=== PATIENT | male | born 1965 | race Caucasian/White ===

== ENCOUNTER 2021-01-20 14:09 | Emergency (ER) | payer MEDICARE, OTHER, SELFPAY ==
[2021-01-20 14:11] VITALS: BP 142/83; PULSE 57; RESP 18; TEMP 36.6; O2SAT 94; BMI 38.1
[2021-01-20 14:21] LABS: Glucose, Whole Blood 145 mg/dL (60-115)
--- NOTE | 2021-01-20 14:53 | ED.DIZZY ---
HPI - Dizziness General Chief Complaint: Dizziness Stated Complaint: FEELS OFF BALANCE W/NAUSEA Time Seen by Provider: 01/20/21 14:29 Source: patient and EMS Mode of arrival: EMS History of Present Illness HPI Narrative: 55-year-old male with past medical history of diabetes, hyperlipidemia, HTN, hydrocephalus, Meniere's disease, vertigo, recent otitis media on Ciprodex/Ciprofloxacin p.o. presenting to the ED complaining of positional room spinning dizziness since 11:45 a.m. with associated nausea and vomiting. Admits symptoms resolved/improved when lying flat. Denies taking medications [employer] other than Zofran given by EMS. Reports symptoms are similar to prior episodes of vertigo. Denies head injury/trauma, visual change/loss, headache, chest pain, shortness of breath, weakness, numbness, tingling. Admits took last dose of Cipro p.o. today MD elicited complaint: dizziness Related Data Previous Rx's Medication Instructions Recorded meclizine 25 mg PO TID PRN #14 tab 01/20/21 metoclopramide HCl [Reglan] 10 mg PO Q6H PRN #7 tab 01/20/21 Allergies Allergy/AdvReac Type Severity Reaction Status Date / Time latex Allergy Unknown Verified 01/20/21 14:23 meperidine [From Demerol] Allergy Unknown Verified 01/20/21 14:23 shellfish derived Allergy Unknown Verified 01/20/21 14:23 Review of Systems Review of Systems: Constitutional: No Fever, No Chills, No Fatigue, No Malaise ENT/Mouth: No Hearing loss, + Ear Pain, No Nasal Congestion, No Sinus Pain, No Swallowing Difficulty Eyes: No Eye Pain, No Swelling, No Vision Changes Cardiovascular: No Chest Pain, No SOB, No Edema Respiratory: No Cough, No Dyspnea Gastrointestinal: + Nausea, + Vomiting, No Diarrhea, No Abdominal pain Genitourinary: No Dysuria, No Hematuria, No Flank Pain Musculoskeletal: No joint pain, No Myalgias, No Joint Swelling Skin: No Skin Lesions, No rash Neuro: No Weakness, No Numbness, No Paresthesias, No Loss of Consciousness, + Dizziness, No Headache Yes all other systems are reviewed and are negative [facility] Past Medical History Attestation statement: The following information was validated with the patient. Medical History (Updated 06/03/21 @ 17:40 by ANGUS Lopez) Diabetes High cholesterol HTN (hypertension) Hydrocephalus Meniere disease Vertigo Social History Social History Alcohol intake: never Patient Tobacco Use Status: Never used Tobacco Use of substances other than those prescribed or required for medical reasons: No Advance Directives: Yes Advance Directives Information Provided: Yes Advance Directives on File: No Physical Exam Vital Signs: Vital Signs: Last Vital Signs Temp 97.8 F 01/20/21 14:11 Pulse 57 01/20/21 14:11 Resp 18 01/20/21 14:11 BP 142/83 H 01/20/21 14:11 Pulse Ox 94 01/20/21 14:11 Body Mass Index 38.1 Const: General: cooperative, healthy appearing and no acute distress Orientation/consciousness: patient oriented x3 Limitations: no limitations HENMT: Other: Evidence of cholesteatoma/cerumen impaction of right ear. No appreciable drainage Head: Yes normal to inspection and Yes atraumatic General nose exam: Normal external nose present Face and sinus: Yes normal facial exam Throat: Yes posterior oropharynx normal, Yes tonsils normal and Yes uvula midline Eyes: General: appearance normal, both eyes and all related structures Pupils: Equal, round and reactive pupils present EOM: EOMs intact bilaterally Neck: Neck: Yes normal visual inspection and Yes no meningeal signs Resp: Effort & Inspection: normal respiratory effort Auscultation: clear to auscultation bilaterally, no rales and no wheezes Cardio: Rate: regular rate Heart sounds: S1 normal heart sound present and S2 normal heart sound present GI: Inspection: Yes normal to inspection Palpation (GI): Soft to palpation, nontender, no guarding and not rigid Skin: Rashes: no rashes Wounds: no wounds Neuro: General: patient oriented x3, tone normal, moves all extremities, no meningeal signs, no focal motor deficits and CN's II-XI intact bilaterally Cranial nerves: Yes Equal, round and reactive pupils present and Yes Nystagmus present horizontal fast component to the right Gait exam (Neuro): Normal gait present Motor exam (neuro): 5/5 motor strength present throughout, Pronator motor function not present and no tremor noted Coordination: [id number] test normal Romberg Test: Negative Extrem: General: Yes normal to inspection Course Course Course Narrative: -right ear cleared with syringe irrigation and curette. Exam consistent with fungal infection. Patient with fungal ear drops at home, likely was not penetrating ear with blocked cerumen/cholesteatoma. Now that cleared instructed patient/ to continue using drops. They have follow-up on Sunday with ENT -1645--patient is ambulating in the ED with steady gait -1738--on re-evaluation patient reports symptomatic improvement, is resting comfortably. Lab results discussed with patient including worrisome signs and symptoms and strict return precautions. He has follow-up with ENT on Sunday. He verbalized understanding feel safe for discharge home Procedures Ear Wax Removal Right Ear: Cerumenolytic Used: 5-10% Sodium Bicarb solution Results: Re-examined: some cerumen remains Ear Canal Exam: atraumatic Patient Tolerated Procedure: well Complications: no problems Technique: ear canal irrigated and ear canal curetted Additional Comments: Right ear canal exam consistent with fungal infection. MDM - Dizziness MDM Narrative Medical decision making narrative: 55-year-old male with past medical history of diabetes, hyperlipidemia, HTN, hydrocephalus, Meniere's disease, vertigo, recent otitis media on Ciprodex/Ciprofloxacin p.o. presenting to the ED complaining of positional room spinning dizziness since 11:45 a.m. with associated nausea and vomiting. On exam VSS, NAD, nontoxic appearing, right-sided nystagmus noted with right-sided cholesteatoma/cerumen impaction. No focal neuro deficits. Concern for vertigo/BPPV vs cerumen impaction/infection causing symptoms. Lower concern for CVA/TIA or CVT. Unlikely ACS Plan: EKG, labs, symptomatic treatment/IVF, cerumen disimpaction with irrigation, re-evaluate Medical Records Attestation: I reviewed the patient's medical records. Lab Data Attestation: I reviewed the patient's lab results. Result diagrams: 01/20/21 15:35 01/20/21 15:35 Labs: Lab Results 01/20/21 01/20/21 01/20/21 Range/Units 14:17 15:35 15:35 WBC 10.5 (4.8-10.8) X10*3/uL RBC 5.33 (4.60-5.80) X10*6/uL Hgb 14.4 (14.0-18.0) g/dl Hct 44.2 (42-52) % MCV 82.9 (80-98) fL MCH 27.0 (27.0-33.0) pg MCHC 32.6 (31.0-36.0) g/dl RDW 12.9 (11.0-16.0) % Plt Count 328 (160-400) X10*3/uL MPV 9.1 L (9.4-12.4) fL Immature Gran % (Auto) 0.5 H (0.0-0.4) % Neut % (Auto) 84.1 H (45-73) % Lymph % (Auto) 10.8 L (20-40) % [place] % (Auto) 3.4 (2-11) % Eos % (Auto) 0.9 (0-4) % Baso % (Auto) 0.3 (0-2) % Lymph # (Auto) 1.1 L (1.2-4.9) X10*3/uL [place] # (Auto) 0.4 (0.1-1.2) X10*3/uL Eos # (Auto) 0.1 (0.0-0.4) X10*3/uL Baso # (Auto) 0.0 (0.0-0.2) X10*3/uL Abs Immat Gran (auto) 0.05 H (0.00-0.03) X10*3/uL Absolute Neuts (auto) 8.9 H (2.0-8.3) X10*3/uL Absolute Nucleated RBC 0.000 (0.0-0.012) X10*3/uL Nucleated RBC % (auto) 0.0 (0.0-0.2) /100WBC Sodium 139 (135-145) mmol/L Potassium 4.3 (3.3-5.1) mmol/L Chloride 100 (96-108) mmol/L Carbon Dioxide 30 H (22-29) mmol/L Anion Gap 13 (12-20) BUN 13 (9-16) mg/dL Creatinine 0.88 (0.5-1.4) mg/dL Estim Creat Clear Calc 142.2 Estimated GFR > 60 POC Glucose 145 H (60-115) mg/dL Random Glucose 141 H (60-115) mg/dL Calcium 9.2 (8.4-10.2) mg/dL Magnesium 1.9 (1.6-2.6) mg/dL ECG Data Attestation: I personally reviewed and interpreted this ECG as follows: ECG interpretation date: 01/20/21 ECG interpretation time: 16:30 Prior ECG tracings: not available for review Interpretation: EKG normal sinus rhythm with a rate of 72. QTC see 22. No STEMI, nonischemic. Discharge Plan Discharge Clinical Impression: Dizziness Patient Disposition: Home, Self-Care Instructions: Benign Paroxysmal Positional Vertigo (ED), Dizziness (ED) Additional Instructions: Your blood work was reassuring today in the emergency department Continue using previously prescribed ear drops at home Meclizine is for dizziness, take as needed Reglan as an antinausea medication take as needed new line make sure staying hydrated at home Makes you follow-up with the ENT specialist as scheduled on Sunday If her symptoms persist or worsen, become unbearable, your unable to eat or drink, ambulate, you developed headache, or weakness please return to the ED Prescriptions: New meclizine 25 mg tablet 25 mg PO TID PRN (Reason: dizziness) Qty: 14 RF: 0 metoclopramide HCl [Reglan] 10 mg tablet 10 mg PO Q6H PRN (Reason: nausea and vomiting) Qty: 7 RF: 0 Referrals: Donato Wilde [Physician] - 3 days
[2021-01-20] MEDS: 0.9 % Sodium Chloride 1,000 ML 999 ML IVCONT (15:16)
[2021-01-20] MEDS: diphenhydrAMINE HCL 50 MG/ML VIAL 12.5 MG IVPUSH (15:17)
[2021-01-20] MEDS: ondansetron HCL 4 MG/2 ML VIAL IVPUSH (15:17)
[2021-01-20] MEDS: Meclizine HCl 25 MG TABLET PO (15:17)
[2021-01-20 15:43] LABS: MANUAL DIFF FLAG NO
[2021-01-20 15:48] LABS: Basophils Percent Auto 0.3 % (0-2); Eosinophils Absolute Auto 0.1 X10*3/uL (0.0-0.4); Eosinophils Percent Auto 0.9 % (0-4); Hematocrit 44.2 % (42-52); Hemoglobin 14.4 g/dl (14.0-18.0); Imm Gran Abs Auto 0.05 X10*3/uL (0.00-0.03); Imm Gran Pct Auto 0.5 % (0.0-0.4); Lymphocytes Absolute Auto 1.1 X10*3/uL (1.2-4.9); Lymphocytes Percent Auto 10.8 % (20-40); Mean Corpuscular HGB Conc 32.6 g/dl (31.0-36.0); Mean Corpuscular Volume 82.9 fL (80-98); Mean Platelet Volume 9.1 fL (9.4-12.4); Monocytes Absolute Auto 0.4 X10*3/uL (0.1-1.2); Monocytes Percent Auto 3.4 % (2-11); Neutrophils Absolute Auto 8.9 X10*3/uL (2.0-8.3); Neutrophils Percent Auto 84.1 % (45-73); Platelet Count 328 X10*3/uL (160-400); Red Blood Count 5.33 X10*6/uL (4.60-5.80); Red Cell Distribution Width 12.9 % (11.0-16.0); White Blood Count 10.5 X10*3/uL (4.8-10.8)
--- NOTE | 2021-01-20 15:51 | ECG_ITS ---
Test Reason : DIZZYNESS Blood Pressure : / mmHG Vent. Rate : 072 BPM Atrial Rate : 072 BPM P-R Int : 150 ms QRS Dur : 104 ms QT Int : 450 ms P-R-T Axes : 061 -25 032 degrees QTc Int : 492 ms Normal sinus rhythm Prolonged QT Abnormal ECG No previous ECGs available Referred By: Temi Crowder Electronically Signed By:Declan Narvaez
[2021-01-20 17:29] LABS: Anion Gap 13 (12-20); Blood Urea Nitrogen 13 mg/dL (9-16); Calcium 9.2 mg/dL (8.4-10.2); Carbon Dioxide 30 mmol/L (22-29); Chloride 100 mmol/L (96-108); Creatinine Clr Calc Pharmacy 142.2; Estimated Glomerular Filt Rate > 60; Glucose Random 141 mg/dL (60-115); Magnesium 1.9 mg/dL (1.6-2.6); Potassium 4.3 mmol/L (3.3-5.1); Sodium 139 mmol/L (135-145)
== END 2021-01-20 18:12 | disposition home or self-care (01) ==
PROVIDERS: Physician Assistant; Emergency Provider Emergency Medicine; PCP Hospitalist
DX: R42 Dizziness and giddiness (principal); H61.21 Impacted cerumen, right ear; E11.9 Type 2 diabetes mellitus without complications; E78.5 Hyperlipidemia, unspecified; I10 Essential (primary) hypertension; H81.09 Meniere's disease, unspecified ear
CPT/HCPCS: 36415; 69210; 80048; 82947; 83735; 85025; 93005; 96361; 96374; 96375; 99284; J1200; J2405

== ENCOUNTER 2021-03-04 19:28 | Emergency (ER) | payer MEDICARE, OTHER, SELFPAY ==
--- NOTE | 2021-03-04 19:56 | ED_ITS ---
HPI - Ear Problem General Chief complaint: Ear Problems Stated complaint: ear infection Source: patient Mode of arrival: ambulatory Limitations: no limitations History of Present Illness HPI Narrative: 55-year-old male with past medical history of left-sided deafness, right-sided hard of hearing, presents with recurrent ear infections to the right side. Stated he was treated about a month ago for an ear infection however the pain has returned and has been present for about 2 weeks. He does not report any discharge or fevers, chills, chest pain or pressure, palpitations, shortness breath, or any other concerning symptoms. MD Complaint: ear pain Location: right ear Duration: constant Severity: moderate Relieving factors: nothing Exacerbating factors: chewing, position of head and palpation Discharge from ear: no Treatment prior to arrival: none Related Data Previous Rx's Medication Instructions Recorded meclizine 25 mg PO TID PRN #14 tab 01/20/21 metoclopramide HCl [Reglan] 10 mg PO Q6H PRN #7 tab 01/20/21 amoxicillin-pot clavulanate 1 tab PO Q12H 7 Days #14 tab 03/04/21 [Augmentin] Allergies Allergy/AdvReac Type Severity Reaction Status Date / Time latex Allergy Unknown Verified 03/04/21 20:12 meperidine [From Demerol] Allergy Unknown Verified 03/04/21 20:12 shellfish derived Allergy Unknown Verified 03/04/21 20:12 Review of Systems Review of Systems: Constitutional: No Fever, No Chills ENT/Mouth: Positive right Ear Pain, No Hoarseness, No sore throat Eyes: No Eye Pain, No Swelling, No Redness, No Foreign Body Cardiovascular: No Chest Pain, No SOB Respiratory: No Cough, No Dyspnea Gastrointestinal: No Nausea, No Vomiting, No Diarrhea, No abdominal Pain Genitourinary: No Dysuria, No Hematuria Musculoskeletal: No joint pain, No Myalgias, No Joint Swelling Skin: No Skin lacerations, No rash Neuro: No Weakness, No Numbness, No Paresthesias, No Loss of Consciousness, No Dizziness, No Headache Psych: No Anxiety/Panic, No Depression Heme/Lymph: no easy bruising, no Lymphadenopathy Endocrine: No Polyuria, No Polydipsia Yes all other systems are reviewed and are negative PMFSH Past Medical History Attestation statement: The following information was validated with the patient. Source: old records reviewed Medical History Diabetes High cholesterol HTN (hypertension) Hydrocephalus Meniere disease Vertigo Social History Social History Alcohol intake: never Patient Tobacco Use Status: Never used Tobacco Advance Directives: No Advance Directives Information Provided: No Physical Exam Vital Signs: Vital Signs: Last Vital Signs Temp 97.6 F 03/04/21 20:14 Pulse 83 03/04/21 20:14 Resp 18 03/04/21 20:14 BP 126/66 03/04/21 20:14 Pulse Ox 96 03/04/21 20:14 Body Mass Index 36.2 Appearance: Alert. Oriented X3. No acute distress. Afebrile. Eyes: Pupils equal, round and reactive to light. ENT: Pharynx normal. Left tympanic membrane intact, right has cerumen impaction, status post disimpaction of cerumen external auditory canal noted to be erythematous, tympanic membrane bulging with effusion. No mastoid tendern ess. Neck: Normal inspection. Neck supple. No nuchal rigidity. CVS: Normal heart rate and rhythm. Pulses normal. Respiratory: No respiratory distress. Breath sounds normal. Abdomen: Soft and nontender. Skin: Skin warm and dry. Normal skin color. Normal skin turgor. Extremities: No lower extremity edema. Neuro: No motor deficit. No sensory deficit. Course Course Course Narrative: 55-year-old male presents with right-sided ear pain. 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 Will treat with Augmentin. Patient verbalized understanding of and agrees to plan of care discharge home. MDM - Ear Differential Diagnosis Differential diagnosis: Likely otitis externa, otitis media, foreign body in ear and cerumen impaction Medical Records Attestation: I reviewed the patient's medical records. Discharge Plan Discharge Clinical Impression: Otitis media Qualifiers: Otitis media type: suppurative Chronicity: chronic Laterality: right Suppurative otitis media location: unspecified location Qualified Code(s): H66.3X1 - Other chronic suppurative otitis media, right ear Cerumen impaction Qualifiers: Laterality: right Qualified Code(s): H61.21 - Impacted cerumen, right ear Patient Disposition: Home, Self-Care Instructions: Ear Infection (ED) Additional Instructions: You were evaluated for right ear pain. We disimpacted large amounts of cerumen. It is noted that you have a bulging tympanic membrane consistent with otitis media. Please take Augmentin twice a day as directed for the next 10 days. Please follow-up with primary care physician and/or ENT as you do have recurrent ear infections. Thank you for choosing this emergency department for evaluation. Please follow-up with primary care physician as needed. Return to the emergency department for any new, concerning, or worsening symptoms. Prescriptions: New amoxicillin-pot clavulanate [Augmentin] 875-125 mg tablet 1 tab PO Q12H 7 Days Qty: 14 RF: 0 No Action meclizine 25 mg tablet 25 mg PO TID PRN (Reason: dizziness) Qty: 14 RF: 0 metoclopramide HCl [Reglan] 10 mg tablet 10 mg PO Q6H PRN (Reason: nausea and vomiting) Qty: 7 RF: 0
[2021-03-04 20:14] VITALS: BP 126/66; PULSE 83; RESP 18; TEMP 36.4; O2SAT 96; BMI 36.2
[2021-03-04] MEDS: Amoxicillin/Potassium Clav 875 MG TABLET PO (20:43)
== END 2021-03-04 20:51 | disposition home or self-care (01) ==
PROVIDERS: Emergency Provider Internal Medicine; PCP Nurse Practitioner Family
DX: H61.21 Impacted cerumen, right ear (principal); H66.3X1 Other chronic suppurative otitis media, right ear; I10 Essential (primary) hypertension; E11.9 Type 2 diabetes mellitus without complications
CPT/HCPCS: 69209; 99282; 99283

== ENCOUNTER 2021-06-02 10:16 | Outpatient (REF) | payer MEDICARE, OTHER, SELFPAY ==
[2021-06-02 11:50] LABS: Alanine Aminotransferase 20 U/L (0-40); Albumin Level 4.3 g/dL (3.5-5.0); Alkaline Phosphatase 113 U/L (39-117); Anion Gap 13 (12-20); Aspartate Amino Transferase 17 U/L (5-37); Bilirubin Total 0.5 mg/dL (0.0-1.0); Blood Urea Nitrogen 14 mg/dL (9-16); Calcium 8.8 mg/dL (8.4-10.2); Carbon Dioxide 27 mmol/L (22-29); Chloride 101 mmol/L (96-108); Cholesterol 176 mg/dL; Estimated Glomerular Filt Rate > 60; Glucose Fasting 132 mg/dL (60-99); HDL Cholesterol 34 mg/dL; LDL Cholesterol Calculated 101 mg/dl; Potassium 4.2 mmol/L (3.3-5.1); Sodium 137 mmol/L (135-145); Triglycerides 208 mg/dL
[2021-06-02 11:55] LABS: Estimated Average Glucose 160 mg/dL; Hemoglobin A1c % 7.2 %
[2021-06-02 12:11] LABS: Prostate Specific Antigen Scr 0.25 ng/mL (<0.05-4.0); TSH reflex Free T4 1.37 uIU/mL (0.32-4.0)
[2021-06-02 16:30] LABS: Appearance Urine CLEAR; Color Urine YELLOW; Glucose Urine UA NEG (NEG); Leukocyte Esterase Urine NEG (NEG); Nitrite Urine NEG (NEG); Specific Gravity - Urine 1.025 (1.005-1.025); Urine Blood NEG (NEG); Urine Ketones NEG (NEG); Urine Protein NEG (NEG-TRACE)
[2021-06-02 16:52] LABS: Creatinine Urine 121.78 mg/dL; Microalbum/Creatinine Ratio Ur 11.4 ug/mg cr
== END 2021-06-02 10:17 | disposition home or self-care (01) ==
LOC: HO.HMGCLDS 10:16
PROVIDERS: PCP Nurse Practitioner Family; Visit Provider Nurse Practitioner Family
DX: Z00.00 Encounter for general adult medical examination without abnormal findings (principal); Z12.5 Encounter for screening for malignant neoplasm of prostate; E11.9 Type 2 diabetes mellitus without complications
CPT/HCPCS: 36415; 80053; 80061; 81003; 82043; 83036; 84153; 84443

== ENCOUNTER 2021-11-18 12:57 | Outpatient (REF) | payer MEDICARE, MEDICAID, SELFPAY ==
--- NOTE | 2021-11-18 16:44 | MHC.AU.HAS ---
Hearing Aid Evaluation Date of Visit: 11/18/21 Historical Information: Description of Hearing: Moderate to severe sensorineural hearing loss from 250-8000 Hz bilaterally. Current personal amplification information, if applicable: CROS aid system, issued ~2013 @ [facility] Summary: Mr. Huggins was referred to our clinic to obtain hearing aids by ENT Dr. Ma. Dr. Ma provided medical clearance for binaural hearing aid use. He states that at his recent hearing test, hearing in the right ear decreased, and hearing in the left ear increased. He has also been diagnosed with Meniere's disease. Dr. Ma recommended binaural amplification instead of a CROS system that was previously used. Mr. Huggins notes that his previous CROS aids no longer work and his previous federal law clerk told him they were too old to repair. Discussed hearing aid options with Mr. Huggins and he is interested in rechargeable LUCI style hearing aids coupled with custom LUCI molds. Earmold impressions were taken without incident. Hearing Aid Prescription: Based on the individual?s shared listening needs, communication environments, dexterity, desire for connectivity, and personal preferences, the following prescription for amplification has been made: Right ear: Chemistry Tutor: Phonak Model: Audeo P70-R Battery Size: Rechargeable Color: P5 Payloader Machine Operator: Size 2 P Type of Mold: cShell Left ear: Left ear prescription to be same as Right Hearing Aid above: Chemistry Tutor: Phonak Model: Audeo P70-R Battery Size: Rechargeable Color: P5 Payloader Machine Operator: Size 2 P Type of Mold: cShell Plan of Care: Earmold Impressions Taken. Hearing Instrument Fitting to be scheduled when materials arrive. Comments: Hearing aids were ordered today. Primary Diagnosis: H90.3 Bilateral Sensorineural Hearing Loss= Signature: Provider: Canelo Aguilar, CCC-A
== END 2021-11-18 12:58 | disposition home or self-care (01) ==
LOC: HO.HAP 12:57
PROVIDERS: Visit Provider Nurse Practitioner Family
DX: Z46.1 Encounter for fitting and adjustment of hearing aid (principal); H90.3 Sensorineural hearing loss, bilateral
CPT/HCPCS: 92591; V5275

== ENCOUNTER 2021-12-15 10:30 | Outpatient (REF) | payer MEDICARE, MEDICAID, SELFPAY | END 2021-12-15 10:31 | disposition home or self-care (01) | LOC: HO.HAP 10:30 | PROVIDERS: Visit Provider Otolaryngology | DX: Z46.1 Encounter for fitting and adjustment of hearing aid (principal); H90.3 Sensorineural hearing loss, bilateral | CPT/HCPCS: V5011; V5020; V5160; V5261; V5264 ==

== ENCOUNTER 2021-12-29 09:59 | Outpatient (REF) | payer MEDICARE, MEDICAID, SELFPAY ==
--- NOTE | 2021-12-29 11:40 | MHC.AU.HFU ---
Hearing Instrument Follow-Up- Binaural Date of Visit: 12/29/21 Right Ear: Statistical Methods Professor: Phonak Model: Audeo P70-R Serial Number: [id number] Repair Warranty: 02/25/2025 Loss and Damage Warranty: 02/25/2025 Battery Size: Rechargeable Color: P5 Making Machine Operator: Size 2 P Type of Mold: cShell #[id number] warranty 03/28/2022 Type of Wax Guard: CeruStop Dispensed By: [facility] Date of Fittin12/15/2021 Left Ear: Statistical Methods Professor: Phonak Model: Audeo P70-R Serial Number: [id number] Repair Warranty: 02/25/2025 Loss and Damage Warranty: 02/25/2025 Battery Size: Rechargeable Color: P5 Making Machine Operator: Size 2 P Type of Mold: cShell #[id number] warranty 03/28/2022 Type of Wax Guard: CeruStop Dispensed By: [facility] Date of Fittin12/15/2021 Follow-Up Summary: Patient reports improved hearing with new aids and likes them. Television does not have to be as loud and not asking for speech to be repeated as much. The left aid stopped working 3 days ago even though the [employer] ana showed 88% battery life left. The ana also says the right aid battery uses more power overall. Discussed they reasons why the right aid may be using more power. Datalogging shows patient is connected to bluetooth approximately 40% of the time and 60% in [employer]. But I could not determine why the left aid would have stopped working. Patient reports he then charged both aids all night and has not experienced the problem again. Recommendations: Hearing instrument follow-up or maintenance as needed. Please contact our clinic with any questions or concerns. Recommendations (Other): Schedule appointment if battery problem continues and will send aid out for diagnostics. Diagnosis Code(s): Primary Diagnosis: H90.3 Bilateral Sensorineural Hearing Loss Signature:Provider: Karen Mills, [facility]
== END 2021-12-29 10:00 | disposition home or self-care (01) ==
LOC: HO.HAP 09:59
PROVIDERS: Visit Provider Nurse Practitioner Family
DX: Z13.89 Encounter for screening for other disorder (principal)

== ENCOUNTER 2022-02-17 09:32 | Outpatient (REF) | payer SELFPAY | END 2022-02-17 09:33 | disposition home or self-care (01) | LOC: HO.HAP 09:32 | PROVIDERS: Visit Provider Nurse Practitioner Family | DX: Z46.1 Encounter for fitting and adjustment of hearing aid (principal); H90.3 Sensorineural hearing loss, bilateral | CPT/HCPCS: V5267 ==

== ENCOUNTER 2022-05-05 13:00 | Outpatient (REF) | payer SELFPAY | END 2022-05-05 13:01 | disposition home or self-care (01) | LOC: HO.HAP 13:00 | PROVIDERS: Visit Provider Nurse Practitioner Family | DX: Z46.1 Encounter for fitting and adjustment of hearing aid (principal); H90.3 Sensorineural hearing loss, bilateral | CPT/HCPCS: V5267 ==

== ENCOUNTER 2022-05-20 09:19 | Emergency (ER) | payer MEDICARE, MEDICAID, SELFPAY ==
--- NOTE | ~2022-05-20 | XR_ITS ---
EXAMINATION: XR CHEST CLINICAL INFORMATION: Cough, dyspnea on exertion. COMPARISON: None TECHNIQUE: 2 views of the chest were obtained. FINDINGS: No significant abnormality is noted involving the heart, lungs, mediastinum, bony thorax or soft tissues. XR/XR chest 2V IMPRESSION: No acute cardiopulmonary process.
--- NOTE | ~2022-05-20 | CT_ITS ---
EXAMINATION: CT HEAD WITHOUT CONTRAST CLINICAL INFORMATION: follow up right sided ?subacute collection COMPARISON: 05/20/2022 TECHNIQUE: Contiguous axial imaging was performed from the skull base to vertex without intravenous administration of contrast. This CT examination was performed using dose optimization techniques as appropriate, variously including the following: *Automated exposure control *Adjustment of mA and/or kV according to patient size (this includes techniques or standardized protocols for targeted exams where dose is matched to indication/reason for exam; i.e. extremities or head) *Use of iterative reconstruction technique DLP: 1275 mGy-cm FINDINGS: As on the prior study, the 3 ventricular no peritoneal shunt catheter is again noted, terminating just to the right of septum pellucidum, the right lateral ventricle, and posteriorly in the expected region of the fourth ventricular obex. Lateral and third ventriculomegaly appears unchanged. Asymmetric enlargement of the right occipital horn and atrium is unchanged and likely related to underlying parenchymal volume loss. Fourth ventricle remains narrow. As seen on the prior study, there is a right hemispheric subdural collection measuring up to 5 mm in thickness, unchanged from prior. This again contains both intermediate and hypoattenuating components. The collection over the left convexity with peripheral calcification is unchanged and chronic in nature, measuring up to 1.3 cm in thickness. No new extra-axial collections or significant change in the presence of extra-axial collections. There is no evidence of acute intracranial hemorrhage or territorial infarction. No abnormal mass-effect or midline shift is seen. Kyle to white matter differentiation is well preserved. Moderate enlargement of the ventricles, sulci, and extra-axial CSF spaces is indicative of parenchymal volume loss. No significant periventricular hypoattenuation. The soft tissues and osseous structures are normal. The sinuses and mastoid air cells are clear. CT/CT head/brain wo IV con IMPRESSION: No acute intracranial pathology. Bilateral subdural collections are unchanged as compared to prior. The mixed attenuation right subdural collection remains 5 mm in thickness and could reflect subacute to chronic subdural blood products. The is thicker left subdural collection is unchanged. Unchanged positioning of the 3 ventriculoperitoneal shunt catheters with enlargement of the lateral and third ventricles.
--- NOTE | ~2022-05-20 | CT_ITS ---
EXAMINATION: CT head/brain wo IV con CLINICAL INFORMATION: Reason for Exam anisocoria, dizziness COMPARISON: None. TECHNIQUE: Contiguous axial imaging was performed from the skull base to vertex without intravenous contrast. Sagittal and coronal reformatted images were obtained. This CT examination was performed using dose optimization techniques as appropriate, variously including the following: * Automated exposure control * Adjustment of mA and/or kV according to patient size (this includes techniques or standardized protocols for targeted exams where dose is matched to indication/reason for exam; i.e. extremities or head) Use of iterative reconstruction technique DLP: 1198 mGy-cm FINDINGS: Three ventriculoperitoneal shunt catheters are in place including a right posterior parietal approach catheter which terminates in the midline to the right of the septum pellucidum, a right temporo-occipital catheter residing in the atrium of the right lateral ventricle, and posterior fossa catheter terminating just posterior to the expected region of the fourth ventricular obex. There is bilateral lateral and third ventriculomegaly with asymmetric enlargement of the right atrium and occipital horn. No periventricular hypoechoic attenuation to suggest transependymal flow of CSF or acute hydrocephalus. Mixed isodense and hypodense right hemispheric subdural collection measuring up to 5 mm in thickness. There is a hypodense subdural collection along the left cerebral convexity measuring up to 1.3 cm in maximal thickness with peripheral calcification, suggestive of a chronic collection. Minimal associated mass effect with these collections. There is no midline shift or downward herniation. There is no evidence of acute intracranial hemorrhage or territorial infarction. Kyle to white matter differentiation is well preserved. There is no abnormal attenuation within the brain parenchyma. 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 No acute osseous or soft tissue abnormality. The mastoid air cells and visualized portions of the paranasal sinuses are well aerated. CT/CT head/brain wo IV con IMPRESSION: 1. No acute intracranial hemorrhage or mass effect. 2. Three ventriculoperitoneal shunt catheters are in place with lateral and third ventriculomegaly with asymmetric enlargement of the right atrium and occipital horn. No evidence of acute hydrocephalus. 3. Thin bilateral cerebral convexity subdural collections, likely chronic on the left which is hypodense and peripherally calcified. Right-sided collection is mixed hypodense to isodense in attenuation which could reflect a component of subacute subdural blood products. 4. 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
--- NOTE | ~2022-05-20 | NM_ITS ---
EXAMINATION: PULMONARY PERFUSION STUDY CLINICAL INFORMATION: Shortness of breath and dyspnea on exertion. Elevated d-dimer. COMPARISON: Chest x-ray 05/20/2022. TECHNIQUE: Serial dual detector gamma scintillation camera images were obtained after intravenous injection of 4.0 mCi Tc-99m MAA and an 8-view perfusion study was performed. No ventilation images were acquired as per Perfusion-only modified PIOPED II protocol. FINDINGS: Perfusion images: No segmental perfusion defects are present. There is homogeneous/heterogeneous distribution of activity bilaterally. There are no segmental or anatomic appearing perfusion defects present. NM/NM pul perfusion IMPRESSION: Normal lung perfusion scan, with very low probability of pulmonary embolism as per modified Perfusion-only PIOPED II criteria. Note: Perfusion-only interpretation reduces both the specificity and the proportion of nondiagnostic readings compared to ventilation and perfusion using modified PIOPED II criteria Modified PIOPED II criteria: A large segmental defect covers >75% of a pulmonary segment. A moderate, subsegmental defect covers 25-75% of a pulmonary segment and is considered in the interpretative criteria equivalent to one-half of a large defect. A small, subsegmental defect covers <25% of a pulmonary segment. Pulmonary embolism present (high probability) * two or more large mismatched segmental perfusion defects or the arithmetic equivalent of moderate and/or large defects Nondiagnostic (low or intermediate probability) * all other findings not falling into the pulmonary embolism present or absent categories Pulmonary embolism absent (normal or very low probability) * no perfusion defects * nonsegmental perfusion defects (e.g. pleural effusion at the costophrenic angle, cardiomegaly, elevated hemidiaphragm, hilar enlargement, linear atelectasis), without other perfusion defects in either lung * perfusion defects smaller than corresponding chest radiographic opacity * one to three small subsegmental perfusion defects * two or more matched ventilation and perfusion defects with a regionally normal chest radiograph and some areas of normal perfusion elsewhere * solitary triple matched defect (matched ventilation and perfusion defect with corresponding chest radiographic opacity) in a single segment in the middle or upper lung zone * stripe sign (a stripe of perfusion peripheral to a defect, best seen on tangential view) * large pleural effusion (occupying one-third or more of the pleural cavity), without other perfusion defects in either lung
[2022-05-20 09:29] VITALS: BP 109/69; PULSE 101; RESP 18; TEMP 36.8; O2SAT 100; BMI 34.9
--- NOTE | 2022-05-20 10:12 | ECG_ITS ---
Test Reason : DIZZINESS Blood Pressure : / mmHG Vent. Rate : 086 BPM Atrial Rate : 086 BPM P-R Int : 152 ms QRS Dur : 106 ms QT Int : 394 ms P-R-T Axes : 057 -33 053 degrees QTc Int : 471 ms Normal sinus rhythm Left axis deviation Minimal voltage criteria for LVH, may be normal variant ( R in aVL ) Abnormal ECG When compared with ECG of 20-JAN-2021 16:30, No significant change was found Referred By: Nataly Villalba Electronically Signed By:XENIA DON
--- NOTE | 2022-05-20 10:22 | ED_ITS ---
HPI - General Adult General Chief complaint: General Medical <ANGUS Powell - Last Filed: 05/20/22 17:18> Stated complaint: ear pain cough <ANGUS Powell Last Filed: 05/20/22 17:18> Time Seen by Provider: 05/20/22 09:59 <ANGUS Powell Last Filed: 05/20/22 17:18> Source: patient <ANGUS Powell Last Filed: 05/20/22 17:18> Mode of arrival: ambulatory <ANGUS Powell Last Filed: 05/20/22 17:18> Limitations: no limitations <ANGUS Powell Last Filed: 05/20/22 17:18> History of Present Illness HPI narrative: 56 yo male with history of obesity, asthma, Meniere's disease, DM, HTN, HLD, hydrocephalus s/p [employer] REPRESENT[employer] shunt in the past who presents to the ER wtih productive cough, HYATT and left sided ear pain. He also reports lightheadedness that is different from his usual vertigo that has been going on since February. He states he recently had COVID-19 about a month ago. He has had a chronic cough since. He started bringing up brown phlegm recently. He reports acute on chronic dyspnea on exertion. He denies chest pain or SOB at rest. He states his cough is bothersome and does not improve with his asthma treatments. The last few days he has had left sided ear pain as well. Chronic hearing loss, no change, and no discharge. No nasal congestion and no sinus pressure. <ANGUS Powell - Last Filed: 05/20/22 17:18> MD complaint: cough, HYATT and ear pain <ANGUS Powell Last Filed: 05/20/22 17:18> Onset (ago): week(s) <ANGUS Powell Last Filed: 05/20/22 17:18> Location: head, face and chest <ANGUS Powell Last Filed: 05/20/22 17:18> Radiation: non-radiation <ANGUS Powell Last Filed: 05/20/22 17:18> Severity: moderate <ANGUS Powell Last Filed: 05/20/22 17:18> Pain Consistency: intermittent <ANGUS Powell Last Filed: 05/20/22 17:18> Relieving factors: rest <ANGUS Powell Last Filed: 05/20/22 17:18> Exacerbating factors: movement <ANGUS Powell Last Filed: 05/20/22 17:18> Associated symptoms: cough, shortness of breath and other (dizziness) <ANGUS Powell Last Filed: 05/20/22 17:18> Treatments prior to arrival: none <ANGUS Powell Last Filed: 05/20/22 17:18> Related Data Home medications: Home Medications Medication Instructions Recorded Confirmed aspirin 81 mg tablet,delayed 81 mg PO DAILY 05/23/21 12/01/21 release (Adult Aspirin Regimen) bupropion HCl 300 mg 24 hr tablet, 300 mg PO QAM 05/23/21 12/01/21 extended release ondansetron 4 mg disintegrating 4 mg PO Q6H PRN 05/23/21 12/01/21 tablet Previous Rx's Medication Instructions Recorded metoclopramide HCl 10 mg tablet 10 mg PO Q6H PRN nausea and 01/20/21 (Reglan) vomiting #7 tabs albuterol sulfate 90 mcg/actuation 2 puff inhalation Q6H PRN 05/23/21 aerosol inhaler shortness of breath or wheezing 30 days #8.5 grams blood sugar diagnostic (OneTouch #100 ea 10/17/21 Verio test strips) meclizine 25 mg tablet 25 mg PO TID PRN dizziness #14 tabs 03/29/22 nirmatrelvir 300 mg (150 mg See Rx Instructions PO .COMPLEX 5 04/18/22 x2)-ritonavir 100 mg tablet,dose days #30 ea pack(EUA) (Paxlovid) OneTouch Delica Lancets 33 gauge #100 ea 05/18/22 (lancets) finasteride 5 mg tablet 5 mg PO DAILY 90 days #90 tabs 05/18/22 lisinopril 20 1 tab PO DAILY 90 days #90 tabs 05/18/22 mg-hydrochlorothiazide 25 mg tablet metformin 750 mg tablet,extended 750 mg PO DAILY 90 days #90 tabs 05/18/22 release 24 hr rosuvastatin 20 mg tablet (Crestor) 20 mg PO DAILY 90 days #90 tabs 05/18/22 <ANGUS Powell - Last Filed: 05/20/22 17:18> Allergies/adverse reactions: Allergies Allergy/AdvReac Type Severity Reaction Status Date / Time Iodinated Contrast Media Allergy Unknown Verified 05/20/22 12:13 [IV Contrast Dye] latex Allergy Unknown Verified 12/01/21 14:35 meperidine [From Demerol] Allergy Unknown Verified 12/01/21 14:35 shellfish derived Allergy Unknown Verified 12/01/21 14:35 <ANGUS Powell - Last Filed: 05/20/22 17:18> Review of Systems Review of Systems: Constitutional: No Fever, No Chills ENT/Mouth: No sore throat, No Rhinorrhea, No Swallowing Difficulty, +Otalgia, +Hearing loss Eyes: No Eye Pain, No Swelling, No Redness, No vision changes Cardiovascular: No Chest Pain, No SOB, No Orthopnea, No Edema Respiratory: + Cough, +Sputum, No Wheezing, + dyspnea Gastrointestinal: No Nausea, No Vomiting, No Diarrhea, No abdominal Pain Genitourinary: No Dysuria, No Urinary Frequency, No Hematuria Musculoskeletal: No joint pain, No Myalgias Skin: No Skin Lesions, No rash Neuro: No Weakness, No Numbness, +Dizziness, No Headache Psych: + Anxiety/Panic, No Depression Heme/Lymph: No Bruising, No Lymphadenopathy Endocrine: No Polyuria, No Polydipsia <ANGUS Powell - Last Filed: 05/20/22 17:18> [facility] Past Medical History Medical History: Medical History Diabetes High cholesterol HTN (hypertension) Hydrocephalus Meniere disease Vertigo <ANGUS Powell - Last Filed: 05/20/22 17:18> Social History Social History: Social History Housing: Apartment Alcohol intake: never Patient Tobacco Use Status: Former Tobacco user Years Smoked: 31 years ago e-Cigarette/Vaping Use: Never Used Second Hand Smoke Exposure: No Advance Directives: No Advance Directives Information Provided: No service: No Current occupational status: retired and disabled Cognitive needs: No Hearing needs: No Vision needs: No <ANGUS Powell Last Filed: 05/20/22 17:18> Physical Exam ED Vital Signs: Vital Signs - 24 hr 05/20/22 09:29 05/20/22 13:52 05/20/22 13:56 Temperature 98.2 F Pulse Rate 101 H 82 95 Respiratory Rate 18 12 Blood Pressure 109/69 115/72 115/75 Pulse Oximetry 100 Oxygen Delivery Method Room Air 05/20/22 13:53 05/20/22 13:54 05/20/22 20:00 Temperature Pulse Rate 83 95 89 Respiratory Rate Blood Pressure 124/74 115/75 112/72 Pulse Oximetry 94 Oxygen Delivery Method Room Air BMI result Body Mass Index 34.9 <ANGUS Powell Last Filed: 05/20/22 17:18> Vital Signs - 24 hr 05/20/22 09:29 05/20/22 13:52 05/20/22 13:56 Temperature 98.2 F Pulse Rate 101 H 82 95 Respiratory Rate 18 12 Blood Pressure 109/69 115/72 115/75 Pulse Oximetry 100 Oxygen Delivery Method Room Air 05/20/22 13:53 05/20/22 13:54 05/20/22 20:00 Temperature Pulse Rate 83 95 89 Respiratory Rate Blood Pressure 124/74 115/75 112/72 Pulse Oximetry 94 Oxygen Delivery Method Room Air BMI result Body Mass Index 34.9 <ANGUS Carmona Last Filed: 05/20/22 21:19> Appearance: Alert. Oriented X3. No acute distress. Eyes: Pupils unequal, 4mm on the left and 3mm on the right, round and reactive to light. ENT: Pharynx normal. Normal TMs bilaterally Neck: Normal inspection. Neck supple. CVS: Normal heart rate and rhythm. Pulses normal. Respiratory: No respiratory distress. Breath sounds normal. Abdomen: Soft and nontender. +BS x4 Skin: Skin warm and dry. Normal skin color. Normal skin turgor. No rashes. Extremities: No lower extremity edema. Neuro: Oriented X 3. No motor deficit. No sensory deficit. Steady gait. Normal speech and cognition. Nonfocal. <ANGUS Powell Last Filed: 05/20/22 17:18> Course Course Course Narrative: 56 y/o male with history of hydrocephalus s/p ARB[employer]IST REPRESENTATIVE shunt, recent COVID, DM, obesity, asthma who is presenting to the ER with productive cough, acute on chronic dizziness and left sided ear pain. No ear infection on exam. VSS. Anisocoria noted on examination, otherwise nonfocal on exam. He is reporting brown phelgm but denies hemoptysis. Most likely chronic bronchitis. Given recent COVID dx and worsening HYATT will also need to r/o PE. He is oxygenating well but HR 101 on arrival. <ANGUS Powell - Last Filed: 05/20/22 17:18> Reevaluation(s) Reevaluation #1: DDIMER elevated. CTA ordered but he reports a history of IV contrast dye allergy, it was 20+ years ago but sounds like an anaphylactic reaction. Will get V/Q scan instead. CT head showing no acute ICH or mass effect. There are 3 ARBORIST REPRESENTATIVE shunt catheter is in place with ventriculomegaly, no evidence of acute hydrocephalus. There is also thin bilateral cerebral convexity subdural collections likely chronic on the left which is hypodense and a peripherally calcified. The right-sided collection is makes hypodense to isodense in attenuation which could reflect a component of subacute subdural products. The patient denies any recent head trauma. He is not on anticoagulation. He denies any headaches. Most likely a chronic finding. Patient has not seen a neurosurgeon in 3+ years because his . Case was discussed with Dr. Cheung - recommending repeat CT scan in 6 hours to ensure this is chronic. Patient agrees with plan. Will continue to monitor. Patient's neuro examination has remain unchanged, AAO X3, anisocoria present but otherwise nonfocal. <ANGUS Powell - Last Filed: 05/20/22 17:18> Reevaluation #2: VQ scan with very low probability of PE. CT scan pending for 6:30pm. Will sign out to night provider who will f/u CT scan results. If stable will plan to d/c with treatment for bronchitis. <ANGUS Powell - Last Filed: 05/20/22 17:18> Time: 21:18 <ANGUS Carmona - Last Filed: 05/20/22 21:19> Reevaluation #3: CT scan unchanged from previous. Results discussed with the patient. Patient again encouraged to follow up with neurosurgery at [facility]. <ANGUS Carmona - Last Filed: 05/20/22 21:19> Medical Decision Making Lab Data Result diagrams: : 05/20/22 10:57 05/20/22 10:57 <ANGUS Powell - Last Filed: 05/20/22 17:18> Labs: Lab Results 05/20/22 05/20/22 05/20/22 Range/Units 10:57 10:57 10:57 WBC 9.1 (4.8-10.8) X10*3/uL RBC 5.48 (4.60-5.80) X10*6/uL Hgb 14.4 (14.0-18.0) g/dl Hct 43.3 (42.0-52.0) % MCV 79.0 L (80.0-98.0) fL MCH 26.3 L (27.0-33.0) pg MCHC 33.3 (31.0-36.0) g/dl RDW 13.3 (11.0-16.0) % Plt Count 347 (160-400) X10*3/uL MPV 8.6 L (9.4-12.4) fL Immature Gran % (Auto) 0.4 (0.0-0.4) % Neut % (Auto) 69.9 (45-73) % Lymph % (Auto) 22.5 (20-40) % [place] % (Auto) 5.6 (2-11) % Eos % (Auto) 1.2 (0-4) % Baso % (Auto) 0.4 (0-2) % Lymph # (Auto) 2.1 (1.2-4.9) X10*3/uL [place] # (Auto) 0.5 (0.1-1.2) X10*3/uL Eos # (Auto) 0.1 (0.0-0.4) X10*3/uL Baso # (Auto) 0.0 (0.0-0.2) X10*3/uL Abs Immat Gran (auto) 0.04 H (0.00-0.03) X10*3/uL Absolute Neuts (auto) 6.4 (2.0-8.3) x10*3/uL Absolute Nucleated RBC 0.000 (0.0-0.012) X10*3/uL Nucleated RBC % (auto) 0.0 (0.0-0.2) /100WBC D-Dimer High Sensitivty NG/ML Sodium 132 L (135-145) mmol/L Potassium 4.2 (3.3-5.1) mmol/L Chloride 94 L (96-108) mmol/L Carbon Dioxide 25 (22-29) mmol/L Anion Gap 17 (12-20) BUN 15 (9-16) mg/dL Creatinine 1.07 (0.5-1.4) mg/dL Estim Creat Clear Calc 110.6 Estimated GFR > 60 POC Glucose (60-115) mg/dL Random Glucose 180 H (60-115) mg/dL Calcium 9.4 D (8.4-10.2) mg/dL Magnesium 1.8 (1.6-2.6) mg/dL Total Bilirubin 0.9 (0.0-1.0) mg/dL Direct Bilirubin 0.3 (0.0-0.5) mg/dL AST 19 (5-37) U/L ALT 23 (0-40) U/L Alkaline Phosphatase 136 H D (39-117) U/L Troponin I High Sens < 3.5 (<3.5-35.0) ng/L B-Natriuretic Peptide < 10 (<100) pg/mL Total Protein 7.2 (6.5-8.0) g/dL Albumin 4.4 (3.5-5.0) g/dL Influenza Type A (FIDE) Influenza Type B (FIDE) Influenza A & B Note 05/20/22 05/20/22 05/20/22 Range/Units 10:57 11:31 11:38 WBC (4.8-10.8) X10*3/uL RBC (4.60-5.80) X10*6/uL Hgb (14.0-18.0) g/dl Hct (42.0-52.0) % MCV (80.0-98.0) fL MCH (27.0-33.0) pg MCHC (31.0-36.0) g/dl RDW (11.0-16.0) % Plt Count (160-400) X10*3/uL MPV (9.4-12.4) fL Immature Gran % (Auto) (0.0-0.4) % Neut % (Auto) (45-73) % Lymph % (Auto) (20-40) % [place] % (Auto) (2-11) % Eos % (Auto) (0-4) % Baso % (Auto) (0-2) % Lymph # (Auto) (1.2-4.9) X10*3/uL [place] # (Auto) (0.1-1.2) X10*3/uL Eos # (Auto) (0.0-0.4) X10*3/uL Baso # (Auto) (0.0-0.2) X10*3/uL Abs Immat Gran (auto) (0.00-0.03) X10*3/uL Absolute Neuts (auto) (2.0-8.3) x10*3/uL Absolute Nucleated RBC (0.0-0.012) X10*3/uL Nucleated RBC % (auto) (0.0-0.2) /100WBC D-Dimer High Sensitivty 386 NG/ML Sodium (135-145) mmol/L Potassium (3.3-5.1) mmol/L Chloride (96-108) mmol/L Carbon Dioxide (22-29) mmol/L Anion Gap (12-20) BUN (9-16) mg/dL Creatinine (0.5-1.4) mg/dL Estim Creat Clear Calc Estimated GFR POC Glucose (60-115) mg/dL Random Glucose (60-115) mg/dL Calcium (8.4-10.2) mg/dL Magnesium (1.6-2.6) mg/dL Total Bilirubin (0.0-1.0) mg/dL Direct Bilirubin (0.0-0.5) mg/dL AST (5-37) U/L ALT (0-40) U/L Alkaline Phosphatase (39-117) U/L Troponin I High Sens (<3.5-35.0) ng/L B-Natriuretic Peptide (<100) pg/mL Total Protein (6.5-8.0) g/dL Albumin (3.5-5.0) g/dL Influenza Type A (FIDE) Cancelled Negative Influenza Type B (FIDE) Cancelled Negative Influenza A & B Note Cancelled See Note 05/20/22 Range/Units 13:44 WBC (4.8-10.8) X10*3/uL RBC (4.60-5.80) X10*6/uL Hgb (14.0-18.0) g/dl Hct (42.0-52.0) % MCV (80.0-98.0) fL MCH (27.0-33.0) pg MCHC (31.0-36.0) g/dl RDW (11.0-16.0) % Plt Count (160-400) X10*3/uL MPV (9.4-12.4) fL Immature Gran % (Auto) (0.0-0.4) % Neut % (Auto) (45-73) % Lymph % (Auto) (20-40) % [place] % (Auto) (2-11) % Eos % (Auto) (0-4) % Baso % (Auto) (0-2) % Lymph # (Auto) (1.2-4.9) X10*3/uL [place] # (Auto) (0.1-1.2) X10*3/uL Eos # (Auto) (0.0-0.4) X10*3/uL Baso # (Auto) (0.0-0.2) X10*3/uL Abs Immat Gran (auto) (0.00-0.03) X10*3/uL Absolute Neuts (auto) (2.0-8.3) x10*3/uL Absolute Nucleated RBC (0.0-0.012) X10*3/uL Nucleated RBC % (auto) (0.0-0.2) /100WBC D-Dimer High Sensitivty NG/ML Sodium (135-145) mmol/L Potassium (3.3-5.1) mmol/L Chloride (96-108) mmol/L Carbon Dioxide (22-29) mmol/L Anion Gap (12-20) BUN (9-16) mg/dL Creatinine (0.5-1.4) mg/dL Estim Creat Clear Calc Estimated GFR POC Glucose 129 H (60-115) mg/dL Random Glucose (60-115) mg/dL Calcium (8.4-10.2) mg/dL Magnesium (1.6-2.6) mg/dL Total Bilirubin (0.0-1.0) mg/dL Direct Bilirubin (0.0-0.5) mg/dL AST (5-37) U/L ALT (0-40) U/L Alkaline Phosphatase (39-117) U/L Troponin I High Sens (<3.5-35.0) ng/L B-Natriuretic Peptide (<100) pg/mL Total Protein (6.5-8.0) g/dL Albumin (3.5-5.0) g/dL Influenza Type A (FIDE) Influenza Type B (FIDE) Influenza A & B Note <ANGUS Powell - Last Filed: 05/20/22 17:18> Lab Results 05/20/22 05/20/22 05/20/22 Range/Units 10:57 10:57 10:57 WBC 9.1 (4.8-10.8) X10*3/uL RBC 5.48 (4.60-5.80) X10*6/uL Hgb 14.4 (14.0-18.0) g/dl Hct 43.3 (42.0-52.0) % MCV 79.0 L (80.0-98.0) fL MCH 26.3 L (27.0-33.0) pg MCHC 33.3 (31.0-36.0) g/dl RDW 13.3 (11.0-16.0) % Plt Count 347 (160-400) X10*3/uL MPV 8.6 L (9.4-12.4) fL Immature Gran % (Auto) 0.4 (0.0-0.4) % Neut % (Auto) 69.9 (45-73) % Lymph % (Auto) 22.5 (20-40) % [place] % (Auto) 5.6 (2-11) % Eos % (Auto) 1.2 (0-4) % Baso % (Auto) 0.4 (0-2) % Lymph # (Auto) 2.1 (1.2-4.9) X10*3/uL [place] # (Auto) 0.5 (0.1-1.2) X10*3/uL Eos # (Auto) 0.1 (0.0-0.4) X10*3/uL Baso # (Auto) 0.0 (0.0-0.2) X10*3/uL Abs Immat Gran (auto) 0.04 H (0.00-0.03) X10*3/uL Absolute Neuts (auto) 6.4 (2.0-8.3) x10*3/uL Absolute Nucleated RBC 0.000 (0.0-0.012) X10*3/uL Nucleated RBC % (auto) 0.0 (0.0-0.2) /100WBC D-Dimer High Sensitivty NG/ML Sodium 132 L (135-145) mmol/L Potassium 4.2 (3.3-5.1) mmol/L Chloride 94 L (96-108) mmol/L Carbon Dioxide 25 (22-29) mmol/L Anion Gap 17 (12-20) BUN 15 (9-16) mg/dL Creatinine 1.07 (0.5-1.4) mg/dL Estim Creat Clear Calc 110.6 Estimated GFR > 60 POC Glucose (60-115) mg/dL Random Glucose 180 H (60-115) mg/dL Calcium 9.4 D (8.4-10.2) mg/dL Magnesium 1.8 (1.6-2.6) mg/dL Total Bilirubin 0.9 (0.0-1.0) mg/dL Direct Bilirubin 0.3 (0.0-0.5) mg/dL AST 19 (5-37) U/L ALT 23 (0-40) U/L Alkaline Phosphatase 136 H D (39-117) U/L Troponin I High Sens < 3.5 (<3.5-35.0) ng/L B-Natriuretic Peptide < 10 (<100) pg/mL Total Protein 7.2 (6.5-8.0) g/dL Albumin 4.4 (3.5-5.0) g/dL Influenza Type A (FIDE) Influenza Type B (FIDE) Influenza A & B Note 05/20/22 05/20/22 05/20/22 Range/Units 10:57 11:31 11:38 WBC (4.8-10.8) X10*3/uL RBC (4.60-5.80) X10*6/uL Hgb (14.0-18.0) g/dl Hct (42.0-52.0) % MCV (80.0-98.0) fL MCH (27.0-33.0) pg MCHC (31.0-36.0) g/dl RDW (11.0-16.0) % Plt Count (160-400) X10*3/uL MPV (9.4-12.4) fL Immature Gran % (Auto) (0.0-0.4) % Neut % (Auto) (45-73) % Lymph % (Auto) (20-40) % [place] % (Auto) (2-11) % Eos % (Auto) (0-4) % Baso % (Auto) (0-2) % Lymph # (Auto) (1.2-4.9) X10*3/uL [place] # (Auto) (0.1-1.2) X10*3/uL Eos # (Auto) (0.0-0.4) X10*3/uL Baso # (Auto) (0.0-0.2) X10*3/uL Abs Immat Gran (auto) (0.00-0.03) X10*3/uL Absolute Neuts (auto) (2.0-8.3) x10*3/uL Absolute Nucleated RBC (0.0-0.012) X10*3/uL Nucleated RBC % (auto) (0.0-0.2) /100WBC D-Dimer High Sensitivty 386 NG/ML Sodium (135-145) mmol/L Potassium (3.3-5.1) mmol/L Chloride (96-108) mmol/L Carbon Dioxide (22-29) mmol/L Anion Gap (12-20) BUN (9-16) mg/dL Creatinine (0.5-1.4) mg/dL Estim Creat Clear Calc Estimated GFR POC Glucose (60-115) mg/dL Random Glucose (60-115) mg/dL Calcium (8.4-10.2) mg/dL Magnesium (1.6-2.6) mg/dL Total Bilirubin (0.0-1.0) mg/dL Direct Bilirubin (0.0-0.5) mg/dL AST (5-37) U/L ALT (0-40) U/L Alkaline Phosphatase (39-117) U/L Troponin I High Sens (<3.5-35.0) ng/L B-Natriuretic Peptide (<100) pg/mL Total Protein (6.5-8.0) g/dL Albumin (3.5-5.0) g/dL Influenza Type A (FIDE) Cancelled Negative Influenza Type B (FIDE) Cancelled Negative Influenza A & B Note Cancelled See Note 05/20/22 Range/Units 13:44 WBC (4.8-10.8) X10*3/uL RBC (4.60-5.80) X10*6/uL Hgb (14.0-18.0) g/dl Hct (42.0-52.0) % MCV (80.0-98.0) fL MCH (27.0-33.0) pg MCHC (31.0-36.0) g/dl RDW (11.0-16.0) % Plt Count (160-400) X10*3/uL MPV (9.4-12.4) fL Immature Gran % (Auto) (0.0-0.4) % Neut % (Auto) (45-73) % Lymph % (Auto) (20-40) % [place] % (Auto) (2-11) % Eos % (Auto) (0-4) % Baso % (Auto) (0-2) % Lymph # (Auto) (1.2-4.9) X10*3/uL [place] # (Auto) (0.1-1.2) X10*3/uL Eos # (Auto) (0.0-0.4) X10*3/uL Baso # (Auto) (0.0-0.2) X10*3/uL Abs Immat Gran (auto) (0.00-0.03) X10*3/uL Absolute Neuts (auto) (2.0-8.3) x10*3/uL Absolute Nucleated RBC (0.0-0.012) X10*3/uL Nucleated RBC % (auto) (0.0-0.2) /100WBC D-Dimer High Sensitivty NG/ML Sodium (135-145) mmol/L Potassium (3.3-5.1) mmol/L Chloride (96-108) mmol/L Carbon Dioxide (22-29) mmol/L Anion Gap (12-20) BUN (9-16) mg/dL Creatinine (0.5-1.4) mg/dL Estim Creat Clear Calc Estimated GFR POC Glucose 129 H (60-115) mg/dL Random Glucose (60-115) mg/dL Calcium (8.4-10.2) mg/dL Magnesium (1.6-2.6) mg/dL Total Bilirubin (0.0-1.0) mg/dL Direct Bilirubin (0.0-0.5) mg/dL AST (5-37) U/L ALT (0-40) U/L Alkaline Phosphatase (39-117) U/L Troponin I High Sens (<3.5-35.0) ng/L B-Natriuretic Peptide (<100) pg/mL Total Protein (6.5-8.0) g/dL Albumin (3.5-5.0) g/dL Influenza Type A (FIDE) Influenza Type B (FIDE) Influenza A & B Note <ANGUS Carmona - Last Filed: 05/20/22 21:19> ECG Data Attestation: I personally reviewed and interpreted this ECG as follows: <ANGUS Powell - Last Filed: 05/20/22 17:18> Prior ECG tracings: available for review <ANGUS Powell Last Filed: 05/20/22 17:18> Interpretation: normal sinus rhythm, HR 86 bpm, left axis deviation, no ST segment elevations or depressions, no significant change from 2020 <ANGUS Powell Last Filed: 05/20/22 17:18> Discharge Plan Discharge Clinical Impression: Chronic bronchitis, Dizziness <ANGUS Powell Last Filed: 05/20/22 17:18> Patient Disposition: Home, Self-Care <ANGUS Powell Last Filed: 05/20/22 17:18> Instructions: Chronic Bronchitis (ED), Dizziness (ED) <ANGUS Powell - Last Filed: 05/20/22 17:18> Additional Instructions: Your chest x-ray today was normal and your nuclear medicine scan did not show any evidence of blood clots in your lungs. Recommend taking the prescribed medications for bronchitis. Follow up with your doctor next week. Also recommend following back up with [facility] for evaluation of your ARBORIST REPRESENTATIVE shunts and chronic CT scan findings that should be monitored. <ANGUS Powell - Last Filed: 05/20/22 17:18> Prescriptions: No Action (DME) OneTouch Verio test strips Strip See Rx Instructions .Route Qty: 100 3RF Rx Instructions: test BS daily meclizine 25 mg tablet 25 mg PO TID PRN (Reason: dizziness) Qty: 14 0RF Paxlovid (EUA) 300 mg (150 mg x 2)-100 mg tablets,dose pack See Rx Instructions PO .COMPLEX 5 Days Qty: 30 0RF Rx Instructions: take TWO 150 mg tablets of nirmatrelvir with ONE 100 mg tablet of ritonavir twice daily for 5 days PO rosuvastatin [Crestor] 20 mg tablet 20 mg PO DAILY 90 Days Qty: 90 0RF lisinopril-hydrochlorothiazide 20-25 mg tablet 1 tab PO DAILY 90 Days Qty: 90 0RF finasteride 5 mg tablet 5 mg PO DAILY 90 Days Qty: 90 0RF (DME) lancets [OneTouch Delica Lancets] 33 gauge misc See Rx Instructions .Route Qty: 100 0RF Rx Instructions: As directed metformin 750 mg tablet extended release 24 hr 750 mg PO DAILY 90 Days Qty: 90 0RF metoclopramide HCl [Reglan] 10 mg tablet 10 mg PO Q6H PRN (Reason: nausea and vomiting) Qty: 7 0RF bupropion HCl 300 mg tablet extended release 24 hr 300 mg PO QAM aspirin [Adult Aspirin Regimen] 81 mg tablet,delayed release (DR/EC) 81 mg PO DAILY ondansetron 4 mg tablet,disintegrating 4 mg PO Q6H PRN albuterol sulfate 90 mcg/actuation HFA aerosol inhaler 2 puff inhalation Q6H PRN (Reason: shortness of breath or wheezing) 30 Days Qty: 8.5 5RF <ANGUS Powell - Last Filed: 05/20/22 17:18> Referrals: Blank Fan PA [Physician Seismograph Observer] - (Hydrocephalus status post ARB[employer]IST REPRESENTATIVE shunt x3, chronic dizziness) <ANGUS Powell - Last Filed: 05/20/22 17:18> Interventions: ED Discharge Assessment Last Done: 05/20/22 21:40 <ANGUS Powell - Last Filed: 05/20/22 17:18> Discharge Date/Time: 05/20/22 21:35 <ANGUS Powell - Last Filed: 05/20/22 17:18> Print Language: Maltese <ANGUS Powell - Last Filed: 05/20/22 17:18>
[2022-05-20 11:02] LABS: MANUAL DIFF FLAG NO
[2022-05-20 11:03] LABS: Basophils Percent Auto 0.4 % (0-2); Eosinophils Absolute Auto 0.1 X10*3/uL (0.0-0.4); Eosinophils Percent Auto 1.2 % (0-4); Hematocrit 43.3 % (42.0-52.0); Hemoglobin 14.4 g/dl (14.0-18.0); Imm Gran Abs Auto 0.04 X10*3/uL (0.00-0.03); Imm Gran Pct Auto 0.4 % (0.0-0.4); Lymphocytes Absolute Auto 2.1 X10*3/uL (1.2-4.9); Lymphocytes Percent Auto 22.5 % (20-40); Mean Corpuscular HGB Conc 33.3 g/dl (31.0-36.0); Mean Corpuscular Hemoglobin 26.3 pg (27.0-33.0); Mean Platelet Volume 8.6 fL (9.4-12.4); Monocytes Absolute Auto 0.5 X10*3/uL (0.1-1.2); Monocytes Percent Auto 5.6 % (2-11); Neutrophils Absolute Auto 6.4 x10*3/uL (2.0-8.3); Neutrophils Percent Auto 69.9 % (45-73); Platelet Count 347 X10*3/uL (160-400); Red Blood Count 5.48 X10*6/uL (4.60-5.80); Red Cell Distribution Width 13.3 % (11.0-16.0); White Blood Count 9.1 X10*3/uL (4.8-10.8)
[2022-05-20 11:33] LABS: Alanine Aminotransferase 23 U/L (0-40); Albumin Level 4.4 g/dL (3.5-5.0); Alkaline Phosphatase 136 U/L (39-117); Anion Gap 17 (12-20); Aspartate Amino Transferase 19 U/L (5-37); Bilirubin Direct 0.3 mg/dL (0.0-0.5); Bilirubin Total 0.9 mg/dL (0.0-1.0); Blood Urea Nitrogen 15 mg/dL (9-16); Calcium 9.4 mg/dL (8.4-10.2); Carbon Dioxide 25 mmol/L (22-29); Chloride 94 mmol/L (96-108); Creatinine Clr Calc Pharmacy 110.6; Estimated Glomerular Filt Rate > 60; Glucose Random 180 mg/dL (60-115); Magnesium 1.8 mg/dL (1.6-2.6); Potassium 4.2 mmol/L (3.3-5.1); Sodium 132 mmol/L (135-145); Total Protein 7.2 g/dL (6.5-8.0)
[2022-05-20 11:37] LABS: B Type Natriuretic Peptide < 10 pg/mL (<100); Troponin-I High Sensitivity < 3.5 ng/L (<3.5-35.0)
[2022-05-20 11:54] LABS: D Dimer High Sensitivity 386 NG/ML
[2022-05-20 12:02] LABS: IDNOW Serial# 9DB6401D; Influenza A Negative (Negative); Influenza B2 Negative (Negative)
[2022-05-20 13:49] LABS: Glucose, Whole Blood 129 mg/dL (60-115)
[2022-05-20 13:52] VITALS: BP 115/72; PULSE 82
[2022-05-20 13:53] VITALS: BP 124/74; PULSE 83
[2022-05-20 13:54] VITALS: BP 115/75; PULSE 95
[2022-05-20 13:56] VITALS: BP 115/75; PULSE 95; RESP 12
--- NOTE | 2022-05-20 14:17 | PC.NURSE ---
pt to nuc med.
--- NOTE | 2022-05-20 15:44 | PC.NURSE ---
Requested medical records from [facility] per Nataly GOMES
[2022-05-20] MEDS: Meclizine HCl 25 MG TABLET 50 MG PO (16:35)
[2022-05-20 20:00] VITALS: BP 112/72; PULSE 89; O2SAT 94
== END 2022-05-20 21:35 | disposition home or self-care (01) ==
PROVIDERS: Physician Assistant; Emergency Provider Emergency Medicine; PCP Nurse Practitioner Family
DX: J42 Unspecified chronic bronchitis (principal); R42 Dizziness and giddiness; H92.02 Otalgia, left ear; E11.9 Type 2 diabetes mellitus without complications; I10 Essential (primary) hypertension; E78.5 Hyperlipidemia, unspecified
CPT/HCPCS: 36415; 70450; 71046; 78580; 80048; 80076; 82947; 83735; 83880; 84484; 85025; 85379; 87502; 93005; 99284; 99285; A9540

== ENCOUNTER 2022-05-26 09:40 | Outpatient (REF) | payer MEDICARE, MEDICAID, SELFPAY ==
[2022-05-26 11:37] LABS: Estimated Average Glucose 154 mg/dL
[2022-05-26 11:46] LABS: Appearance Urine Clear; Color Urine Yellow; Glucose Urine UA Negative (Negative); Leukocyte Esterase Urine Negative (Negative); Nitrite Urine Negative (Negative); Urine Blood Negative (Negative); Urine Ketones Negative (Negative); Urine Protein Negative (Neg-Trace)
[2022-05-26 11:55] LABS: Alanine Aminotransferase 19 U/L (0-40); Albumin Level 4.3 g/dL (3.5-5.0); Alkaline Phosphatase 119 U/L (39-117); Anion Gap 15 (12-20); Aspartate Amino Transferase 17 U/L (5-37); Bilirubin Total 0.3 mg/dL (0.0-1.0); Blood Urea Nitrogen 11 mg/dL (9-16); Calcium 9.4 mg/dL (8.4-10.2); Carbon Dioxide 29 mmol/L (22-29); Chloride 98 mmol/L (96-108); Cholesterol 149 mg/dL; Estimated Glomerular Filt Rate > 60; Glucose Fasting 126 mg/dL (60-99); HDL Cholesterol 42 mg/dL; LDL Cholesterol Calculated 79 mg/dl; Potassium 4.8 mmol/L (3.3-5.1); Sodium 137 mmol/L (135-145); Total Protein 6.9 g/dL (6.5-8.0); Triglycerides 144 mg/dL
== END 2022-05-26 09:41 | disposition home or self-care (01) ==
LOC: HO.HMGCLDS 09:40
PROVIDERS: PCP Nurse Practitioner Family; Visit Provider Nurse Practitioner Family
DX: E11.9 Type 2 diabetes mellitus without complications (principal)
CPT/HCPCS: 36415; 80053; 80061; 81003; 83036; 84443

== ENCOUNTER 2022-06-01 11:58 | Outpatient (REF) | payer MEDICARE, MEDICAID, SELFPAY ==
--- NOTE | ~2022-06-01 | XR_ITS ---
EXAMINATION: XR CHEST CLINICAL INFORMATION: Cough COMPARISON: Previous chest x-ray most recent 05/20/2022 TECHNIQUE: 2 views of the chest were obtained. FINDINGS: The cardiac and mediastinal contours are stable. The lungs are clear. There is no pleural effusion or pneumothorax. Degenerative changes of the spine. There is a catheter projecting over the right chest probably representing a [employer] shunt catheter. XR/XR chest 2V IMPRESSION: No evidence for acute disease in the chest.
== END 2022-06-01 11:59 | disposition home or self-care (01) ==
LOC: HO.HMGCX 11:58
PROVIDERS: PCP Nurse Practitioner Family
DX: R05.9 Cough, unspecified (principal)
CPT/HCPCS: 71046

== ENCOUNTER 2022-06-20 20:30 | Emergency (ER) | payer MEDICARE, MEDICAID, SELFPAY ==
--- NOTE | 2022-06-20 | ECG_ITS ---
Test Reason : Dizzines Blood Pressure : / mmHG Vent. Rate : 087 BPM Atrial Rate : 087 BPM P-R Int : 154 ms QRS Dur : 106 ms QT Int : 384 ms P-R-T Axes : 060 -29 093 degrees QTc Int : 462 ms Normal sinus rhythm Minimal voltage criteria for LVH, may be normal variant ( R in aVL ) RSR' or QR pattern in V1 suggests right ventricular conduction delay Abnormal ECG When compared with ECG of 20-MAY-2022 10:40, No significant change was found Referred By: Generic ED Physician Electronically Signed By:CYNDI MARKHAM MD
--- NOTE | ~2022-06-20 | CT_ITS ---
EXAMINATION: CT head/brain wo IV con CLINICAL INFORMATION: Reason for Exam headache with hx of vp analytics shunt COMPARISON: CT head without contrast 05/20/2022 TECHNIQUE: Contiguous axial imaging was performed from the skull base to vertex without intravenous contrast. Sagittal and coronal reformatted images were obtained. This CT examination was performed using dose optimization techniques as appropriate, variously including the following: * Automated exposure control * Adjustment of mA and/or kV according to patient size (this includes techniques or standardized protocols for targeted exams where dose is matched to indication/reason for exam; i.e. extremities or head) Use of iterative reconstruction technique DLP: 1339 mGy-cm FINDINGS: Stable positioning of right posterior approach ventriculoperitoneal shunt catheters, one of which terminates to the right of the septum pellucidum and the other within the right lateral ventricular atrium. Additional occipital ventriculoperitoneal shunt catheter terminates along the inferior aspect of the cerebellar vermis. Ventricular caliber is stable compared to CT from 05/20/2022 with asymmetric ex vacuo dilatation of the right lateral ventricle. There is a background of moderate generalized volume loss. Stable prominent extra-axial space posterior to the cerebellum. 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 No acute osseous or soft tissue abnormality. The mastoid air cells and visualized portions of the paranasal sinuses are well aerated. There is no evidence of acute intracranial hemorrhage or territorial infarction. No abnormal mass effect or midline shift is seen. Kyle to white matter differentiation is well preserved. CT/CT head/brain wo IV con IMPRESSION: No acute intracranial abnormality. Stable caliber of shunted ventricles. Stable chronic partially calcified left hemispheric subdural collection and small right hemispheric subdural collection.
[2022-06-20 20:42] VITALS: BP 149/93; PULSE 85; RESP 18; TEMP 36.7; O2SAT 96; BMI 36.2
--- NOTE | 2022-06-20 20:50 | PC.NURSE ---
Pt has hx of vertigo and dizziness, pt had and episode of dizziness prior to arrival, pt report PRN meclizine is did not help. Dizziness has improved over time, but is still present. Pt reports small headache, MD Graves informed no orders given.
[2022-06-20 21:55] LABS: MANUAL DIFF FLAG NO
[2022-06-20 21:57] LABS: Basophils Absolute Auto 0.1 X10*3/uL (0.0-0.2); Basophils Percent Auto 0.6 % (0-2); Eosinophils Absolute Auto 0.1 X10*3/uL (0.0-0.4); Eosinophils Percent Auto 0.7 % (0-4); Hematocrit 43.7 % (42.0-52.0); Hemoglobin 14.1 g/dl (14.0-18.0); Imm Gran Abs Auto 0.03 X10*3/uL (0.00-0.03); Imm Gran Pct Auto 0.3 % (0.0-0.4); Lymphocytes Absolute Auto 2.2 X10*3/uL (1.2-4.9); Mean Corpuscular HGB Conc 32.3 g/dl (31.0-36.0); Mean Corpuscular Hemoglobin 26.1 pg (27.0-33.0); Mean Corpuscular Volume 80.9 fL (80.0-98.0); Mean Platelet Volume 8.8 fL (9.4-12.4); Monocytes Absolute Auto 0.4 X10*3/uL (0.1-1.2); Monocytes Percent Auto 4.4 % (2-11); Neutrophils Absolute Auto 7.3 x10*3/uL (2.0-8.3); Platelet Count 369 X10*3/uL (160-400); Red Cell Distribution Width 13.9 % (11.0-16.0); White Blood Count 10.1 X10*3/uL (4.8-10.8)
[2022-06-20 22:24] LABS: Anion Gap 18 (12-20); Blood Urea Nitrogen 8 mg/dL (9-16); Calcium 9.5 mg/dL (8.4-10.2); Carbon Dioxide 25 mmol/L (22-29); Chloride 101 mmol/L (96-108); Creatinine Clr Calc Pharmacy 143.4; Estimated Glomerular Filt Rate > 60; Glucose Random 147 mg/dL (60-115); Potassium 3.7 mmol/L (3.3-5.1); Sodium 140 mmol/L (135-145)
--- OUTSIDE RECORDS SUMMARY | 2022-06-20 23:50 | XMS_ITS | Continuity of Care Document ---
:1965 Author Organization [facility] Address [address] [place] [address]- Care Team Providers Name Role Phone Lauryn BROWER, Cheikh Huerta Primary Care Physician [facility]counter [facility] Date(s): 03/31/20 - 04/30/20 [facility] [address] [place] [address]- [facility] Allergies, Adverse Reactions, Alerts Substance Reaction Severity Status shellfish anaphylaxis Persistent Severe Active Demerol feel like will jump out of skin Active Contrast Dye does not remember reaction Activ e Latex rash Persistent Severe Active Immunizations Given and Recorded Vaccine Date Status Refusal Reason influenza virus vaccine, inactivated1 07/07/19 Given influenza virus vaccine, inactivated2 07/03/18 Given influenza virus vaccine, inactivated3 06/29/17 Given influenza virus vaccine, inactivated 05/31/16 Given influenza virus vaccine, inactivated4 07/27/15 Given influenza virus vaccine, inactivated 07/22/14 Given influenza virus vaccine, inactivated5 05/21/13 Given influenza virus vaccine, inactivated6 06/27/06 Given tetanus/diphtheria/pertussis, acel(Tdap) 03/05/18 Given tetanus/diphtheria/pertussis, acel(Tdap) 01/23/12 Given FluLaval (oldterm) 07/25/12 Given Influenza Virus Vaccine (oldterm) 05/21/09 Given Influenza Virus Vaccine (oldterm) 06/20/05 Given Pneumococcal Vaccine (oldterm) 12/31/07 Given Influenza Inactive (IM) (oldterm) 08/05/07 Given Tetanus Toxoid Vaccine (oldterm) 08/20/01 Given 1Result Comment: [id number] Comment: [07/03/2018] [id number] Comment: [06/29/2017] [id number] Comment: [07/27/2015] LATEX ALLERGY5 Admin Note: [id number] Note: GIVEN IN CLINIC [facility] Medications Aspirin = 81 mg, By Mouth, Daily, 0 Refills, Maintenance, 01/23/13 8:42:50 Start Date: 01/23/13 Status: OrderedCardizem CD 240 mg/24 hours oral capsule, extended release 240 mg, 1, capsule, By Mouth, 2 times a day, # 180 capsule, Refills 1, Tot. Refills 1, Maintenance, hypertension, 12/09/19 14:42:00 EDT, Route to Pharmacy Electronically, [facility]/pharmacy #[id number], 191, cm, 10/24/19 15:23:00 EST, Height, 144.6, kg, 10/24/19... Start Date: 12/09/19 Status: Orderedfinasteride 5 mg oral tablet 1 tablet, By Mouth, Daily, # 90 tablet, 3 Refills, Maintenance, 08/19/19 13:11:00 EST, [facility]ORE [id number], 191, cm, 07/07/19 10:47:00 EST, Height, 150.9, kg, 10/30/18 19:13:00 EDT, Dry Weight Start Date: 08/19/19 Status: OrderedmetFORMIN 750 mg oral tablet, extended release 1 tablet = 750 mg, By Mouth, 2 times a day, # 180 tablet, 3 Refills, Maintenance, 01/05/20 14:12:00 EDT, [facility]/pharmacy #1230, 191, cm, 01/05/20 13:19:00 EDT, Height, 144.6, kg, 10/24/19 15:23:00 EST, Dry Weight Start Date: 01/05/20 Status: OrderedOneTouch Verio Lancets See Instructions, # 100 each, Refills 3, Tot. Refills 3, Maintenance, CHECK BLOOD SUGARS ONCE A DAY E11.9 DM TYPE2, 01/06/20 16:51:00 EDT, Supply, 191, cm, 01/05/20 13:19:00 EDT, Height, 144.6, kg, 10/24/19 15:23:00 EST, Dry Weight Start Date: 01/06/20 Status: OrderedProAir HFA 90 mcg/inh inhalation aerosol with adapter 2, puffs, Inhalation, Every 4 hours, PRN, # 18 Gm, Refills 5, Tot. Refills 5, Maintenance, 09/30/19 14:01:00 EST, Route to Pharmacy Electronically, [id number], [facility], cm, 09/27/19 19:03:00 EST, Height, 144,... Start Date: 09/30/19 Status: Orderedsimvastatin 40 mg oral tablet 40 mg, 1, tablet, By Mouth, Daily at bedtime, # 90 tablet, Refills 3, Tot. Refills 3, Maintenance, 01/05/20 14:12:00 EDT, [facility], cm, 01/05/20 13:19:00 EDT, Height, 144.6, kg, 10/24/19 15:23:00 EST, D... Start Date: 01/05/20 Stop Date: 12/30/20 Status: OrderedWellbutrin XL 300 mg/24 hours oral tablet, extended release 1 tablet = 300 mg, By Mouth, Daily, # 90 tablet, 3 Refills, Maintenance, 04/23/19 10:27:06 EDT, ER Tablet Start Date: 04/23/19 Status: OrderedZestoretic 25 mg-20 mg oral tablet 1 tablet, By Mouth, Daily, # 90 tablet, 3 Refills, Maintenance, 01/05/20 14:12:00 EDT, Tablet, [facility]/pharmacy #1230, 1 tablet By Mouth Daily, 191, cm, 01/05/20 13:19:00 EDT, Height, 144.6, kg, 10/24/19 15:23:00 EST, Dry Weight Start Date: 01/05/20 Status: Ordered Problem List Condition Effective Dates Status Health Status Informant Anemia(Confirmed) 1998 Active Arthritis of spine(Confirmed) Active BPH (benign prostatic Active hyperplasia)(Confirmed) Mild binge-eating disorder, in partial Active remission(Confirmed) Bulging lumbar disc(Confirmed)1 Active Back pain, chronic(Confirmed) Active Congenital Hydrocephalus(Confirmed) 12/31/07 Active Decreased hearing(Confirmed)2 2004 Active Diverticulosis(Confirmed) Active Edema(Confirmed) 08/05/07 Active Elevated rheumatoid factor(Confirmed) Active Essential hypertension(Confirmed) Active FH: colon polyps - father(Confirmed) 07/25/12 Active History of compression fracture of 07/25/12 Active spine(Confirmed) Hypercholesterolemia(Confirmed) Active Living will, Active counseling/discussion(Confirmed) Major depression(HCC)(Confirmed) Active Mixed anxiety and depressive Active disorder(Confirmed) Morbid Obesity(Confirmed) 01/23/13 Active Obstructive sleep apnea(Confirmed) Active Presence of ventricular Active shunt(Confirmed) T2DM (type 2 diabetes 07/25/12 Active mellitus)(Confirmed) Thoracic back pain(Confirmed) Active 1L3/42right ear Social History Social History Type Response 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
--- OUTSIDE RECORDS SUMMARY | 2022-06-20 23:50 | XMS_ITS | Continuity of Care Document ---
:1965 Author Organization [facility] Address [address] [place] [address]- Care Team Providers Name Role Phone Lauryn BROWER, Cheikh Huerta Primary Care Physician [facility] Date(s): 10/22/20 - 11/21/20 [facility] [address] [place] [address]- Allergies, Adverse Reactions, Alerts Substance Reaction Severity Status Latex rash Persistent Severe Active shellfish anaphylaxis Persistent Severe Active Demerol feel like will jump out of skin Active Contrast Dye does not remember reaction Activ e Immunizations Given and Recorded Vaccine Date Status [...] Toxoid Vaccine (oldterm) 08/20/01 Given 1Result Comment: [id number] Comment: [07/03/2018] [id number] Comment: [06/29/2017] [id number] Comment: [07/27/2015] LATEX ALLERGY5 Admin Note: [id number] Note: GIVEN IN CLINIC [facility] Medications Aspirin = 81 mg, By Mouth, Daily, 0 Refills, Maintenance, 01/23/13 8:42:50 Start Date: 01/23/13 Status: OrderedCardizem CD 240 mg/24 hours oral capsule, extended release 240 mg, 1, capsule, By Mouth, 2 times a day, # 180 capsule, Refills 1, Tot. Refills 1, Maintenance, hypertension, 12/09/19 14:42:00 EDT, Route to Pharmacy Electronically, [facility]/pharmacy #1230, 191, cm, 10/24/19 15:23:00 EST, Height, 144.6, kg, 10/24/19... Start Date: 12/09/19 Status: Orderedfinasteride 5 mg oral tablet 1 tablet, By Mouth, Daily, # 90 tablet, 1 Refills, Maintenance, 10/20/20 10:10:00 EST, [facility], 191, cm, 10/08/20 10:36:00 EST, Height, 135.5, kg, 09/29/20 17:35:00 EST, Dry Weight Start Date: 10/20/20 Status: Orderedmeclizine 12.5 mg oral tablet 1 tablet = 12.5 mg, By Mouth, 3 times a day, PRN for dizziness, # 10 tablet, 0 Refills, Maintenance,09/23/20 12:12:00 EST, Tablet, [facility] #[facility], Partial fill upon patient request if the prescription is for a schedule II opioid drug., 191... Start Date: 09/23/20 Status: OrderedmetFORMIN 750 mg oral tablet, extended release 1 tablet = 750 mg, By Mouth, 2 times a day, # 180 tablet, 3 Refills, Maintenance, 01/05/20 14:12:00 EDT, [facility]/pharmacy #1230, 191, cm, 01/05/20 [...] EST, Dry Weight Start Date: 01/06/20 Status: OrderedOneTouch Verio Test Strips See Instructions, # 100 each, Refills 11, Tot. Refills 11, Maintenance, CHECK BLOOD SUGARS ONCE A DAY E11.9 DM TYPE2, 06/24/20 12:00:00 EST, Supply, 188, cm, 03/28/20 10:41:00 EDT, Height, 143.6, kg, 03/28/20 10:41:00 EDT, Dry Weight Start Date: 06/24/20 Status: OrderedProAir HFA 90 mcg/inh inhalation aerosol with adapter 2, puffs, Inhalation, Every 4 hours, PRN, # 18 Gm, Refills 5, Tot. Refills 5, Maintenance, 09/30/19 14:01:00 EST, Route to Pharmacy Electronically, [id number], [facility]/pharmacy #1230, 190, cm, 09/27/19 19:03:00 EST, Height, 144,... Start Date: 09/30/19 Status: Orderedsimvastatin 40 mg oral tablet 40 mg, 1, tablet, By Mouth, Daily at bedtime, # 90 tablet, Refills 3, Tot. Refills 3, Maintenance, 01/05/20 14:12:00 EDT, Route to Pharmacy Electronically, [facility]/pharmacy #1230, 191, cm, 01/05/20 13:19:00 EDT, Height, 144.6, kg, 10/24/19 15:23:00 EST, D... Start Date: 01/05/20 Stop Date: 12/30/20 Status: OrderedWellbutrin XL 300 mg/24 hours oral tablet, extended release 1 tablet = 300 mg, By Mouth, Daily, # 90 tablet, 1 Refills, Maintenance, 05/15/20 6:26:00 EDT, ER Tablet, [facility]/pharmacy #1230, 188, cm, 03/28/20 10:41:00 EDT, Height, 143.6, kg, 03/28/20 10:41:00 EDT, Dry Weight Start Date: 05/15/20 Status: OrderedZestoretic 25 mg-20 mg oral tablet 1 tablet, By Mouth, Daily, # 90 tablet, 3 Refills, Maintenance, 01/05/20 14:12:00 EDT, Tablet, [facility]/pharmacy #1230, 1 tablet By Mouth Daily, 191, [...] chronic(Confirmed) Active Congenital Hydrocephalus(Confirmed) 12/31/07 Active Decreased hearing(Confirmed)2004 Active Diverticulosis(Confirmed) Active Edema(Confirmed) 08/05/07 Active Elevated [...]
--- OUTSIDE RECORDS SUMMARY | 2022-06-20 23:50 | XMS_ITS | Continuity of Care Document ---
:1965 Author Organization [facility] Address [address] [place] [address]- Care Team Providers Name Role Phone Cheikh Combs MD Primary Care Physician [facility]counter [facility] Date(s): 01/06/21 - 02/05/21 [facility] [address] [place] [address]- Allergies, Adverse Reactions, Alerts Substance Reaction Severity [...] Toxoid Vaccine (oldterm) 08/20/01 Given 1Result Comment: [id number] Comment: [07/03/2018] [id number] Comment: [06/29/2017] [id number] Comment: [07/27/2015] LATEX ALLERGY5 Admin Note: [id number] Note: GIVEN IN [facility] Medications Aspirin = 81 mg, By Mouth, Daily, 0 Refills, Maintenance, 01/23/13 8:42:50 Start Date: 01/23/13 Status: OrderedCardizem CD 240 mg/24 hours oral capsule, extended release 240 mg, 1, capsule, By Mouth, 2 times a day, # 180 capsule, Refills 1, Tot. Refills 1, Maintenance, hypertension, 12/09/19 14:42:00 EDT, Route to Pharmacy Electronically, [facility]/pharmacy #1230, 191, cm, 10/24/19 15:23:00 EST, Height, 144.6, kg, 10/24/19... Start Date: 12/09/19 Status: Orderedfinasteride 5 mg oral tablet 1 tablet, By Mouth, Daily, # 90 tablet, 1 Refills, Maintenance, 10/20/20 10:10:00 EST, [facility], 191, cm, 10/08/20 10:36:00 EST, [...] tablet, 3 Refills, Maintenance, 01/05/20 14:12:00 EDT, [facility]/pharmacy #1230, 191, cm, 01/05/20 13:19:00 EDT, Height, 144.6, kg, 10/24/19 15:23:00 EST, Dry Weight Start Date: 01/05/20 Status: OrderedOneTouch Verio Lancets See Instructions, # 100 each, Refills 3, Tot. Refills 3, Maintenance, CHECK BLOOD SUGARS ONCE A DAY E11.9 DM TYPE2, 01/13/21 10:57:00 EDT, Supply, 191, cm, 01/06/21 9:04:00 EDT, Height, 135, kg, 11/24/20 4:15:00 EDT, Dry Weight Start Date: 01/13/21 Status: OrderedOneTouch Verio Test Strips See Instructions, [...] 09/30/19 14:01:00 EST, Route to Pharmacy Electronically, [id number], [facility]/pharmacy #1230, 190, cm, 09/27/19 19:03:00 EST, Height, 144,... Start Date: 09/30/19 Status: Orderedsimvastatin 40 mg oral tablet 40 mg, 1, tablet, By Mouth, Daily at bedtime, # 90 tablet, Refills 3, Tot. Refills 3, Maintenance, 01/05/20 14:12:00 EDT, Route to Pharmacy Electronically, [facility]/pharmacy #1230, 191, cm, 01/05/20 13:19:00 EDT, Height, 144.6, kg, 10/24/19 15:23:00 EST, D... Start Date: 01/05/20 Stop Date: 12/30/20 Status: OrderedWellbutrin XL 300 mg/24 hours oral tablet, extended release 1 tablet = 300 mg, By Mouth, Daily, # 90 tablet, 1 Refills, Maintenance, 05/15/20 6:26:00 EDT, ER Tablet, [facility]/pharmacy #1230, 188, cm, 03/28/20 10:41:00 EDT, Height, [...]
--- OUTSIDE RECORDS SUMMARY | 2022-06-20 23:50 | XMS_ITS | Continuity of Care Document ---
:1965 Author Organization [facility] Address [address] [place] [address]- Care Team Providers Name Role Phone Cheikh Combs MD Primary Care Physician Encounter [facility] Date(s): 01/06/21 - 02/05/21 [facility] [address] [place] [address]- Attending Physician: Xiao Sandoval Admitting Physician: Xiao Sandoval Referring Physician: AdmtrXiao Allergies, Adverse Reactions, Alerts Substance Reaction Severity [...] Toxoid Vaccine (oldterm) 08/20/01 Given 1Result Comment: [id number] Comment: [07/03/2018] [id number] Comment: [06/29/2017] [id number] Comment: [07/27/2015] LATEX ALLERGY5 Admin Note: [id number] Note: GIVEN IN CLINIC [facility] Medications Aspirin = 81 mg, By Mouth, Daily, 0 Refills, Maintenance, 01/23/13 8:42:50 Start Date: 01/23/13 Status: OrderedCardizem CD 240 mg/24 hours oral capsule, extended release 240 mg, 1, capsule, By Mouth, 2 times a day, # 180 capsule, Refills 1, Tot. Refills 1, Maintenance, hypertension, 12/09/19 14:42:00 EDT, Route to Pharmacy Electronically, [facility]/pharmacy #1230, 191, cm, 10/24/19 15:23:00 EST, Height, [...] tablet, 3 Refills, Maintenance, 01/05/20 14:12:00 EDT, [facility]/pharmacy #1230, 191, cm, 01/05/20 13:19:00 EDT, Height, [...] 09/30/19 14:01:00 EST, Route to Pharmacy Electronically, [id number], [facility]/pharmacy #1230, 190, cm, 09/27/19 19:03:00 EST, Height, 144,... Start Date: 09/30/19 Status: Orderedsimvastatin 40 mg oral tablet 40 mg, 1, tablet, By Mouth, Daily at bedtime, # 90 tablet, Refills 3, Tot. Refills 3, Maintenance, 01/05/20 14:12:00 EDT, Route to Pharmacy Electronically, [facility]/pharmacy #1230, 191, cm, 01/05/20 13:19:00 EDT, Height, 144.6, kg, 10/24/19 15:23:00 EST, D... Start Date: 01/05/20 Stop Date: 12/30/20 Status: OrderedWellbutrin XL 300 mg/24 hours oral tablet, extended release 1 tablet = 300 mg, By Mouth, Daily, # 90 tablet, 1 Refills, Maintenance, 05/15/20 6:26:00 EDT, ER Tablet, [facility]/pharmacy #1230, 188, cm, 03/28/20 10:41:00 EDT, Height, 143.6, kg, 03/28/20 10:41:00 EDT, Dry Weight Start Date: 05/15/20 Status: OrderedZestoretic 25 mg-20 mg oral tablet 1 tablet, By Mouth, Daily, # 90 tablet, 3 Refills, Maintenance, 01/05/20 14:12:00 EDT, Tablet, [facility]/pharmacy #1230, 1 tablet By Mouth Daily, 191, [...] mellitus)(Confirmed) Thoracic back pain(Confirmed) Active 1L3/42right ear Procedures Procedure Date Related Diagnosis Body Site Status colonoscopy 2012 due 2017 - small adenoma Completed CPAP trial 2012 Completed Sleep study, 2011, confirms XANDER Completed Social History Social History Type Response 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
--- OUTSIDE RECORDS SUMMARY | 2022-06-20 23:51 | XMS_ITS | Continuity of Care Document ---
:1965 Author Organization [facility] Address [address] [place] [address]- Care Team Providers Name Role Phone Cheikh Combs MD Primary Care Physician Encounter [facility] Date(s): 09/23/20 - 09/23/[address] [address]- Discharge Disposition: A-D/C Home Attending Physician: Stuart Shipley MD Admitting Physician: Stuart Shipley MD Referring Physician: Not on Staff, Referring MD Allergies, Adverse Reactions, Alerts Substance Reaction Severity Status shellfish anaphylaxis Persistent Severe Active Latex rash Persistent Severe Active Demerol feel like will [...] Toxoid Vaccine (oldterm) 08/20/01 Given 1Result Comment: [id number] Comment: [07/03/2018] [id number] Comment: [06/29/2017] [id number] Comment: [07/27/2015] LATEX ALLERGY5 Admin Note: [id number] Note: GIVEN IN CLINIC [facility] Medications Aspirin = 81 mg, By Mouth, Daily, 0 Refills, Maintenance, 01/23/13 8:42:50 Start Date: 01/23/13 Status: OrderedCardizem CD 240 mg/24 hours oral capsule, extended release 240 mg, 1, capsule, By Mouth, 2 times a day, # 180 capsule, Refills 1, Tot. Refills 1, Maintenance, hypertension, 12/09/19 14:42:00 EDT, Route to Pharmacy Electronically, [facility]/pharmacy #1230, 191, cm, 10/24/19 15:23:00 EST, Height, 144.6, kg, 10/24/19... Start Date: 12/09/19 Status: Orderedfinasteride 5 mg oral tablet 1 tablet, By Mouth, Daily, # 90 tablet, 3 Refills, Maintenance, 08/19/19 13:11:00 EST, [id number], 191, cm, 07/07/19 10:47:00 EST, Height, 150.9, kg, 10/30/18 19:13:00 EDT, Dry Weight Start Date: 08/19/19 Status: Orderedmeclizine 12.5 mg oral tablet 1 [...] tablet, 3 Refills, Maintenance, 01/05/20 14:12:00 EDT, [facility]/pharmacy #1230, 191, cm, 01/05/20 13:19:00 EDT, Height, [...] 09/30/19 14:01:00 EST, Route to Pharmacy Electronically, [id number], [facility]/pharmacy #1230, 190, cm, 09/27/19 19:03:00 EST, Height, 144,... Start Date: 09/30/19 Status: Orderedsimvastatin 40 mg oral tablet 40 mg, 1, tablet, By Mouth, Daily at bedtime, # 90 tablet, Refills 3, Tot. Refills 3, Maintenance, 01/05/20 14:12:00 EDT, Route to Pharmacy Electronically, [facility]/pharmacy #1230, 191, cm, 01/05/20 13:19:00 EDT, Height, 144.6, kg, 10/24/19 15:23:00 EST, D... Start Date: 01/05/20 Stop Date: 12/30/20 Status: OrderedWellbutrin XL 300 mg/24 hours oral tablet, extended release 1 tablet = 300 mg, By Mouth, Daily, # 90 tablet, 1 Refills, Maintenance, 05/15/20 6:26:00 EDT, ER Tablet, [facility]/pharmacy #1230, 188, cm, 03/28/20 10:41:00 EDT, Height, 143.6, kg, 03/28/20 10:41:00 EDT, Dry Weight Start Date: 05/15/20 Status: OrderedZestoretic 25 mg-20 mg oral tablet 1 tablet, By Mouth, Daily, # 90 tablet, 3 Refills, Maintenance, 01/05/20 14:12:00 EDT, Tablet, [facility]/pharmacy #1230, 1 tablet By Mouth Daily, 191, [...] mellitus)(Confirmed) Thoracic back pain(Confirmed) Active 1L3/42right ear Vital Signs Most recent to oldest [Reference Range]: 1 2 Height 191 cm 191 cm (09/23/20 12:22 PM) (09/23/20 9:20 AM) Weight 136 kg 136 kg (09/23/20 12:22 PM) (09/23/20 9:20 AM) Oxygen Saturation [94-100 %] 95 % 95 % (09/23/20 12:22 PM) (09/23/20 9:20 AM) Pulse Rate [55-90 bpm] 73 bpm 61 bpm (09/23/20 12:22 PM) (09/23/20 9:20 AM) Body Mass Index [18.5-24.99] 37.28 *>HHI* (09/23/20 12:22 PM) Blood Pressure [90-138/55-84 mm Hg] 124/65 mm Hg 119/ 61 mm Hg (09/23/20:22 PM) (09/23/20 9:20 AM) Respiratory Rate [16-30 br/min] 16 br/min 16 br/mi n (09/23/20 12:22 PM) (09/23/20 9:20 AM) Temperature [96.8-100.4 DegF] 97 DegF (09/23/20 9:20 AM) Mode of Delivery (Oxygen) Room air Room air (09/23/20 12:22 PM) (09/23/20 9:20 AM) Blood pressure sites Arm, left Arm, left (09/23/20 12:22 PM) (09/23/20 9:20 AM) Temperature Route Temporal (09/23/20 9:20 AM) Dry Weight 136 kg 136 kg (09/23/20 12:22 PM) (09/23/20 9:20 AM) Weight Obtained Via Standing scale (09/23/20 9:20 AM) Dry Weight Obtained Via Standing scale (09/23/20 9:20 AM) Social History Social History Type Response 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
--- OUTSIDE RECORDS SUMMARY | 2022-06-20 23:51 | XMS_ITS | Continuity of Care Document ---
:1965 Author Organization [facility] Address [address] [place] [address]- Care Team Providers Name Role Phone Rikki MONROE, Tyler Huerta Primary Care Physician [facility]counter [facility] Date(s): 10/14/21 - 11/13/21 [facility] [address] [place] [address]- Allergies, Adverse Reactions, Alerts Substance Reaction Severity Status Contrast Dye does not remember reaction Activ e Latex rash Persistent Severe Active shellfish anaphylaxis Persistent Severe Active Demerol feel like will jump out of skin Active Immunizations Given and Recorded Vaccine Date Status Refusal Reason SARS-CoV-2 (COVID-19) mRNA BNT-162b2 vac 01/13/21 Recorde d SARS-CoV-2 (COVID-19) mRNA BNT-162b2 vac 12/23/20 Recorde d influenza virus vaccine, inactivated1 07/07/19 Given influenza [...] Toxoid Vaccine (oldterm) 08/20/01 Given 1Result Comment: [id number] Comment: [07/03/2018] [id number] Comment: [06/29/2017] [id number] Comment: [07/27/2015] LATEX ALLERGY5 Admin Note: [id number] Note: GIVEN IN CLINIC [facility] Medications Aspirin = 81 mg, By Mouth, Daily, 0 Refills, Maintenance, 01/23/13 8:42:50 Start Date: 01/23/13 Status: OrderedbuPROPion 300 mg/24 hours (XL) oral tablet, extended release 1 tablet, By Mouth, Daily, # 90 tablet, 3 Refills, Maintenance, 02/25/21 16:03:00 EDT, [facility], 191, cm, 01/06/21 9:04:00 EDT, Height, 135, kg, 11/24/20 4:15:00 EDT, Dry Weight Start Date: 02/25/21 Status: OrderedCardizem CD 240 mg/24 hours oral capsule, extended release 240 mg, 1, capsule, By Mouth, 2 times a day, # 180 capsule, Refills 1, Tot. Refills 1, Maintenance, hypertension, 12/09/19 14:42:00 EDT, Route to Pharmacy Electronically, [facility]/pharmacy #1230, 191, cm, 10/24/19 15:23:00 EST, [...] 2 times a day, # 180 tablet, 0 Refills, Maintenance, 03/03/21 8:52:00 EDT, [facility], 191, cm, 01/06/21 9:04:00 EDT, Height, 135, kg, 11/24/20 4:15:00 EDT, Dry Weight Start Date: 03/03/21 Status: OrderedOneTouch Verio Lancets See Instructions, # [...] 09/30/19 14:01:00 EST, Route to Pharmacy Electronically, [id number], [facility]/pharmacy #1230, 190, cm, 09/27/19 19:03:00 EST, Height, 144,... Start Date: 09/30/19 Status: Orderedsimvastatin 40 mg oral tablet 1, tablet, By Mouth, Daily at bedtime, # 90 tablet, Refills 3, Tot. Refills 0, Maintenance, 02/26/2116:03:00 EDT, Route to Pharmacy Electronically, [facility], 191, cm, 01/06/21 9:04:00 EDT, Height, 135, kg, 11/24/20 4:15:00 EDT, Dry W... Start Date: 02/25/21 Status: OrderedZestoretic 25 mg-20 mg oral tablet 1 tablet, By Mouth, Daily, # 90 tablet, 0 Refills, Maintenance, 03/03/21 8:54:00 EDT, Tablet, [facility], 1 tablet By Mouth Daily, 191, cm, 01/06/21 9:04:00 EDT, Height, 135, kg, 11/24/20 4:15:00 EDT, Dry Weight Start Date: 03/03/21 Status: Ordered Problem List Condition Effective Dates [...]
--- OUTSIDE RECORDS SUMMARY | 2022-06-20 23:51 | XMS_ITS | Continuity of Care Document ---
:1965 Author Organization [facility] Address [address] [place] [address]- Care Team Providers Name Role Phone Lauryn BROWER, Cheikh Huerta Primary Care Physician [facility]counter [facility] Date(s): 01/13/21 - 02/12/21 [facility] [address] [place] [address]- Allergies, Adverse Reactions, Alerts Substance Reaction Severity [...] Toxoid Vaccine (oldterm) 08/20/01 Given 1Result Comment: [id number] Comment: [07/03/2018] [id number] Comment: [06/29/2017] [id number] Comment: [07/27/2015] LATEX ALLERGY5 Admin Note: [id number] Note: GIVEN IN CLINIC [facility] Medications Aspirin = 81 mg, By Mouth, Daily, 0 Refills, Maintenance, 01/23/13 8:42:50 Start Date: 01/23/13 Status: OrderedCardizem CD 240 mg/24 hours oral capsule, extended release 240 mg, 1, capsule, By Mouth, 2 times a day, # 180 capsule, Refills 1, Tot. Refills 1, Maintenance, hypertension, 12/09/19 14:42:00 EDT, Route to Pharmacy Electronically, [facility]/pharmacy #1230, 191, cm, 10/24/19 15:23:00 EST, Height, 144.6, kg, 10/24/19... Start Date: 12/09/19 Status: Orderedfinasteride 5 mg oral tablet 1 tablet, By Mouth, Daily, # 90 tablet, 1 Refills, Maintenance, 10/20/20 10:10:00 EST, [facility], 191, cm, 10/08/20 10:36:00 EST, Height, 135.5, kg, 09/29/20 17:35:00 EST, Dry Weight Start Date: 10/20/20 Status: Orderedmeclizine 12.5 mg oral tablet 1 tablet = 12.5 mg, By Mouth, 3 times a day, PRN for dizziness, # 10 tablet, 0 Refills, Maintenance,09/23/20 12:12:00 EST, Tablet, [facility] #[facility], Partial fill upon patient request if the prescription is for a schedule II opioid drug., 191... Start Date: 09/23/20 Status: OrderedmetFORMIN 750 mg oral tablet, extended release 1 tablet = 750 mg, By Mouth, 2 times a day, # 180 tablet, 3 Refills, Maintenance, 01/05/20 14:12:00 EDT, [facility]/pharmacy #1230, 191, cm, 01/05/20 13:19:00 EDT, [...] 09/30/19 14:01:00 EST, Route to Pharmacy Electronically, [id number], [facility]/pharmacy #1230, 190, cm, 09/27/19 19:03:00 EST, Height, 144,... Start Date: 09/30/19 Status: Orderedsimvastatin 40 mg oral tablet 40 mg, 1, tablet, By Mouth, Daily at bedtime, # 90 tablet, Refills 3, Tot. Refills 3, Maintenance, 01/05/20 14:12:00 EDT, Route to Pharmacy Electronically, [facility]/pharmacy #1230, 191, cm, 01/05/20 13:19:00 EDT, Height, 144.6, kg, 10/24/19 15:23:00 EST, D... Start Date: 01/05/20 Stop Date: 12/30/20 Status: OrderedWellbutrin XL 300 mg/24 hours oral tablet, extended release 1 tablet = 300 mg, By Mouth, Daily, # 90 tablet, 1 Refills, Maintenance, 05/15/20 6:26:00 EDT, ER Tablet, [facility]/pharmacy #1230, 188, cm, 03/28/20 10:41:00 EDT, [...]
--- OUTSIDE RECORDS SUMMARY | 2022-06-20 23:51 | XMS_ITS | Continuity of Care Document ---
:1965 Author Organization [facility] Address [address] [place] [id number]- Care Team Providers Name Role Phone Cheikh Combs MD Primary Care Physician Encounter [facility] Date(s): 11/23/20 - 11/24/[address] [address]- Discharge Disposition: A-D/C Home Attending Physician: Hair Aceves MD Admitting Physician: Hair Aceves MD Referring Physician: Not on Staff, Referring [...] Toxoid Vaccine (oldterm) 08/20/01 Given 1Result Comment: [id number] Comment: [07/03/2018] [id number] Comment: [06/29/2017] [id number] Comment: [07/27/2015] LATEX ALLERGY5 Admin Note: [id number] Note: GIVEN IN CLINIC [facility] Medications Aspirin = 81 mg, By Mouth, Daily, 0 Refills, Maintenance, 01/23/13 8:42:50 Start Date: 01/23/13 Status: OrderedCardizem CD 240 mg/24 hours oral capsule, extended release 240 mg, 1, capsule, By Mouth, 2 times a day, # 180 capsule, Refills 1, Tot. Refills 1, Maintenance, hypertension, 12/09/19 14:42:00 EDT, Route to Pharmacy Electronically, [facility]/pharmacy #1230, 191, cm, 10/24/19 15:23:00 EST, Height, 144.6, kg, 10/24/19... Start Date: 12/09/19 Status: Orderedfinasteride 5 mg oral tablet 1 tablet, By Mouth, Daily, # 90 tablet, 1 Refills, Maintenance, 10/20/20 10:10:00 EST, [facility], 191, cm, 10/08/20 10:36:00 EST, Height, 135.5, kg, 09/29/20 17:35:00 EST, Dry Weight Start Date: 10/20/20 Status: Orderedmeclizine 12.5 mg oral tablet 1 tablet = 12.5 mg, By Mouth, 3 times a day, PRN for dizziness, # 10 tablet, 0 Refills, Maintenance,09/23/20 12:12:00 EST, Tablet, [facility], Partial fill upon patient request if the prescription is for a schedule II opioid drug., 191... Start Date: 09/23/20 Status: OrderedmetFORMIN 750 mg oral tablet, extended release 1 tablet = 750 mg, By Mouth, 2 times a day, # 180 tablet, 3 Refills, Maintenance, 01/05/20 14:12:00 EDT, [facility]/pharmacy #1230, 191, cm, 01/05/20 13:19:00 EDT, Height, [...] 09/30/19 14:01:00 EST, Route to Pharmacy Electronically, [id number], [facility]/pharmacy #1230, 190, cm, 09/27/19 19:03:00 EST, Height, 144,... Start Date: 09/30/19 Status: Orderedsimvastatin 40 mg oral tablet 40 mg, 1, tablet, By Mouth, Daily at bedtime, # 90 tablet, Refills 3, Tot. Refills 3, Maintenance, 01/05/20 14:12:00 EDT, Route to Pharmacy Electronically, [facility]/pharmacy #1230, 191, cm, 01/05/20 13:19:00 EDT, Height, 144.6, kg, 10/24/19 15:23:00 EST, D... Start Date: 01/05/20 Stop Date: 12/30/20 Status: OrderedWellbutrin XL 300 mg/24 hours oral tablet, extended release 1 tablet = 300 mg, By Mouth, Daily, # 90 tablet, 1 Refills, Maintenance, 05/15/20 6:26:00 EDT, ER Tablet, [facility]/pharmacy #1230, 188, cm, 03/28/20 10:41:00 EDT, Height, 143.6, kg, 03/28/20 10:41:00 EDT, Dry Weight Start Date: 05/15/20 Status: OrderedZestoretic 25 mg-20 mg oral tablet 1 tablet, By Mouth, Daily, # 90 tablet, 3 Refills, Maintenance, 01/05/20 14:12:00 EDT, Tablet, [facility]/pharmacy #1230, 1 tablet By Mouth Daily, 191, [...] Vital Signs Most recent to oldest [Reference 1 2 3 Range]: Height 191 cm 191 cm 191 cm (11/24/20 4:15 AM) (11/24/20 3:52 AM) (11/24/20 1:16 A M) Weight 135 kg 135 kg 135 kg (11/24/20 4:15 AM) (11/24/20 3:52 AM) (11/24/20 1:16 A M) Oxygen Saturation [94-100 %] 98 % 98 % 99 % (11/24/20 4:15 AM) (11/24/20 3:52 AM) (11/24/20 1:16 A M) Pulse Rate [55-90 bpm] 82 bpm 76 bpm 81 bpm (11/24/20 4:15 AM) (11/24/20 3:52 AM) (11/24/20 1:16 A M) Body Mass Index [18.5-24.99] 37.01 37.01 37. 01 *>HHI* *>HHI* *>HHI* (11/24/20 4:15 AM) (11/24/20 3:52 AM) (11/24/20 1:16 A M) Blood Pressure [90-138/55-84 mm 106/62 mm Hg 103/60 mm Hg 100/47 mm Hg Hg] (11/24/20 4:15 AM) (11/24/20 3:52 AM) (11/24/20 1:16 A M) Respiratory Rate [16-30 br/min] 20 br/min 18 br/min 25 br/min (11/24/20 4:15 AM) (11/24/20 3:52 AM) (11/24/20 1:16 A M) Temperature [96.8-100.4 DegF] 98.0 DegF (11/24/20 1:16 AM) Mode of Delivery (Oxygen) Room air Room air Room a ir (11/24/20 4:15 AM) (11/24/20 3:52 AM) (11/24/20 1:16 A M) Blood pressure sites Arm, right Arm, left Arm, left (11/24/20 4:15 AM) (11/24/20 3:52 AM) (11/24/20 1:16 A M) Temperature Route Oral (11/24/20 1:16 AM) Dry Weight 135 kg 135 kg 135 kg (11/24/20 4:15 AM) (11/24/20 3:52 AM) (11/24/20 1:16 A M) Social History Social History Type Response 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
--- OUTSIDE RECORDS SUMMARY | 2022-06-20 23:51 | XMS_ITS | Continuity of Care Document ---
:1965 Author Organization [facility] Address [address] [place] [address]- Care Team Providers Name Role Phone Rikki MONROE, Tyler Huerta Primary Care Physician [facility] Date(s): 07/21/21 - 08/20/21 [facility] [address] [place] [address]- Allergies, Adverse Reactions, Alerts Substance Reaction Severity [...] Toxoid Vaccine (oldterm) 08/20/01 Given 1Result Comment: [id number] Comment: [07/03/2018] [id number] Comment: [06/29/2017] [id number] Comment: [07/27/2015] LATEX ALLERGY5 Admin Note: [id number] Note: GIVEN IN CLINIC [facility] Medications Aspirin [...] 12/09/19 14:42:00 EDT, Route to Pharmacy Electronically, [facility]/pharmacy #1230, 191, cm, 10/24/19 15:23:00 EST, Height, [...] 09/30/19 14:01:00 EST, Route to Pharmacy Electronically, [id number], [facility]/pharmacy #1230, 190, cm, 09/27/19 19:03:00 EST, Height, [...]
--- OUTSIDE RECORDS SUMMARY | 2022-06-20 23:51 | XMS_ITS | Continuity of Care Document ---
:1965 Author Organization [facility] Address [address] [place] [address]- Care Team Providers Name Role Phone Lauryn BROWER, Cheikh Huerta Primary Care Physician [place] [facility] [place] 10/08[place] - 10/15/20 [facility] [place] [address] [place] [address]- Encounter Diagnosis Meniere disease (Discharge Diagnosis) - 10/08/20 Congenital Hydrocephalus (Discharge Diagnosis) - 10/08/20 Vertigo (Discharge Diagnosis) - 10/08/20 Attending Physician: Naa Betancourt NP Allergies, Adverse Reactions, Alerts Substance Reaction Severity [...] Toxoid Vaccine (oldterm) 08/20/01 Given 1Result Comment: [id number] Comment: [07/03/2018] [id number] Comment: [06/29/2017] [id number] Comment: [07/27/2015] LATEX ALLERGY5 Admin Note: [id number] Note: GIVEN IN CLINIC [facility] Medications Aspirin = 81 mg, By Mouth, Daily, 0 Refills, Maintenance, 01/23/13 8:42:50 Start Date: 01/23/13 Status: OrderedCardizem CD 240 mg/24 hours oral capsule, extended release 240 mg, 1, capsule, By Mouth, 2 times a day, # 180 capsule, Refills 1, Tot. Refills 1, Maintenance, hypertension, 12/09/19 14:42:00 EDT, Route to Pharmacy Electronically, [facility]/pharmacy #1230, 191, cm, 10/24/19 15:23:00 EST, Height, 144.6, kg, 10/24/19... Start Date: 12/09/19 Status: Orderedfinasteride 5 mg oral tablet 1 tablet, By Mouth, Daily, # 90 tablet, 3 Refills, Maintenance, 08/19/19 13:11:00 EST, [facility], 191, cm, 07/07/19 10:47:00 EST, Height, 150.9, [...] opioid drug., 191... Start Date: 09/23/20 Status: Orderedmeclizine 25 mg oral tablet 1 tablet = 25 mg, By Mouth, 3 times a day, PRN for dizziness, May take 1/2 tab., # 30 tablet, 0 Refills, Acute 10/22/20 11:21:00 EST, 10/08/20 11:21:00 EST, Tablet, [facility], Partial fill upon patient request if the prescription is fo... Start Date: 10/08/20 Stop Date: 10/22/20 Status: OrderedmetFORMIN 750 mg oral tablet, extended release 1 tablet = 750 mg, By Mouth, 2 times a day, # 180 tablet, 3 Refills, Maintenance, 01/05/20 14:12:00 EDT, [facility], 191, cm, 01/05/20 13:19:00 EDT, Height, [...] EDT, Dry Weight Start Date: 06/24/20 Status: OrderedpredniSONE 10 mg oral tablet See Instructions, Take with food by mouth daily: Day 1-4: 4 tabs Day 5-8: 3 tabs Day 9-11: 2 tabs Day 12-14: 1 tab, # 49 tablet, 0 Refills, Acute 10/29/20 11:21:00 EST, 10/08/20 11:20:00 EST, [facility], Partial fill upon patient re... Start Date: 10/08/20 Stop Date: 10/29/20 Status: OrderedProAir HFA 90 mcg/inh inhalation aerosol with adapter 2, puffs, Inhalation, Every 4 hours, PRN, # 18 Gm, Refills 5, Tot. Refills 5, Maintenance, 09/30/19 14:01:00 EST, Route to Pharmacy Electronically, [id number], [facility]/pharmacy #1230, 190, cm, 09/27/19 19:03:00 EST, Height, 144,... Start Date: 09/30/19 Status: Orderedsimvastatin 40 mg oral tablet 40 mg, 1, tablet, By Mouth, Daily at bedtime, # 90 tablet, Refills 3, Tot. Refills 3, Maintenance, 01/05/20 14:12:00 EDT, Route to Pharmacy Electronically, [facility]/pharmacy #1230, 191, cm, 01/05/20 13:19:00 EDT, Height, 144.6, kg, 10/24/19 15:23:00 EST, D... Start Date: 01/05/20 Stop Date: 12/30/20 Status: OrderedWellbutrin XL 300 mg/24 hours oral tablet, extended release 1 tablet = 300 mg, By Mouth, Daily, # 90 tablet, 1 Refills, Maintenance, 05/15/20 6:26:00 EDT, ER Tablet, [facility]/pharmacy #1230, 188, cm, 03/28/20 10:41:00 EDT, Height, 143.6, kg, 03/28/20 10:41:00 EDT, Dry Weight Start Date: 05/15/20 Status: OrderedZestoretic 25 mg-20 mg oral tablet 1 tablet, By Mouth, Daily, # 90 tablet, 3 Refills, Maintenance, 01/05/20 14:12:00 EDT, Tablet, [facility]/pharmacy #[id number], 1 tablet By Mouth [...] 07/25/12 Active mellitus)(Confirmed) Thoracic back pain(Confirmed) Active 1Lright ear Diagnosis Diagnosis Type Effective Dates Health Clinical Infor mant Status Service Meniere disease Discharge 10/08/20 Diagnosis Congenital Discharge 10/08/20 Hydrocephalus Diagnosis Vertigo Discharge 10/08/20 Diagnosis Vital Signs Most recent to oldest [Reference Range]: 1 Height 191 cm (10/08/20 10:36 AM) Weight 135 kg (10/08/20 10:36 AM) Body Mass Index [18.5-24.99] 37.01 *>HHI* (10/08/20 10:36 AM) Social History Social History Type Response 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
--- OUTSIDE RECORDS SUMMARY | 2022-06-20 23:51 | XMS_ITS | Continuity of Care Document ---
:1965 Author Organization [facility] Address [address] [place] [address]- Care Team Providers Name Role Phone Cheikh Combs MD Primary Care Physician [facility]counter [facility] Date(s): 01/05/20 - 01/12/20 [facility] [address] [place] [address]- [facility] Attending Physician: Cheikh Combs MD Allergies, Adverse Reactions, Alerts Substance Reaction [...] Toxoid Vaccine (oldterm) 08/20/01 Given 1Result Comment: [id number] Comment: [07/03/2018] [id number] Comment: [06/29/2017] [id number] Comment: [07/27/2015] LATEX ALLERGY5 Admin Note: [id number] Note: GIVEN IN CLINIC SHMA Medications Accu-Chek Aspen Glucose Meter See Instructions, # 1 each, Maintenance, use to test blood sugar BID dx E11.9, 05/22/19 17:08:37 EDT, Compound Start Date: 05/22/19 Status: OrderedAccu-Chek Aspen Plus Test Strips See Instructions, # 100 each, Refills 11, Tot. Refills 11, Maintenance, CHECK BLOOD SUGARS ONCE A DAY E11.9 DM TYPE2, 11/27/19 11:09:00 EDT, Compound, 191, cm, 10/24/19 15:23:00 EST, Height, 144.6, kg,10/24/19 15:23:00 EST, Dry Weight Start Date: 11/27/19 Status: OrderedAccu-Chek Compact Lancets See Instructions, # 100 each, Refills 11, Tot. Refills 11, Maintenance, CHECK BLOOD SUGARS ONCE A DAY E11.9 DM TYPE2, 11/27/19 11:09:00 EDT, Compound, 191, cm, 10/24/19 15:23:00 EST, Height, 144.6, kg,10/24/19 15:23:00 EST, Dry Weight Start Date: 11/27/19 Status: OrderedAspirin = 81 mg, By Mouth, Daily, 0 Refills, Maintenance, 01/23/13 8:42:50 Start Date: 01/23/13 Status: OrderedAutomated blood pressure cuff Automated blood pressure cuff, See Instructions, # 1 each, Refills 0, Tot. Refills 0, Maintenance, Use as directed. DX: Hypertension, 07/07/19 11:30:06 EST, Compound Start Date: 07/07/19 Status: OrderedCardizem CD 240 mg/24 hours oral capsule, extended release 240 mg, 1, capsule, By Mouth, 2 times a day, # 180 capsule, Refills 1, Tot. Refills 1, Maintenance, hypertension, 12/09/19 14:42:00 EDT, Route to Pharmacy Electronically, [facility]/pharmacy #1230, 191, cm, 10/24/19 15:23:00 EST, Height, 144.6, kg, 10/24/19... Start Date: 12/09/19 Status: Orderedfinasteride 5 mg oral tablet 1 tablet, By Mouth, Daily, # 90 tablet, 3 Refills, Maintenance, 08/19/19 13:11:00 EST, [facility], 191, cm, 07/07/19 10:47:00 EST, Height, 150.9, kg, 10/30/18 19:13:00 EDT, Dry Weight Start Date: 08/19/19 Status: OrderedmetFORMIN 750 mg oral tablet, extended release 1 tablet = 750 mg, By Mouth, 2 times a day, # 180 tablet, 3 Refills, Maintenance, 01/05/20 14:12:00 EDT, [facility]/pharmacy #1230, 191, cm, 01/05/20 13:19:00 EDT, [...] Strips See Instructions, # 100 each, Refills 3, [...] 09/30/19 14:01:00 EST, Route to Pharmacy Electronically, [id number], [facility]/pharmacy #1230, 190, cm, 09/27/19 19:03:00 EST, Height, 144,... Start Date: 09/30/19 Status: Orderedsimvastatin 40 mg oral tablet 40 mg, 1, tablet, By Mouth, Daily at bedtime, # 90 tablet, Refills 3, Tot. Refills 3, Maintenance, 01/05/20 14:12:00 EDT, Route to Pharmacy Electronically, [facility]/pharmacy #1230, 191, cm, 01/05/20 13:19:00 EDT, Height, 144.6, kg, 10/24/19 15:23:00 EST, D... Start Date: 01/05/20 Stop Date: 12/30/20 Status: OrderedWalker Walker, See Instructions, # 1 each, Refills 0, Tot. Refills 0, Maintenance, Use the walker for the next 7 -14 days., 10/30/18 20:25:28 EDT, Compound Start Date: 10/30/18 Status: OrderedWellbutrin XL 300 mg/24 hours oral tablet, extended release 1 tablet = 300 mg, By Mouth, Daily, # 90 tablet, 3 Refills, Maintenance, 04/23/19 10:27:06 EDT, ER Tablet Start Date: 04/23/19 Status: OrderedZestoretic 25 mg-20 mg oral tablet 1 tablet, By Mouth, Daily, # 90 tablet, 3 Refills, Maintenance, 01/05/20 14:12:00 EDT, Tablet, [facility]/pharmacy #1230, 1 tablet By Mouth Daily, [...] mellitus)(Confirmed) Thoracic back pain(Confirmed) Active 1Lright ear Vital Signs Most recent to oldest [Reference Range]: 1 Height 191 cm (01/05/20 1:19 PM) Social History Social History Type Response 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
--- OUTSIDE RECORDS SUMMARY | 2022-06-20 23:51 | XMS_ITS | Continuity of Care Document ---
:1965 Author Organization [facility] Address [address] [place] [address]- Care Team Providers Name Role Phone Cheikh Combs MD Primary Care Physician Encounter [facility] Date(s): 10/24/19 - 10/24/[address] [address]- [facility] Discharge Disposition: A-D/C Home Attending Physician: Victoriano Frank MD Admitting Physician: Victoriano Frank MD Referring Physician: Not on Staff, Referring [...] (oldterm) 08/05/07 Given Tetanus Toxoid Vaccine (oldterm) 1/1/02 Given 1Result Comment: [id number] Comment: [07/03/2018] [id number] Comment: [06/29/2017] [id number] Comment: [07/27/2015] LATEX ALLERGY5 Admin Note: [id number] Note: GIVEN IN CLINIC SHMA Medications Accu-Chek Aspen Glucose Meter See Instructions, # 1 each, Maintenance, use to test blood sugar BID dx E11.9, 05/22/19 17:08:37 EDT, Compound Start Date: 05/22/19 Status: OrderedAccu-Chek Aspen Plus Test Strips See Instructions, # 200 each, Refills 0, Tot. Refills 0, Maintenance, Test blood bid Dx E11.9, 07/03/18 16:05:04 EST, Compound Start Date: 07/03/18 Status: OrderedAccu-Chek Compact Lancets See Instructions, # 2 box, Refills 1, Tot. Refills 1, Maintenance, Use to test blood sugar 2 times daily as needed for DMII E11.9, 07/03/18 16:05:04 EST, Compound Start Date: 07/03/18 Status: OrderedAspirin = 81 mg, By Mouth, [...] times a day, # 180 capsule, Refills 3, Tot. Refills 3, Maintenance, hypertension, 11/28/18 17:07:48 EDT, Route to Pharmacy Electronically, [id number], [facility]/pharmacy #1230 Start Date: 11/28/18 Status: Orderedfinasteride 5 mg oral tablet 1 tablet, By Mouth, Daily, # 90 tablet, 3 Refills, Maintenance, 08/19/19 13:11:00 EST, [facility], 191, cm, 07/07/19 10:47:00 EST, Height, 150.9, kg, 10/30/18 19:13:00 EDT, Dry Weight Start Date: 08/19/19 Status: OrderedmetFORMIN 750 mg oral tablet, extended release 1 tablet = 750 mg, By Mouth, 2 times a day, # 180 tablet, 3 Refills, Maintenance, 01/01/19 11:12:15 EDT Start Date: 01/01/19 Status: OrderedProAir HFA 90 mcg/inh inhalation aerosol with adapter 2, puffs, Inhalation, Every 4 hours, PRN, # 18 Gm, Refills 5, Tot. Refills 5, Maintenance, 09/30/19 14:01:00 EST, Route to Pharmacy Electronically, [id number][facility], cm, 09/27/19 19:03:00 EST, Height, 144,... Start Date: 09/30/19 Status: Orderedsimvastatin 40 mg oral tablet 40 mg, 1, tablet, By Mouth, Daily at bedtime, # 90 tablet, Refills 1, Tot. Refills 1, Maintenance, 08/07/19 14:42:00 EST, [facility] 191, cm, 07/07/19 10:47:00 EST, Height, 150.9, kg, 10/30/18 19:13:00 EDT, D... Start Date: 08/07/19 Stop Date: 02/03/20 Status: OrderedCarter Machado, See Instructions, # 1 each, Refills 0, [...] Daily, # 90 tablet, 3 Refills, Maintenance, 01/01/19 11:12:09 EDT, Tablet, 1 tablet By Mouth Daily Start Date: 01/01/19 Status: Ordered Problem List Condition Effective Dates [...] mellitus)(Confirmed) Thoracic back pain(Confirmed) Active 1L3/42right ear Results Radiology Reports Exam Date Time Procedure Performing Provider Status 10/24/19 3:58 PM Knee 4 or > Views Comp Right Angel Diaz (Verified) Notes:(Knee 4 or > Views Comp Right) Reason For Exam: TraumaRESULT: Knee 4 or > Views Comp Right Knee 4 Views Comp Right Reason: Trauma; Clinical Question(s): Fracture; Hx of Present Illness: fell down stairs at 0830 today landing on RT knee. Abrasion to knee. pain with ambulation--feels pulling behind knee COMPARISON: None. FINDINGS: There is no evidence of acute or healing fracture, dislocation or bone lesion. Moderate tricompartmental degenerative osteoarthritis but no evidence of osteochondral defect or intra-articular loose body. No evidence of joint effusion. IMPRESSION: Moderate tricompartmental degenerative osteoarthritis but no acute abnormality. I have personally reviewed the images and I agree with this report. WSN: [id number] Ordering Physician: Victoriano Frank Dictated By: Abraham Laws DO Dictated Date/Time: 10/24/19 4:18 pm Reviewed By: Jun Malin MD Signed By: Jun Malin MD Signed Date/Time: 10/24/19 4:23 pm Transcribed By: TYRON Transcribed Date/Time: 10/24/19 4:09 pm Vital Signs Most recent to oldest [Reference Range]: 1 Height 191 cm (10/24/19 3:23 PM) Weight 144.6 kg (10/24/19 3:23 PM) Oxygen Saturation [94-100 %] 98 % (10/24/19 3:23 PM) Pulse Rate [55-90 bpm] 66 bpm (10/24/19 3:23 PM) Blood Pressure [90-138/55-84 mm Hg] 125/65 mm Hg (10/24/19 3:23 PM) Respiratory Rate [16-30 br/min] 16 br/min (10/24/19 3:23 PM) Temperature [96.8-100.4 DegF] 97.4 DegF (10/24/19 3:23 PM) Mode of Delivery (Oxygen) Room air (10/24/19 3:23 PM) Temperature Route Oral (10/24/19 3:23 PM) Dry Weight 144.6 kg (10/24/19 3:23 PM) Weight Obtained Via Standing scale (10/24/19 3:23 PM) Social History Social History Type Response 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
--- OUTSIDE RECORDS SUMMARY | 2022-06-20 23:51 | XMS_ITS | Continuity of Care Document ---
:1965 Author Organization [facility] Address [address] [place] [address]- Care Team Providers Name Role Phone Cheikh Combs MD Primary Care Physician Encounter [facility] Date(s): 03/28/20 - 03/28/[address] [address]- [facility] Encounter Diagnosis Acute left-sided back pain (Final) - 03/28/20 Discharge Disposition: A-D/C Home Attending Physician: Quinn Swan MD Admitting Physician: Quinn Swan MD Referring Physician: Not on Staff, Referring [...] Toxoid Vaccine (oldterm) 08/20/01 Given 1Result Comment: [id number] Comment: [07/03/2018] [id number] Comment: [06/29/2017] [id number] Comment: [07/27/2015] LATEX ALLERGY5 Admin Note: [id number] Note: GIVEN IN CLINIC [place] Medications Aspirin = 81 mg, By Mouth, Daily, 0 Refills, Maintenance, 01/23/13 8:42:50 Start Date: 01/23/13 Status: OrderedCardizem CD 240 mg/24 hours oral capsule, extended release 240 mg, 1, capsule, By Mouth, 2 times a day, # 180 capsule, Refills 1, Tot. Refills 1, Maintenance, hypertension, 12/09/19 14:42:00 EDT, Route to Pharmacy Electronically, [facility]/pharmacy #1230, 191, cm, 10/24/19 15:23:00 EST, Height, 144.6, kg, 10/24/19... Start Date: 12/09/19 Status: Orderedfinasteride 5 mg oral tablet 1 tablet, By Mouth, Daily, # 90 tablet, 3 Refills, Maintenance, 08/19/19 13:11:00 EST, [facility], 191, cm, 07/07/19 10:47:00 EST, Height, 150.9, kg, 10/30/18 19:13:00 EDT, Dry Weight Start Date: 08/19/19 Status: OrderedmetFORMIN 750 mg oral tablet, extended release 1 tablet = 750 mg, By Mouth, 2 times a day, # 180 tablet, 3 Refills, Maintenance, 01/05/20 14:12:00 EDT, [facility]/pharmacy #1230, 191, cm, 01/05/20 13:19:00 EDT, [...] 09/30/19 14:01:00 EST, Route to Pharmacy Electronically, [id number], [facility]/pharmacy #1230, 190, cm, 09/27/19 19:03:00 EST, Height, 144,... Start Date: 09/30/19 Status: Orderedsimvastatin 40 mg oral tablet 40 mg, 1, tablet, By Mouth, Daily at bedtime, # 90 tablet, Refills 3, Tot. Refills 3, Maintenance, 01/05/20 14:12:00 EDT, Route to Pharmacy Electronically, [facility]/pharmacy #1230, 191, cm, 01/05/20 13:19:00 EDT, [...] 3 Refills, Maintenance, 01/05/20 14:12:00 EDT, Tablet, [facility]/pharmacy #1230, 1 tablet By Mouth Daily, [...] recent to oldest [Reference Range]: 1 Height 188 cm (03/28/20 10:41 AM) Weight 143.6 kg (03/28/20 10:41 AM) Oxygen Saturation [94-100 %] 97 % (03/28/20 10:41 AM) Pulse Rate [55-90 bpm] 88 bpm (03/28/20 10:41 AM) Blood Pressure [90-138/55-84 mm Hg] 147/56 mm Hg *H* (03/28/20 10:41 AM) Respiratory Rate [16-30 br/min] 22 br/min (03/28/20 10:41 AM) Temperature [96.8-100.4 DegF] 98.2 DegF (03/28/20 10:41 AM) Mode of Delivery (Oxygen) Room air (03/28/20 10:41 AM) Blood pressure sites Arm, left (03/28/20 10:41 AM) Temperature Route Oral (03/28/20 10:41 AM) Dry Weight 143.6 kg (03/28/20 10:41 AM) Weight Obtained Via Standing scale (03/28/20 10:41 AM) Social History Social History Type Response 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
--- OUTSIDE RECORDS SUMMARY | 2022-06-20 23:51 | XMS_ITS | Continuity of Care Document ---
:1965 Author Organization [facility] [place] Address [address] [place] [address]- Care Team Providers Name Role Phone Lauryn BROWER, Cheikh Huerta Primary Care Physician Encounter [facility] Date(s): 10/08/20 - 11/07/20 [facility] [place] [address] [place] [address]- Attending Physician: Xiao Sandoval Admitting Physician: Xiao [...] Toxoid Vaccine (oldterm) 08/20/01 Given 1Result Comment: [id number] Comment: [07/03/2018] [id number] Comment: [06/29/2017] [id number] Comment: [07/27/2015] LATEX ALLERGY5 Admin Note: [id number] Note: GIVEN IN CLINIC SHMA Medications Aspirin = 81 mg, By Mouth, Daily, 0 Refills, Maintenance, 01/23/13 8:42:50 Start Date: 01/23/13 Status: OrderedCardizem CD 240 mg/24 hours oral capsule, extended release 240 mg, 1, capsule, By Mouth, 2 times a day, # 180 capsule, Refills 1, Tot. Refills 1, Maintenance, hypertension, 12/09/19 14:42:00 EDT, Route to Pharmacy Electronically, [facility]/pharmacy #1230, 191, cm, 10/24/19 15:23:00 EST, Height, 144.6, kg, 10/24/19... Start Date: 12/09/19 Status: Orderedfinasteride 5 mg oral tablet 1 tablet, By Mouth, Daily, # 90 tablet, 1 Refills, Maintenance, 10/20/20 10:10:00 EST, [facility], 191, cm, 10/08/20 10:36:00 EST, [...] tablet, 3 Refills, Maintenance, 01/05/20 14:12:00 EDT, [facility]/pharmacy #1230, 191, cm, 01/05/20 13:19:00 EDT, [...] 09/30/19 14:01:00 EST, Route to Pharmacy Electronically, [id number], [facility]/pharmacy #1230, 190, cm, 09/27/19 19:03:00 EST, Height, 144,... Start Date: 09/30/19 Status: Orderedsimvastatin 40 mg oral tablet 40 mg, 1, tablet, By Mouth, Daily at bedtime, # 90 tablet, Refills 3, Tot. Refills 3, Maintenance, 01/05/20 14:12:00 EDT, Route to Pharmacy Electronically, [facility]/pharmacy #1230, 191, cm, 01/05/20 13:19:00 EDT, Height, 144.6, kg, 10/24/19 15:23:00 EST, D... Start Date: 01/05/20 Stop Date: 12/30/20 Status: OrderedWellbutrin XL 300 mg/24 hours oral tablet, extended release 1 tablet = 300 mg, By Mouth, Daily, # 90 tablet, 1 Refills, Maintenance, 05/15/20 6:26:00 EDT, ER Tablet, [facility]/pharmacy #1230, 188, cm, 03/28/20 10:41:00 EDT, Height, 143.6, kg, 03/28/20 10:41:00 EDT, Dry Weight Start Date: 05/15/20 Status: OrderedZestoretic 25 mg-20 mg oral tablet 1 tablet, By Mouth, Daily, # 90 tablet, 3 Refills, Maintenance, 01/05/20 14:12:00 EDT, Tablet, [facility]/pharmacy #1230, 1 tablet By Mouth Daily, 191, [...] Completed CPAP trial 2012 Completed Sleep study, 2010, confirms XANDER Completed Social History Social History Type Response 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
--- OUTSIDE RECORDS SUMMARY | 2022-06-20 23:51 | XMS_ITS | Continuity of Care Document ---
:1965 Author Organization [facility] Address [address] [place] [address]- Care Team Providers Name Role Phone Cheikh Combs MD Primary Care Physician Encounter [facility] Date(s): 09/26/20 - 09/26/[address] [address]- Discharge Disposition: A-D/C Home Attending Physician: Victoriano Frank MD Admitting Physician: Vitcoriano Frank MD Referring Physician: Not on Staff, [...] Toxoid Vaccine (oldterm) 08/20/01 Given 1Result Comment: [id number] Comment: [07/03/2018] [id number] Comment: [06/29/2017] [id number] Comment: [07/27/2015] LATEX ALLERGY5 Admin Note: [id number] Note: GIVEN IN CLINIC SHMA Medications Aspirin = 81 mg, By Mouth, Daily, 0 Refills, Maintenance, 01/23/13 8:42:50 Start Date: 01/23/13 Status: OrderedCardizem CD 240 mg/24 hours oral capsule, extended release 240 mg, 1, capsule, By Mouth, 2 times a day, # 180 capsule, Refills 1, Tot. Refills 1, Maintenance, hypertension, 12/09/19 14:42:00 EDT, Route to Pharmacy Electronically, [facility]/pharmacy #1230, 191, cm, 10/24/19 15:23:00 EST, Height, 144.6, kg, 10/24/19... Start Date: 12/09/19 Status: Orderedfinasteride 5 mg oral tablet 1 tablet, By Mouth, Daily, # 90 tablet, 3 Refills, Maintenance, 08/19/19 13:11:00 EST, [facility] STORE [facility], 191, cm, 07/07/19 10:47:00 EST, Height, 150.9, kg, 10/30/18 19:13:00 EDT, Dry Weight Start Date: 08/19/19 Status: OrderedLisinopril By Mouth, Daily, 0 Refills, Maintenance, 09/26/20 16:36:00 EST, Partial fill upon patient request ifthe prescription is for a schedule II opioid drug. Start Date: 09/26/20 Status: Orderedmeclizine 12.5 mg oral tablet 1 [...] Refills, Maintenance, 01/05/20 14:12:00 EDT, [facility]/pharmacy #1230, 191, cm, 01/05/20 13:19:00 [...] 09/30/19 14:01:00 EST, Route to Pharmacy Electronically, [id number], [facility]/pharmacy #1230, 190, cm, 09/27/19 19:03:00 EST, Height, 144,... Start Date: 09/30/19 Status: Orderedsimvastatin 40 mg oral tablet 40 mg, 1, tablet, By Mouth, Daily at bedtime, # 90 tablet, Refills 3, Tot. Refills 3, Maintenance, 01/05/20 14:12:00 EDT, Route to Pharmacy Electronically, [facility]/pharmacy #1230, 191, cm, 01/05/20 13:19:00 EDT, Height, 144.6, kg, 10/24/19 15:23:00 EST, D... Start Date: 01/05/20 Stop Date: 12/30/20 Status: OrderedWellbutrin XL 300 mg/24 hours oral tablet, extended release 1 tablet = 300 mg, By Mouth, Daily, # 90 tablet, 1 Refills, Maintenance, 05/15/20 6:26:00 EDT, ER Tablet, [facility]/pharmacy #1230, 188, cm, 03/28/20 10:41:00 EDT, Height, 143.6, kg, 03/28/20 10:41:00 EDT, Dry Weight Start Date: 05/15/20 Status: OrderedZestoretic 25 mg-20 mg oral tablet 1 tablet, By Mouth, Daily, # 90 tablet, 3 Refills, Maintenance, 01/05/20 14:12:00 EDT, Tablet, [facility]/pharmacy #1230, 1 tablet By Mouth [...] Exam Date Time Procedure Performing Provider Status 09/26/20 5:40 PM Foot Min 3 Views Right Tiffany Wakefield; Auth (V erified) Notes:(Foot Min 3 Views Right) Reason For Exam: with Pain;TraumaRESULT: Foot Min 3 Views Right Foot Min 3 Views Right CLINICAL INDICATION: Hx of Present Illness: pt tripped, rolled his ankle.; Reason: Trauma; with Pain; Clinical Question(s): Fracture COMPARISONS: None TECHNIQUE: AP, lateral and oblique views of the right foot were obtained. FINDINGS: Assessment of phalanges limited by flexion deformity of the toes. There is no fracture or dislocation. MTP and IP joint spaces are maintained. The Lisfranc joint space is normally aligned. No retained foreign body. Hindfoot midfoot alignment is normal. Prominent degenerative plantar and posterior calcaneal heel spurs are noted. IMPRESSION: No ankle or foot fracture is identified on x-ray. Examination is limited by flexion deformity of toes. There are prominent arthritic degenerative spurs along the plantar and posterior aspects of the calcaneus. If patient is unable to bear weight due to foot or ankle pain consider further evaluation with CT to evaluate for occult fracture. WSN: [id number] Ordering Physician: Victoriano Frank Dictated By: Robinson Lewis MD Dictated Date/Time: 09/26/20 6:06 pm Reviewed By: Robinson Lewis MD Signed By: Robinson Lewis MD Signed Date/Time: 09/26/20 6:06 pm Transcribed By: TYRON Transcribed Date/Time: 09/26/20 6:03 pm Exam Date Time Procedure Performing Provider Status 09/26/20 4:50 PM Ankle Min 3 Views Right Tiffany Wakefield; Chanelle ( Verified) Notes:(Ankle Min 3 Views Right) Reason For Exam: PainRESULT: Ankle Min 3 Views Right Ankle Min 3 Views Right CLINICAL INDICATION: Hx of Present Illness: pt tripped, rolled his ankle.; Reason: Pain; Clinical Question(s): Fracture COMPARISONS: None TECHNIQUE: AP, lateral and stress views of the right ankle were obtained. FINDINGS: There is bimalleolar soft tissue edema. There is no fracture or dislocation. The ankle mortise is not widened. No retained foreign body is identified. Hindfoot midfoot alignment is normal. There are prominent degenerative spurs arising from the posterior and plantar aspects of the calcaneus with overlying soft tissue edema. Degenerative spurring along the talonavicular articulation and calcaneocuboid joint. IMPRESSION: Bimalleolar soft tissue edema. No fracture or dislocation. Bulky calcaneal heel spurs. WSN: [id number] Ordering Physician: Victoriano Frank Dictated By: Robinson Lewis MD Dictated Date/Time: 09/26/20 5:26 pm Reviewed By: Robinson Lewis MD Signed By: Robinson Lewis MD Signed Date/Time: 09/26/20 5:26 pm Transcribed By: TYRON Transcribed Date/Time: 09/26/20 5:23 pm Vital Signs Most recent to oldest [Reference Range]: 1 2 Height 183 cm 183 cm (09/26/20 6:06 PM) (09/26/20 4:35 PM) Weight 134.5 kg 134.5 kg (09/26/20 6:06 PM) (09/26/20 4:35 PM) Oxygen Saturation [94-100 %] 98 % (09/26/20 4:35 PM) Pulse Rate [55-90 bpm] 68 bpm (09/26/20 4:35 PM) Blood Pressure [90-138/55-84 mm Hg] 130/61 mm Hg (09/26/20 4:35 PM) Respiratory Rate [16-30 br/min] 17 br/min (09/26/20 4:35 PM) Temperature [96.8-100.4 DegF] 98.3 DegF (09/26/20 4:35 PM) Mode of Delivery (Oxygen) Room air (09/26/20 4:35 PM) Temperature Route Temporal (09/26/20 4:35 PM) Dry Weight 134.5 kg 134.5 kg (09/26/20 6:06 PM) (09/26/20 4:35 PM) Weight Obtained Via Patient/family stated (09/26/20 4:35 PM) Social History Social History Type Response 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
--- OUTSIDE RECORDS SUMMARY | 2022-06-20 23:51 | XMS_ITS | Continuity of Care Document ---
:1965 Author Organization [facility] Adult Address [address] [place] [address]- Care Team Providers Name Role Phone Cheikh Combs MD Primary Care Physician [facility] Date[facility] 09/17/20 - 05/18/21 [facility] [address] [place] [address]- Attending Physician: Cheikh Combs MD Allergies, Adverse [...] Toxoid Vaccine (oldterm) 08/20/01 Given 1Result Comment: [id number] Comment: [07/03/2018] [id number] Comment: [06/29/2017] [id number] Comment: [07/27/2015] LATEX ALLERGY5 Admin Note: [id number] Note: GIVEN IN CLINIC [place] Medications Aspirin = 81 mg, By Mouth, Daily, 0 Refills, Maintenance, 01/23/13 8:42:50 Start Date: 01/23/13 Status: OrderedbuPROPion 300 mg/24 hours (XL) oral tablet, extended release 1 tablet, By Mouth, Daily, # 90 tablet, 3 Refills, Maintenance, 02/25/21 16:03:00 EDT, [facility], 191, cm, 01/06/21 9:04:00 EDT, Height, 135, kg, 11/24/20 4:15:00 EDT, Dry Weight Start Date: 02/25/21 Status: OrderedCardizem CD 240 mg/24 hours oral capsule, extended release 240 mg, 1, capsule, By Mouth, 2 times a day, # 180 capsule, Refills 1, Tot. Refills 1, Maintenance, hypertension, 12/09/19 14:42:00 EDT, Route to Pharmacy Electronically, [facility]/pharmacy #1230, 191, cm, 10/24/19 15:23:00 EST, Height, 144.6, kg, 10/24/19... Start Date: 12/09/19 Status: Orderedfinasteride 5 mg oral tablet 1 tablet, By Mouth, Daily, # 90 tablet, 1 Refills, Maintenance, 10/20/20 10:10:00 EST, [facility], 191, cm, 10/08/20 10:36:00 EST, [...] 09/30/19 14:01:00 EST, Route to Pharmacy Electronically, [id number], [facility]/pharmacy #1230, 190, cm, 09/27/19 19:03:00 [...]
--- OUTSIDE RECORDS SUMMARY | 2022-06-20 23:51 | XMS_ITS | Continuity of Care Document ---
:1965 Author Organization [facility] Adult Address [address] [place] [address]- Care Team Providers Name Role Phone Cheikh Combs MD Primary Care Physician [facility] Date[facility]s): 11/18/20 - 11/25/20 [facility] Adult [address] [place] [address]- Encounter Diagnosis T2DM (type 2 diabetes mellitus) (Discharge Diagnosis) - 11/18/20 Essential hypertension (Discharge Diagnosis) - 11/18/20 Morbid Obesity (Discharge Diagnosis) - 11/18/20 Attending Physician: Cheikh Combs MD Allergies, Adverse [...] Toxoid Vaccine (oldterm) 08/20/01 Given 1Result Comment: [id number] Comment: [07/03/2018] [id number] Comment: [06/29/2017] [id number] Comment: [07/27/2015] LATEX ALLERGY5 Admin Note: [id number] Note: GIVEN IN CLINIC [place] Medications Aspirin = 81 mg, By Mouth, Daily, 0 Refills, Maintenance, 01/23/13 8:42:50 Start Date: 01/23/13 Status: OrderedCardizem CD 240 mg/24 hours oral capsule, extended release 240 mg, 1, capsule, By Mouth, 2 times a day, # 180 capsule, Refills 1, Tot. Refills 1, Maintenance, hypertension, 12/09/19 14:42:00 EDT, Route to Pharmacy Electronically, [facility]/pharmacy #1230, 191, cm, 10/24/19 15:23:00 EST, Height, [...] tablet, 3 Refills, Maintenance, 01/05/20 14:12:00 EDT, [facility]/pharmacy #1230, 191, cm, 01/05/20 13:19:00 EDT, Height, [...] 09/30/19 14:01:00 EST, Route to Pharmacy Electronically, [id number], [facility]/pharmacy #1230, 190, cm, 09/27/19 19:03:00 EST, Height, 144,... Start Date: 09/30/19 Status: Orderedsimvastatin 40 mg oral tablet 40 mg, 1, tablet, By Mouth, Daily at bedtime, # 90 tablet, Refills 3, Tot. Refills 3, Maintenance, 01/05/20 14:12:00 EDT, Route to Pharmacy Electronically, [facility]/pharmacy #1230, 191, cm, 01/05/20 13:19:00 EDT, Height, 144.6, kg, 10/24/19 15:23:00 EST, D... Start Date: 01/05/20 Stop Date: 12/30/20 Status: OrderedWellbutrin XL 300 mg/24 hours oral tablet, extended release 1 tablet = 300 mg, By Mouth, Daily, # 90 tablet, 1 Refills, Maintenance, 05/15/20 6:26:00 EDT, ER Tablet, [facility]/pharmacy #1230, 188, cm, 03/28/20 10:41:00 EDT, Height, 143.6, kg, 03/28/20 10:41:00 EDT, Dry Weight Start Date: 05/15/20 Status: OrderedZestoretic 25 mg-20 mg oral tablet 1 tablet, By Mouth, Daily, # 90 tablet, 3 Refills, Maintenance, 01/05/20 14:12:00 EDT, Tablet, [facility]/pharmacy #1230, 1 tablet By Mouth Daily, 191, [...] mellitus)(Confirmed) Thoracic back pain(Confirmed) Active 1L3/42right ear Diagnosis Diagnosis Type Effective Dates Health Clinical Infor mant Status Service T2DM (type 2 Discharge 11/18/20 diabetes mellitus) Diagnosis Essential Discharge 11/18/20 hypertension Diagnosis Morbid Obesity Discharge 11/18/20 Diagnosis Vital Signs Most recent to oldest [Reference Range]: 1 Height 191 cm (11/18/20 10:55 AM) Weight 135 kg (11/18/20 10:55 AM) Body Mass Index [18.5-24.99] 37.01 *>HHI* (11/18/20 10:55 AM) Blood Pressure [90-138/55-84 mm Hg] 116/60 mm Hg (11/18/20 10:55 AM) Weight Obtained Via Standing scale (11/18/20 10:55 AM) Social History Social History Type Response 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
--- OUTSIDE RECORDS SUMMARY | 2022-06-20 23:51 | XMS_ITS | Continuity of Care Document ---
:1965 Author Organization [facility] Address [address] [place] [address]- Care Team Providers Name Role Phone Cheikh Combs MD Primary Care Physician Encounter [facility] Date(s): 09/27/19 - 09/27/[address] [address]- [facility] Discharge Disposition: A-D/C Home Attending Physician: Clint Mc MD Admitting Physician: Clint Mc MD Referring Physician: Not on Staff, Referring [...] Toxoid Vaccine (oldterm) 08/20/01 Given 1Result Comment: [id number] Comment: [07/03/2018] [id number] Comment: [06/29/2017] [id number] Comment: [07/27/2015] LATEX ALLERGY5 Admin Note: [id number] Note: GIVEN IN CLINIC [facility] Medications Accu-Chek [...] 11/28/18 17:07:48 EDT, Route to Pharmacy Electronically, [id number], [facility]/pharmacy #2746 Start Date: 11/28/18 Status: Orderedfinasteride 5 mg oral tablet 1 tablet, By Mouth, Daily, # 90 tablet, 3 Refills, Maintenance, 08/19/19 13:11:00 EST, [facility], 191, cm, 07/07/19 10:47:00 EST, Height, 150.9, kg, 10/30/18 19:13:00 EDT, Dry Weight Start Date: 08/19/19 Status: OrderedmetFORMIN 750 mg oral tablet, extended release 1 tablet = 750 mg, By Mouth, 2 times a day, # 180 tablet, 3 Refills, Maintenance, 01/01/19 11:12:15 EDT Start Date: 01/01/19 Status: Orderedsimvastatin 40 mg oral tablet 40 mg, 1, tablet, By Mouth, Daily at bedtime, # 90 tablet, Refills 1, Tot. Refills 1, Maintenance, 08/07/19 14:42:00 EST, Route to Pharmacy Electronically, [facility]/pharmacy #1230, 191, cm, 07/07/19 10:47:00 EST, Height, [...] 07/25/12 Active mellitus)(Confirmed) Thoracic back pain(Confirmed) Active 1L342right ear Results Radiology Reports Exam Date Time Procedure Performing Provider Status 09/27/19 8:47 PM Chest 2 Views Frontal and Lat Zoë Gordon; Au th (Verified) Notes:(Chest 2 Views Frontal and Lat) Reason For Exam: Fever;CoughRESULT: Chest 2 Views Frontal and Lat Chest 2 Views Frontal and Lat Reason: Cough; Fever; Clinical Question(s): Pneumonia. Hx of Present Illness: Cough X 2 days. Pt reports sweats and chills. Cough produces yellow sputum. COMPARISON: 12/27/2017 FINDINGS: LINES AND TUBES: Partially imaged right ventriculoperitoneal shunt catheter with secondary abandoned catheter in the right inferolateral cervical soft tissues. LUNGS AND PLEURA: Clear lungs. Normal pulmonary vascularity. No pleural effusion. No pneumothorax. HEART, MEDIASTINUM AND JULES: Heart is normal in size. Normal mediastinal and hilar contour. BONES AND SOFT TISSUES: No acute abnormality. IMPRESSION: No acute abnormality. WSN: [id number] Dictated By: Gurmeet Herrera DO Dictated Date/Time: 09/27/19 8:58 pm Reviewed By: Gurmeet Herrera DO Signed By: Gurmeet Herrera DO Signed Date/Time: 09/27/19 8:58 pm Transcribed By: TYRON Transcribed Date/Time: 09/27/19 8:56 pm Vital Signs Most recent to oldest [Reference 1 2 3 Range]: Height 190 cm (09/27/19 7:03 PM) Weight 144 kg (09/27/19 7:03 PM) Oxygen Saturation [94-100 %] 96 % 97 % (09/27/19 9:17 PM) (09/27/19 7:03 PM) Pulse Rate [55-90 bpm] 85 bpm 88 bpm (09/27/19 9:17 PM) (09/27/19 7:03 PM) Blood Pressure [90-138/55-84 mm 122/58 mm Hg 123/61 mm Hg Hg] (09/27/19 9:17 PM) (09/27/19 7:03 PM) Respiratory Rate [16-30 br/min] 18 br/min 18 br/min (09/27/19 9:17 PM) (09/27/19 7:03 PM) Temperature [96.8-100.4 DegF] 100.1 DegF 97.8 DegF 10 3.2 DegF (09/27/19 9:17 PM) (09/27/19 8:19 PM) *H* (09/27/19 7:03 PM) Mode of Delivery (Oxygen) Room air Room air (09/27/19 9:17 PM) (09/27/19 7:03 PM) Blood pressure sites Arm, right (09/27/19 7:03 PM) Temperature Route Oral Oral Temporal (09/27/19 9:17 PM) (09/27/19 8:19 PM) (09/27/19 7:03 P M) Dry Weight 144 kg (09/27/19 7:03 PM) Dry Weight Obtained Via Standing scale (09/27/19 7:03 PM) Social History Social History Type Response 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
--- OUTSIDE RECORDS SUMMARY | 2022-06-20 23:51 | XMS_ITS | Continuity of Care Document ---
:1965 Author Organization [facility] Address [address] [place] [address]- Care Team Providers Name Role Phone Cheikh Combs MD Primary Care Physician Encounter [facility] Date(s): 09/29/20 - 09/29/[address] [address]- Discharge Disposition: A-D/C Home Attending Physician: Victoriano [...] Toxoid Vaccine (oldterm) 08/20/01 Given 1Result Comment: [id number] Comment: [07/03/2018] [id number] Comment: [06/29/2017] [id number] Comment: [07/27/2015] LATEX ALLERGY5 Admin Note: [id number] Note: GIVEN IN CLINIC [facility] Medications Aspirin = 81 mg, By Mouth, Daily, 0 Refills, Maintenance, 01/23/13 8:42:50 Start Date: 01/23/13 Status: OrderedCardizem CD 240 mg/24 hours oral capsule, extended release 240 mg, 1, capsule, By Mouth, 2 times a day, # 180 capsule, Refills 1, Tot. Refills 1, Maintenance, hypertension, 12/09/19 14:42:00 EDT, Route to Pharmacy Electronically, [facility]/pharmacy #1230, 191, cm, 10/24/19 15:23:00 EST, Height, 144.6, kg, 10/24/19... Start Date: 12/09/19 Status: Orderedfinasteride 5 mg oral tablet 1 tablet, By Mouth, Daily, # 90 tablet, 3 Refills, Maintenance, 08/19/19 13:11:00 EST, [facility] 77568, 191, cm, 07/07/19 10:47:00 EST, Height, 150.9, [...] 09/23/20 Status: Orderedmeclizine 25 mg oral tablet See Instructions, PRN for dizziness, Take 1 tablet with onset of vertigo, repeat dose in 1 to 2 hours if not improved. May take a maximum of 4 tablets over 24 hours, # 30 tablet, 0 Refills, Acute 09/30/20 18:47:00 EST, 09/29/20 18:45:00 EST, Tablet,... Start Date: 09/29/20 Stop Date: 09/30/20 Status: OrderedmetFORMIN 750 mg oral tablet, extended release 1 tablet = 750 mg, By Mouth, 2 times a day, # 180 tablet, 3 Refills, Maintenance, 01/05/20 14:12:00 EDT, [facility]/pharmacy #1230, 191, cm, 01/05/20 13:19:00 EDT, [...] 09/30/19 14:01:00 EST, Route to Pharmacy Electronically, [id number], [facility]/pharmacy #1230, 190, cm, 09/27/19 19:03:00 EST, Height, 144,... Start Date: 09/30/19 Status: Orderedsimvastatin 40 mg oral tablet 40 mg, 1, tablet, By Mouth, Daily at bedtime, # 90 tablet, Refills 3, Tot. Refills 3, Maintenance, 01/05/20 14:12:00 EDT, [facility], cm, 01/05/20 13:19:00 EDT, Height, 144.6, kg, 10/24/19 15:23:00 EST, D... Start Date: 01/05/20 Stop Date: 12/30/20 Status: OrderedWellbutrin XL 300 mg/24 hours oral tablet, extended release 1 tablet = 300 mg, By Mouth, Daily, # 90 tablet, 1 Refills, Maintenance, 05/15/20 6:26:00 EDT, ER Tablet, [facility]/pharmacy #1230, 188, cm, 03/28/20 10:41:00 EDT, Height, 143.6, kg, 03/28/20 10:41:00 EDT, Dry Weight Start Date: 05/15/20 Status: OrderedZestoretic 25 mg-20 mg oral tablet 1 tablet, By Mouth, Daily, # 90 tablet, 3 Refills, Maintenance, 01/05/20 14:12:00 EDT, Tablet, [facility]/pharmacy #1230, 1 tablet By Mouth Daily, [...] mellitus)(Confirmed) Thoracic back pain(Confirmed) Active 1L342right ear Vital Signs Most recent to oldest [Reference Range]: 1 2 Height 191 cm (09/29/20 5:35 PM) Weight 135.5 kg (09/29/20 5:35 PM) Oxygen Saturation [94-100 %] 98 % 97 % (09/29/20 7:02 PM) (09/29/20 5:35 PM) Pulse Rate [55-90 bpm] 66 bpm 64 bpm (09/29/20 7:02 PM) (09/29/20 5:35 PM) Blood Pressure [90-138/55-84 mm Hg] 118/70 mm Hg 116/ 62 mm Hg (09/29/20 7:02 PM) (09/29/20 5:35 PM) Respiratory Rate [16-30 br/min] 16 br/min 16 br/mi n (09/29/20 7:02 PM) (09/29/20 5:35 PM) Temperature [96.8-100.4 DegF] 97.9 DegF (09/29/20 5:35 PM) Mode of Delivery (Oxygen) Room air Room air (09/29/20 7:02 PM) (09/29/20 5:35 PM) Blood pressure sites Arm, left Arm, left (09/29/20 7:02 PM) (09/29/20 5:35 PM) Temperature Route Temporal (09/29/20 5:35 PM) Dry Weight 135.5 kg (09/29/20 5:35 PM) Weight Obtained Via Patient/family stated (09/29/20 5:35 PM) Dry Weight Obtained Via Patient/family stated (09/29/20 5:35 PM) Social History Social History Type Response 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
--- OUTSIDE RECORDS SUMMARY | 2022-06-20 23:51 | XMS_ITS | Continuity of Care Document ---
:1965 Author Organization [facility] Adult Address [address] [place] [address]- Care Team Providers Name Role Phone Cheikh Combs MD Primary Care Physician Encounter [facility] Date(s): 10/03/19 - 10/10/19 [facility] Adult [address] [place] [address]- [facility] Encounter Diagnosis Influenza A (Discharge Diagnosis) - 10/03/19 Acute bacterial sinusitis (Discharge Diagnosis) - 10/03/19 Attending Physician: Cheikh Combs MD Allergies, Adverse [...] Toxoid Vaccine (oldterm) 1/1/02 Given 1Result Comment: [id number] Comment: [07/03/2018] [id number] Comment: [06/29/2017] [id number] Comment: [07/27/2015] LATEX ALLERGY5 Admin Note: [id number] Note: GIVEN IN CLINIC [facility] Medications Accu-Chek [...] 11/28/18 17:07:48 EDT, Route to Pharmacy Electronically, [id number], [facility]/pharmacy #1230 Start Date: 11/28/18 Status: Orderedfinasteride 5 mg oral tablet 1 tablet, By Mouth, Daily, # 90 tablet, 3 Refills, Maintenance, 08/19/19 13:11:00 EST, [facility], 191, cm, 07/07/19 10:47:00 EST, Height, 150.9, [...] 09/30/19 14:01:00 EST, Route to Pharmacy Electronically, [id number], [facility], cm, 09/27/19 19:03:00 EST, Height, 144,... Start Date: 09/30/19 Status: Orderedsimvastatin 40 mg oral tablet 40 mg, 1, tablet, By Mouth, Daily at bedtime, # 90 tablet, Refills 1, Tot. Refills 1, Maintenance, 08/07/19 14:42:00 EST, [facility] 191, cm, 07/07/19 10:47:00 EST, [...] ear Diagnosis Diagnosis Type Effective Dates Health Status Clinical In formant Service Influenza A Discharge 10/03/19 Diagnosis Acute bacterial Discharge 10/03/19 sinusitis Diagnosis Vital Signs Most recent to oldest [Reference Range]: 1 Height 190 cm (10/03/19 1:50 PM) Weight 142.7 kg (10/03/19 1:50 PM) Oxygen Saturation [94-100 %] 98 % (10/03/19 1:50 PM) Pulse Rate [55-90 bpm] 76 bpm (10/03/19 1:50 PM) Body Mass Index [18.5-24.99] 39.53 *>HHI* (10/03/19 1:50 PM) Blood Pressure [90-138/55-84 mm Hg] 132/70 mm Hg (10/03/19 1:50 PM) Temperature [96.8-100.4 DegF] 98.4 DegF (10/03/19 1:50 PM) Mode of Delivery (Oxygen) Room air (10/03/19 1:50 PM) Blood pressure sites Arm, left (10/03/19 1:50 PM) Temperature Route Oral (10/03/19 1:50 PM) Weight Obtained Via Standing scale (10/03/19 1:50 PM) Social History Social History Type Response 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
--- OUTSIDE RECORDS SUMMARY | 2022-06-20 23:51 | XMS_ITS | Continuity of Care Document ---
:1965 Author Organization [facility] Adult Address [address] [place] [address]- Care Team Providers Name Role Phone Lauryn BROWER, Cheikh Huerta Primary Care Physician Encounter [facility] Date(s): 03/25/20 - 04/24/20 [facility] [address] [place] [address]- [facility] Allergies, Adverse Reactions, Alerts Substance Reaction [...] Toxoid Vaccine (oldterm) 08/20/01 Given 1Result Comment: [id number] Comment: [07/03/2018] [id number] Comment: [06/29/2017] [id number] Comment: [07/27/2015] LATEX ALLERGY5 Admin Note: [id number] Note: GIVEN IN CLINIC [facility] Medications Aspirin = 81 mg, By Mouth, Daily, 0 Refills, Maintenance, 01/23/13 8:42:50 Start Date: 01/23/13 Status: OrderedCardizem CD 240 mg/24 hours oral capsule, extended release 240 mg, 1, capsule, By Mouth, 2 times a day, # 180 capsule, Refills 1, Tot. Refills 1, Maintenance, hypertension, 12/09/19 14:42:00 EDT, Route to Pharmacy Electronically, [facility]/pharmacy #1230, 191, cm, 10/24/19 15:23:00 EST, Height, 144.6, kg, 10/24/19... Start Date: 12/09/19 Status: Orderedfinasteride 5 mg oral tablet 1 tablet, By Mouth, Daily, # 90 tablet, 3 Refills, Maintenance, 08/19/19 13:11:00 EST, [facility], 191, cm, 07/07/19 10:47:00 EST, Height, 150.9, kg, 10/30/18 19:13:00 EDT, Dry Weight Start Date: 08/19/19 Status: OrderedmetFORMIN 750 mg oral tablet, extended release 1 tablet = 750 mg, By Mouth, 2 times a day, # 180 tablet, 3 Refills, Maintenance, 01/05/20 14:12:00 EDT, [facility]/pharmacy #1230, 191, cm, 01/05/20 13:19:00 [...] 09/30/19 14:01:00 EST, Route to Pharmacy Electronically, [id number], [facility] 190, cm, 09/27/19 19:03:00 EST, Height, 144,... Start Date: 09/30/19 Status: Orderedsimvastatin 40 mg oral tablet 40 mg, 1, tablet, By Mouth, Daily at bedtime, # 90 tablet, Refills 3, Tot. Refills 3, Maintenance, 01/05/20 14:12:00 EDT, [facility], cm, 01/05/20 13:19:00 EDT, [...] 3 Refills, Maintenance, 01/05/20 14:12:00 EDT, Tablet, [facility]/pharmacy #1230, 1 tablet By Mouth [...]
--- OUTSIDE RECORDS SUMMARY | 2022-06-20 23:51 | XMS_ITS | Continuity of Care Document ---
:1965 Author Organization [facility] Adult Address [address] [place] [address]- Care Team Providers Name Role Phone Lauryn BROWER, Cheikh Huerta Primary Care Physician [place] [facility] [place] 03/29/20 - 04/05/20 [facility] Adult [address] [place] [address]- [facility] Encounter Diagnosis Diarrhea (Discharge Diagnosis) - 03/29/20 Diverticulosis (Discharge Diagnosis) - 03/29/20 T2DM (type 2 diabetes mellitus) (Discharge Diagnosis) - 03/29/20 Attending Physician: Naa Betancourt NP Allergies, Adverse [...] Toxoid Vaccine (oldterm) 08/20/01 Given 1Result Comment: [id number] Comment: [07/03/2018] [id number] Comment: [06/29/2017] [id number] Comment: [07/27/2015] LATEX ALLERGY5 Admin Note: [id number] Note: GIVEN IN CLINIC [facility]MA Medications Aspirin [...] tablet, 3 Refills, Maintenance, 08/19/19 13:11:00 EST, [facility] 100[facility], 191, cm, 07/07/19 10:47:00 EST, Height, 150.9, [...] 09/30/19 14:01:00 EST, Route to Pharmacy Electronically, [id number], [facility]/pharmacy #1230, 190, [...] Dates Health Clinical Infor mant Status Service Diarrhea Discharge 03/29/20 Diagnosis Diverticulosis Discharge 03/29/20 Diagnosis T2DM (type 2 Discharge 03/29/20 diabetes mellitus) Diagnosis Social History Social History Type Response 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
--- OUTSIDE RECORDS SUMMARY | 2022-06-20 23:51 | XMS_ITS | Continuity of Care Document ---
:1965 Author Organization [facility] Adult Address [address] [place] [address]- Care Team Providers Name Role Phone Lauryn BROWER, Cheikh Huerta Primary Care Physician [facility]counter [facility] Date(s): 04/18/21 - 05/18/21 [facility] [address] [place] [address]- Attending Physician: Xiao Sandoval Admitting Physician: Xiao Sandoval Referring Physician: Xiao Sandoval Allergies, Adverse Reactions, Alerts Substance Reaction Severity [...] Toxoid Vaccine (oldterm) 08/20/01 Given 1Result Comment: [id number] Comment: [07/03/2018] [id number] Comment: [06/29/2017] [id number] Comment: [07/27/2015] LATEX ALLERGY5 Admin Note: [id number] Note: GIVEN IN CLINIC [place] Medications Aspirin = 81 mg, By Mouth, Daily, 0 Refills, Maintenance, 01/23/13 8:42:50 Start Date: 01/23/13 Status: OrderedbuPROPion 300 mg/24 hours (XL) oral tablet, extended release 1 tablet, By Mouth, Daily, # 90 tablet, 3 Refills, Maintenance, 02/25/21 16:03:00 EDT, [facility], 191, cm, 01/06/21 9:04:00 EDT, Height, 135, kg, 11/24/20 4:15:00 EDT, Dry Weight Start Date: 02/25/21 Status: OrderedCardizem CD 240 mg/24 hours oral capsule, extended release 240 mg, 1, capsule, By Mouth, 2 times a day, # 180 capsule, Refills 1, Tot. Refills 1, Maintenance, hypertension, 12/09/19 14:42:00 EDT, Route to Pharmacy Electronically, [facility]/pharmacy #1230, 191, cm, 10/24/19 15:23:00 EST, Height, 144.6, kg, 10/24/19... Start Date: 12/09/19 Status: Orderedfinasteride 5 mg oral tablet 1 tablet, By Mouth, Daily, # 90 tablet, 1 Refills, Maintenance, 10/20/20 10:10:00 EST, [facility], 191, cm, 10/08/20 10:36:00 EST, [...] 09/30/19 14:01:00 EST, Route to Pharmacy Electronically, [id number], [facility]/pharmacy #1230, 190, cm, 09/27/19 19:03:00 EST, Height, 144,... 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
--- OUTSIDE RECORDS SUMMARY | 2022-06-20 23:52 | XMS_ITS | Continuity of Care Document ---
:1965 Author Organization [facility] Adult Address [address] [place] [address]- Care Team Providers Name Role Phone Cheikh Combs MD Primary Care Physician [facility]): [facility]20 - 04/28/20 [facility] Adult [address] [place] [address]- [facility] Attending Physician: Xiao Sandoval Admitting Physician: Xiao [...] Toxoid Vaccine (oldterm) 08/20/01 Given 1Result Comment: [id number] Comment: [07/03/2018] [id number] Comment: [06/29/2017] [id number] Comment: [07/27/2015] LATEX ALLERGY5 Admin Note: [id number] Note: GIVEN IN CLINIC SHMA Medications Aspirin = 81 mg, By Mouth, Daily, 0 Refills, Maintenance, 01/23/13 8:42:50 Start Date: 01/23/13 Status: OrderedCardizem CD 240 mg/24 hours oral capsule, extended release 240 mg, 1, capsule, By Mouth, 2 times a day, # 180 capsule, Refills 1, Tot. Refills 1, Maintenance, hypertension, 12/09/19 14:42:00 EDT, Route to Pharmacy Electronically, [facility]/pharmacy #1230, 191, cm, 10/24/19 15:23:00 EST, Height, 144.6, kg, 10/24/19... Start Date: 12/09/19 Status: Orderedfinasteride 5 mg oral tablet 1 tablet, By Mouth, Daily, # 90 tablet, 3 Refills, Maintenance, 08/19/19 13:11:00 EST, [facility], 191, cm, 07/07/19 10:47:00 EST, Height, 150.9, kg, 10/30/18 19:13:00 EDT, Dry Weight Start Date: 08/19/19 Status: OrderedmetFORMIN 750 mg oral tablet, extended release 1 tablet = 750 mg, By Mouth, 2 times a day, # 180 tablet, 3 Refills, Maintenance, 01/05/20 14:12:00 EDT, [facility]/pharmacy #1230, 191, cm, 01/05/20 13:19:00 EDT, [...] 09/30/19 14:01:00 EST, Route to Pharmacy Electronically, [id number], [facility]/pharmacy #1230, 190, cm, 09/27/19 19:03:00 EST, Height, 144,... Start Date: 09/30/19 Status: Orderedsimvastatin 40 mg oral tablet 40 mg, 1, tablet, By Mouth, Daily at bedtime, # 90 tablet, Refills 3, Tot. 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
--- OUTSIDE RECORDS SUMMARY | 2022-06-20 23:52 | XMS_ITS | Continuity of Care Document ---
:1965 Author Organization [facility] Adult Address [address] [place] [address]- Care Team Providers Name Role Phone Cheikh Combs MD Primary Care Physician [facility] Date[facility]s): 01/05/20 - 02/04/20 [facility] Adult [address] [place] [address]- [facility] Attending Physician: Xiao Sandoval Admitting Physician: Xiao [...] Toxoid Vaccine (oldterm) 08/20/01 Given 1Result Comment: [id number] Comment: [07/03/2018] [id number] Comment: [06/29/2017] [id number] Comment: [07/27/2015] LATEX ALLERGY5 Admin Note: [id number] Note: GIVEN IN CLINIC SHMA Medications Accu-Chek [...] 12/09/19 14:42:00 EDT, Route to Pharmacy Electronically, [facility]/pharmacy #1230, 191, cm, 10/24/19 15:23:00 EST, Height, 144.6, kg, 10/24/19... Start Date: 12/09/19 Status: Orderedfinasteride 5 mg oral tablet 1 tablet, By Mouth, Daily, # 90 tablet, 3 Refills, Maintenance, 08/19/19 13:11:00 EST, [facility], 191, cm, 07/07/19 10:47:00 EST, Height, 150.9, kg, 10/30/18 19:13:00 EDT, Dry Weight Start Date: 08/19/19 Status: OrderedmetFORMIN 750 mg oral tablet, extended release 1 tablet = 750 mg, By Mouth, 2 times a day, # 180 tablet, 3 Refills, Maintenance, 01/05/20 14:12:00 EDT, [facility]/pharmacy #1230, 191, cm, 01/05/20 13:19:00 EDT, [...] 09/30/19 14:01:00 EST, Route to Pharmacy Electronically, [id number], [facility]/pharmacy #1230, 190, cm, 09/27/19 19:03:00 EST, Height, 144,... Start Date: 09/30/19 Status: Orderedsimvastatin 40 mg oral tablet 40 mg, 1, tablet, By Mouth, Daily at bedtime, # 90 tablet, Refills 3, Tot. Refills 3, Maintenance, 01/05/20 14:12:00 EDT, Route to Pharmacy Electronically, [facility]/pharmacy #1230, 191, cm, 01/05/20 13:19:00 EDT, [...] 3 Refills, Maintenance, 01/05/20 14:12:00 EDT, Tablet, [facility]/pharmacy #1230, 1 tablet By Mouth Daily, [...] mellitus)(Confirmed) Thoracic back pain(Confirmed) Active 1Lright ear Procedures Procedure Date Related Diagnosis Body Site Status colonoscopy 2012 - small adenoma Completed CPAP trial 2011 Completed Sleep study, 2010, confirms XANDER Completed Social History Social History Type Response 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
--- OUTSIDE RECORDS SUMMARY | 2022-06-20 23:52 | XMS_ITS | Continuity of Care Document ---
:1965 Author Organization [facility] Adult Address [address] [place] [address]- Care Team Providers Name Role Phone Lauryn BROWER, Cheikh Huerta Primary Care Physician [facility] Date[facility]s): 11/23/20 - 12/23/20 [facility] Adult [address] [place] [address]- Allergies, Adverse Reactions, Alerts Substance Reaction Severity [...] Toxoid Vaccine (oldterm) 08/20/01 Given 1Result Comment: [id number] Comment: [07/03/2018] [id number] Comment: [06/29/2017] [id number] Comment: [07/27/2015] LATEX ALLERGY5 Admin Note: [id number] Note: GIVEN IN CLINIC SHMA Medications Aspirin [...] Refills, Maintenance, 10/20/20 10:10:00 EST, [facility], 191, cm, 10/08/20 10:36:00 EST, Height, 135.5, kg, 09/29/20 17:35:00 EST, Dry Weight Start Date: 10/20/20 Status: Orderedmeclizine 12.5 mg oral tablet 1 tablet = 12.5 mg, By Mouth, 3 times a day, PRN for dizziness, # 10 tablet, 0 Refills, Maintenance,09/23/20 12:12:00 EST, Tablet, [facility] #[facility], Partial fill upon patient request if the prescription is for a schedule II opioid drug., 191... Start Date: 09/23/20 Status: OrderedmetFORMIN 750 mg oral tablet, extended release 1 tablet = 750 mg, By Mouth, 2 times a day, # 180 tablet, 3 Refills, Maintenance, 01/05/20 14:12:00 EDT, [facility]/pharmacy #1230, 191, cm, 01/05/20 [...] 09/30/19 14:01:00 EST, Route to Pharmacy Electronically, [id number], [facility]/pharmacy #1230, 190, cm, 09/27/19 [...]
--- OUTSIDE RECORDS SUMMARY | 2022-06-20 23:52 | XMS_ITS | Continuity of Care Document ---
:1965 Author Organization [facility] Adult Address [address] [place] [address]- Care Team Providers Name Role Phone Lauryn BROWER, Cheikh Huerta Primary Care Physician Encounter [facility] Date(s): 01/06/21 - 01/13/21 [facility] Adult [address] [place] [address]- Encounter Diagnosis Ruptured tympanic membrane (Discharge Diagnosis) - 01/06/21 Attending Physician: Ceferino ALFALFA DEHYDRATOR OPERATOR, Bekah Valdez Allergies, Adverse Reactions, Alerts Substance Reaction Severity [...] Toxoid Vaccine (oldterm) 08/20/01 Given 1Result Comment: [id number] Comment: [07/03/2018] [id number] Comment: [06/29/2017] [id number] Comment: [07/27/2015] LATEX ALLERGY5 Admin Note: [id number] Note: GIVEN IN CLINIC SHMA Medications Aspirin = 81 mg, By Mouth, Daily, 0 Refills, Maintenance, 01/23/13 8:42:50 Start Date: 01/23/13 Status: OrderedCardizem CD 240 mg/24 hours oral capsule, extended release 240 mg, 1, capsule, By Mouth, 2 times a day, # 180 capsule, Refills 1, Tot. Refills 1, Maintenance, hypertension, 12/09/19 14:42:00 EDT, Route to Pharmacy Electronically, [facility]/pharmacy #1230, 191, cm, 10/24/19 15:23:00 EST, Height, [...] 3 Refills, Maintenance, 01/05/20 14:12:00 EDT, [facility]/pharmacy #1230, 191, cm, 01/05/20 13:19:00 EDT, Height, [...] 09/30/19 14:01:00 EST, Route to Pharmacy Electronically, [id number], [facility]/pharmacy #1230, 190, cm, 09/27/19 19:03:00 EST, Height, 144,... Start Date: 09/30/19 Status: Orderedsimvastatin 40 mg oral tablet 40 mg, 1, tablet, By Mouth, Daily at bedtime, # 90 tablet, Refills 3, Tot. Refills 3, Maintenance, 01/05/20 14:12:00 EDT, Route to Pharmacy Electronically, [facility]/pharmacy #1230, 191, cm, 01/05/20 13:19:00 EDT, Height, 144.6, kg, 10/24/19 15:23:00 EST, D... Start Date: 01/05/20 Stop Date: 12/30/20 Status: OrderedWellbutrin XL 300 mg/24 hours oral tablet, extended release 1 tablet = 300 mg, By Mouth, Daily, # 90 tablet, 1 Refills, Maintenance, 05/15/20 6:26:00 EDT, ER Tablet, [facility]/pharmacy #1230, 188, cm, 03/28/20 10:41:00 EDT, Height, 143.6, kg, 03/28/20 10:41:00 EDT, Dry Weight Start Date: 05/15/20 Status: OrderedZestoretic 25 mg-20 mg oral tablet 1 tablet, By Mouth, Daily, # 90 tablet, 3 Refills, Maintenance, 01/05/20 14:12:00 EDT, Tablet, [facility]/pharmacy #1230, 1 tablet By Mouth Daily, 191, [...] Dates Health Status Clinical In formant Service Ruptured Discharge 01/06/21 tympanic Diagnosis membrane Vital Signs Most recent to oldest [Reference Range]: 1 Height 191 cm (01/06/21 9:04 AM) Weight 142.8 kg (01/06/21 9:04 AM) Oxygen Saturation [94-100 %] 98 % (01/06/21 9:04 AM) Pulse Rate [55-90 bpm] 66 bpm (01/06/21 9:04 AM) Body Mass Index [18.5-24.99] 39.14 *>HHI* (01/06/21 9:04 AM) Blood Pressure [90-138/55-84 mm Hg] 136/86 mm Hg (01/06/21 9:04 AM) Respiratory Rate [16-30 br/min] 12 br/min *L* (01/06/21 9:04 AM) Temperature [96.8-100.4 DegF] 98.4 DegF (01/06/21 9:04 AM) Mode of Delivery (Oxygen) Room air (01/06/21 9:04 AM) Blood pressure sites Arm, right (01/06/21 9:04 AM) Temperature Route Oral (01/06/21 9:04 AM) Weight Obtained Via Standing scale (01/06/21 9:04 AM) Social History Social History Type Response 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
--- OUTSIDE RECORDS SUMMARY | 2022-06-20 23:52 | XMS_ITS | Continuity of Care Document ---
:1965 Author Organization [facility] Adult Address [address] [place] [address]- Care Team Providers Name Role Phone Lauryn BROWER, Cheikh Huerta Primary Care Physician [facility] Date(s): 11/17/20 - 12/17/20 [facility] Adult [address] [place] [address]- Allergies, Adverse Reactions, Alerts Substance Reaction Severity [...] Toxoid Vaccine (oldterm) 08/20/01 Given 1Result Comment: [id number] Comment: [07/03/2018] [id number] Comment: [06/29/2017] [id number] Comment: [07/27/2015] LATEX ALLERGY5 Admin Note: [id number] Note: GIVEN IN CLINIC SHMA Medications Aspirin = 81 mg, By Mouth, Daily, 0 Refills, Maintenance, 01/23/13 8:42:50 Start Date: 01/23/13 Status: OrderedCardizem CD 240 mg/24 hours oral capsule, extended release 240 mg, 1, capsule, By Mouth, 2 times a day, # 180 capsule, Refills 1, Tot. Refills 1, Maintenance, hypertension, 12/09/19 14:42:00 EDT, Route to Pharmacy Electronically, [facility]/pharmacy #1230, 191, cm, 10/24/19 15:23:00 EST, Height, 144.6, kg, 10/24/19... Start Date: 12/09/19 Status: Orderedfinasteride 5 mg oral tablet 1 tablet, By Mouth, Daily, # 90 tablet, 1 Refills, Maintenance, 10/20/20 10:10:00 EST, [facility] #[facility], 191, cm, 10/08/20 10:36:00 EST, Height, 135.5, kg, 09/29/20 17:35:00 EST, Dry Weight Start Date: 10/20/20 Status: Orderedmeclizine 12.5 mg oral tablet 1 tablet = 12.5 mg, By Mouth, 3 times a day, PRN for dizziness, # 10 tablet, 0 Refills, Maintenance,09/23/20 12:12:00 EST, Tablet, [facility] #435, Partial fill upon patient request if the prescription is for a schedule II opioid drug., 191... Start Date: 09/23/20 Status: OrderedmetFORMIN 750 mg oral tablet, extended release 1 tablet = 750 mg, By Mouth, 2 times a day, # 180 tablet, 3 Refills, Maintenance, 01/05/20 14:12:00 EDT, [facility]/pharmacy #1230, 191, cm, 01/05/20 13:19:00 EDT, Height, [...] 09/30/19 14:01:00 EST, Route to Pharmacy Electronically, [id number], [facility]/pharmacy #1230, 190, cm, 09/27/19 19:03:00 EST, Height, 144,... Start Date: 09/30/19 Status: Orderedsimvastatin 40 mg oral tablet 40 mg, 1, tablet, By Mouth, Daily at bedtime, # 90 tablet, Refills 3, Tot. Refills 3, Maintenance, 01/05/20 14:12:00 EDT, Route to Pharmacy Electronically, [facility]/pharmacy #1230, 191, cm, 01/05/20 13:19:00 EDT, Height, 144.6, kg, 10/24/19 15:23:00 EST, D... Start Date: 01/05/20 Stop Date: 12/30/20 Status: OrderedWellbutrin XL 300 mg/24 hours oral tablet, extended release 1 tablet = 300 mg, By Mouth, Daily, # 90 tablet, 1 Refills, Maintenance, 05/15/20 6:26:00 EDT, ER Tablet, [facility]/pharmacy #1230, 188, cm, 03/28/20 10:41:00 EDT, Height, [...]
--- NOTE | 2022-06-20 23:55 | ED.DIZZY ---
HPI - Dizziness General Chief Complaint: Dizziness Stated Complaint: Dizziness/Nausea Time Seen by Provider: 06/20/22 23:44 Source: patient and family Mode of arrival: ambulatory Limitations: no limitations History of Present Illness HPI Narrative: Patient with history of normal pressure hydrocephalus status post [employer] shunt was seen here 05/[address] scan negative for acute today while driving he felt his car is on the high side became very anxious and panicked had some burning sensation on the head was worried about the [employer] shunt no nausea no vomiting no blurred vision no gait problem speech was normal Related Data Home Medications Medication Instructions Recorded Confirmed aspirin 81 mg tablet,delayed 81 mg PO DAILY 05/23/21 06/01/22 release (Adult Aspirin Regimen) ondansetron 4 mg disintegrating 4 mg PO Q6H PRN 05/23/21 06/01/22 tablet Previous Rx's Medication Instructions Recorded metoclopramide HCl 10 mg tablet 10 mg PO Q6H PRN nausea and 01/20/21 (Reglan) vomiting #7 tabs albuterol sulfate 90 mcg/actuation 2 puff inhalation Q6H PRN 05/23/21 aerosol inhaler shortness of breath or wheezing 30 days #8.5 grams blood sugar diagnostic (OneTouch #100 ea 10/17/21 Verio test strips) meclizine 25 mg tablet 25 mg PO TID PRN dizziness #14 tabs 03/29/22 finasteride 5 mg tablet 5 mg PO DAILY 90 days #90 tabs 05/18/22 lisinopril 20 1 tab PO DAILY 90 days #90 tabs 05/18/22 mg-hydrochlorothiazide 25 mg tablet metformin 750 mg tablet,extended 750 mg PO DAILY 90 days #90 tabs 05/18/22 release 24 hr rosuvastatin 20 mg tablet (Crestor) 20 mg PO DAILY 90 days #90 tabs 05/18/22 OneTouch Delica Lancets 33 gauge #100 ea 05/22/22 (lancets) bupropion HCl 300 mg 24 hr tablet, 300 mg PO QAM #90 tabs 05/24/22 extended release fluticasone fur. 100 mcg-umeclid 1 inh inhalation DAILY #60 ea 06/01/22 62.5 mcg-vilant 25 mcg inhalat.powder (Trelegy Ellipta) Allergies Allergy/AdvReac Type Severity Reaction Status Date / Time Iodinated Contrast Media Allergy Unknown Verified 06/01/22 11:01 [IV Contrast Dye] latex Allergy Unknown Verified 06/01/22 11:01 meperidine [From Demerol] Allergy Unknown Verified 06/01/22 11:01 shellfish derived Allergy Unknown Verified 06/01/22 11:01 Review of Systems Review of Systems: Yes all other systems are reviewed and are negative FOR[facility]LY [facility] Past Medical History Medical History Diabetes High cholesterol HTN (hypertension) Hydrocephalus Meniere disease Vertigo Social History Social History Housing: Apartment Alcohol intake: former Patient Tobacco Use Status: Former Tobacco user Years Smoked: 31 years ago Smoked in Last 30 Days: No e-Cigarette/Vaping Use: Never Used Second Hand Smoke Exposure: No Use of substances other than those prescribed or required for medical reasons: No Advance Directives: No Advance Directives Information Provided: No service: No Current occupational status: retired and disabled Cognitive needs: No Hearing needs: No Vision needs: No Physical Exam Vital Signs: Vital Signs: Last Vital Signs Temp 98.3 F 06/21/22 00:05 Pulse 88 06/21/22 00:05 Resp 20 06/21/22 00:05 BP 124/75 06/21/22 00:05 Pulse Ox 96 06/21/22 00:05 O2 Del Method 06/21/22 00:05 BMI result Body Mass Index 36.2 Appearance: Alert. Oriented X3. No acute distress. Eyes: PERRLA, No Nystagmus normal fundus no papilledema ENT: Pharynx normal. Oral Mucosa moist Neck: Normal inspection. Neck supple. CVS: Normal heart rate and rhythm. Pulses normal. Respiratory: No respiratory distress. Equal air entry bilateral, no wheezing/rales/rhonchi Abdomen: Soft and nontender. Bowel sounds are present, Skin: Skin warm and dry. Normal skin color. Normal skin turgor. Extremities: No lower extremity edema. No calf tenderness Neuro: Oriented X 3. No motor deficit. No sensory deficit.No cerebellar signs , cranial nerves II-XII intact normal speech MDM - Dizziness MDM Narrative Medical decision making narrative: Patient's symptoms atypical in character CT scan negative likely from panic and will discharge patient Lab Data Attestation: I reviewed the patient's lab results. Result diagrams: 06/20/22 21:49 06/20/22 21:49 Labs: Lab Results 06/20/22 06/20/22 Range/Units 21:49 21:49 WBC 10.1 (4.8-10.8) X10*3/uL RBC 5.40 (4.60-5.80) X10*6/uL Hgb 14.1 (14.0-18.0) g/dl Hct 43.7 (42.0-52.0) % MCV 80.9 (80.0-98.0) fL MCH 26.1 L (27.0-33.0) pg MCHC 32.3 (31.0-36.0) g/dl RDW 13.9 (11.0-16.0) % Plt Count 369 (160-400) X10*3/uL MPV 8.8 L (9.4-12.4) fL Immature Gran % (Auto) 0.3 (0.0-0.4) % Neut % (Auto) 72.0 (45-73) % Lymph % (Auto) 22.0 (20-40) % Dent % (Auto) 4.4 (2-11) % Eos % (Auto) 0.7 (0-4) % Baso % (Auto) 0.6 (0-2) % Lymph # (Auto) 2.2 (1.2-4.9) X10*3/uL Dent # (Auto) 0.4 (0.1-1.2) X10*3/uL Eos # (Auto) 0.1 (0.0-0.4) X10*3/uL Baso # (Auto) 0.1 (0.0-0.2) X10*3/uL Abs Immat Gran (auto) 0.03 (0.00-0.03) X10*3/uL Absolute Neuts (auto) 7.3 (2.0-8.3) x10*3/uL Absolute Nucleated RBC 0.000 (0.0-0.012) X10*3/uL Nucleated RBC % (auto) 0.0 (0.0-0.2) /100WBC Sodium 140 (135-145) mmol/L Potassium 3.7 D (3.3-5.1) mmol/L Chloride 101 (96-108) mmol/L Carbon Dioxide 25 (22-29) mmol/L Anion Gap 18 (12-20) BUN 8 L (9-16) mg/dL Creatinine 0.84 (0.5-1.4) mg/dL Estim Creat Clear Calc 143.4 Estimated GFR > 60 Random Glucose 147 H (60-115) mg/dL Calcium 9.5 (8.4-10.2) mg/dL Discharge Plan Discharge Clinical Impression: Panic attack Patient Disposition: Home, Self-Care Instructions: Panic Attack (ED) Additional Instructions: Your CT scan is negative for any acute Follow-up with neurosurgeon Prescriptions: No Action (DME) OneTouch Verio test strips Strip See Rx Instructions .Route Qty: 100 3RF Rx Instructions: test BS daily meclizine 25 mg tablet 25 mg PO TID PRN (Reason: dizziness) Qty: 14 0RF rosuvastatin [Crestor] 20 mg tablet 20 mg PO DAILY 90 Days Qty: 90 0RF lisinopril-hydrochlorothiazide 20-25 mg tablet 1 tab PO DAILY 90 Days Qty: 90 0RF finasteride 5 mg tablet 5 mg PO DAILY 90 Days Qty: 90 0RF metformin 750 mg tablet extended release 24 hr 750 mg PO DAILY 90 Days Qty: 90 0RF (DME) lancets [OneTouch Delica Lancets] 33 gauge misc See Rx Instructions .Route Qty: 100 0RF Rx Instructions: TID testing bupropion HCl 300 mg tablet extended release 24 hr 300 mg PO QAM Qty: 90 0RF metoclopramide HCl [Reglan] 10 mg tablet 10 mg PO Q6H PRN (Reason: nausea and vomiting) Qty: 7 0RF aspirin [Adult Aspirin Regimen] 81 mg tablet,delayed release (DR/EC) 81 mg PO DAILY ondansetron 4 mg tablet,disintegrating 4 mg PO Q6H PRN albuterol sulfate 90 mcg/actuation HFA aerosol inhaler 2 puff inhalation Q6H PRN (Reason: shortness of breath or wheezing) 30 Days Qty: 8.5 5RF Trelegy Ellipta 100-62.5-25 mcg blister with device 1 inh inhalation DAILY Qty: 60 0RF
[2022-06-20 23:56] VITALS: BP 124/74; PULSE 88; RESP 20; TEMP 36.8; O2SAT 97
[2022-06-21 00:05] VITALS: BP 124/75; PULSE 88; RESP 20; TEMP 36.8; O2SAT 96
== END 2022-06-21 02:28 | disposition home or self-care (01) ==
PROVIDERS: Emergency Provider Internal Medicine; PCP Nurse Practitioner Family
DX: F41.0 Panic disorder [episodic paroxysmal anxiety] (principal); R51.9 Headache, unspecified; E11.9 Type 2 diabetes mellitus without complications; I10 Essential (primary) hypertension; E78.5 Hyperlipidemia, unspecified; Z98.2 Presence of cerebrospinal fluid drainage device; Z79.84 Long term (current) use of oral hypoglycemic drugs; Z79.02 Long term (current) use of antithrombotics/antiplatelets; Z79.899 Other long term (current) drug therapy; Z79.82 Long term (current) use of aspirin
CPT/HCPCS: 36415; 70450; 80048; 85025; 93005; 99284; 99285

== ENCOUNTER 2022-07-04 13:21 | Outpatient (REF) | payer SELFPAY | END 2022-07-04 13:22 | disposition home or self-care (01) | LOC: HO.HAP 13:21 | PROVIDERS: Visit Provider Nurse Practitioner Family | DX: Z46.1 Encounter for fitting and adjustment of hearing aid (principal); H90.3 Sensorineural hearing loss, bilateral | CPT/HCPCS: V5267 ==

== ENCOUNTER 2022-09-06 08:37 | Outpatient (REF) | payer MEDICARE, MEDICAID, SELFPAY ==
[2022-09-06 12:30] LABS: Prostate Specific Antigen Scr 0.11 ng/mL (<0.05-4.0)
== END 2022-09-06 08:38 | disposition home or self-care (01) ==
LOC: HO.HMGCLDS 08:37
PROVIDERS: PCP Nurse Practitioner Family; Visit Provider Nurse Practitioner Family
DX: Z12.5 Encounter for screening for malignant neoplasm of prostate (principal)
CPT/HCPCS: 36415; 84153

== ENCOUNTER 2022-09-25 08:35 | Outpatient (REF) | payer SELFPAY | END 2022-09-25 08:36 | disposition home or self-care (01) | LOC: HO.HAP 08:35 | PROVIDERS: Visit Provider Nurse Practitioner Family | DX: Z46.1 Encounter for fitting and adjustment of hearing aid (principal); H90.3 Sensorineural hearing loss, bilateral | CPT/HCPCS: V5267 ==

== ENCOUNTER 2022-10-05 12:44 | Outpatient (REF) | payer MEDICARE, MEDICAID, SELFPAY ==
--- NOTE | 2022-10-05 15:16 | MHC.AU.HA3 ---
Hearing Instrument Follow-Up- Binaural Date of Visit: 10/05/22 Right Ear: Make, Model, Color, Serial Number: Phonak P70-R, #[id number] Director Banking Repair Warranty: 02/25/2025, Director Banking Loss and Damage Warranty: 02/25/2025 Battery Size: Rechargeable Concrete Block Molder/Slim Tube: Size 2 P Earmold/Dome/CShell/SlimTip:cShell #[id number] warranty 03/28/2022 Dispensed By: [facility], Date of Fittin12/15/2021 Left Ear: Make, Model, Color, Serial Number: Phonak P70-R, #[id number] Director Banking Repair Warranty: 02/25/2025, Director Banking Loss and Damage Warranty: 02/25/2025 Battery Size: Rechargeable Concrete Block Molder/Slim Tube: Size 2 P Earmold/Dome/CShell/SlimTip: cShell #[id number] warranty 03/28/2022 Dispensed By: [facility], Date of Fittin12/15/2021 Follow-Up Summary: Patient reports that his right hearing aid is now not charging properly. It is still working, but if he puts it into the mail weigher in either slot, the light will not blink. When trying it out in our stock chargers, the same finding was noted. It also was not turning off when inside the mail weigher. It was sent to [employer] for repair. He was provided with a loaner Phonak Audeo P70-R #[id number], with a size 2P addiction specialist and medium power dome. Programming was updated for power dome and feedback manager front office re-run. Loaner hearing aid was paired to his phone and ana. Recommendations: Patient will be contacted when materials have arrived. When the hearing aid returns, it will need to be set back to the 09/25/2022 settings and re-paired to his phone and ana. Diagnosis Code(s): Primary Diagnosis: H90.3 Bilateral Sensorineural Hearing Loss Signature: Provider: Canelo Persaud, [facility]
== END 2022-10-05 12:45 | disposition home or self-care (01) ==
LOC: HO.HAP 12:44
PROVIDERS: Visit Provider Nurse Practitioner Family
DX: Z13.89 Encounter for screening for other disorder (principal)

== ENCOUNTER 2022-10-18 10:23 | Outpatient (REF) | payer MEDICARE, MEDICAID, SELFPAY ==
--- NOTE | 2022-10-18 11:24 | MHC.AU.HFU ---
Hearing Instrument Follow-Up- Binaural Date of Visit: 10/18/22 Right Ear: Phonak P70-R, #[id number], P5 Repair Warranty: 02/25/2025 Loss and Damage Warranty: 02/25/2025 Battery Size: Rechargeable Turf Farm Worker: Size 2 P Type of Mold: cShell #[id number] warranty 03/28/2022 Type of Wax Guard: CeruStop Dispensed By: [facility] Date of Fittin12/15/2021 Left Ear: Phonak P70-R, #[id number], P5 Repair Warranty: 02/25/2025 Loss and Damage Warranty: 02/25/2025 Battery Size: Rechargeable Turf Farm Worker: Size 2 P Type of Mold: cShell #[id number] warranty 03/28/2022 Type of Wax Guard: CeruStop Dispensed By: [facility] Date of Fittin12/15/2021 Follow-Up Summary: The patient is here today to seed cone picker his right hearing aid from repair and return the right loaner hearing aid. The right hearing aid was paired in [employer] with the patient's existing left hearing aid. He reported good sound bilaterally. I then re-paired the hearing aids to the patient's Android phone and [employer] ana. We practiced connectivity with a phone call. I recommended re-starting his Android phone from time to time to help prevent glitches from occurring. He indicated understanding. We discussed using the restaurant program when in noisy places to see if that helps hearing in noise since he is experiencing some difficulty there. He will try this. He has no other questions at this time. Additional follow-up as needed. Diagnosis Code(s): Primary Diagnosis: H90.3 Bilateral Sensorineural Hearing Loss Signature: Provider: Karen Levi, CCC-A
== END 2022-10-18 10:24 | disposition home or self-care (01) ==
LOC: HO.HAP 10:23
PROVIDERS: Visit Provider Nurse Practitioner Family
DX: Z13.89 Encounter for screening for other disorder (principal)

== ENCOUNTER 2022-12-05 15:13 | Outpatient (REF) | payer SELFPAY | END 2022-12-05 15:14 | disposition home or self-care (01) | LOC: HO.HAP 15:13 | PROVIDERS: Visit Provider Nurse Practitioner Family | DX: Z46.1 Encounter for fitting and adjustment of hearing aid (principal); H90.3 Sensorineural hearing loss, bilateral | CPT/HCPCS: V5267 ==

== ENCOUNTER 2023-01-05 08:13 | Outpatient (REF) | payer MEDICARE, MEDICAID, SELFPAY ==
[2023-01-05 11:25] LABS: MANUAL DIFF FLAG NO
[2023-01-05 11:54] LABS: Basophils Percent Auto 0.5 % (0-2); Eosinophils Absolute Auto 0.2 X10*3/uL (0.0-0.4); Eosinophils Percent Auto 2.2 % (0-4); Hematocrit 39.5 % (42.0-52.0); Hemoglobin 13.1 g/dl (14.0-18.0); Imm Gran Abs Auto 0.03 X10*3/uL (0.00-0.03); Imm Gran Pct Auto 0.4 % (0.0-0.4); Lymphocytes Absolute Auto 2.2 X10*3/uL (1.2-4.9); Lymphocytes Percent Auto 28.6 % (20-40); Mean Corpuscular HGB Conc 33.2 g/dl (31.0-36.0); Mean Corpuscular Hemoglobin 27.9 pg (27.0-33.0); Monocytes Absolute Auto 0.4 X10*3/uL (0.1-1.2); Monocytes Percent Auto 5.6 % (2-11); Neutrophils Absolute Auto 4.9 x10*3/uL (2.0-8.3); Neutrophils Percent Auto 62.7 % (45-73); Platelet Count 310 X10*3/uL (160-400); Red Cell Distribution Width 13.3 % (11.0-16.0); White Blood Count 7.8 X10*3/uL (4.8-10.8)
[2023-01-05 12:25] LABS: Estimated Average Glucose 169 mg/dL; Hemoglobin A1c % 7.5 %
[2023-01-05 12:37] LABS: Alanine Aminotransferase 22 U/L (0-40); Albumin Level 4.1 g/dL (3.5-5.0); Alkaline Phosphatase 119 U/L (39-117); Anion Gap 13 (12-20); Aspartate Amino Transferase 16 U/L (5-37); Bilirubin Total 0.6 mg/dL (0.0-1.0); Blood Urea Nitrogen 15 mg/dL (9-16); Calcium 9.5 mg/dL (8.4-10.2); Carbon Dioxide 26 mmol/L (22-29); Chloride 101 mmol/L (96-108); Cholesterol 128 mg/dL; Estimated Glomerular Filt Rate > 60; Glucose Fasting 160 mg/dL (60-99); HDL Cholesterol 33 mg/dL; LDL Cholesterol Calculated 63 mg/dl; Potassium 4.3 mmol/L (3.3-5.1); Sodium 136 mmol/L (135-145); Total Protein 6.7 g/dL (6.5-8.0); Triglycerides 163 mg/dL
[2023-01-05 12:50] LABS: Folate 9.5 ng/mL (> or = 4.0); Prostate Specific Antigen Scr < 0.10 ng/mL (<0.05-4.0); Vitamin B12 355 pg/mL (200-900); Vitamin D 25-OH Total 14.8 ng/mL (>30)
[2023-01-05 14:02] LABS: Appearance Urine Clear; Color Urine Yellow; Glucose Urine UA Negative (Negative); Leukocyte Esterase Urine Negative (Negative); Nitrite Urine Negative (Negative); Urine Blood Negative (Negative); Urine Ketones Negative (Negative); Urine Protein Negative (Neg-Trace)
[2023-01-05 14:30] LABS: Creatinine Urine 46.89 mg/dL; Microalbumin Urine < 5.0 mg/L
== END 2023-01-05 08:14 | disposition home or self-care (01) ==
LOC: HO.HMGCLDS 08:13
PROVIDERS: PCP Nurse Practitioner Family; Visit Provider Nurse Practitioner Family
DX: E11.9 Type 2 diabetes mellitus without complications (principal); E55.9 Vitamin D deficiency, unspecified; G62.9 Polyneuropathy, unspecified; Z12.5 Encounter for screening for malignant neoplasm of prostate
CPT/HCPCS: 36415; 80053; 80061; 81003; 82043; 82306; 82607; 82746; 83036; 84153; 84443; 85025

== ENCOUNTER 2023-02-15 14:54 | Outpatient (REF) | payer MEDICARE, MEDICAID, SELFPAY | END 2023-02-15 14:55 | disposition home or self-care (01) | LOC: HO.HAP 14:54 | PROVIDERS: Visit Provider Nurse Practitioner Family | DX: Z13.89 Encounter for screening for other disorder (principal) ==

== ENCOUNTER 2023-02-21 10:31 | Outpatient (REF) | payer MEDICARE, MEDICAID, SELFPAY | END 2023-02-21 10:32 | disposition home or self-care (01) | LOC: HO.HAP 10:31 | PROVIDERS: Visit Provider Nurse Practitioner Family | DX: Z13.89 Encounter for screening for other disorder (principal) ==

== ENCOUNTER 2023-02-22 13:49 | Outpatient (REF) | payer MEDICARE, MEDICAID, SELFPAY | END 2023-02-22 13:50 | disposition home or self-care (01) | LOC: HO.HAP 13:49 | PROVIDERS: Visit Provider Nurse Practitioner Family | DX: Z13.89 Encounter for screening for other disorder (principal) ==

== ENCOUNTER 2023-03-02 14:00 | Outpatient (RCR) | payer MEDICARE, MEDICAID, SELFPAY ==
--- NOTE | 2023-01-05 15:04 | MHC.PT.EP ---
[facility] [place] Office [place] Office [place] Office [address] Fabienne Abdul [address] [phone] F: [phone] F: [phone] F: [phone] F: [phone] Physical Therapy Plan of Care Date of Evaluation: Date of Surgery: Diagnosis: meniere's disease Assessment: 57 yHe was dx with Meniere's Disease 2 years ago. He is trying to manage with low sodium diet, decreased caffeine intake, decreased chocolate intake per ENT recommendations. He also takes Meclizine as needed. Meniere's episodes are preceded by 'noise' in ear and he will then have dizziness for >24 hours. He has had several falls but feels that the are improving. Of note, he has diabetic neuropathy, HTN, hydrocephulus, and had fx 4 lumbar vertebra in 2008 resulting in intermittent numbness R LE. Currently he presents with poor balance, LOB in tandem and with eyes closed situations, and impaired gait pattern. Will assess LE strength next visit. Frequency and Duration: The patient will be seen 1x/week for 4 weeks Short Term Goals: 2 weeks I with HEP Pt will be able to state safety routine when feeling of 'noise' comes on Shelter Goals: 4 weeks Compliant with HEP and self management of sx Pt will be able to perform staggered stance with eyes open for 20 seconds Pt will demonstrate improved gait pattern wtih less medial-latearl sway to optimize safety Treatment Plan: Modalities to reduce pain, spasms and effusion. Manual therapy to restore motion and function. Therapeutic exercise to improve strength and flexibility. Neuromuscular re-education for posture and balance. Therapeutic activities to return to functional activities of daily living. Electronically signed by: Anuja Chinchilla PT Please sign and return to therapist. Thank you for your referral.
--- NOTE | 2023-03-02 14:53 | MHC.PT.DC ---
[facility] [place] Office [place] Office [place] Office [address] Fbaienne Abdul [address] [phone] F: [phone] F: [phone] F: [phone] F: [phone] Physical Therapy Discharge Report Diagnosis: meniere's disease Date of Surgery: Date of Evaluation: 01/05/23 Date of Discharge: 03/02/23 Treatments to Date: 4 Cancellations to Date: 0 No Shows to Date: 0 Discharge Status: Independent with HEP Discharge Summary: We reviewed all balance and strengthening exercises and pt demonstrates compliance with education. We reviewed importance of listening to 'pre-sx' of Menieres vertigo episodes so that he can sit/ lay down as soon as possibe to decrease risk of falls. Also reviewed Meniere's Disease and that PT will not correct the disease, but the exercises may help his balance and walking in between vertigo episodes. He has a neurologist appointment in the future for migraines as well as an ENT. No further questions at this time and will d/c at this time. Electronically signed by: Anuja Chinchilla PT Please sign and return to therapist. Thank you for your referral.
== END 2023-03-02 14:53 | disposition home or self-care (01) ==
LOC: HO.PTCHIC 14:00
PROVIDERS: PCP Nurse Practitioner Family; Visit Provider Nurse Practitioner Family
DX: H81.09 Meniere's disease, unspecified ear (principal)
CPT/HCPCS: 97110; 97112; 97162

== ENCOUNTER 2023-03-23 08:49 | Outpatient (REF) | payer MEDICARE, MEDICAID, SELFPAY ==
--- NOTE | 2023-03-23 13:53 | MHC.AU.HA3 ---
Hearing Instrument Follow-Up- Binaural Date of Visit: 03/23/23 Right Ear: Dagoberto, Model, Color, Serial Number: Phonak P70-R SN: [id number] Color: Beatrize Dedicated Local Truck Driver Repair Warranty: 02/25/2025 Dedicated Local Truck Driver Loss and Damage Warranty: 02/25/2025 [facility] Service Plan: 12/15/2022 Battery Size: Rechargeable Senior Loss Control Specialist/Slim Tube: Size 2 P Earmold/Dome/CShell/SlimTip:cShell #[id number] warranty 03/28/2022 Type of Wax Guard: CeruStop Dispensed By: [facility] Date of Fittin12/15/2021 Left Ear: Dagoberto, Model, Color, Serial Number: Phonak P70-R SN: [id number] Color: Lizz Dedicated Local Truck Driver Repair Warranty: 02/25/2025 Dedicated Local Truck Driver Loss and Damage Warranty: 02/25/2025 [facility] Service Plan: 12/15/2022 Battery Size: Rechargeable Senior Loss Control Specialist/Slim Tube: Size 2 P Earmold/Dome/CShell/SlimTip: cShell #[id number] warranty 03/28/2022 Type of Wax Guard: CeruStop Dispensed By: [facility] Date of Fittin12/15/2021 Follow-Up Summary: Sagar dropped of his left hearing aid and c-shell along with his industrial gas servicer supervisor, cord, and wall outlet reporting that the left hearing aid is not working. He was unsure if it was the hearing aid itself or the industrial gas servicer supervisor. Left hearing aid would not charge in Sagar's industrial gas servicer supervisor or on stock industrial gas servicer supervisor. Loaner hearing aid will charge on Sagar's industrial gas servicer supervisor. Therefore, issue is with hearing aid itself which will need to be sent to [email or web address] for repair. Called Sagar to update him. He requested a loaner. Programmed an [employer] P70-R loaner with 2P electric truck operator and medium power dome. Sagar will machine operator picker the loaner and his industrial gas servicer supervisor, cord, and wall outlet to use in the meantime. Sent Sagar's left hearing aid and c-shell to [email or web address] Recommendations: Patient will be contacted when materials have arrived. Diagnosis Code(s): Primary Diagnosis: H90.3 Bilateral Sensorineural Hearing Loss Signature: Provider: Canelo Finley, [facility]
== END 2023-03-23 08:50 | disposition home or self-care (01) ==
LOC: HO.HAP 08:49
PROVIDERS: Visit Provider Nurse Practitioner Family
DX: Z13.89 Encounter for screening for other disorder (principal)

== ENCOUNTER 2023-04-04 11:16 | Outpatient (REF) | payer MEDICARE, MEDICAID, SELFPAY ==
[2023-04-04 13:12] LABS: MANUAL DIFF FLAG NO
[2023-04-04 13:22] LABS: Basophils Percent Auto 0.5 % (0-2); Eosinophils Absolute Auto 0.2 X10*3/uL (0.0-0.4); Eosinophils Percent Auto 2.1 % (0-4); Hematocrit 37.8 % (42.0-52.0); Hemoglobin 12.6 g/dl (14.0-18.0); Imm Gran Abs Auto 0.04 X10*3/uL (0.00-0.03); Imm Gran Pct Auto 0.5 % (0.0-0.4); Lymphocytes Absolute Auto 2.1 X10*3/uL (1.2-4.9); Lymphocytes Percent Auto 25.9 % (20-40); Mean Corpuscular HGB Conc 33.3 g/dl (31.0-36.0); Mean Corpuscular Hemoglobin 27.5 pg (27.0-33.0); Mean Corpuscular Volume 82.5 fL (80.0-98.0); Mean Platelet Volume 9.9 fL (9.4-12.4); Monocytes Absolute Auto 0.4 X10*3/uL (0.1-1.2); Neutrophils Absolute Auto 5.3 x10*3/uL (2.0-8.3); Platelet Count 287 X10*3/uL (160-400); Red Blood Count 4.58 X10*6/uL (4.60-5.80); Red Cell Distribution Width 12.8 % (11.0-16.0)
[2023-04-04 13:55] LABS: Ferritin 236 ng/mL (20-250); Iron 74 mcg/dL (45-160); Percent Iron Saturation 25 % (15-50); Total Iron Binding Capacity 295 mcg/dL (228-428); Unsaturated Iron Binding 221 ug/dL
== END 2023-04-04 11:17 | disposition home or self-care (01) ==
LOC: HO.HMGCLDS 11:16
PROVIDERS: PCP Nurse Practitioner Family; Visit Provider Nurse Practitioner Family
DX: D64.9 Anemia, unspecified (principal)
CPT/HCPCS: 36415; 82728; 83540; 85025

== ENCOUNTER 2023-04-04 15:33 | Outpatient (REF) | payer SELFPAY | END 2023-04-04 15:34 | disposition home or self-care (01) | LOC: HO.HAP 15:33 | PROVIDERS: Visit Provider Nurse Practitioner Family | DX: Z13.89 Encounter for screening for other disorder (principal) ==

== ENCOUNTER 2023-05-03 14:16 | Outpatient (REF) | payer SELFPAY | END 2023-05-03 14:17 | disposition home or self-care (01) | LOC: HO.HAP 14:16 | PROVIDERS: Visit Provider Nurse Practitioner Family | DX: Z46.1 Encounter for fitting and adjustment of hearing aid (principal); H90.3 Sensorineural hearing loss, bilateral | CPT/HCPCS: V5267 ==

== ENCOUNTER 2023-06-20 12:46 | Outpatient (AMB) | payer MEDICARE, MEDICAID, SELFPAY ==
[2023-06-20 12:58] VITALS: BP 120/72; PULSE 101; O2SAT 96; BMI 39.7
--- NOTE | 2023-06-20 12:58 | MHC.PC.OV ---
Vital Signs 06/20/23 12:58 Height 6 ft 3 in Weight 318 lb BMI 39.7 BP 120/72 Blood Pressure Location Rt brachial Position Sitting Pulse 101 H Pulse Source Pulse Oximeter Pulse Oximetry (%) 96 Intake Visit Reasons: 4m follow up Intake Note: pt is here for 4 month f/u Still Operator Gin Required: No Accompanied by: Self / Same As Patient Allergies Iodinated Contrast Media [IV Contrast Dye] Allergy (Verified 06/20/23 12:58) Unknown latex Allergy (Verified 06/20/23 12:58) Unknown meperidine [From Demerol] Allergy (Verified 06/20/23 12:58) Unknown shellfish derived Allergy (Verified 06/20/23 12:58) Unknown Medication List - Last Reconciled 06/20/23 by BOB Barrett-LIZA albuterol sulfate 90 mcg/actuation 2 puffs inhalation Q6H PRN 30 days aspirin (Adult Aspirin Regimen) 81 mg PO DAILY blood sugar diagnostic (Vendavouch Verio test strips) test blood sugar twice a day blood-glucose meter (Trackway Verio Flex Meter) As directed bupropion HCl 300 mg PO QAM cholecalciferol (vitamin D3) 50 mcg PO DAILY 30 days finasteride 5 mg PO DAILY 90 days vixxjotwluq-kinonuaqt-zswvglvo 100-62.5-25 mcg (Trelegy Ellipta) 1 inh inhalation DAILY lancets Test blood sugar twice a day NS lisinopril-hydrochlorothiazide 20-25 mg 1 tab PO DAILY 90 days meclizine 25 mg PO TID PRN metformin ER 1,000 mg (2 x 500 mg) PO BID 90 days rosuvastatin (Crestor) 20 mg PO DAILY 90 days semaglutide (Ozempic) 0.25 mg (0.368 mL) subcut QWEEK 30 days Tobacco use date assessed: 06/20/23 Dental Screening Dental Screen Date: 06/20/23 Did you have a dental visit in the last 12 months?: Yes Did you have a dental problem in the last 6 months where you did not have access to dental care?: No Was dental information given to patient?: Patient has dentist HPI 4m follow up HPI Details diabetes: pt is on a KASIE and a statin. Taking metformin ER. 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 pt knows the s/s of hypoglycemia and how to correct. Denies polyuria, polydipsia, but does have intermittent neuropathy.8.5 a1c today. pt has been gaining weight. Reports eating a lot of fast food, though further reports cutting back on this. will increase metformin er 500mg in am and 1000mg in pm, to 1000mg in am, and 1000mg in pm. Will also add ozempic and discussed importance of diet to pt and side effects of GLP-1 agonist. Eye exam is up to date [facility] Medical History High cholesterol HTN (hypertension) Hydrocephalus Diabetes Meniere disease Vertigo Social History Housing: Apartment Alcohol intake: former Patient Tobacco Use Status: Former Tobacco user Years Smoked: 31 years ago e-Cigarette/Vaping Use: Never Used Second Hand Smoke Exposure: No service: No Current occupational status: retired and disabled Cognitive needs: No Hearing needs: No Vision needs: No Questionnaire PHQ-9 Over the last 2 weeks, how often have you been bothered by any of the following problems? 1. Little interest or pleasure in doing things: not at all 2. Feeling down, depressed, or hopeless: not at all 3. Trouble falling or staying asleep, or sleeping too much: not at all 4. Feeling tired or having little energy: not at all 5. Poor appetite or overeating: not at all 6. Feeling bad about yourself - or that you are a failure or have let yourself or your family down: not at all 7. Trouble concentrating on things, such as reading the newspaper or watching television: not at all 8. Moving or speaking so slowly that other people could have noticed. Or the opposite - being so fidgety or restless that you have been moving around a lot more than usual: not at all 9. Thoughts that you would be better off or of hurting yourself in some way: not at all Total score: 0 Depression Screening Interpretation: Negative Depression Screening Done: Yes [id number] - PHQ-9 Billing: Yes Source: Developed by Drs. Vinicius Maria, Marry Trejo, Andi Uribe and colleagues, with an educational ky from [employer]. Thrive Questionnaire Date Thrive assessed: 06/20/23 I am a: Patient What is your living situation today?: I have a steady place to live Within the past 12 months, did the food you bought not last and you didn't have the money to get more?: Never true Within the past 12 months, did you worry whether your food would run out before you got money to buy more?: Never true Do you have trouble paying for medicines?: No Do you have trouble getting transportation to medical appointments?: No Do you have trouble paying your heating and electricity bill?: No Do you have trouble taking care of your child, family member or friend?: No Do you have trouble with day-to-day activities such as bathing, preparing meals, shopping, managing finances, etc.?: No Are you currently unemployed and looking for a job?: No Are you interested in more education?: No Please select the resources that you would like help with: None Currently or been in a relationship where the following occur: no concerns reported DANIEL-7 AMB Questionnaire DANIEL-7 Date DANIEL - 7 assessed: 06/20/23 Feeling nervous, anxious, or on edge: 0 = Not at all Not being able to stop or control worryin = Not at all Worrying too much about different things: 0 = Not at all Trouble relaxin = Not at all Being so restless that it is hard to sit still: 0 = Not at all Becoming easily annoyed or irritable: 0 = Not at all Feeling afraid as if something awful might happen: 0 = Not at all Total DANIEL-7 score (0-4 normal; 5-9 mild; 10-14 moderate; 15-21 severe): 0 Source: Developed by Drs. Vinicius Maria, Marry Trejo, Andi Uribe and colleagues, with an educational ky from [employer]. DANIEL-7 Assessment Billing DANIEL-7 Assessment Tool: DANIEL-7 Assessment 57263 Physical exam (Primary Care) Vital Signs: Last Vital Signs Pulse 101 H 06/20/23 12:58 BP 120/72 06/20/23 12:58 Pulse Ox 96 06/20/23 12:58 BMI result Body Mass Index 39.7 Tobacco/Smoking Status: Tobacco use Status Tobacco use date assessed 06/20/23 06/20/23 12:59 Patient Tobacco Use Status Former Tobacco user 06/20/23 12:59 e-Cigarette/Vaping Use Never Used 06/20/23 12:59 PHQ-9: PHQ-9 Score PHQ-9: Total score 0 06/20/23 13:10 Depression Screening Interpretation: Negative Thrive Assessment: Date of Thrive Assessment Date Thrive assessed 06/20/23 06/20/23 13:06 Currently or been in a relationship where the following occur: no concerns reported Const General: cooperative Nutritional Appearance: obese Orientation/consciousness: patient oriented x3 Resp Auscultation: clear to auscultation bilaterally Cardio Rate: regular rate Rhythm: regular rhythm Heart sounds: S1 normal heart sound present, S2 normal heart sound present and no murmurs Neuro General: patient oriented x3 Extrem Other: + sensation with use of monofilament. Onychomycosis noted bilat, long toenails noted. NO open lesions or lacerations. Psych Appearance: grossly normal Mental Status: mental status grossly normal Speech and movement: Normal speech and movement present Attitude: cooperative Thought process: Normal thought process present Thought content: Normal thought content present Insight: Good insight present (Psych) Judgement: Good judgement present (Psych) Results AMB Hemoglobin A1c AMB Hemoglobin A1c 8.5 % Last Edit by Gary Braden CMA on 06/20/23 13:16 Assessment and Plan Assessment & Plan (1) Hydrocephalus: Code(s): G91.9 - Hydrocephalus, unspecified Orders: Orders AMB Hemoglobin A1c Today E11.9 - Type 2 diabetes mellitus without complications Referrals Neurology Referral G91.9 - Hydrocephalus, unspecified Medications: New semaglutide (Ozempic) for 4 weeks 0.25 mg (0.368 mL) subcut QWEEK 30 days 1.84 mL 0RF Changed From metformin ER 500mg in the am, 1000mg in the pm orally 2 times a day; 90 days 270 tabs 0RF E11.9 - Type 2 diabetes mellitus without complications To metformin ER 1,000 mg (2 x 500 mg) PO BID 90 days 360 tabs 0RF E11.9 - Type 2 diabetes mellitus without complications Refilled albuterol sulfate 90 mcg/actuation 2 puffs inhalation Q6H 30 days PRN 8.5 grams 5RF shortness of breath or wheezing Coding Level of Care Code Est Pt Level 3 (25422) Diagnoses Hydrocephalus G91.9 Additional Codes DANIEL-7 Assessment Billing - DANIEL-7 Assessment Tool: DANIEL-7 Assessment 04060 ([id number])
== END 2023-06-20 14:02 | disposition home or self-care (01) ==
PROVIDERS: PCP Nurse Practitioner Family; Visit Provider Nurse Practitioner Family
DX: G91.9 Hydrocephalus, unspecified (principal); E11.9 Type 2 diabetes mellitus without complications
CPT/HCPCS: 83036; 99213

== ENCOUNTER 2023-06-27 15:35 | Outpatient (REF) | payer SELFPAY | END 2023-06-27 15:36 | disposition home or self-care (01) | LOC: HO.HAP 15:35 | PROVIDERS: Visit Provider Nurse Practitioner Family | DX: Z46.1 Encounter for fitting and adjustment of hearing aid (principal); H90.3 Sensorineural hearing loss, bilateral | CPT/HCPCS: V5267 ==

== ENCOUNTER 2023-07-16 13:14 | Outpatient (REF) | payer SELFPAY ==
--- NOTE | 2023-07-16 13:40 | MHC.AU.HA3 ---
Hearing Instrument Follow-Up- Binaural Right Ear: Make, Model, Color, Serial Number: Carl P70-R SN: [id number] Color: Se[employer]agne Youth Career Specialist Repair Warranty: 02/25/2025 Youth Career Specialist Loss and Damage Warranty: 02/25/2025 [facility] Service Plan: 12/15/2022 Battery Size: Rechargeable Rn Paralegal/Slim Tube: Size 2 P Earmold/Dome/CShell/SlimTip:cShell #[id number] warranty 03/28/2022 Type of Wax Guard: CeruStop Dispensed By: [facility] Date of Fittin12/15/2021 Left Ear: Make, Model, Color, Serial Number: Phonak P70-R SN: [id number] Color: Champagne Youth Career Specialist Repair Warranty: 02/25/2025 Youth Career Specialist Loss and Damage Warranty: 02/25/2025 [facility] Service Plan: 12/15/2022 Battery Size: Rechargeable Rn Paralegal/Slim Tube: Size 2 P Earmold/Dome/CShell/SlimTip: cShell #[id number] warranty 03/28/2022 Type of Wax Guard: CeruStop Dispensed By: [facility] Date of Fittin12/15/2021 Follow-Up Summary: Pt called stating aids aren't charging-- contacted Carl, they are sending replacement senior reservations agent at no cost. Pt dropped aids off anyway requesting loaners, wants us to charge them and make sure they work before he picks them up. He has loaner aids and senior reservations agent with his earmolds on them. Will call him once in and ready for pickup. Recommendations: Recommendations: Patient will be contacted when materials have arrived. Diagnosis Code(s): Primary Diagnosis: H90.3 Bilateral Sensorineural Hearing Loss Signature: Provider: Karen Phelps, [facility]
== END 2023-07-16 13:15 | disposition home or self-care (01) ==
LOC: HO.HAP 13:14
PROVIDERS: Visit Provider Nurse Practitioner Family
DX: Z13.89 Encounter for screening for other disorder (principal)

== ENCOUNTER 2023-07-25 14:52 | Outpatient (REF) | payer SELFPAY | END 2023-07-25 14:53 | disposition home or self-care (01) | LOC: HO.HAP 14:52 | PROVIDERS: Visit Provider Nurse Practitioner Family | DX: Z13.89 Encounter for screening for other disorder (principal) ==

== ENCOUNTER 2023-09-20 12:50 | Outpatient (AMB) | payer MEDICARE, MEDICAID, SELFPAY ==
--- NOTE | 2023-09-20 13:05 | MHC.PC.OV ---
Vital Signs 09/20/23 13:07 Height 6 ft 3 in Weight 320 lb 8 oz BMI 40.1 BP 130/68 Blood Pressure Location Rt brachial Position Sitting Pulse 87 Pulse Source Pulse Oximeter Pulse Oximetry (%) 98 Oxygen Delivery Method Room Air Intake Visit Reasons: 3 Month follow up Intake Note: Pt is here for a follow for DM Allergies Iodinated Contrast Media [IV Contrast Dye] Allergy (Verified 09/20/23 13:13) Unknown latex Allergy (Verified 09/20/23 13:13) Unknown meperidine [From Demerol] Allergy (Verified 09/20/23 13:13) Unknown shellfish derived Allergy (Verified 09/20/23 13:13) Unknown Medication List - Last Reconciled 09/20/23 by BOB Barrett- albuterol sulfate 90 mcg/actuation 2 puffs inhalation Q6H PRN 30 days aspirin (Adult Aspirin Regimen) 81 mg PO DAILY blood sugar diagnostic (SophonoTouch Verio test strips) test blood sugar twice a day blood-glucose meter (Kochzauberuch Verio Flex Meter) As directed bupropion HCl 300 mg PO QAM cholecalciferol (vitamin D3) 50 mcg PO DAILY 30 days finasteride 5 mg PO DAILY 90 days zhjzzfljbju-joqyozsdz-tpacmuak 100-62.5-25 mcg (Trelegy Ellipta) 1 inh inhalation DAILY lancets Test blood sugar twice a day NS lisinopril-hydrochlorothiazide 20-25 mg 1 tab PO DAILY 90 days meclizine 25 mg PO TID PRN metformin ER 1,000 mg (2 x 500 mg) PO BID 90 days rosuvastatin (Crestor) 20 mg PO DAILY 90 days semaglutide (Ozempic) 0.25 mg (0.368 mL) subcut QWEEK Tobacco use date assessed: 09/20/23 Dental Screening Dental Screen Date: 09/20/23 Did you have a dental visit in the last 12 months?: No Did you have a dental problem in the last 6 months where you did not have access to dental care?: No Was dental information given to patient?: Patient has dentist HPI 3 Month follow up HPI Details Pt is a diabetic, on an KASIE and a statin. A1C in office today is 7.1. Microalbumin is up to date. Denies polyuria, polydipsia, does report intermittent neuropathy. Pt denies any signs and symptoms of hypoglycemia and does know how to correct it. Eye exam is up to date. Pt reports that his blood sugar has been ranging from low 100-200. Will increase ozempic from 0.25mg to 0.5mg. Pt sees a banking services advisor. Pt needs a refill of his trelegy inhaler, will send. Pt has an appointment scheduled with an ENT due to meniere's disease. He needs a referral, will place. Refuses all pneumonia vaccines. Hx of sleep apnea, pt ? if his machine is working correctly, ? if on correct settings, has not seen sleep medicine provider in many years [facility] Medical History High cholesterol HTN (hypertension) Hydrocephalus Diabetes Meniere disease Vertigo Social History Housing: Apartment Alcohol intake: former Patient Tobacco Use Status: Former Tobacco user Years Smoked: 31 years ago e-Cigarette/Vaping Use: Never Used Second Hand Smoke Exposure: No service: No Current occupational status: retired and disabled Cognitive needs: No Hearing needs: No Vision needs: No Questionnaire Thrive Questionnaire Date Thrive assessed: 06/20/23 DANIEL-7 AMB Questionnaire DANIEL-7 Date DANIEL - 7 assessed: 06/20/23 Source: Developed by Drs. Vinicius Maria, Marry Trejo, Andi Uribe and colleagues, with an educational ky from [employer]. Review of Systems Const Reports as per HPI Physical exam (Primary Care) Vital Signs: Last Vital Signs Pulse 87 09/20/23 13:07 BP 130/68 09/20/23 13:07 Pulse Ox 98 09/20/23 13:07 Oxygen Delivery Method Room Air 09/20/23 13:07 BMI result Body Mass Index 40.1 Tobacco/Smoking Status: Tobacco use Status Tobacco use date assessed 09/20/23 09/20/23 13:16 Patient Tobacco Use Status Former Tobacco user 09/20/23 13:06 e-Cigarette/Vaping Use Never Used 09/20/23 13:06 Thrive Assessment: Date of Thrive Assessment Date Thrive assessed 06/20/23 09/20/23 13:06 Const General: cooperative Nutritional Appearance: obese morbidly obese Orientation/consciousness: patient oriented x3 Resp Effort & Inspection: normal respiratory effort Auscultation: clear to auscultation bilaterally Cardio Rate: regular rate Rhythm: regular rhythm Heart sounds: S1 normal heart sound present and S2 normal heart sound present Neuro General: patient oriented x3 Extrem Other: left foot: onychomycosis noted, elongated toenails, + sensation except to plantar aspect of toes, right foot: onychomycosis noted, elongated toenails, minimal sensation with use of monofilament Left lower extremity: edema (trace) Psych Appearance: grossly normal Mental Status: mental status grossly normal Speech and movement: Normal speech and movement present Affect: normal affect Attitude: cooperative Thought process: Normal thought process present Thought content: Normal thought content present Insight: Good insight present (Psych) Judgement: Good judgement present (Psych) Results AMB Hemoglobin A1c AMB Hemoglobin A1c 7.1 % Last Edit by Miracle Tomlinson CMA on 09/20/23 13:34 Results Reviewed Results Reviewed: Laboratory Last Values Hgb A1c (Clinic) 7.1 % (4.0-6.0) H 09/20/23 13:33 Assessment and Plan Assessment & Plan (1) Sleep apnea: Code(s): G47.30 - Sleep apnea, unspecified Plan: Referred to sleep medicine (2) Vestibular active Meniere's disease: Code(s): H81.09 - Meniere's disease, unspecified ear Plan: Has an appointment with ENT, referral placed (3) Diabetes: Code(s): E11.9 - Type 2 diabetes mellitus without complications Plan The patient agreed to the use of a medical or surgical instrument maker for this encounter. Scribed for KRISTIE Azul by Jillian Bergman medical or surgical instrument maker, on 09/20/2023 at 13:15 EST. Orders: Orders AMB Hemoglobin A1c Today E11.9 - Type 2 diabetes mellitus without complications Referrals Sleep Medicine Referral G47.30 - Sleep apnea, unspecified Ear/Nose/Throat Referral H81.09 - Meniere's disease, unspecified ear Medications: New amoxicillin 45 minutes before dental procedure 2,000 mg (4 x 500 mg) PO ONCE 4 tabs 0RF 1 day Changed From semaglutide (Ozempic) for 4 weeks 0.25 mg (0.368 mL) subcut QWEEK 9 mL 1RF To semaglutide (Ozempic) for 4 weeks 0.5 mg (0.736 mL) subcut QWEEK 9 mL 1RF Refilled jandglnsodv-eldcizjxe-lpxxjped 100-62.5-25 mcg (Trelegy Ellipta) 1 inh inhalation DAILY 60 ea 0RF Coding Level of Care Code Est Pt Level 3 (28180) Diagnoses Sleep apnea G47.30 Vestibular active Meniere's disease H81.09 Diabetes E11.9
[2023-09-20 13:07] VITALS: BP 130/68; PULSE 87; O2SAT 98; BMI 40.1
== END 2023-09-20 13:45 | disposition home or self-care (01) ==
PROVIDERS: PCP Nurse Practitioner Family; Visit Provider Nurse Practitioner Family
DX: G47.30 Sleep apnea, unspecified (principal); E11.9 Type 2 diabetes mellitus without complications; H81.09 Meniere's disease, unspecified ear
CPT/HCPCS: 83036; 99213

== ENCOUNTER 2023-09-27 09:43 | Outpatient (REF) | payer MEDICARE, MEDICAID, SELFPAY ==
[2023-09-27 11:35] LABS: MANUAL DIFF FLAG NO
[2023-09-27 12:15] LABS: Basophils Percent Auto 0.5 % (0-2); Eosinophils Absolute Auto 0.1 X10*3/uL (0.0-0.4); Eosinophils Percent Auto 1.6 % (0-4); Hematocrit 40.4 % (42.0-52.0); Hemoglobin 13.5 g/dl (14.0-18.0); Imm Gran Abs Auto 0.04 X10*3/uL (0.00-0.03); Imm Gran Pct Auto 0.5 % (0.0-0.4); Lymphocytes Absolute Auto 1.8 X10*3/uL (1.2-4.9); Lymphocytes Percent Auto 21.2 % (20-40); Mean Corpuscular HGB Conc 33.4 g/dl (31.0-36.0); Mean Corpuscular Hemoglobin 27.8 pg (27.0-33.0); Mean Corpuscular Volume 83.1 fL (80.0-98.0); Mean Platelet Volume 9.5 fL (9.4-12.4); Monocytes Absolute Auto 0.5 X10*3/uL (0.1-1.2); Monocytes Percent Auto 5.4 % (2-11); Neutrophils Absolute Auto 6.2 x10*3/uL (2.0-8.3); Neutrophils Percent Auto 70.8 % (45-73); Platelet Count 355 X10*3/uL (160-400); Red Blood Count 4.86 X10*6/uL (4.60-5.80); Red Cell Distribution Width 13.7 % (11.0-16.0); White Blood Count 8.7 X10*3/uL (4.8-10.8)
[2023-09-27 12:39] LABS: Prostate Specific Antigen 0.12 ng/mL (<0.05-4.0)
[2023-09-27 12:43] LABS: Alanine Aminotransferase 23 U/L (0-40); Albumin Level 4.2 g/dL (3.5-5.0); Alkaline Phosphatase 100 U/L (39-117); Anion Gap 15 (12-20); Aspartate Amino Transferase 20 U/L (5-37); Bilirubin Total 0.6 mg/dL (0.0-1.0); Blood Urea Nitrogen 9 mg/dL (9-16); Calcium 9.2 mg/dL (8.4-10.2); Carbon Dioxide 30 mmol/L (22-29); Chloride 97 mmol/L (96-108); Cholesterol 133 mg/dL (<200); Estimated Glomerular Filt Rate > 60; Glucose Fasting 126 mg/dL (60-99); HDL Cholesterol 38 mg/dL (>40); LDL Cholesterol Calculated 67 mg/dL (<100); Potassium 3.7 mmol/L (3.3-5.1); Sodium 138 mmol/L (135-145); Total Protein 7.2 g/dL (6.5-8.0); Triglycerides 140 mg/dL (<150)
[2023-09-27 12:53] LABS: Free T4 (Free Thyroxine) 1.21 ng/dL (0.71-1.85); Thyroid Stimulating Hormone 1.23 uIU/mL (0.32-4.0)
[2023-09-27 13:20] LABS: Appearance Urine Clear; Color Urine Yellow; Glucose Urine UA 100 mg/dL (Negative); Leukocyte Esterase Urine Negative (Negative); Nitrite Urine Negative (Negative); Specific Gravity - Urine 1.015 (1.005-1.025); Urine Blood Negative (Negative); Urine Ketones Negative (Negative); Urine Protein Negative (Neg-Trace)
[2023-09-27 13:50] LABS: Creatinine Urine 88.22 mg/dL
== END 2023-09-27 09:44 | disposition home or self-care (01) ==
LOC: HO.HMGCLDS 09:43
PROVIDERS: PCP Nurse Practitioner Family; Visit Provider Nurse Practitioner Family
DX: Z13.89 Encounter for screening for other disorder (principal)
CPT/HCPCS: 36415; 80053; 80061; 81003; 82043; 82570; 84153; 84439; 84443; 85025

== ENCOUNTER 2023-10-30 08:36 | Outpatient (REF) | payer MEDICARE, MEDICAID, SELFPAY ==
--- NOTE | ~2023-10-30 | XR_ITS ---
EXAMINATION: XR SKULL CLINICAL INFORMATION: Hydrocephalus. Shunt series. COMPARISON: CT scan of the head 06/21/2022. TECHNIQUE: 3 views of skull were obtained. FINDINGS: There is a nonprogrammable ventriculoperitoneal shunt in place with 2 intracranial catheters traversing the right parietal lobe and a third intracranial catheter traversing the posterior fossa. There are 2 pieces of tubing traversing the neck. One of these sections of tubing appears to be disconnected within the neck. There is plaque-like dural calcification over the left cerebral convexity. XR/XR skull <4V IMPRESSION: There is a nonprogrammable ventriculoperitoneal shunt in place with 2 intracranial catheters traversing the right parietal lobe and a third intracranial catheter traversing the posterior fossa. There are 2 pieces of tubing traversing the neck. One of these sections of tubing appears to be disconnected within the neck.
--- NOTE | ~2023-10-30 | XR_ITS ---
EXAMINATION: XR CHEST, ABDOMEN CLINICAL INFORMATION: Hydrocephalus unspecified, shunt series COMPARISON: Chest radiograph 06/01/2022. TECHNIQUE: AP view of the chest and 3 AP views of the abdomen were obtained as part of a set of sagittal series images. FINDINGS: CHEST: Shunt catheter partially imaged traversing vertically just to the right of the thoracic spine, extending from the level of the neck proximally into the abdomen distally. There is no gross pneumothorax. Heart size is normal. Degenerative changes in the thoracic spine. No pleural effusion. No new focal consolidation to suggest pneumonia. ABDOMEN: Shunt visualized right abdomen with distal tip projecting at midline over the ehq-od-xmfqp lumbar spine. Nonobstructive bowel gas pattern. Moderate amount of stool in the colon. Degenerative changes in the lumbar spine and bilateral hips. Small pelvic calcifications are likely vascular. XR/XR chest 1V IMPRESSION: 1. Shunt catheter partially imaged traversing vertically just to the right of the thoracic spine, extending from the level of the neck proximally into the abdomen distally. 2. Nonobstructive bowel gas pattern.
--- NOTE | ~2023-10-30 | XR_ITS ---
EXAMINATION: XR CHEST, ABDOMEN CLINICAL INFORMATION: Hydrocephalus unspecified, shunt series COMPARISON: Chest radiograph 06/01/2022. TECHNIQUE: AP view of the chest and 3 AP views of the abdomen were obtained as part of a set of sagittal series images. FINDINGS: CHEST: Shunt catheter partially imaged traversing vertically just to the right of the thoracic spine, extending from the level of the neck proximally into the abdomen distally. There is no gross pneumothorax. Heart size is normal. Degenerative changes in the thoracic spine. No pleural effusion. No new focal consolidation to suggest pneumonia. ABDOMEN: Shunt visualized right abdomen with distal tip projecting at midline over the ccu-fm-biutv lumbar spine. Nonobstructive bowel gas pattern. Moderate amount of stool in the colon. Degenerative changes in the lumbar spine and bilateral hips. Small pelvic calcifications are likely vascular. XR/XR abdomen 1V IMPRESSION: 1. Shunt catheter partially imaged traversing vertically just to the right of the thoracic spine, extending from the level of the neck proximally into the abdomen distally. 2. Nonobstructive bowel gas pattern.
== END 2023-10-30 08:37 | disposition home or self-care (01) ==
LOC: HO.HMGCX 08:36
PROVIDERS: PCP Nurse Practitioner Family; Visit Provider Nurse Practitioner Family
DX: G91.9 Hydrocephalus, unspecified (principal)
CPT/HCPCS: 70250; 71045; 74018

== ENCOUNTER 2023-11-20 12:03 | Outpatient (REF) | payer SELFPAY | END 2023-11-20 12:04 | disposition home or self-care (01) | LOC: HO.HAP 12:03 | PROVIDERS: Visit Provider Nurse Practitioner Family | DX: Z46.1 Encounter for fitting and adjustment of hearing aid (principal); H90.3 Sensorineural hearing loss, bilateral | CPT/HCPCS: V5267 ==

== ENCOUNTER 2024-01-08 10:26 | Outpatient (AMB) | payer MEDICARE, MEDICAID, SELFPAY ==
--- NOTE | 2024-01-08 10:31 | MHC.PC.OV ---
Vital Signs 01/08/24 10:37 Height 6 ft 3 in Weight 318 lb BMI 39.7 BP 112/64 Blood Pressure Location Rt brachial Position Sitting Pulse 73 Pulse Source Pulse Oximeter Pulse Oximetry (%) 98 Oxygen Delivery Method Room Air Intake Visit Reasons: 3M F/U Allergies Iodinated Contrast Media [IV Contrast Dye] Allergy (Verified 01/08/24 12:08) Unknown latex Allergy (Verified 01/08/24 12:08) Unknown meperidine [From Demerol] Allergy (Verified 01/08/24 12:08) Unknown shellfish derived Allergy (Verified 01/08/24 12:08) Unknown Medication List - Last Reconciled 01/08/24 by Tyler Brandt, SHEET METAL APPRENTICE- albuterol sulfate 90 mcg/actuation 2 puffs inhalation Q6H PRN 30 days aspirin (Adult Aspirin Regimen) 81 mg PO DAILY blood sugar diagnostic ([employer] Verio test strips) test blood sugar twice a day blood-glucose meter ([employer] Verio Flex Meter) As directed bupropion HCl XL 300 mg PO QAM cholecalciferol (vitamin D3) 50 mcg PO DAILY 30 days finasteride 5 mg PO DAILY 90 days ytbzaytzbiv-uxhvkbmur-jrrvfsug 100-62.5-25 mcg (Trelegy Ellipta) 1 inh inhalation DAILY lancets Test blood sugar twice a day NS lisinopril-hydrochlorothiazide 20-25 mg 1 tab PO DAILY 90 days meclizine 25 mg PO TID PRN metformin ER 1,000 mg (2 x 500 mg) PO BID 90 days rosuvastatin (Crestor) 20 mg PO DAILY 90 days semaglutide (Ozempic) 1 mg (1.472 mL) subcut QWEEK Tobacco use date assessed: 09/20/23 Dental Screening Dental Screen Date: 09/20/23 HPI 3M F/U HPI Details Pt is a diabetic, on an KASIE and a statin. A1C in office today is 7.7. Microalbumin is up to date. Denies polyuria, polydipsia, does report neuropathy to toes. Pt denies any signs and symptoms of hypolgycemia and does know how to correct it. Will increase ozempic from 0.5mg to 1mg. Due for colon screen, will refer to GI. Pt reports shortness of breath with exertion. He has never been diagnosed with asthma or COPD, that he is aware of, though does report the inhalers help and he has seen pulmonary in the past. Will order PFT testing. Pt does report a weak urinary stream (intermittent), and does not think he is emptying his bladder completely after urination. Pt is currently on finasteride. [facility] Medical History Hydrocephalus High cholesterol HTN (hypertension) Diabetes Meniere disease Vertigo Social History Housing: Apartment Alcohol intake: former Patient Tobacco Use Status: Former Tobacco user Years Smoked: 31 years ago e-Cigarette/Vaping Use: Never Used Second Hand Smoke Exposure: No service: No Current occupational status: retired and disabled Cognitive needs: No Hearing needs: No Vision needs: No Questionnaire PHQ-9 Over the last 2 weeks, how often have you been bothered by any of the following problems? 89198 - PHQ-9 Billing: Patient declined-do not bill Source: Developed by Drs. Vinicius Maria, Marry Trejo, Andi Uribe and colleagues, with an educational ky from [employer]. Thrive Questionnaire Date Thrive assessed: 01/08/24 I am a: Patient What is your living situation today?: I choose not to answer this question Within the past 12 months, did the food you bought not last and you didn't have the money to get more?: I choose not to answer this question Within the past 12 months, did you worry whether your food would run out before you got money to buy more?: I choose not to answer this question Do you have trouble paying for medicines?: I choose not to answer this question Do you have trouble getting transportation to medical appointments?: I choose not to answer this question Do you have trouble paying your heating and electricity bill?: I choose not to answer this question Do you have trouble taking care of your child, family member or friend?: I choose not to answer this question Do you have trouble with day-to-day activities such as bathing, preparing meals, shopping, managing finances, etc.?: I choose not to answer this question Are you currently unemployed and looking for a job?: I choose not to answer this question Are you interested in more education?: I choose not to answer this question Currently or been in a relationship where the following occur: I choose not to answer this question THRIVE Score: 0 DANIEL-7 AMB Questionnaire DANIEL-7 Date DANIEL - 7 assessed: 01/08/24 Source: Developed by Drs. Vinicius Maria, Marry Trejo, Andi Uribe and colleagues, with an educational ky from [employer]. DANIEL-7 Assessment Billing DANIEL-7 Assessment Tool: pt declined-do not bill Review of Systems Const Reports as per HPI Physical exam (Primary Care) Vital Signs: Last Vital Signs Pulse 73 01/08/24 10:37 BP 112/64 01/08/24 10:37 Pulse Ox 98 01/08/24 10:37 Oxygen Delivery Method Room Air 01/08/24 10:37 BMI result Body Mass Index 39.7 Tobacco/Smoking Status: Tobacco use Status Tobacco use date assessed 09/20/23 01/08/24 10:32 Patient Tobacco Use Status Former Tobacco user 01/08/24 10:32 e-Cigarette/Vaping Use Never Used 01/08/24 10:32 Thrive Assessment: Date of Thrive Assessment Date Thrive assessed 06/20/23 01/08/24 10:32 Currently or been in a relationship where the following occur: I choose not to answer this question Const General: cooperative Nutritional Appearance: obese morbidly obese Orientation/consciousness: patient oriented x3 Neuro General: patient oriented x3 Extrem Other: right foot callus to plantar aspect of 1st MTP joint, onychomycosis noted bilat, lack of sensation with use of monofilament to bilat toes Psych Appearance: grossly normal Mental Status: mental status grossly normal Speech and movement: Normal speech and movement present Affect: normal affect Attitude: cooperative Thought process: Normal thought process present Thought content: Normal thought content present Insight: Good insight present (Psych) Judgement: Good judgement present (Psych) Results AMB Hemoglobin A1c AMB Hemoglobin A1c 7.7 % Last Edit by RADHIKA Aparicio on 01/08/24 10:57 Results Reviewed Results Reviewed: Laboratory Last Values Hgb A1c (Clinic) 7.7 % (4.0-6.0) H 01/08/24 10:56 Assessment and Plan Assessment & Plan (1) Screening for colon cancer: Code(s): Z12.11 - Encounter for screening for malignant neoplasm of colon Plan: Referred to GI (2) SOB (shortness of breath) on exertion: Code(s): R06.02 - Shortness of breath Plan: PFT testing ordered (3) Diabetes: Code(s): E11.9 - Type 2 diabetes mellitus without complications Plan: Labs ordered (4) Screening PSA (prostate specific antigen): Code(s): Z12.5 - Encounter for screening for malignant neoplasm of prostate Plan: PSA ordered (5) Weak urinary stream: Code(s): R39.12 - Poor urinary stream Plan: PSA ordered, referred to urology Plan The patient agreed to the use of a associate medical director for this encounter. Scribed for BOB Azul-LIZA by omar Resendiz scribe, on 01/08/2024 at 11:05 EST. Orders: Orders AMB Hemoglobin A1c Today Z13.9 - Encounter for screening, unspecified Complete Blood Count Auto Diff Today E11.9 - Type 2 diabetes mellitus without complications TSH reflex Free T4 Today E11.9 - Type 2 diabetes mellitus without complications UA CC w/rflx Micro + Cult Today E11.9 - Type 2 diabetes mellitus without complications PFT pulmonary function test Today R06.02 - Shortness of breath Comprehensive [place]. Panel Fast Today E11.9 - Type 2 diabetes mellitus without complications Lipid Panel Today E11.9 - Type 2 diabetes mellitus without complications Referrals Gastroenterology Referral Z12.11 - Encounter for screening for malignant neoplasm of colon Urology Referral R39.12 - Poor urinary stream Medications: Changed From semaglutide (Ozempic) for 4 weeks 0.5 mg (0.736 mL) subcut QWEEK 9 mL 1RF To semaglutide (Ozempic) for 4 weeks 1 mg (1.472 mL) subcut QWEEK 9 mL 1RF Coding Level of Care Code Est Pt Level 3 (04885) Diagnoses Screening for colon cancer Z12.11 SOB (shortness of breath) on exertion R06.02 Diabetes E11.9 Screening PSA (prostate specific antigen) Z12.5 Weak urinary stream R39.12
[2024-01-08 10:37] VITALS: BP 112/64; PULSE 73; O2SAT 98; BMI 39.7
== END 2024-01-08 11:29 | disposition home or self-care (01) ==
PROVIDERS: PCP Nurse Practitioner Family; Visit Provider Nurse Practitioner Family
DX: E11.9 Type 2 diabetes mellitus without complications (principal); R06.02 Shortness of breath; R39.12 Poor urinary stream; Z12.5 Encounter for screening for malignant neoplasm of prostate; Z12.11 Encounter for screening for malignant neoplasm of colon
CPT/HCPCS: 83036; 99214

== ENCOUNTER 2024-01-16 13:56 | Outpatient (REF) | payer MEDICARE, MEDICAID, SELFPAY | END 2024-01-16 13:57 | disposition home or self-care (01) | LOC: HO.HAP 13:56 | PROVIDERS: Visit Provider Nurse Practitioner Family | DX: Z46.1 Encounter for fitting and adjustment of hearing aid (principal); H90.3 Sensorineural hearing loss, bilateral | CPT/HCPCS: 92593 ==

== ENCOUNTER 2024-01-16 14:15 | Outpatient (REF) | payer SELFPAY | END 2024-01-16 14:16 | disposition home or self-care (01) | LOC: HO.HAP 14:15 | PROVIDERS: Visit Provider Nurse Practitioner Family | DX: Z46.1 Encounter for fitting and adjustment of hearing aid (principal); H90.3 Sensorineural hearing loss, bilateral | CPT/HCPCS: V5267 ==

== ENCOUNTER 2024-03-04 12:46 | Outpatient (AMB) | payer MEDICARE, MEDICAID, SELFPAY ==
--- NOTE | 2024-03-04 13:04 | MHC.OFFVIS ---
Intake Visit Reasons: weak urinary stream Intake Note: Patient is present for weak urinary stream Urology Medication:finasteride Antibiotic Allergy:none Blood Thinner:aspirin today's PVR: 16ML'S Electrical Products Sales Engineer Required: No Allergies Iodinated Contrast Media [IV Contrast Dye] Allergy (Verified 03/04/24 21:19) Unknown latex Allergy (Verified 03/04/24 21:19) Unknown meperidine [From Demerol] Allergy (Verified 03/04/24 21:19) Unknown shellfish derived Allergy (Verified 03/04/24 21:19) Unknown Medication List - Last Reconciled 03/04/24 by MEME Escoto albuterol sulfate 90 mcg/actuation 2 puffs inhalation Q6H PRN 30 days aspirin (Adult Aspirin Regimen) 81 mg PO DAILY blood sugar diagnostic ([employer] Ver[employer] test strips) test blood sugar twice a day blood-glucose meter ([employer] Verio Flex Meter) As directed bupropion HCl XL 300 mg PO QAM cholecalciferol (vitamin D3) 50 mcg PO DAILY finasteride 5 mg PO DAILY 90 days gyutvzcjfpm-uwmdubquh-vrzjabjz 100-62.5-25 mcg (Trelegy Ellipta) 1 inh inhalation DAILY lancets Test blood sugar twice a day NS lisinopril-hydrochlorothiazide 20-25 mg 1 tab PO DAILY 90 days meclizine 25 mg PO TID PRN metformin ER 1,000 mg (2 x 500 mg) PO BID 90 days rosuvastatin (Crestor) 20 mg PO DAILY 90 days semaglutide (Ozempic) 1 mg (0.75 mL) subcut QWEEK HPI Comments Details: Sagar is a very pleasant 58-year-old male patient of Dr. Tomlinson. He has a past medical history of hydrocephalus, hypercholesteremia, hypertension, diabetes, Meniere's disease, vertigo, and hearing impairment. He presents to the office today as a new patient for enlarged prostate and weak urinary stream. In discussion with the patient today he reports being diagnosed with an enlarged prostate a few years ago at which time was started on finasteride however is unsure as to what provider initiated finasteride. He reports noting ongoing issues with urinary urgency and frequency. He otherwise denies incontinence, nocturia, hematuria, dysuria, foul smelling urine, changes to urinary stream, flank pain, fever, and or chills. In review of patient's chart it appears a PSA was ordered and performed. These results were reviewed with the patient today. PSAs: 06/09 0.3, 09/11 0.1, 01/09 <0.10 Discussed at length potential causes for lower urinary tract symptoms patient is experiencing. Discussed and stressed the importance of managing diabetes for improvement lower urinary tract symptoms as well as overall health and well-being. Discussed obtaining retroperitoneal ultrasound for further assessment evaluation. In office urinalysis results reviewed with the patient today. PVR 16 mL. He does report compliance with CPAP machine. He reports having central sleep apnea verses obstructive. He otherwise offers no other issues or concerns at this time. [facility] Medical History Hydrocephalus High cholesterol HTN (hypertension) Diabetes Meniere disease Vertigo Social History Housing: Apartment Alcohol intake: former Patient Tobacco Use Status: Former Tobacco user Years Smoked: 31 years ago e-Cigarette/Vaping Use: Never Used Second Hand Smoke Exposure: No service: No Current occupational status: retired and disabled Cognitive needs: No Hearing needs: No Vision needs: No Review of Systems Const Reports no additional complaints Eyes Reports no additional complaints ENT Reports as per HPI Card Reports as per HPI Resp Reports as per HPI GI Reports no additional complaints Reports as per HPI Musc Reports no additional complaints Neuro Reports as per HPI Psych Reports no additional complaints Endo Reports as per HPI Luis/Lymph Reports no additional complaints Aller/Immun Reports no additional complaints Physical Exam Const General: cooperative, comfortable, no acute distress, well developed, alert and awake Nutritional Appearance: overweight Orientation/consciousness: patient oriented x3 Limitations: no limitations HEENT Head: Yes normal to inspection, Yes normocephalic and Yes atraumatic Ears: hearing grossly normal bilaterally Eyes General: appearance normal, both eyes and all related structures Neck Neck: Yes normal visual inspection and Yes trachea midline Chest Chest palpation & inspection: normal inspection of the chest Resp Effort & Inspection: normal respiratory effort and able to speak in complete sentences Cardio Rate: regular rate GI Inspection: Yes normal to inspection General: Yes no CVA tenderness Back/Spine/Pelvis Back: no CVA tenderness Skin General skin exam: no rashes or lesions noted Neuro General: patient oriented x3 Extrem General: Yes normal to inspection Psych Appearance: grossly normal and well kempt Mental Status: mental status grossly normal Speech and movement: Normal speech and movement present and Clear speech present Affect: normal affect Attitude: cooperative Thought process: Normal thought process present Thought content: Normal thought content present Insight: Fair insight present (Psych) Judgement: Fair judgement present (Psych) Results AMB Urinalysis, Automated UA Leukoctes 0 Josr/uL Last Edit by RADHIKA Coles on 03/04/24 13:18 UA Nitrite Negative Last Edit by Angle Serrano CCM on 03/04/24 13:18 UA Urobilinogen 0.2 mg/dL Last Edit by Angle Serrano CCM on 03/04/24 13:18 UA Protein 0 mg/dL Last Edit by Angle Serrano CCM on 03/04/24 13:18 UA pH 6.0 Last Edit by Angle Serrano [facility] on 03/04/24 13:18 UA Blood 0 Raz/uL Last Edit by Angle Serrano [facility] on 03/04/24 13:18 UA Specific [place] 1.015 Last Edit by Angle Serrano CCM on 03/04/24 13:18 UA Ketone Negative Last Edit by Angle Serrano CCM on 03/04/24 13:18 UA Bilirubin 0 mg/dL Last Edit by Angle Serrano [facility] on 03/04/24 13:18 UA Glucose 100 mg/dL Last Edit by Angle Serrano [facility] on 03/04/24 13:18 Results Reviewed Results Reviewed: Laboratory Last Values Urine pH (Auto) 6.0 03/04/24 13:17 Specific [place] (Auto) 1.015 03/04/24 13:17 Urine Protein (Auto) 0 mg/dL 03/04/24 13:17 Glucose (UA)(Auto) 100 mg/dL 03/04/24 13:17 Urine Ketones (Auto) Negative 03/04/24 13:17 Urine Blood (Auto) 0 Raz/uL 03/04/24 13:17 Urine Nitrite (Auto) Negative 03/04/24 13:17 Urine Bilirubin (Auto) 0 mg/dL 03/04/24 13:17 Urine Urobilinogen (Auto) 0.2 mg/dL 03/04/24 13:17 Leukocyte Esterase (Auto) 0 Josr/uL 03/04/24 13:17 Assessment & Plan Assessment & Plan (1) Weak urinary stream: Code(s): R39.12 - Poor urinary stream Category: Medical (2) Urinary frequency: Code(s): R35.0 - Frequency of micturition Category: Medical (3) Lower urinary tract symptoms: Code(s): R39.9 - Unspecified symptoms and signs involving the genitourinary system Category: Medical Plan In office urinalysis results reviewed with the patient today; as noted above. PVR 18 mL. Discussed at length potential causes for lower urinary tract symptoms patient is experiencing. Discussed, educated, and stressed the importance of managing diabetes for improvement lower urinary tract symptoms as well as overall health and well-being. Will obtain retroperitoneal ultrasound for further assessment evaluation. Discussed bladder triggers/irritants. Continue finasteride; discussed taking Sunday. Follow-up in 1-3 months with imaging to be completed prior; or sooner with any issues, concerns, and or questions. Orders: Orders AMB Urinalysis Automated Today Z13.9 - Encounter for screening, unspecified US retroperitoneal comp Today R39.9 - Unspecified symptoms and signs involving the genitourinary system Patient Instructions: The patient had an opportunity to ask questions regarding the treatment plan. All questions were answered. Physical exam, labs, and imaging were discussed and reviewed in detail. As well as risks, benefits, and discussion of treatment choices. No major barriers to understanding were identified. The patient expressed understanding and agreement with the above treatment plan. The patient was made aware they should contact our office by phone for worsening of their current condition, the appearance of new symptoms, or with any questions or concerns. Compliance is encouraged with any medications and follow up testing that is ordered. It is a privilege to be allowed the opportunity to participate in? your urological care.? Again, if you have any questions or concerns If you have any questions or concerns please do not hesitate to contact me. The office is [phone]. This note is constructed using voice recognition software. While every effort has been made to ensure accuracy breaster errors may have been included. Yours sincerely, KRISTIE Escoto Coding Level of Care Code New Pt Level 4 (92233) Diagnoses Weak urinary stream R39.12 Urinary frequency R35.0 Lower urinary tract symptoms R39.9 Time Spent (min) 35
== END 2024-03-04 13:40 | disposition home or self-care (01) ==
PROVIDERS: PCP Nurse Practitioner Family; Visit Provider Nurse Practitioner Family
DX: R39.12 Poor urinary stream (principal); R35.0 Frequency of micturition; R39.9 Unspecified symptoms and signs involving the genitourinary system; Z13.9 Encounter for screening, unspecified
CPT/HCPCS: 99204

== ENCOUNTER → 2024-03-04 12:46 | Outpatient (BNVA) | payer MEDICARE, MEDICAID, SELFPAY | PROVIDERS: PCP Nurse Practitioner Family; Visit Provider Nurse Practitioner Family | DX: R39.12 Poor urinary stream (principal); R35.0 Frequency of micturition; R39.9 Unspecified symptoms and signs involving the genitourinary system | CPT/HCPCS: 81003; 99202 ==

== ENCOUNTER 2024-03-28 10:50 | Outpatient (REF) | payer MEDICARE, MEDICAID, SELFPAY ==
--- NOTE | 2024-03-28 12:41 | MHC.AU.HA3 ---
Hearing Instrument Follow-Up- Binaural Date of Visit: 03/28/24 Right Ear: Make, Model, Color, Serial Number: [id number] SN: [id number] Color: [place] Curb [employer] Gutter [employer]orer Repair Warranty: 02/25/2025 [employer] Loss and Damage Warranty: 02/25/2025 [employer] Service Plan: 12/15/2022 Battery Size: Rechargeable Patient Transport Orderly/Slim Tube: Size 2 P Earmold/Dome/CShell/SlimTip:cShell #[id number] warranty 03/28/2022 Type of Wax Guard: CeruStop Dispensed By: [employer] Date of Fittin12/15/2021 Left Ear: Make, Model, Color, Serial Number: Carl [id number]-[id number] SN: [id number] Color: [place] [employer]utter [employer]orer Repair Warranty: 02/25/2025 [employer]utter [employer]orer Loss and Damage Warranty: 02/25/2025 [employer] Service Plan: 12/15/2022 Battery Size: Rechargeable Patient Transport Orderly/Slim Tube: Size 2 P Earmold/Dome/CShell/SlimTip: cShell #[id number] warranty 03/28/2022 Type of Wax Guard: CeruStop Dispensed By: [employer] Date of Fittin12/15/2021 Follow-Up Summary: Sagar reports that he hasn't been hearing as well with his hearing aids and people he talks to on the phone are having a hard time hearing him. Cleaned and checked aids, cleaned molds, replaced wax guards. Wax noted in wax guards and aletha outlets clogged with debris. Noted acute care clinical nurse specialist wires were quite twisted. Listening check positive. Found Sagar to be putting the hearing aids on the wrong ear. Reinstructed Red=Right. Deleted and re-paired aids in phone and ana. Tested call and his daughter could hear him well. Sagar expects to return for evaluation soon, he notes his ENT is sending a referral. Recommendations: Recommendations: Hearing instrument follow-up or maintenance as needed. Diagnosis Code(s): Primary Diagnosis: H90.3 Bilateral Sensorineural Hearing Loss Signature: Provider: Canelo Oakes, [facility]
== END 2024-03-28 10:51 | disposition home or self-care (01) ==
LOC: HO.HAP 10:50
PROVIDERS: Visit Provider Nurse Practitioner Family
DX: Z46.1 Encounter for fitting and adjustment of hearing aid (principal); H90.3 Sensorineural hearing loss, bilateral
CPT/HCPCS: 92593; 99499

== ENCOUNTER 2024-03-28 11:48 | Outpatient (REF) | payer SELFPAY | END 2024-03-28 11:49 | disposition home or self-care (01) | LOC: HO.HAP 11:48 | PROVIDERS: Visit Provider Nurse Practitioner Family | DX: Z46.1 Encounter for fitting and adjustment of hearing aid (principal) | CPT/HCPCS: V5267 ==

== ENCOUNTER 2024-04-15 10:01 | Outpatient (REF) | payer MEDICARE, MEDICAID, SELFPAY ==
--- NOTE | ~2024-04-15 | US_ITS ---
EXAMINATION: US RETROPERITONEAL COMPLETE (RENAL) CLINICAL INFORMATION: Unspecified symptoms and signs of evolving the genitourinary system. COMPARISON: X-ray abdomen 10/30/2023. TECHNIQUE: Real-time imaging of the kidneys and bladder. FINDINGS: RIGHT KIDNEY: 14.4 x 5.7 x 5.7 cm (SAG x AP x TRV). The kidney is normal in size and echogenicity. No calculi or focal parenchymal lesions. No hydronephrosis. LEFT KIDNEY: 13.7 x 5.4 x 4.5 cm (SAG x AP x TRV). The kidney is normal in size and echogenicity. No calculi or focal parenchymal lesions. No hydronephrosis. BLADDER: Distended. Bilateral ureteral jets are not demonstrated. Prevoid bladder volume is 393 mL. Postvoid bladder volume is 36 mL. ADDITIONAL FINDINGS: The prostate appears small and is not well visualized. US/US retroperitoneal comp IMPRESSION: Distended urinary bladder measuring 393 mL. Post void residual 36 mL. No hydronephrosis. Electronically signed by: Alfredo Ambriz MD 04/22/2024 10:20 AM EDT
== END 2024-04-15 10:02 | disposition home or self-care (01) ==
LOC: HO.US 10:01
PROVIDERS: PCP Nurse Practitioner Family; Visit Provider Nurse Practitioner Family
DX: R39.9 Unspecified symptoms and signs involving the genitourinary system (principal)
CPT/HCPCS: 76770

== ENCOUNTER 2024-04-24 08:52 | Outpatient (REF) | payer MEDICARE, MEDICAID, SELFPAY ==
[2024-04-24 10:15] LABS: MANUAL DIFF FLAG NO
[2024-04-24 10:22] LABS: Basophils Percent Auto 0.4 % (0-2); Eosinophils Absolute Auto 0.1 X10*3/uL (0.0-0.4); Eosinophils Percent Auto 1.4 % (0-4); Hematocrit 39.3 % (42.0-52.0); Hemoglobin 12.7 g/dl (14.0-18.0); Imm Gran Abs Auto 0.04 X10*3/uL (0.00-0.03); Imm Gran Pct Auto 0.4 % (0.0-0.4); Lymphocytes Absolute Auto 2.2 X10*3/uL (1.2-4.9); Lymphocytes Percent Auto 22.8 % (20-40); Mean Corpuscular HGB Conc 32.3 g/dl (31.0-36.0); Mean Corpuscular Hemoglobin 26.8 pg (27.0-33.0); Mean Corpuscular Volume 82.9 fL (80.0-98.0); Mean Platelet Volume 9.4 fL (9.4-12.4); Monocytes Absolute Auto 0.5 X10*3/uL (0.1-1.2); Monocytes Percent Auto 4.8 % (2-11); Neutrophils Absolute Auto 6.7 x10*3/uL (2.0-8.3); Neutrophils Percent Auto 70.2 % (45-73); Platelet Count 358 X10*3/uL (160-400); Red Blood Count 4.74 X10*6/uL (4.60-5.80); Red Cell Distribution Width 13.9 % (11.0-16.0); White Blood Count 9.6 X10*3/uL (4.8-10.8)
[2024-04-24 11:19] LABS: Alanine Aminotransferase 22 U/L (0-40); Albumin Level 4.1 g/dL (3.5-5.0); Alkaline Phosphatase 113 U/L (39-117); Anion Gap 15 (12-20); Aspartate Amino Transferase 16 U/L (5-37); Bilirubin Total 0.5 mg/dL (0.0-1.0); Blood Urea Nitrogen 8 mg/dL (9-16); Calcium 9.4 mg/dL (8.4-10.2); Carbon Dioxide 27 mmol/L (22-29); Chloride 99 mmol/L (96-108); Cholesterol 115 mg/dL (<200); Estimated Glomerular Filt Rate > 60; Glucose Fasting 105 mg/dL (60-99); HDL Cholesterol 30 mg/dL (>40); LDL Cholesterol Calculated 55 mg/dL (<100); Potassium 4.1 mmol/L (3.3-5.1); Sodium 137 mmol/L (135-145); Total Protein 7.1 g/dL (6.5-8.0); Triglycerides 151 mg/dL (<150)
[2024-04-24 11:22] LABS: TSH reflex Free T4 1.56 uIU/mL (0.32-4.0)
[2024-04-24 13:30] LABS: Appearance Urine Clear; Color Urine Yellow; Glucose Urine UA Negative (Negative); Leukocyte Esterase Urine Negative (Negative); Nitrite Urine Negative (Negative); Specific Gravity - Urine 1.025 (1.005-1.025); Urine Blood Negative (Negative); Urine Ketones Negative (Negative); Urine Protein Negative (Neg-Trace)
== END 2024-04-24 08:53 | disposition home or self-care (01) ==
LOC: HO.HMGCLDS 08:52
PROVIDERS: PCP Nurse Practitioner Family; Visit Provider Nurse Practitioner Family
DX: E11.9 Type 2 diabetes mellitus without complications (principal)
CPT/HCPCS: 36415; 80053; 80061; 81003; 84443; 85025

== ENCOUNTER 2024-04-29 10:22 | Outpatient (AMB) | payer MEDICARE, MEDICAID, SELFPAY ==
[2024-04-29 10:27] VITALS: BP 126/74; PULSE 80; O2SAT 96; BMI 38.0
--- NOTE | 2024-04-29 10:27 | A.OFFPC_ITS ---
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 A1C in office today is 6.5. Microalbumin is up to date. Denies polyuria, polydipsia, and neuropathy. Pt denies any signs and symptoms of hypoglycemia and does know how to correct it. Eye exam is up to date according to pt. Pt is following up with podiatry. Does get diarrhea from ozempic, will have him try imodium. If this does not work, may try lowering dose. [facility] Medical History Hydrocephalus High cholesterol HTN (hypertension) Diabetes Meniere disease Vertigo Social History Housing: Apartment Alcohol intake: former Patient Tobacco Use Status: Former Tobacco user Years Smoked: 31 years ago e-Cigarette/Vaping Use: Never Used Second Hand Smoke Exposure: No service: No Current occupational status: retired and disabled Cognitive needs: No Hearing needs: No Vision needs: No Questionnaire PHQ-9 Over the last 2 weeks, how often have you been bothered by any of the following problems? 1. Little interest or pleasure in doing things: not at all 2. Feeling down, depressed, or hopeless: not at all 3. Trouble falling or staying asleep, or sleeping too much: more than half the days 4. Feeling tired or having little energy: more than half the days 5. Poor appetite or overeating: not at all 6. Feeling bad about yourself - or that you are a failure or have let yourself or your family down: not at all 7. Trouble concentrating on things, such as reading the newspaper or watching television: not at all 8. Moving or speaking so slowly that other people could have noticed. Or the opposite - being so fidgety or restless that you have been moving around a lot more than usual: not at all 9. Thoughts that you would be better off or of hurting yourself in some way: not at all Total score: 4 Depression Screening Interpretation: Negative Depression Screening Done: Yes 29594 - PHQ-9 Billing: Yes Source: Developed by Drs. Vinicius Maria, Marry Trejo, Andi Uribe and colleagues, with an educational ky from [employer]. Thrive Questionnaire Date Thrive assessed: 01/08/24 I am a: Patient What is your living situation today?: I have a steady place to live Within the past 12 months, did the food you bought not last and you didn't have the money to get more?: I choose not to answer this question Within the past 12 months, did you worry whether your food would run out before you got money to buy more?: I choose not to answer this question Do you have trouble paying for medicines?: No Do you have trouble getting transportation to medical appointments?: No Do you have trouble paying your heating and electricity bill?: No Do you have trouble taking care of your child, family member or friend?: No Do you have trouble with day-to-day activities such as bathing, preparing meals, shopping, managing finances, etc.?: No Are you currently unemployed and looking for a job?: No Are you interested in more education?: No Please select the resources that you would like help with: None Currently or been in a relationship where the following occur: No concerns reported THRIVE Score: 0 AUDIT C Alcohol Use Questionnaire (AUDIT-C) 1. How often do you have a drink containing alcohol?: Never 3. How often do you have six or more drinks on one occasion?: Never Total Score: 0 Score Reviewed/Action Taken: Yes DANIEL-7 AMB Questionnaire DANIEL-7 Date DANIEL - 7 assessed: 04/29/24 Feeling nervous, anxious, or on edge: 0 = Not at all Not being able to stop or control worryin = More than half the days Worrying too much about different things: 2 = More than half the days Trouble relaxin = Not at all Being so restless that it is hard to sit still: 0 = Not at all Becoming easily annoyed or irritable: 0 = Not at all Feeling afraid as if something awful might happen: 0 = Not at all Total DANIEL-7 score (0-4 normal; 5-9 mild; 10-14 moderate; 15-21 severe): 4 Source: Developed by Drs. Vinicius Maria, Marry Trejo, Andi Uribe and colleagues, with an educational ky from [employer]. DANIEL-7 Assessment Billing DANIEL-7 Assessment Tool: DANIEL-7 Assessment 73010 Review of Systems Const Reports as per HPI Physical exam (Primary Care) Vital Signs: Last Vital Signs Pulse 80 04/29/24 10:27 BP 126/74 04/29/24 10:27 Pulse Ox 96 04/29/24 10:27 BMI result Body Mass Index 38.0 Tobacco/Smoking Status: Tobacco use Status Tobacco use date assessed 09/20/23 04/29/24 10:28 Patient Tobacco Use Status Former Tobacco user 04/29/24 10:28 e-Cigarette/Vaping Use Never Used 04/29/24 10:28 PHQ-9: PHQ-9 Score PHQ-9: Total score 4 04/29/24 10:42 Depression Screening Interpretation: Negative Thrive Assessment: Date of Thrive Assessment Date Thrive assessed 01/08/24 04/29/24 10:28 Currently or been in a relationship where the following occur: No concerns reported Const General: cooperative Nutritional Appearance: obese Orientation/consciousness: patient oriented x3 Resp Effort & Inspection: normal respiratory effort Auscultation: clear to auscultation bilaterally Cardio Rate: regular rate Rhythm: regular rhythm Heart sounds: S1 normal heart sound present and S2 normal heart sound present Neuro General: patient oriented x3 Extrem Other: bilat feet: + sensation with use of monofilament, feet intact, onychomycosis noted bilat, large callus to right foot plantar aspect of 1st MTP joint Psych Appearance: grossly normal Mental Status: mental status grossly normal Speech and movement: Normal speech and movement present Affect: normal affect Attitude: cooperative Thought process: Normal thought process present Thought content: Normal thought content present Insight: Good insight present (Psych) Judgement: Good judgement present (Psych) Immunizations pneumoc 20-rafat conj-dip cr(PF) 0.5 mL IM syringe Performing Provider: MEME Barrett [place] [facility] [place] [facility] Administered by: RADHIKA Aparicio on 04/29/24 11:23 Dose Route Admin Location Dispensed Lot Number Expiration Date NDC 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 Scribed for MEME Azul by omar Resendiz scribe, on 04/29/2024 at 10:35 EST. Orders: Orders Pneumococcal 20 Immunization Today Z23 - Encounter for immunization Coding Level of Care Code Est Pt Level 3 (87642) Diagnoses Diabetes E11.9 Additional Codes DANIEL-7 Assessment Billing - DANIEL-7 Assessment Tool: DANIEL-7 Assessment 51813 ([id number])
== END 2024-04-29 11:18 | disposition home or self-care (01) ==
PROVIDERS: PCP Nurse Practitioner Family; Visit Provider Nurse Practitioner Family
DX: E11.9 Type 2 diabetes mellitus without complications (principal); Z23 Encounter for immunization
CPT/HCPCS: 90471; 90677; 99213

== ENCOUNTER 2024-05-07 15:24 | Outpatient (REF) | payer MEDICARE, MEDICAID, SELFPAY ==
--- NOTE | 2024-05-07 16:05 | MHC.AU.HA3 ---
Hearing Instrument Follow-Up- Binaural Date of Visit: 05/07/24 Right Ear: Make, Model, Color, Serial Number: Nicoleak [id number] SN: [id number] Color: Beatrize Alteration Tailor Repair Warranty: 02/25/2025 Alteration Tailor Loss and Damage Warranty: 02/25/2025 [facility] Service Plan: 12/15/2022 Battery Size: Rechargeable Investigation Manager/Slim Tube: Size 2 P Earmold/Dome/CShell/SlimTip:cShell #[id number] warranty 03/28/2022 Type of Wax Guard: CeruStop Dispensed By: [facility] Date of Fittin12/15/2021 Left Ear: Make, Model, Color, Serial Number: Carl [id number]-[id number] SN: [id number] Color: Beatrize Alteration Tailor Repair Warranty: 02/25/2025 Alteration Tailor Loss and Damage Warranty: 02/25/2025 [facility] Service Plan: 12/15/2022 Battery Size: Rechargeable Investigation Manager/Slim Tube: Size 2 P Earmold/Dome/CShell/SlimTip: cShell #[id number] warranty 03/28/2022 Type of Wax Guard: CeruStop Dispensed By: [facility] Date of Fittin12/15/2021 Follow-Up Summary: Sagar reports his right hearing aid would not charge last night. Cleaned and checked aids. Right off, not lighting up in emts. Found aid to be in stock mode. Now charging normally. Listening check positive. Firmware updated for both aids. Recommendations: Recommendations: Hearing instrument follow-up or maintenance as needed. Diagnosis Code(s): Primary Diagnosis: H90.3 Bilateral Sensorineural Hearing Loss Signature: Provider: Canelo Oakes, CCC-A
== END 2024-05-07 15:25 | disposition home or self-care (01) ==
LOC: HO.HAP 15:24
PROVIDERS: Visit Provider Nurse Practitioner Family
DX: Z46.1 Encounter for fitting and adjustment of hearing aid (principal); H90.3 Sensorineural hearing loss, bilateral
CPT/HCPCS: 92593

== ENCOUNTER 2024-06-18 10:51 | Outpatient (AMB) | payer MEDICARE, MEDICAID, SELFPAY ==
--- NOTE | 2024-06-18 11:15 | MHC.OFFVIS ---
Intake Visit Reasons: 2m/US Intake Note: Patient presents today for follow up on: weak urinary system Urology Medication:finasteride Antibiotic Allergy:none Blood Thinner:aspirin PVR: 16ml's Galley Cook Required: No Accompanied by: Self / Same As Patient Allergies Iodinated Contrast Media [IV Contrast Dye] Allergy (Verified 06/18/24 11:20) Unknown latex Allergy (Verified 06/18/24 11:20) Unknown meperidine [From Demerol] Allergy (Verified 06/18/24 11:20) Unknown shellfish derived Allergy (Verified 06/18/24 11:20) Unknown HPI Comments Details: Sagar is a very pleasant 58-year-old male patient of Dr. Tomlinson. He has a past medical history of hydrocephalus, hypercholesteremia, hypertension, diabetes, Meniere's disease, vertigo, and hearing impairment. He presents to the office today for follow-up. Of note, patient was seen approximately 3 months ago as a new patient for enlarged prostate and weak urinary stream at which time a retroperitoneal ultrasound was ordered for further assessment evaluation and a PSA. These results were reviewed with the patient today. Bilateral kidneys are normal in size and echogeicity. No renal calculi or hydronephrosis noted. The bladder is well distended. Pre void bladder volume is proximally 400 mL. Postvoid bladder volume is proximally 40 mL the prostate appears small not well visualized. PSAs are as follows.... PSAs: 06/09 0.3, 09/11 0.1, 01/09 <0.10, 10/13 0.1 Reports compliance with finasteride 3 times per week as prescribed. He does report noting intermittent episodes of urinary urgency and frequency and weak urinary stream however feels these are not bothersome and is managing them well independently. He otherwise denies incontinence, nocturia, hematuria, dysuria, foul smelling urine, flank pain, fever, and or chills. Discussed potential causes for lower urinary tract symptoms patient is experiencing. Discussed and stressed the importance of managing diabetes for improvement lower urinary tract symptoms as well as overall health and well-being. In office urinalysis results reviewed with the patient today. PVR 16 mLs. He does report compliance with CPAP machine. He reports having central sleep apnea verses obstructive. He continues to follow-up with [facility] for his shunt and neurological concerns. He otherwise offers no other issues or concerns at this time. [facility] Medical History Hydrocephalus High cholesterol HTN (hypertension) Diabetes Meniere disease Vertigo Social History Housing: Apartment Alcohol intake: former Patient Tobacco Use Status: Former Tobacco user Years Smoked: 31 years ago e-Cigarette/Vaping Use: Never Used Second Hand Smoke Exposure: No service: No Current occupational status: retired and disabled Cognitive needs: No Hearing needs: No Vision needs: No Review of Systems Const Reports no additional complaints Eyes Reports no additional complaints ENT Reports as per HPI Card Reports as per HPI Resp Reports as per HPI GI Reports no additional complaints Reports as per HPI Musc Reports no additional complaints Neuro Reports as per HPI Psych Reports no additional complaints Endo Reports as per HPI Luis/Lymph Reports no additional complaints Aller/Immun Reports no additional complaints Physical Exam Const General: cooperative, comfortable, no acute distress, well developed, alert and awake Nutritional Appearance: overweight Orientation/consciousness: patient oriented x3 Limitations: no limitations HEENT Head: Yes normal to inspection, Yes normocephalic and Yes atraumatic Ears: hearing grossly normal bilaterally Eyes General: appearance normal, both eyes and all related structures Neck Neck: Yes normal visual inspection and Yes trachea midline Chest Chest palpation & inspection: normal inspection of the chest Resp Effort & Inspection: normal respiratory effort and able to speak in complete sentences Cardio Rate: regular rate GI Inspection: Yes normal to inspection General: Yes no CVA tenderness Back/Spine/Pelvis Back: no CVA tenderness Skin General skin exam: no rashes or lesions noted Neuro General: patient oriented x3 Extrem General: Yes normal to inspection Psych Appearance: grossly normal and well kempt Mental Status: mental status grossly normal Speech and movement: Normal speech and movement present and Clear speech present Affect: normal affect Attitude: cooperative Thought process: Normal thought process present Thought content: Normal thought content present Insight: Fair insight present (Psych) Judgement: Fair judgement present (Psych) Office Procedures Post Void Residual Post Residual Void Post Void Residual (PVR): 16 [id number] Void Residual by ultrasound Results AMB Urinalysis, Automated UA Leukoctes 0 Josr/uL Last Edit by Fartun Seay on 06/18/24 11:36 UA Nitrite Last Edit by BEST Athlete Managementyas Seay on 06/18/24 11:36 UA Urobilinogen 0.2 mg/dL Last Edit by BEST Athlete Managementyas Seay on 06/18/24 11:36 UA Protein 0 mg/dL Last Edit by The Political Studentrupali Seay on 06/18/24 11:36 UA pH 6.0 Last Edit by The Political Studentrupali Seay on 06/18/24 11:36 UA Blood 0 Raz/uL Last Edit by The Political Studentrupali SodaHeadkenney on 06/18/24 11:36 UA Specific [place] 1.020 Last Edit by [email or web address] on 06/18/24 11:36 UA Ketone Last Edit by [email or web address] on 06/18/24 11:36 UA Bilirubin 0 mg/dL Last Edit by The Political Studentrupali Seay on 06/18/24 11:36 UA Glucose 0 mg/dL Last Edit by The Political Studentrupali Seay on 06/18/24 11:36 Results Reviewed Results Reviewed: Laboratory Last Values Urine pH (Auto) 6.0 06/18/24 11:21 Specific [place] (Auto) 1.020 06/18/24 11:21 Urine Protein (Auto) 0 mg/dL 06/18/24 11:21 Glucose (UA)(Auto) 0 mg/dL 06/18/24 11:21 Urine Blood (Auto) 0 Raz/uL 06/18/24 11:21 Urine Bilirubin (Auto) 0 mg/dL 06/18/24 11:21 Urine Urobilinogen (Auto) 0.2 mg/dL 06/18/24 11:21 Leukocyte Esterase (Auto) 0 Josr/uL 06/18/24 11:21 Date of Service: 04/15/24 EXAMINATION: US RETROPERITONEAL COMPLETE (RENAL) FINDINGS: RIGHT KIDNEY: 14.4 x 5.7 x 5.7 cm (SAG x AP x TRV). The kidney is normal in size and echogenicity. No calculi or focal parenchymal lesions. No hydronephrosis. LEFT KIDNEY: 13.7 x 5.4 x 4.5 cm (SAG x AP x TRV). The kidney is normal in size and echogenicity. No calculi or focal parenchymal lesions. No hydronephrosis. BLADDER: Distended. Bilateral ureteral jets are not demonstrated. Prevoid bladder volume is 393 mL. Postvoid bladder volume is 36 mL. ADDITIONAL FINDINGS: The prostate appears small and is not well visualized. IMPRESSION: Distended urinary bladder measuring 393 mL. Post void residual 36 mL. No hydronephrosis. Assessment & Plan Assessment & Plan (1) Lower urinary tract symptoms: Code(s): R39.9 - Unspecified symptoms and signs involving the genitourinary system Category: Medical (2) Weak urinary stream: Code(s): R39.12 - Poor urinary stream Category: Medical (3) Urinary frequency: Code(s): R35.0 - Frequency of micturition Category: Medical Plan In office urinalysis results reviewed with the patient today; as noted above. PVR 18 mL. Discussed at length potential causes for lower urinary tract symptoms patient is experiencing. Recent PSA results reviewed with the patient today; as noted above. Recent retroperitoneal ultrasound results reviewed with the patient today as noted above. Discussed, educated, and stressed the importance of managing diabetes for improvement lower urinary tract symptoms as well as overall health and well-being. Discussed alpha-javier;however patient feels he is independently managing lower urinary tract symptoms and does not find them bothersome at this time. Discussed bladder triggers/irritants. Continue finasteride; discussed taking Sunday. Follow-up in 1 year with PVR and PSA;or sooner with any issues, concerns, and or questions. Orders: Orders AMB Urinalysis Automated Today Z13.9 - Encounter for screening, unspecified AMB Post Void Residual by ultrasound Today R39.9 - Unspecified symptoms and signs involving the genitourinary system Patient Instructions: The patient had an opportunity to ask questions regarding the treatment plan. All questions were answered. Physical exam, labs, and imaging were discussed and reviewed in detail. As well as risks, benefits, and discussion of treatment choices. No major barriers to understanding were identified. The patient expressed understanding and agreement with the above treatment plan. The patient was made aware they should contact our office by phone for worsening of their current condition, the appearance of new symptoms, or with any questions or concerns. Compliance is encouraged with any medications and follow up testing that is ordered. It is a privilege to be allowed the opportunity to participate in? your urological care.? Again, if you have any questions or concerns If you have any questions or concerns please do not hesitate to contact me. The office is [phone]. This note is constructed using voice recognition software. While every effort has been made to ensure accuracy sharepoint consultant errors may have been included. Yours sincerely, BOB Escoto-LIZA Coding Level of Care Code Est Pt Level 3 (76499) Complex EM visit Add On G2211 Diagnoses Lower urinary tract symptoms R39.9 Weak urinary stream R39.12 Urinary frequency R35.0 CPT Codes Post Residual Void - PVR CPT Code: 91260-Zjxd Void Residual by ultrasound ([id number])
== END 2024-06-18 12:00 | disposition home or self-care (01) ==
LOC: HO.HUSH 10:52
PROVIDERS: PCP Nurse Practitioner Family; Visit Provider Nurse Practitioner Family
DX: R39.9 Unspecified symptoms and signs involving the genitourinary system (principal); R39.12 Poor urinary stream; R35.0 Frequency of micturition; Z13.9 Encounter for screening, unspecified
CPT/HCPCS: 99213; G2211

== ENCOUNTER → 2024-06-18 10:51 | Outpatient (BNVA) | payer MEDICARE, MEDICAID, SELFPAY | PROVIDERS: PCP Nurse Practitioner Family; Visit Provider Nurse Practitioner Family | DX: R39.9 Unspecified symptoms and signs involving the genitourinary system (principal); R39.12 Poor urinary stream; R35.0 Frequency of micturition | CPT/HCPCS: 51798; 81003; 99212 ==

== ENCOUNTER 2024-07-22 13:02 | Outpatient (AMB) | payer MEDICARE, MEDICAID, SELFPAY ==
[2024-07-22 13:22] VITALS: BP 163/82; PULSE 105; BMI 38.5
--- NOTE | 2024-07-22 13:22 | MHC.OFFVIS ---
Vital Signs 07/22/24 13:22 Height 6 ft 3 in Weight 307 lb 12.245 oz BMI 38.5 BP 163/82 H Blood Pressure Location Lt brachial Position Sitting Pulse 105 H Intake Visit Reasons: pre colonoscopy Intake Note: CC: Allergies Iodinated Contrast Media [IV Contrast Dye] Allergy (Verified 07/23/24 11:45) Unknown latex Allergy (Verified 07/23/24 11:45) Unknown meperidine [From Demerol] Allergy (Verified 07/23/24 11:45) Unknown shellfish derived Allergy (Verified 07/23/24 11:45) Unknown HPI HPI pre colonoscopy: Details: 58 year old? male with past medical history of hydrocephalus, sleep apnea, anemia, vitamin-D deficiency, Meniere disease, diabetes, hypertension is here today for pre colonoscopy screening.? Last colonoscopy over 5 years ago was done at [facility].? Patient takes Ozempic once a week for his blood sugars as well as metformin. Patient has been losing weight with this medication. Reports that his bowels have been more loose than normal since starting the Ozempic. Patient takes the Ozempic on Sunday. Patient denies any other gastrointestinal symptoms in the past or at present.? Denies any family history of gastrointestinal disease, colon polyps, or CRC.? Denies history of difficulty with sedation or anesthesia in the past.? Negative for history of sleep apnea.? Denies any history of cardiac, renal, pulmonary, or hepatic disease.?? No history of infectious? diseases like hepatitis A, B, C, HIV or tuberculosis.? 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 H/O colonoscopy Family History Mother Brain malignant neoplasm Social History Housing: Apartment Alcohol intake: former Patient Tobacco Use Status: Former Tobacco user Years Smoked: 31 years ago e-Cigarette/Vaping Use: Never Used Second Hand Smoke Exposure: No service: No Current occupational status: retired and disabled Cognitive needs: No Hearing needs: No Vision needs: No Review of Systems Const Denies weight gain and Denies weight loss ENT Reports no additional complaints, Denies dysphagia and Denies odynophagia Card Reports no additional complaints Resp Reports no additional complaints GI Denies abdominal pain, Denies belching, Denies melena, Denies bloating, Denies change in bowel habits, Denies dysphagia, Denies excessive flatus, Denies dyspepsia, Denies heartburn, Denies diarrhea, Reports loose stools (Occasional), Denies nausea, Denies odynophagia and Denies vomiting Reports no additional complaints Musc Reports no additional complaints Neuro Reports no additional complaints Psych Reports no additional complaints Endo Reports no additional complaints Physical Exam Vital Signs: Last Vital Signs Pulse 105 H 07/22/24 13:22 BP 163/82 H 07/22/24 13:22 BMI result Body Mass Index 38.5 Const General: healthy appearing and no acute distress Nutritional Appearance: obese Orientation/consciousness: patient oriented x3 Resp Effort & Inspection: normal respiratory effort, able to speak in complete sentences, no tracheal deviation and symmetric chest movement Auscultation: clear to auscultation bilaterally Cardio Rate: regular rate GI Inspection: Yes normal to inspection, No distended and Yes obesity Palpation (GI): Soft to palpation, not firm, nontender and No hepatosplenomegaly present Auscultation: normal bowel sounds General: Yes no CVA tenderness Back/Spine/Pelvis Back: no CVA tenderness Skin General skin exam: elasticity normal, turgor normal and dry skin Neuro General: patient oriented x3 Psych Appearance: grossly normal Mental Status: mental status grossly normal Assessment & Plan Assessment & Plan (1) Screening for colon cancer: Code(s): Z12.11 - Encounter for screening for malignant neoplasm of colon Category: Medical Plan Patient denies any GI, cardiac or respiratory symptoms.? However patient does report occasional loose stools after eating since he started taking Ozempic. Denies any issues with anesthesia in the past.? Denies any history of sleep apnea.? No history infectious diseases in the past or present.? Patient is on low-dose aspirin.? No family or personal history of colon cancer or polyps.? Patient denies melena, hematochezia, unintentional weight loss or ribbon like stools.? Discussed at length the pre-procedure,? prep, diet & medications as well as what to expect prior, during and after the procedure.?? Stressed the importance of good bowel prep.? Recommended the use of Vaseline or Calmoseptine OTC & baby wipes with bowel movements to promote comfort.? ?Patient verbalizes understanding and agrees to plan of care.? He was given the opportunity to ask questions and all questions answered.? We will see him after the procedure.? Medications: New bisacodyl (Dulcolax (bisacodyl)) take 4 tabs at noon the day before your colonoscopy 20 mg (4 x 5 mg) PO ONCE 4 tabs 0RF 1 day Z12.11 - Encounter for screening for malignant neoplasm of colon polyethylene glycol 3350 (Miralax) As directed by gastroenterology department at [facility] 238 grams PO ONCE 238 grams 0RF Z12.11 - Encounter for screening for malignant neoplasm of colon Coding Level of Care Code New Pt Level 3 (53159) Diagnoses Screening for colon cancer Z12.11 Time Spent (min) 40 Comment 30 minutes spent with patient and additional 10 minutes spent reviewing his records
--- OUTSIDE RECORDS SUMMARY | 2024-07-29 13:56 | XMS_ITS | Data Portability ---
Author Organization [place] - [facility], Allergy Address [address] [address] Care Team Providers Care Glass Driller Name Role Phone JUAN ANTONIO LADD Primary Care Provider Assessment No assessment recorded. Plan of Treatment Reminders Order Date Submit Date Provider Last Modified By Organization Details Last Modified Time Details Appointments Establish ed 10 2024 01:30P M SCOTT VILLARREAL MD Not available Not available Not available Lab None recorded. Referral None recorded. Procedures None recorded. Surgeries None recorded. Imaging None recorded. Medication Orders None recorded. Patient TargetsNo targets recorded. Patient InstructionsNo instructions recorded. Reason for Referral None Reported. Results Created Date Observation Date Name Description Value Unit Range Abnormal Flag Note LastModifiedBy Organization Detail LastModifiedTime 04/08/20 24 12/28/2023 CT, head + brain , w/o contr ast No observ ation record ed. [email or web address] Not Available 16:04:07 04/09/20 24 09/07/2020 imagi ng/di agnos tic resul t No observ ation record ed. [email or web address] Not Available 20:55:32 04/09/20 24 10/02/2019 imagi ng/di agnos tic resul t No observ ation record ed. [email or web address] Not Available 20:55:45 04/09/20 24 12/27/2022 imagi ng/di agnos tic resul t No observ ation record ed. [email or web address] Not Available 20:55:55 04/09/20 24 02/05/2019 imagi ng/di agnos tic resul t No observ ation record ed. [email or web address] Not Available 20:55:57 04/09/2002/18/2019 imagi ng/di agnos tic resul t No observ ation record ed. [email or web address] Not Available 20:56:08 04/09/20 24 02/18/2019 audio gram No observ ation record ed. [email or web address] Not Available 20:56:09 04/09/2003/01/2022 imagi ng/di agnos tic resul t No observ ation record ed. [email or web address] Not Available 20:56:12 04/09/2004/22/2019 imagi ng/di agnos tic resul t No observ ation record ed. [email or web address] Not Available 20:56:34 04/09/20 24 06/21/2021 imagi ng/di agnos tic resul t No observ ation record ed. [email or web address] Not Available 20:56:36 04/09/2006/21/2021 imagi ng/di agnos tic resul t No observ ation record ed. [email or web address] Not Available 20:56:40 04/09/20 24 06/29/2020 imagi ng/di agnos tic resul t No observ ation record ed. [email or web address] Not Available 20:56:46 04/09/20 24 06/29/2022 imagi ng/di agnos tic resul t No observ ation record ed. [email or web address] Not Available 20:56:53 04/09/20 24 06/29/2022 imagi ng/di agnos tic resul t No observ ation record ed. [email or web address] Not Available 20:56:56 04/09/20 24 07/27/2020 imagi ng/di agnos tic resul t No observ ation record ed. [email or web address] Not Available 20:57:19 04/09/20 24 09/07/2020 audio gram No observ ation record ed. [email or web address] Not Available 20:57:37 04/09/20 24 10/02/2019 audio gram No observ ation record ed. [email or web address] Not Available 20:57:42 04/09/20 24 12/27/2022 audio gram No observ ation record ed. [email or web address] Not Available 20:58:06 04/09/20 24 02/05/2019 audio gram No observ ation record ed. [email or web address] Not Available 20:58:27 04/09/20 24 02/18/2019 audio gram No observ ation record ed. [email or web address] Not Available 20:58:48 04/09/20 24 03/01/2022 audio gram No observ ation record ed. [email or web address] Not Available 20:59:02 04/09/20 24 04/22/2019 audio gram No observ ation record ed. [email or web address] Not Available 20:59:22 04/09/20 24 06/21/2021 audio gram No observ ation record ed. [email or web address] Not Available 20:59:42 04/09/20 24 06/29/2020 audio gram No observ ation record ed. [email or web address] Not Available 20:59:56 04/09/20 24 06/29/2022 audio gram No observ ation record ed. [email or web address] Not Available 21:00:04 04/09/20 24 07/27/2020 audio gram No observ ation record ed. [email or web address] Not Available 21:00:17 Result Notes None recorded. Problems Name Problem SNOMED Code Status Onset Date Resolution Date Notes Provider Name and Address Organization Details Recorded Time Sudden idiopath ic hearing loss 782813554 Active 2018 Sudden idiopath ic hearing loss, right ear; Note: Changed from H91.20 to H91.21 (02/06/20 19 12:29 PM) , Date Diagnose d: 9 9:51 AM (H91.20) Not Available [facility] 4 02:37:03 Impacted cerumen in right ear 22678166308 00607 Active 2020 Impacted cerumen, right ear; Note: Date Diagnose d: 1 11:16 AM (H61.21) Not Available [facility] 4 02:37:11 Candidal otitis externa 65792559 Completed 202003/21/2024 Candidal otitis externa; Note: Date Diagnose d: 1 1:38 PM (B37.84) Not Available [facility] 4 02:36:57 Diffuse otitis externa 90075391 Completed 202003/21/2024 Diffuse otitis externa, right ear; Note: Date Diagnose d: 1 1:38 PM (H60.311 ) Not Available [facility] 4 02:37:03 Asymmetr ical sensorin eural hearing loss 035180924 Active 2014 Sensorin eural HL, asymmetr ic; Note: Date Diagnose d: 5 10:39 AM (389.16) Sensor ineural hearing los asymmetr ic; Note: Date Diagnose d: 06/04/20 14 11:48 AM (389.16) ; Start Date : 06/04/20 14 Not Available [facility] 4 02:37:09 Impacted cerumen of bilatera l ears 53889823962 27510 Active 2019 Impacted cerumen, bilatera l; Note: Date Diagnose d: 0 3:42 PM (H61.23) Not Available [facility] 4 02:37:06 Sensorin eural hearing loss of bilatera l ears 214176885 Active 2014 Hearing loss: Sensorin eural hearing loss, bilatera l; Note: Date Diagnose d: 06/04/20 14 11:16 AM (389.18) ; Start Date : 06/04/20 14 Senso rineural hearing loss, bilatera l; Note: Date Diagnose d: 06/08/20 15 9:17 AM (H90.3) Not Available [facility] 4 02:37:02 Dizzines s and giddines s 736522411 Active 2020 Vertigo NOS; Note: Date Diagnose d: 1 11:20 AM (R42) Not Available [facility] 4 02:37:07 Headache 50574363 Active 2022 Headache , unspecif ied; Note: Date Diagnose d: 3 11:13 AM (R51.9) Not Available [facility] 4 02:37:03 Tinnitus 88413326 Active 2013 Tinnitus , unspecif ied; Note: Date Diagnose d: 06/04/20 14 11:48 AM (388.30) Not Available [facility] 4 02:36:57 Type 2 diabetes mellitus without complica tion 826792997 Active 2022 Type 2 diabetes mellitus without complica tions; Note: Date Diagnose d: 3 11:09 AM (E11.9) Not Available [facility] 4 02:36:59 M??ni??r e's disease 14388975 Active 2019 Meniere' s disease, right ear; Note: Date Diagnose d: 0 4:18 PM (H81.01) Not Available [facility] 4 02:37:10 Disorder of right Eustachi an tube 10891281399 03442 Active 2018 Other specifie d disorder s of Eustachi an tube, right ear; Note: Date Diagnose d: 9 9:20 AM (H69.81) Not Available [facility] 4 02:37:14 Hydrocep halus 624563700 Active 2022 Hydrocep halus, unspecif ied; Note: Date Diagnose d: 3 11:07 AM (G91.9) Not Available [facility] 4 02:37:10 Problem Notes None recorded. Procedures Surgical History Date Name Laterality Status Provider Name and Address Organization Details Recorded Time Cerumen removal with microscope bilateral completed SCOTT VILLARREAL MD [address] [facility],[place] [address], [place], [address], [facility] - [facility] 03/26/2024 10:08:28 Imaging Results Imaging Date Name Status LastModified by Organiz ation Details LastModified Time 12/28/2023 CT, head + brain, w/o contrast completed [email or web address] Information not available 04/08/2024 16:04:07 09/07/2020 imaging/diagno stic result completed Information not available 04/09/2024 20:55:32 10/02/2019 imaging/diagno stic result completed Information not available 04/09/2024 20:55:45 12/27/2022 imaging/diagno stic result completed Information not available 04/09/2024 20:55:55 02/05/2019 imaging/diagno stic result completed Information not available 04/09/2024 20:55:57 02/18/2019 imaging/diagno stic result completed Information not available 04/09/2024 20:56:08 02/18/2019 audiogram completed Information not available 04/09/2024 20:56:09 03/01/2022 imaging/diagno stic result completed Information not available 04/09/2024 20:56:12 04/22/2019 imaging/diagno stic result completed Information not available 04/09/2024 20:56:34 06/21/2021 imaging/diagno stic result completed Information not available 04/09/2024 20:56:36 06/21/2021 imaging/diagno stic result completed Information not available 04/09/2024 20:56:40 06/29/2020 imaging/diagno stic result completed Information not available 04/09/2024 20:56:46 06/29/2022 imaging/diagno stic result completed Information not available 04/09/2024 20:56:53 06/29/2022 imaging/diagno stic result completed Information not available 04/09/2024 20:56:56 07/27/2020 imaging/diagno stic result completed Information not available 04/09/2024 20:57:19 09/07/2020 audiogram completed Information not available 04/09/2024 20:57:37 10/02/2019 audiogram completed Information not available 04/09/2024 20:57:42 12/27/2022 audiogram completed Information not available 04/09/2024 20:58:06 02/05/2019 audiogram completed Information not available 04/09/2024 20:58:27 02/18/2019 audiogram completed Information not available 04/09/2024 20:58:48 03/01/2022 audiogram completed Information not available 04/09/2024 20:59:02 04/22/2019 audiogram completed Information not available 04/09/2024 20:59:22 06/21/2021 audiogram completed Information not available 04/09/2024 20:59:42 06/29/2020 audiogram completed Information not available 04/09/2024 20:59:56 06/29/2022 audiogram completed Information not available 04/09/2024 21:00:04 07/27/2020 audiogram completed Information not available 04/09/2024 21:00:17 Procedure Notes None recorded. Medical Equipment None Reported. Allergies Allergen ID Allergen Name Allergen Category Reaction Reaction Severity Criticality Documentation Date Start Date Code Code System Note Provider Name and Address Organization Details Recorded Time 101036 Iodinated contrast media (substanc e) medicatio n Not available Not available Not available 03/26/2024 83483 2003 SNOMED Trinidad alexandra [place] - [facility] 09:43:16 294399 latex environme nt,medica tion Not available Not available Not available 03/26/2024 44039 91 RxNorm Trinidad alexandra [place] - [facility] 4 09:43:28 762977 shellfish derived food,medi cation Not available Not available Not available 03/26/2024 Trinidad aleaxndra [place] - [facility] 4 09:43:36 25673 meperidin e hydrochlo ride medicatio n other Not available Not available 01/01/2024 45845 5 RxNorm React ion: unkno wn, unspe cifie d;; Not Available [facility] 4 01:03:53 Medications Name Sig Start Date Stop Date Status Note LastModified by Organization Details LastModified Time metformin 500 mg tablet 02/05 completed Medicati on ID: 5829 Dur ation Value: 90 Reason: () Brand Name: metformi n Send Method: E-Prescr ibed Sub s Allowed: subs OK Speci al Instruct ion: TAKE 1 TABLET BY MOUTH TWICE A DAY Medi cationGe nericNam e: metformi n Not Available Not Available Not Available prednison e 10 mg tablet 04/22 completed Medicati on ID: [id number] P trice d By Name: Leah Nuñez nd Name: predniso ne Send Method: E-Prescr ibed Sub s Allowed: subs OK Speci al Instruct ion: Take 6 tabs PO QD X 9 days, then 5 tabs PO QD day 10, 4 tabs day 11, 3 tabs day 12, 2 tabs day 13 and 1 tab day 14 Medic ationGen ericName : predniso ne Not Available Not Available Not Available citalopra m 40 mg tablet 02/05 completed Medicati on ID: 5826 Dur ation Value: 90 Reason: () Brand Name: citalopr am Send Method: E-Prescr ibed Sub s Allowed: subs OK Speci al Instruct ion: TAKE 1 TABLET BY MOUTH DAILY Me dication GenericN magdaleno: citalopr am Not Available Not Available Not Available azithromy dami 250 mg tablet TAKE 2 TABLETS ON FIRST DAY , THEN 1 TABLET DAILY FOR 4 DAYS 03/26 completed Not Available Not Available Not Available diltiazem CD 240 mg capsule,e xtended release 24 hr 03/26 completed Medicati on ID: 5827 Dur ation Value: 90 Brand Name: diltiaze m HCl Send Method: E-Prescr ibed Sub s Allowed: subs OK Speci al Instruct ion: TAKE ONE CAPSULE BY MOUTH TWICE A DAY Medi cationGe nericNam e: diltiaze m HCl Not Available Not Available Not Available topiramat e 25 mg tablet 02/05 completed Medicati on ID: 01843 Du ration Value: 30 Reason: () Brand Name: topirama te Send Method: E-Prescr ibed Sub s Allowed: subs OK Medic ationGen ericName : topirama te Not Available Not Available Not Available ciproflox acin 500 mg tablet 1 tablet by mouth 03/26 completed Medicati on ID: [id number] D uration Value: 10 Prescri bed By Name: RUKHSANA Renner nd Name: ciproflo xacin HCl Send Method: E-Prescr ibed Sub s Allowed: subs OK Medic ationGen ericName : ciproflo xacin HCl Not Available Not Available Not Available aspirin 81 mg tablet,de layed release 2013 active Medicati on ID: 5825 Bra nd Name: aspirin Send Method: E-Prescr ibed Sub s Allowed: subs OK Medic ationGen ericName : aspirin Not Available Not Available Not Available bupropion HCl SR 100 mg tablet,12 hr sustained -release 02/05 completed Medicati on ID: 574252 D uration Value: 30 Reason: () Brand Name: bupropio n HCl Send Method: E-Prescr ibed Sub s Allowed: subs OK Speci al Instruct ion: TAKE 1 TABLET BY MOUTH IN THE MORNING IF WELL TOLERATE D CAN INCREASE T O 1 TAB TWICE A DAY Medi cationGe nericNam e: bupropio n HCl Not Available Not Available Not Available amoxicill in 500 mg tablet TAKE FOUR TABLETS 2000 MG) BY MOUTH ONCE 45 MINUTES BEFORE DENTAL PROCEDUR E 03/26 completed Not Available Not Available Not Available simvastat in 40 mg tablet 03/26 completed Medicati on ID: 5830 Dur ation Value: 30 Brand Name: simvasta tin Send Method: E-Prescr ibed Sub s Allowed: subs OK Speci al Instruct ion: TAKE 1 TABLET BY MOUTH EVERY DAY AT BEDTIME Medicati onGeneri cName: simvasta tin Not Available Not Available Not Available meclizine 25 mg tablet active Medicati on ID: [id number] B rand Name: meclizin e Send Method: E-Prescr ibed Sub s Allowed: subs OK Medic ationGen ericName : meclizin e Not Available Not Available Not Available cephalexi n 500 mg capsule TAKE ONE CAPSULE BY MOUTH TWICE A DAY 03/26 completed Not Available Not Available Not Available clotrimaz ole 1 % topical solution 03/26 completed Medicati on ID: [id number] D uration Value: 14 Prescri bed By Name: RUKHSANA Renner nd Name: clotrima emerson munguia Method: E-Prescr ibed Sub s Allowed: subs OK Specdominik al Instruct ion: 4 drops to affected ear three times a day [facility] cationGe nericNam e: clotrima zole Not Available Not Available Not Available lisinopri l 20 mg-hydroc hlorothia zide 25 mg tablet TAKE ONE TABLET BY MOUTH EVERY DAY active Not Available Not Available No t Available ketoconaz ole 2 % topical cream 06/29 completed Medicati on ID: [id number] D uration Value: 30 Brand Name: ketocona emerson munguia Method: E-Prescr ibed Sub s Allowed: subs OK Medic ationGen ericName : ketocona zole Not Available Not Available Not Available metformin ER 500 mg tablet,ex tended release 24 hr TAKE TWO TABLETS BY MOUTH TWICE A DAY active Not Available Not Available No t Available finasteri de 5 mg tablet TAKE 1 TABLET BY MOUTH DAILY active Not Available Not Available No t Available Ventolin HFA 90 mcg/actua tion aerosol inhaler INHALE 2 PUFFS EVERY 6 HOURS NEEDED FOR SHORTNES S OF BREATH/W HEEZING active Not Available Not Available No t Available metformin ER 750 mg tablet,ex tended release 24 hr 03/26 completed Medicati on ID: [id number] D uration Value: 90 Brand Name: alla swartz Send Method: E-Prescr ibed Sub s Allowed: subs OK Medic ationGen ericName : alla n Not Available Not Available Not Available Ciprodex 0.3 %-0.1 % ear drops,kumar pension 4 drop into right ear 03/26 completed Medicati on ID: [id number] D uration Value: 14 Prescri bed By Name: RUKHSANA Renner nd Name: Ciprodex Send Method: E-Prescr ibed Sub s Allowed: subs OK Speci al Instruct ion: x 14 days Med icationG enericNa me: Ciprodex Not Available Not Available Not Available rosuvasta tin 20 mg tablet TAKE ONE TABLET BY MOUTH EVERY DAY active Not Available Not Available No t Available bupropion HCl XL 300 mg 24 hr tablet, extended release TAKE ONE TABLET BY MOUTH EVERY MORNING active Not Available Not Available No t Available Vitamin D3 50 mcg (2,000 unit) capsule TAKE ONE CAPSULE BY MOUTH EVERY DAY active Not Available Not Available No t Available OneTouch Verio test strips USE TO TEST TWICE A DAY 03/26 completed Not Available Not Available Not Available OneTouch Verio Flex Meter USE DIRECTED 03/26 completed Not Available Not Available Not Available Trelegy Ellipta 100 mcg-62.5 mcg-25 mcg powder for inhalatio n INHALE ONE PUFF BY MOUTH EVERY DAY 03/26 completed Not Available Not Available Not Available Ozempic 1 mg/dose (4 mg/3 mL) subcutane ous pen injector TAKE 0.75 ML 1 MG) SUBCUTAN EOUSLY EVERY WEEK active Not Available Not Available No t Available Ozempic 0.25 mg or 0.5 mg (2 mg/3 mL) subcutane ous pen injector INJECT ONE-HALF MG SUBCUTAN EOUSLY EVERY WEEK FOR 4 WEEKS 03/26 completed Not Available Not Available Not Available Vitals Date Recorded Body height Body mass index (BMI) Body weight Provider Name and Address Organization Details Last Updated DateTime 03/26/2024 190.5 cm 40 kg/m2 476180.56 g Trinidad Martinez [place] - [facility] 03/26/2024 09:37:58 Social History None recorded. Functional Status None recorded. Mental Status None recorded. Family History Nothing Reported. Medical History Condition Response Diabetes Y Hypertension Y High Cholesterol Y Past Encounters Encounter ID Performer Location Encounter Start Date Encounter Closed Date Diagnosis/Indication Diagnosis SNOMED-CT Code Diagnosis ICD10 Code [id number] SCOTT VILLARREAL MD [facility] [address] [address] 03/26/2024 09:16:33 03/26/2024 10:12:40 Hydrocephalus 221858788 G91.9 Impacted c erumen of bilateral ears 2067522304 586116 H61.23 Sensorineu ral hearing loss of bilateral ears 826108467 H90.3 Dizziness and giddiness 438874135 R42 Health Concerns Section Related Observation LastModified by Organization Detai ls LastModified Time None Recorded Concern Status LastModified by Organization Details LastModified Time None Recorded Advance Directives Directive None Recorded Payers Encounter Date Sequence Insurance Name Policy Number Policy Hay Covered Member ID Hay Member ID Guarantor Name 03/26/2024 2 [place]ID-[place] [facility] Sagar Huggins [id number] Sagar Huggins 03/26/2024 1 [place] B[place] [employer] Sagar Huggins [id number] Sagar Huggins Notes Date Note Type Note Provider Name and Address Organization Details Recorded Time 03/26/2024 text/html 58 year old diabetic male presents for reevaluation of his ears and hearing. He has a complex past medical history hydrocephalus with shunt placement in the 's with 4 revisions. He also has history of right sided Meniere's with fluctuating hearing loss of the right ear with SNHL in October 2012 treated with IT dexamethasone injections. Currently wearing binaural amplification dispensed through [facility] audiology. Patient has noticed more recently that despite the use of amplification, listening particularly to the TV has become more challenging.When I last saw him back in January 2023 he reported that since May 2022 he had 28 bouts of vertigo. Typically he would start to feel a sensation of spinning, so he will take a meclizine and go to sleep. He will sleep for 1 to 3 hours and typically will wake up with the dizziness having subsided. He will feel okay for the rest of the day, but the following day he will be very fatigued and lethargic all day. He thinks that during these spells he feels more fullness in the right ear greater than left, but no major fluctuations in hearing. He does notice some possible, mild worsening in the tinnitus during the spells. Patient does have chronic headaches, typically 2 to 3 days per week and he feels like the headache is worse when he has a dizzy spell. He has not been seen by neurology or neurosurgery in many years other than in the ER.At that visit we discussed that these vertigo attacks are not typical of M??ni??re's disease in the absence of significant hearing or tinnitus fluctuations. We discussed the possibility that this represented an underlying neurological phenomenon such as vestibular migraine or something having to do with his hydrocephalus and/or CSF shunt. As such I recommended following up with a neurologist. Patient did meet with Dr. Granados at [facility] neurosurgery who determined that his shunt seemed to be functional. He did recommend neurological evaluation and this is scheduled for later in the year.Fortunately, patient reports that the severe dizziness symptoms that he was experiencing last year have mostly subsided. Every couple of weeks he will stand up quickly and have a mild sensation of lightheadedness and feeling off balance but no true vertigo SCOTT VILLARREAL MD [address] [place] [address], [place], [address], [facility] - [facility] 03/26/2024 10:16:04
== END 2024-07-22 14:12 | disposition home or self-care (01) ==
PROVIDERS: PCP Nurse Practitioner Family; Visit Provider Nurse Practitioner Family
DX: Z01.818 Encounter for other preprocedural examination (principal); Z12.11 Encounter for screening for malignant neoplasm of colon
CPT/HCPCS: 99024

== ENCOUNTER → 2024-07-22 13:02 | Outpatient (BNVA) | payer MEDICARE, MEDICAID, SELFPAY | PROVIDERS: PCP Nurse Practitioner Family; Visit Provider Nurse Practitioner Family | DX: Z01.818 Encounter for other preprocedural examination (principal) | CPT/HCPCS: 99212 ==

== ENCOUNTER 2024-07-23 11:42 | Outpatient (AMB) | payer MEDICARE, MEDICAID, SELFPAY ==
--- NOTE | 2024-07-23 11:43 | A.OFFVIS_ITS ---
Intake Visit Reasons: INP-XANDER Intake Note: Patient presents for XANDER Allergies Iodinated Contrast Media [IV Contrast Dye] Allergy (Verified 07/23/24 11:45) Unknown latex Allergy (Verified 07/23/24 11:45) Unknown meperidine [From Demerol] Allergy (Verified 07/23/24 11:45) Unknown shellfish derived Allergy (Verified 07/23/24 11:45) Unknown HPI Comments Details: 58 year old male reffered to us by Tyler Lantigua, PCP for Sleep Evaluation. Difficulty sleeping and staying asleep, gets up to go to the bathroom 2x per night, choking and loud noises, to catch breath at night, stops breathing at times, has a CPAP, however is over 7 years old and needs an assessment. BMI is 38.5, T2DM. Weight management with [facility], Wellbutrin for weight loss. PCP was prescribing it Ozempic 1mg, GI upset, diarrhea, nausea. A1c is 6.1, Overall, weight loss of 320s to 307lbs. Headaches d/t hydrocephelus and with positional changes, has to take his time when walking or getting out of bed. Photophobia, phonophobia, and sensitivity to smells. Severity is 4/10 mild, due to numbness on right side. Frequency R.sided temporalis, R. occipital, migrate to the back of the head, feel like an ear ache. 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 Denies falls, uses a cane to ambulate, vertigo has subsided only 2x this year. Balance issues all the time, feels off, uses a cane occasionally. Vision good at baseline. Sober for over 10 years, nonsmoker. Mood is stable. Managed by [facility] Neurosurgeon for Hydrocephelus and shunts. FOR[facility]LY [facility], [facility] Medical History Hydrocephalus High cholesterol HTN (hypertension) Diabetes Meniere disease Vertigo Surgical History H/O right knee surgery H/O umbilical hernia repair H/O left knee surgery S/P [employer] shunt H/O colonoscopy Family History Mother Brain malignant neoplasm Social History Housing: Apartment Alcohol intake: former Patient Tobacco Use Status: Former Tobacco user Years Smoked: 31 years ago e-Cigarette/Vaping Use: Never Used Second Hand Smoke Exposure: No service: No Current occupational status: retired and disabled Cognitive needs: No Hearing needs: No Vision needs: No Review of Systems Const All systems reviewed & are unremarkable except as noted in HPI and below Physical Exam Const General: cooperative, comfortable and no acute distress Nutritional Appearance: obese (BMI 35) centrally obese Orientation/consciousness: patient oriented x3 Limitations: ambulation with cane Eyes Pupils: Equal, round and reactive pupils present Neck Neck: Yes full ROM and Yes supple Resp Effort & Inspection: normal respiratory effort and able to speak in complete sen tences Neuro General: patient oriented x3 Cranial nerves: Yes CN's II-XII intact bilaterally, Yes Facial sensation intact/muscles of mastication intact, Yes Equal, round and reactive pupils present, Yes Normal accommodation reflex present, Yes Bilaterally intact EOM present, Yes Nystagmus not present, Yes Normal facial strength present, Yes Ability to bilaterally rotate head present (pain with extension and rotation to the Right side.) and Yes Ability to bilaterally elevate shoulders present Gait exam (Neuro): Staggering gait present and Other gait observations present (ambulates with cane - feels off balance at base) Motor exam (neuro): 5/5 motor strength present throughout and Normal motor muscle tone present throughout Deep tendon reflexes (DTR's): Right triceps reflex intensity grade: 2+, Left triceps reflex intensity grade: 2+, Rt Biceps (C5, C6): 2+, Left biceps reflex intensity grade: 2+, Right brachioradialis reflex intensity grade: 2+, Left brachioradialis reflex intensity grade: 2+, Right patellar reflex intensity grade: 2+ and Left patellar reflex intensity grade: 2+ Coordination: [id number] test normal Results Reviewed Results Reviewed: Need notes from [facility] - Hydrocephalus, and MRI notes. Sleep Study conducted over 7 years. Assessment & Plan Assessment & Plan (1) Excessive daytime sleepiness: Code(s): G47.19 - Other hypersomnia Category: Medical (2) Dizziness: Code(s): R42 - Dizziness and giddiness Category: Medical (3) Sleep apnea: Code(s): G47.30 - Sleep apnea, unspecified Category: Medical Plan Follow up with Neurosurgeon for management of Hydrocephelus, [facility]. Sleep Difficulties, will send for in lab sleep study split with AHI >10 BMI over 35, is managed by PCP on Ozempic 1mg since December 2023. Discussed a good sleep hygiene plan, with meditation, music, and diffusing essential oils as needed, limiting fluids 2-4 hours prior to bedtime. Orders: Orders RT PSG in-lab sleep study Today G47.19 - Other hypersomnia, G47.30 - Sleep apnea, unspecified Coding Level of Care Code New Pt Level 4 (22791) Diagnoses Excessive daytime sleepiness G47.19 Dizziness R42 Sleep apnea G47.30 Sleep Questionnaire Difficulty falling asleep: Yes Difficulty staying asleep?: Yes Number of arousals: 1-2x Snoring: No Witnessed apneas: Yes Gasping arousals: No Nocturia: No GERD: No Vivid dreams: No Acting out dreams: No Abnormal behavior in sleep: No Abnormal movements in sleep: Yes Morning headaches: Yes (Hydrocephelus shunt 1998) Excessive daytime sleepiness: Yes Daytime naps: Yes Restless legs: No Hallucinations: No Sleep paralysis: No Drop attacks: No Sleep Study: Yes (>6 years [facility] CPAP: Yes
== END 2024-07-23 12:41 | disposition home or self-care (01) ==
PROVIDERS: PCP Nurse Practitioner Family; Visit Provider Physician Assistant Medical
DX: G47.19 Other hypersomnia (principal); R42 Dizziness and giddiness; G47.30 Sleep apnea, unspecified
CPT/HCPCS: 99204

== ENCOUNTER → 2024-07-23 11:42 | Outpatient (BNVA) | payer MEDICARE, MEDICAID, SELFPAY | PROVIDERS: PCP Nurse Practitioner Family; Visit Provider Physician Assistant Medical | DX: G47.19 Other hypersomnia (principal); G47.30 Sleep apnea, unspecified; R42 Dizziness and giddiness | CPT/HCPCS: 99202 ==

== ENCOUNTER 2024-07-23 13:34 | Outpatient (REF) | payer SELFPAY | END 2024-07-23 13:35 | disposition home or self-care (01) | LOC: HO.HAP 13:34 | PROVIDERS: Visit Provider Nurse Practitioner Family | DX: Z46.1 Encounter for fitting and adjustment of hearing aid (principal); H90.3 Sensorineural hearing loss, bilateral | CPT/HCPCS: V5267 ==

== ENCOUNTER 2024-08-15 14:21 | Outpatient (REF) | payer MEDICARE, MEDICAID, SELFPAY ==
[2024-08-15 10:09] VITALS: PULSE 105; O2SAT 98
--- OUTSIDE RECORDS SUMMARY | 2024-08-15 14:23 | XMS_ITS | Data Portability ---
Author Organization [place] - [facility], Allergy Address [address] [address] Care Team Providers Care Rod Finisher Name Role Phone JUAN ANTONIO LADD Primary Care Provider [phone] Assessment No assessment recorded. Plan of Treatment [...] Recorded Time Sudden idiopath ic hearing loss [id number] Active 2018 Sudden idiopath ic hearing loss, right ear; Note: Changed from H91.20 to H91.21 (02/06/20 19 12:29 PM) , Date Diagnose d: 9 9:51 AM (H91.20) Not Available [facility] 4 02:37:03 Impacted cerumen in right ear [id number] 61787 Active 2020 Impacted cerumen, right ear; Note: Date Diagnose d: 1 11:16 AM (H61.21) Not Available [facility] 4 02:37:11 Candidal otitis externa 79426247 Completed 202003/21/2024 Candidal otitis externa; Note: Date Diagnose d: 1 1:38 PM (B37.84) Not Available [facility] 4 02:36:57 Diffuse otitis externa 14759998 Completed 202003/21/2024 Diffuse otitis externa, right ear; Note: Date Diagnose d: 1 1:38 PM (H60.311 ) Not Available [facility] 4 02:37:03 Asymmetr ical sensorin eural hearing loss 662411628 Active 2014 Sensorin eural HL, asymmetr ic; Note: Date Diagnose d: 5 10:39 AM (389.16) Sensor ineural hearing los asymmetr ic; Note: Date Diagnose d: 06/04/20 14 11:48 AM (389.16) ; Start Date : 06/04/20 14 Not Available [facility] 4 02:37:09 Impacted cerumen of bilatera l ears 30584946153 65433 Active 2019 Impacted cerumen, bilatera l; Note: Date Diagnose d: 0 3:42 PM (H61.23) Not Available [facility] 4 02:37:06 Sensorin eural hearing loss of bilatera l ears 161817133 Active 2014 Hearing loss: Sensorin eural hearing loss, bilatera l; Note: Date Diagnose d: 06/04/20 14 11:16 AM (389.18) ; Start Date : 06/04/20 14 Senso rineural hearing loss, bilatera l; Note: Date Diagnose d: 06/08/20 15 9:17 AM (H90.3) Not Available [facility] 4 02:37:02 Dizzines s and giddines s 803456341 Active 2020 Vertigo NOS; Note: Date Diagnose d: 1 11:20 AM (R42) Not Available [facility] 4 02:37:07 Headache 52794802 Active 2022 Headache , unspecif ied; Note: Date Diagnose d: 3 11:13 AM (R51.9) Not Available [facility] 4 02:37:03 Tinnitus 06886679 Active 2013 Tinnitus , unspecif ied; Note: Date Diagnose d: 06/04/20 14 11:48 AM (388.30) Not Available [facility] 4 02:36:57 Type 2 diabetes mellitus without complica tion 726754614 Active 2022 Type 2 diabetes mellitus without complica tions; Note: Date Diagnose d: 3 11:09 AM (E11.9) Not Available [facility] 4 02:36:59 M??ni??r e's disease 99660750 Active 2019 Meniere' s disease, right ear; Note: Date Diagnose d: 0 4:18 PM (H81.01) Not Available [facility] 4 02:37:10 Disorder of right Eustachi an tube 56205637585 58647 Active 2018 Other specifie d disorder s of Eustachi an tube, right ear; Note: Date Diagnose d: 9 9:20 AM (H69.81) Not Available [facility] 4 02:37:14 Hydrocep halus 472306505 Active 2022 Hydrocep halus, unspecif ied; Note: Date Diagnose d: 3 11:07 AM (G91.9) Not Available [facility] 4 02:37:10 Problem Notes None recorded. Procedures Surgical History Date Name Laterality Status Provider Name and Address Organization Details Recorded Time Cerumen removal with microscope bilateral completed SCOTT VILLARREAL MD [address] [facility],[place] [address], [place], [address], [facility] - [facility] 03/26/2024 10:08:28 Imaging Results Imaging Date Name [...] Name and Address Organization Details Recorded Time 742721 Iodinated contrast media (substanc e) medicatio n Not available Not available Not available 03/26/2024 73235 2003 SNOMED Trinidad alexandra [place] - [facility] 09:43:16 522317 latex environme nt,medica tion Not available Not available Not available 03/26/2024 81097 91 RxNorm Trinidad alexandra [place] - [facility] 4 09:43:28 215061 shellfish derived food,medi cation Not available Not available Not available 03/26/2024 Trinidad alexandra [place] - [facility] 4 09:43:36 83132 meperidin e hydrochlo ride medicatio n other Not available Not available 01/01/2024 64993 5 RxNorm React ion: unkno wn, unspe cifie d;; Not Available [facility] 4 01:03:53 Medications Name Sig Start Date [...] mg tablet 04/22 completed Medicati on ID: [id number] P trice d By Name: Leah Nuñez [...] mg tablet 02/05 completed Medicati on ID: [id number] Du ration Value: 30 Reason: () Brand Name: topirama te Send Method: E-Prescr ibed Sub s Allowed: subs OK Medic ationGen ericName : topirama te Not Available Not Available Not Available ciproflox acin 500 mg tablet 1 tablet by mouth 03/26 completed Medicati on ID: [id number] D uration Value: 10 Prescri bed By [...] sustained -release 02/05 completed Medicati on ID: [id number] D uration Value: 30 Reason: () Brand [...] 25 mg tablet active Medicati on ID: [id number] B rand Name: meclizin e Send Method: E-Prescr ibed Sub s Allowed: subs OK Medic ationGen ericName : meclizin e Not Available Not Available Not Available cephalexi n 500 mg capsule TAKE ONE CAPSULE BY MOUTH TWICE A DAY 03/26 completed Not Available Not Available Not Available clotrimaz ole 1 % topical solution 03/26 completed Medicati on ID: [id number] D uration Value: 14 Prescri bed By Name: RUKHSANA Renner nd Name: clotrima emerson munguia Method: E-Prescr ibed Sub s Allowed: subs OK Specdominik al Instruct ion: 4 drops to affected ear three times a day [facility] cationGe nericNam e: clotrima zole Not Available Not Available Not Available lisinopri l 20 mg-hydroc hlorothia zide 25 mg tablet TAKE ONE TABLET BY MOUTH EVERY DAY active Not Available Not Available No t Available ketoconaz ole 2 % topical cream 06/29 completed Medicati on ID: [id number] D uration Value: 30 Brand Name: ketocona [...] 24 hr 03/26 completed Medicati on ID: [id number] D uration Value: 90 Brand Name: alla swartz Send Method: E-Prescr ibed Sub s Allowed: subs OK Medic ationGen ericName : alla n Not Available Not Available Not Available Ciprodex 0.3 %-0.1 % ear drops,kumar pension 4 drop into right ear 03/26 completed Medicati on ID: [id number] D uration Value: 14 Prescri bed By [...] Updated DateTime 03/26/2024 190.5 cm 40 kg/m2 684176.56 g Trinidad Martinez [place] - [facility] 03/26/2024 09:37:58 Social History None recorded. Functional Status None recorded. Mental Status None recorded. Family History Nothing Reported. Medical History Condition Response Diabetes Y Hypertension Y High Cholesterol Y Past Encounters Encounter ID Performer Location Encounter Start Date Encounter Closed Date Diagnosis/Indication Diagnosis SNOMED-CT Code Diagnosis ICD10 Code [id number] SCOTT VILLARREAL MD [facility] [address] [address] 03/26/2024 09:16:33 03/26/2024 10:12:40 Hydrocephalus 811562714 G91.9 Impacted c erumen of bilateral ears 8218312943 946296 H61.23 Sensorineu ral hearing loss of bilateral ears 532542702 H90.3 Dizziness and giddiness 163916731 R42 Health Concerns Section Related Observation LastModified by Organization Detai ls LastModified Time None Recorded Concern Status LastModified by Organization Details LastModified Time None Recorded Advance Directives Directive None Recorded Payers Encounter Date Sequence Insurance Name Policy Number Policy Hay Covered Member ID Hay Member ID Guarantor Name 03/26/2024 2 [place] [facility] Sagar Huggins [id number] Sagar Huggins 03/26/2024 1 [place] [employer] Sagar Huggins [id number] Sagar Huggins Notes Date Note Type Note [...] injections. Currently wearing binaural amplification dispensed through [facility] audiology. Patient has noticed more recently [...] Patient did meet with Dr. Granados at [facility] neurosurgery who determined that his shunt seemed [...] but no true vertigo SCOTT VILLARREAL MD [address] [place] [address], [place], [address], [facility] - [facility] 03/26/2024 10:16:04
--- NOTE | 2024-08-15 14:38 | PFT_ITS ---
Flows: FEV1: 69 % of predicted at 2.83 L FVC: 71 % of predicted at 3.80 L FEV1/FVC: 75 % Bronchodilator response: Present in small to medium airways only Volumes: Total lung capacity: 72 % of predicted at 5.93 L Residual volume: 77 % of predicted at 1.90 L Slow vital capacity: 69 % of predicted at 4.03 L Expiratory reserve volume: 32 % of predicted at 0.52 L Diffusion capacity: Normal Impression: Moderate restrictive ventilatory defect with bronchodilator response present in small to medium airways only. Decreased expiratory reserve volume suggests extrathoracic restriction likely secondary to abdominal obesity. MTDD
== END 2024-08-15 14:22 | disposition home or self-care (01) ==
LOC: HO.RESP 14:21
PROVIDERS: PCP Nurse Practitioner Family; Visit Provider Nurse Practitioner Family
DX: R06.02 Shortness of breath (principal)
CPT/HCPCS: 94010; 94640; 94727; 94729

== ENCOUNTER → 2024-08-15 14:38 | Outpatient (BNV) | payer MEDICARE, MEDICAID, SELFPAY | PROVIDERS: PCP Nurse Practitioner Family; Visit Provider Internal Medicine Pulmonary Disease | DX: R06.02 Shortness of breath (principal) | CPT/HCPCS: 94060; 94727; 94729 ==

== ENCOUNTER → 2024-08-26 19:30 | Outpatient (REF) | payer MEDICARE, MEDICAID, SELFPAY | LOC: HO.SL 19:30 | PROVIDERS: PCP Nurse Practitioner Family; Visit Provider Physician Assistant Medical | DX: G47.19 Other hypersomnia (principal); G47.30 Sleep apnea, unspecified | CPT/HCPCS: 95810 ==

== ENCOUNTER → 2024-08-26 22:43 | Outpatient (BNV) | payer MEDICARE, MEDICAID, SELFPAY | PROVIDERS: PCP Nurse Practitioner Family; Visit Provider Psychiatry & Neurology Neurology | DX: G47.33 Obstructive sleep apnea (adult) (pediatric) (principal) | CPT/HCPCS: 95810 ==

== ENCOUNTER 2024-09-04 14:35 | Outpatient (REF) | payer MEDICARE, MEDICAID, SELFPAY | END 2024-09-04 14:36 | disposition home or self-care (01) | LOC: HO.CT 14:35 | PROVIDERS: PCP Nurse Practitioner Family; Visit Provider Nurse Practitioner Family | DX: R06.09 Other forms of dyspnea (principal) | CPT/HCPCS: 71250 ==

== ENCOUNTER → 2024-09-04 14:37 | Outpatient (BNV) | payer MEDICARE, MEDICAID, SELFPAY | PROVIDERS: PCP Nurse Practitioner Family; Visit Provider Radiology Diagnostic Radiology | DX: R06.00 Dyspnea, unspecified (principal) | CPT/HCPCS: 71250 ==

== ENCOUNTER 2024-09-17 10:42 | Outpatient (AMB) | payer MEDICARE, MEDICAID, SELFPAY ==
[2024-09-17 10:44] VITALS: BP 130/72; PULSE 110; RESP 18; TEMP 36.8; O2SAT 96; BMI 37.6
--- NOTE | 2024-09-17 10:44 | MHC.PC.OV ---
Vital Signs 09/17/24 10:44 Height 6 ft 3 in Weight 301 lb BMI 37.6 BP 130/72 Blood Pressure Location Rt brachial Position Sitting Respiration 18 Pulse 110 H Pulse Source Pulse Oximeter Temp 98.2 F Temp Source Oral Pulse Oximetry (%) 96 Intake Visit Reasons: 3 mon f/u - DM Supervisor Process Testing Required: No Allergies Iodinated Contrast Media [IV Contrast Dye] Allergy (Verified 09/17/24 10:44) Unknown latex Allergy (Verified 09/17/24 10:44) Unknown meperidine [From Demerol] Allergy (Verified 09/17/24 10:44) Unknown shellfish derived Allergy (Verified 09/17/24 10:44) Unknown Medication List - Last Reconciled 09/17/24 by BOB Barrett-LIZA albuterol sulfate 90 mcg/actuation 2 puffs inhalation Q6H PRN 30 days aspirin (Adult Aspirin Regimen) 81 mg PO DAILY blood sugar diagnostic ([employer] Verio test strips) test blood sugar twice a day blood-glucose meter ([employer] Verio Flex Meter) As directed bupropion HCl XL 300 mg PO QAM cholecalciferol (vitamin D3) 50 mcg PO DAILY finasteride 5 mg PO DAILY fluticasone propionate 50 mcg/actuation sprays intranasal heumajncvgt-cwmxmoihn-euqfmuia 100-62.5-25 mcg (Trelegy Ellipta) 1 inh inhalation DAILY lancets Test blood sugar twice a day NS lisinopril-hydrochlorothiazide 20-25 mg 1 tab PO DAILY 90 days metformin ER 1,000 mg (2 x 500 mg) PO BID 90 days rosuvastatin 20 mg PO DAILY 90 days semaglutide 2 mg (0.75 mL) subcut QWEEK 30 days Tobacco use date assessed: 09/17/24 Dental Screening Dental Screen Date: 09/17/24 Did you have a dental visit in the last 12 months?: Yes Did you have a dental problem in the last 6 months where you did not have access to dental care?: No Was dental information given to patient?: Patient has dentist HPI 3 mon f/u - DM HPI Details Chief Complaint Follow-up for diabetes management History of Present Illness The patient is a 58-year-old male presenting with diabetes follow-up. He reports a history of Type 2 Diabetes Mellitus, for which he is consistently seeing a gift basket packer and had an up-to-date eye exam. He experiences intermittent neuropathy that is mild and localized to his feet. The patient denies any chest pain or increased shortness of breath but is noted to be tachycardic today. Previous diabetic management included semaglutide at a dose of 1 mg, but he had explosive diarrhea, causing reluctance to increase the dose. His current A1c is 7.5%. Social History - Exercises not explicitly reported or detailed - Compliance with diabetic management subject to past side effects Health Maintenance - Regular podiatry consultations - Up-to-date eye exam Review of Systems - Cardiovascular: Denies chest pain, Denies increased shortness of breath - Neurological: Reports intermittent neuropathy in feet - Endocrine: Reports does not check blood sugar often Physical Exam General: Cooperative, healthy appearing, comfortable, no acute distress and well developed, morbidly obese Orientation: Patient oriented x3 Limitations: No limitations Head: Normal to inspection Ears: Hearing grossly normal bilaterally Nose: Normal external nose present Face and sinus: Normal facial exam Eyes: Appearance normal, both eyes and all related structures Neck: Normal visual inspection and Yes full ROM Respiratory: Normal respiratory effort and able to speak in complete sentences. Clear to auscultation bilaterally Cardiovascular: Tachycardia present. Normal S1 and S2 GI: Normal to inspection. Soft to palpation and nontender Skin: No rashes or lesions noted Neuro: Patient oriented x3 Extremities: Positive sensation with use of monofilament (slight decrease to toes), right foot first MTP joint plantar aspect with callus formation. Feet are bilaterally dry. onychomyocosis noted to bilaterally toenails, especially the big toenails, and toenails are elongated. Results Plan - A consideration to increase semaglutide from 1 mg to 2 mg to improve glycemic control despite previous adverse gastrointestinal effects (pt will contact me with any GI side effects) - If ineffectual, contemplate addition of SGLT2 inhibitor, Jardiance, to medication regimen if current adjustment fails - Monitor neuropathy symptoms and continue regular foot assessments - Perform EKG to evaluate tachycardic symptoms Patient was informed and verbally consented to the use of an ambient scribe for clinic note documentation during this visit. Discussion Notes I discussed with the patient the importance of improving glycemic control and potential changes to his medication regimen. We talked about increasing the semaglutide dose, explaining that previous gastrointestinal side effects were noted. The potential addition of Jardiance was also considered as an alternative. We agreed to reassess based on the efficacy of current adjustments. Emphasized the necessity of maintaining regular podiatric and ophthalmologic assessments. Informed the patient that an EKG would be performed to further evaluate current tachycardia. Patient Instructions - Follow the plan to increase semaglutide dose carefully, observing any adverse effects - Consider Jardiance addition if semaglutide adjustment is unsuccessful - Continue regular visits to the gift basket packer and for eye exams - Monitor and report any changes in neuropathy symptoms - Obtain an EKG as scheduled to check on tachycardia [facility] Medical History Hydrocephalus High cholesterol HTN (hypertension) Diabetes Meniere disease Vertigo Surgical History H/O right knee surgery H/O umbilical hernia repair H/O left knee surgery S/P [employer] shunt H/O colonoscopy Family History Mother Brain malignant neoplasm Social History Housing: Apartment Alcohol intake: former Patient Tobacco Use Status: Former Tobacco user Years Smoked: 31 years ago e-Cigarette/Vaping Use: Never Used Second Hand Smoke Exposure: No service: No Current occupational status: retired and disabled Cognitive needs: No Hearing needs: No Vision needs: No Questionnaire PHQ-9 Over the last 2 weeks, how often have you been bothered by any of the following problems? 1. Little interest or pleasure in doing things: not at all 2. Feeling down, depressed, or hopeless: not at all 3. Trouble falling or staying asleep, or sleeping too much: several days 4. Feeling tired or having little energy: nearly every day 5. Poor appetite or overeating: not at all 6. Feeling bad about yourself - or that you are a failure or have let yourself or your family down: not at all 7. Trouble concentrating on things, such as reading the newspaper or watching television: not at all 8. Moving or speaking so slowly that other people could have noticed. Or the opposite - being so fidgety or restless that you have been moving around a lot more than usual: not at all 9. Thoughts that you would be better off or of hurting yourself in some way: not at all Total score: 4 Depression Screening Interpretation: Negative Depression Screening Done: Yes 26009 - PHQ-9 Billing: Yes Source: Developed by Drs. Vinicius Maria, Marry Trejo, Andi Uribe and colleagues, with an educational ky from [employer]. Thrive Questionnaire Date Thrive assessed: 09/17/24 I am a: Patient What is your living situation today?: I have a steady place to live Within the past 12 months, did the food you bought not last and you didn't have the money to get more?: Never true Within the past 12 months, did you worry whether your food would run out before you got money to buy more?: Never true Do you have trouble paying for medicines?: No Do you have trouble getting transportation to medical appointments?: No Do you have trouble paying your heating and electricity bill?: No Do you have trouble taking care of your child, family member or friend?: I choose not to answer this question Do you have trouble with day-to-day activities such as bathing, preparing meals, shopping, managing finances, etc.?: No Are you currently unemployed and looking for a job?: I choose not to answer this question Are you interested in more education?: I choose not to answer this question Please select the resources that you would like help with: None Currently or been in a relationship where the following occur: I choose not to answer THRIVE Score: 0 AUDIT C Alcohol Use Questionnaire (AUDIT-C) 1. How often do you have a drink containing alcohol?: Never 3. How often do you have six or more drinks on one occasion?: Never Total Score: 0 Score Reviewed/Action Taken: Yes DANIEL-7 AMB Questionnaire DANIEL-7 Date DANIEL - 7 assessed: 09/17/24 Feeling nervous, anxious, or on edge: 0 = Not at all Not being able to stop or control worryin = Not at all Worrying too much about different things: 0 = Not at all Trouble relaxin = Not at all Being so restless that it is hard to sit still: 0 = Not at all Becoming easily annoyed or irritable: 0 = Not at all Feeling afraid as if something awful might happen: 0 = Not at all Total DANIEL-7 score (0-4 normal; 5-9 mild; 10-14 moderate; 15-21 severe): 0 Source: Developed by Drs. Vinicius Maria, Marry Trejo, Andi Uribe and colleagues, with an educational ky from [employer]. DANIEL-7 Assessment Billing DANIEL-7 Assessment Tool: DANIEL-7 Assessment 47519 Physical exam (Primary Care) Vital Signs: Last Vital Signs Temp 98.2 F 09/17/24 10:44 Pulse 110 H 09/17/24 10:44 Resp 18 09/17/24 10:44 BP 130/72 09/17/24 10:44 Pulse Ox 96 09/17/24 10:44 BMI result Body Mass Index 37.6 Tobacco/Smoking Status: Tobacco use Status Tobacco use date assessed 09/17/24 09/17/24 10:47 Patient Tobacco Use Status Former Tobacco user 09/17/24 10:47 e-Cigarette/Vaping Use Never Used 09/17/24 10:47 PHQ-9: PHQ-9 Score PHQ-9: Total score 4 09/17/24 10:47 Depression Screening Interpretation: Negative Thrive Assessment: Date of Thrive Assessment Date Thrive assessed 09/17/24 09/17/24 10:47 Currently or been in a relationship where the following occur: I choose not to answer Coding Level of Care Code Est Pt Level 3 (01001) Diagnoses Vestibular active Meniere's disease H81.09 Diabetes E11.9 Additional Codes DANIEL-7 Assessment Billing - DANIEL-7 Assessment Tool: DANIEL-7 Assessment 61157 ([id number]) PHQ-9 - 56036 - PHQ-9 Billing: Yes ([id number]) Assessment & Plan Assessment & Plan (1) Vestibular active Meniere's disease: Code(s): H81.09 - Meniere's disease, unspecified ear Category: Medical (2) Diabetes: Code(s): E11.9 - Type 2 diabetes mellitus without complications Category: Medical Plan . Orders: Orders Comprehensive [place]. Panel Fast Today E11.9 - Type 2 diabetes mellitus without complications Lipid Panel Today E11.9 - Type 2 diabetes mellitus without complications Complete Blood Count Auto Diff Today E11.9 - Type 2 diabetes mellitus without complications TSH reflex Free T4 Today E11.9 - Type 2 diabetes mellitus without complications UA CC w/rflx Micro + Cult Today E11.9 - Type 2 diabetes mellitus without complications Microalbumin, Random (w Creat) Today E11.9 - Type 2 diabetes mellitus without complications Referrals Ear/Nose/Throat Referral H81.09 - Meniere's disease, unspecified ear Medications: Changed From semaglutide (Ozempic) 1 mg (0.75 mL) subcut QWEEK 9 mL 1RF E11.9 - Type 2 diabetes mellitus without complications To semaglutide 2 mg (0.75 mL) subcut QWEEK 30 days 3.75 mL 1RF E11.9 - Type 2 diabetes mellitus without complications
--- OUTSIDE RECORDS SUMMARY | 2024-09-17 12:48 | XMS_ITS | Data Portability ---
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 JUAN ANTONIO BRANDT Primary Care Provider Assessment Encounter Date Assessment Date Assessment LastModified by Organization Details LastModified Time 10/12/2023 10/12/2023 type 2 diabetes mellitus with peripheral neuropathy, onychauxis bilateral hallux, hyperkeratotic lesion jerskine Not available 10/12/2023 11:53:40 12/14/2023 12/14/2023 type 2 diabetes mellitus with peripheral neuropathy, onychauxis bilateral hallux, hyperkeratotic lesion jerskine Not available 12/14/2023 11:56:31 02/15/2024 02/15/2024 type 2 diabetes mellitus with peripheral neuropathy, onychauxis bilateral hallux, hyperkeratotic lesion jerskine Not available 02/15/2024 11:17:29 05/02/2024 05/02/2024 type 2 diabetes mellitus with peripheral neuropathy, onychauxis bilateral hallux, hyperkeratotic lesion jerskine Not available 05/02/2024 12:12:33 07/11/2024 07/11/2024 type 2 diabetes mellitus with peripheral neuropathy, onychauxis bilateral hallux, hyperkeratotic lesion jerskine Not available 07/11/2024 12:05:19 Plan of Treatment Reminders Order Date Submit Date Provider Last Modified By Organization Details Last Modified Time Details Appointments Follow Up, 15 2024 11:00A M Juan Antonio Donovan DPM Not available Not available Not available Lab None recorded . Referral None recorded . Procedures None recorded . Surgeries None recorded . Imaging None recorded . Medication Orders None recorded . Patient TargetsNo targets recorded. Patient Instructions Encounter Date Encounter Id Patient Instructions Last Modified By Organization Details Last Modified Time 10/12/2023 [id number] Patient to retur n in 9 weeks for foot care to reduce risk of complications associated with type 2 diabetes mellitus with peripheral neuropathy. jerskine Not available 10/12/2023 11:53:40 12/14/2023 [id number] Patient to retur n in 9 weeks for foot care to reduce risk of complications associated with type 2 diabetes mellitus with peripheral neuropathy. jerskine Not available 12/14/2023 11:56:31 02/15/2024 [id number] Patient to retur n in 9 weeks for foot care to reduce risk of complications associated with type 2 diabetes mellitus with peripheral neuropathy. jerskine Not available 02/15/2024 11:17:29 05/02/2024 [id number] Patient to retur n in 9 weeks for foot care to reduce risk of complications associated with type 2 diabetes mellitus with peripheral neuropathy. jerskine Not available 05/02/2024 12:12:33 07/11/2024 [id number] Patient to retur n in 9 weeks for foot care to reduce risk of complications associated with type 2 diabetes mellitus with peripheral neuropathy. jerskine Not available 07/11/2024 12:05:19 Reason for Referral None Reported. Problems No Known Problems Medical Equipment None Reported. Allergies Allergen ID Allergen Name Allergen Category Reaction Reaction Severity Criticality Documentation Date Start Date Code Code System Note Provider Name and Address Organization Details Recorded Time [id number] latex environme nt,medica tion hives severe Not available 10/08/2017 23415 91 RxNorm Janice Levine MA [facility] 8 08:48:27 07460 Demerol medicatio n Not available Not available Not available 12/08/2011 33057 1 RxNorm [facility] DPM [address] [facility] [place], [address], [facility] 2 09:09:55 32304 iodine medicatio n Not available Not available Not available 12/08/2011 5933 RxNorm Juan Antonio Donovan DPM [address] [facility] [place], [address], [facility] 2 09:09:55 Medications Name Sig Start Date Stop Date Status Note LastModified by Organization Details LastModified Time azithromyci n 250 mg tablet TAKE 2 TABLETS ON FIRST DAY , THEN 1 TABLET DAILY FOR 4 DAYS 10/12 completed Not Available Not Available Not Available pravastatin 40 mg tablet Take 1 tablet every day by oral route. 01/22 completed Not Available Not Available Not Available ibuprofen 800 mg tablet Take 1 tablet 3 times a day by oral route. 10/11 completed Not Available Not Available Not Available citalopram 10 mg tablet Take 1 tablet every day by oral route. 05/15 completed Not Available Not Available Not Available amoxicillin 500 mg tablet TAKE FOUR TABLETS 2000 MG) BY MOUTH ONCE 45 MINUTES BEFORE DENTAL PROCEDURE active Not Available Not Available No t Available simvastatin 40 mg tablet TAKE 1 TABLET BY MOUTH DAILY AT BEDTIME 01/22 completed Not Available Not Available Not Available meclizine 25 mg tablet TAKE ONE TABLET BY MOUTH THREE TIMES A DAY NEEDED FOR DIZZINESS active Not Available Not Available No t Available cephalexin 500 mg capsule TAKE ONE CAPSULE BY MOUTH TWICE A DAY 07/27 completed Not Available Not Available Not Available oxycodone 5 mg capsule Take 1 capsule every 6 hours by oral route. 10/11 completed Not Available Not Available Not Available clotrimazol e 1 % topical solution INSTILL 4 DROPS TO AFFECTED EAR THREE TIMES A DAY active Not Available Not Available No t Available lisinopril 20 mg-hydrochl orothiazide 25 mg tablet TAKE ONE TABLET BY MOUTH EVERY DAY active Not Available Not Available No t Available ammonium lactate 12 % topical cream Apply 1 applicati on every day by topical route. 01/22 completed Not Available Not Available Not Available Cartia XT 240 mg capsule,ext ended release Take 1 capsule every day by oral route. 10/11 completed Not Available Not Available Not Available ondansetron 4 mg disintegrat ing tablet 02/14 completed PRN Not Available Not Available Not Available fluticasone propionate 50 mcg/actuati on nasal spray,suspe nsion active Not Available Not Available Not Available metformin ER 500 mg tablet,exte nded release 24 hr TAKE TWO TABLETS BY MOUTH TWICE A DAY active Not Available Not Available No t Available clotrimazol e 1 % topical cream Apply 1 applicati on twice a day by topical route. 10/11 completed Not Available Not Available Not Available finasteride 5 mg tablet TAKE ONE TABLET BY MOUTH EVERY DAY active Not Available Not Available No t Available naproxen 500 mg tablet TAKE 1 TABLET BY MOUTH TWICE DAILY NEEDED FOR PAIN FOR 7 DAYS -TAKE WITH FOOD active Not Available Not Available No t Available amoxicillin 875 mg-potassiu m clavulanate 125 mg tablet TAKE ONE TABLET BY MOUTH EVERY 12 HOURS FOR 7 DAYS. 02/17 completed Not Available Not Available Not Available Spectazole 1 % topical cream Apply 1 applicati on twice a day by topical route. 10/11 completed Not Available Not Available Not Available Ventolin HFA 90 mcg/actuati on aerosol inhaler INHALE 2 PUFFS EVERY 6 HOURS NEEDED FOR SHORTNESS OF BREATH/WH EEZING active Not Available Not Available No t Available metformin ER 750 mg tablet,exte nded release 24 hr TAKE ONE TABLET BY MOUTH EVERY DAY FOR 90 DAYS 07/11 completed Not Available Not Available Not Available rosuvastati n 20 mg tablet TAKE ONE TABLET BY MOUTH EVERY DAY active Not Available Not Available No t Available bupropion HCl XL 300 mg 24 hr tablet, extended release TAKE ONE TABLET BY MOUTH EVERY MORNING active Not Available Not Available No t Available ProAir HFA 07/27 completed Not Available Not Available Not Available Vitamin D3 50 mcg (2,000 unit) capsule TAKE ONE CAPSULE BY MOUTH EVERY DAY active Not Available Not Available No t Available OneTouch Verio test strips USE TO TEST TWICE A DAY active Not Available Not Available No t Available OneTouch Verio Flex Meter USE DIRECTED active Not Available Not Available No t Available Trelegy Ellipta 100 mcg-62.5 mcg-25 mcg powder for inhalation USE ONE INHALATIO N DAILY active Not Available Not Available No t Available OneTouch Delica Plus Lancet 33 gauge USE TO TEST BLOOD SUGAR TWO TIMES A DAY active Not Available Not Available No t Available OneTouch Delica Plus Lancet 30 gauge USE TO TEST BLOOD SUGAR 4 TIMES A DAY NEEDED active Not Available Not Available No t Available Ozempic 1 mg/dose (4 mg/3 mL) subcutaneou s pen injector TAKE 0.75 ML 1 MG) SUBCUTANE OUSLY EVERY WEEK active Not Available Not Available No t Available Paxlovid 300 mg (150 mg x 2)-100 mg tablets in a dose pack TAKE THREE TABLETS BY MOUTH TWICE A DAY 05/15 completed Not Available Not Available Not Available Ozempic 0.25 mg or 0.5 mg (2 mg/3 mL) subcutaneou s pen injector INJECT ONE-HALF MG SUBCUTANE OUSLY EVERY WEEK FOR 4 WEEKS 07/11 completed Not Available Not Available Not Available Vitals Date Recorded Heart rate Provider Name an d Address Organization Details Last Updated DateTime 10/12/2023 89 /min Sintia Sood [facility] 10/12/2023 11:36:23 Date Recorded Heart rate Provider Name an d Address Organization Details Last Updated DateTime 12/14/2023 95 /min Sintia Sood [facility] 12/14/2023 11:34:30 Date Recorded Body weight Provider Name an d Address Organization Details Last Updated DateTime 02/15/2024 449241.34 g Sintiabenson Sood [facility] 02/15/2024 10:54:20 Date Recorded Heart rate Provider Name an d Address Organization Details Last Updated DateTime 02/15/2024 92 /min Sintia Sood [facility] 02/15/2024 10:54:35 Date Recorded Heart rate Provider Name an d Address Organization Details Last Updated DateTime 05/02/2024 77 /min Sintia Sood [facility] 05/02/2024 11:53:09 Date Recorded Heart rate Provider Name an d Address Organization Details Last Updated DateTime 07/11/2024 88 /min Sintia Sood [facility] 07/11/2024 11:48:46 Date Recorded Systolic blood pressure Diastolic blood pressure Provider Name and Address Organization Details Last Updated DateTime 10/12/2023 111 mm[Hg] 70 mm[Hg] Sintia Sood [facility] 10/12/2023 11:36:20 Date Recorded Systolic blood pressure Diastolic blood pressure Provider Name and Address Organization Details Last Updated DateTime 12/14/2023 114 mm[Hg] 70 mm[Hg] Sintia Sood [facility] 12/14/2023 11:34:26 Date Recorded Systolic blood pressure Diastolic blood pressure Provider Name and Address Organization Details Last Updated DateTime 02/15/2024 129 mm[Hg] 67 mm[Hg] Sintia Sood [facility] 02/15/2024 10:54:32 Date Recorded Systolic blood pressure Diastolic blood pressure Provider Name and Address Organization Details Last Updated DateTime 05/02/2024 117 mm[Hg] 71 mm[Hg] Sintia Sood [facility] 05/02/2024 11:53:04 Date Recorded Systolic blood pressure Diastolic blood pressure Provider Name and Address Organization Details Last Updated DateTime 07/11/2024 125 mm[Hg] 73 mm[Hg] Sintia Sood [facility] 07/11/2024 11:48:57 Social History Question Answer Notes LastModified by Organizat ion Details LastModified Time Tobacco Smoking Status [facility] 11:04:26 When Did You Quit Smoking? 16+yearssin marlon munguia [id number] Information not available 06/24/2021 What Was The Date Of Your Most Recent Tobacco Screening? 06/24/2021 Information not available 06/24/2021 Do You Or Have You Ever Used Any Other Forms Of Tobacco Or Nicotine? No Information not available 06/24/2021 Sex: Unknown Functional Status None recorded. Mental Status None recorded. Family History Nothing Reported. Medical History No medical history recorded. Immunizations Vaccine Type Date Status Note Provider Nam e and Address Organization Details Recorded Time COVID-19, mRNA, LNP-S, PF, 30 mcg/0.3 mL dose 12/23/2020 completed Sintia Sood [facility] 02/17/2022 11:51:11 COVID-19, mRNA, LNP-S, PF, 30 mcg/0.3 mL dose 01/13/2021 completed Sintia Sood [facility] 02/17/2022 11:51:01 Past Encounters Encounter ID Performer Location Encounter Start Date Encounter Closed Date Diagnosis/Indication Diagnosis SNOMED-CT Code Diagnosis ICD10 Code Diagnosis Note [id number] Podiatry, [address] [address] 12/08/2011 08:48:56 12/08/2011 09:26:53 [id number] Juan Antonio Donovan DPM Podiatry, [address] [address] 06/10/2012 11:27:56 06/10/2012 11:53:40 [id number] Juan Antonio Donovan DPM Podiatry, [address] [address] 09/10/2012 13:41:38 09/10/2012 14:04:36 [id number] Juan Antonio Donovan DPM Podiatry, [address] [address] 12/10/2012 13:38:32 12/10/2012 13:57:06 [id number] Juan Antonio Donovan DPM Podiatry, [address] [address] 02/11/2013 13:56:13 02/11/2013 14:18:07 [id number] Juan Antonio Donovan DPM Podiatry, [address] [address] 04/22/2013 14:03:42 04/22/2013 14:44:43 Disorder of nervous system due to type 2 diabetes mellitus 203637858 Corns and callus 791988987 Disorder of nail 75817080 [id number] Rebecca Corral Podiatry, [address] [address] 07/07/2013 14:15:12 07/07/2013 15:09:46 Disorder of nervous system due to type 2 diabetes mellitus 436594418 Corns and callus 068113488 Disorder of nail 58445648 [id number] Lourdes Candelaria [facility], [address] [address] 09/12/2013 09:44:57 09/12/2013 14:17:17 Disorder of nervous system due to type 2 diabetes mellitus 332113100 Corns and callus 193770223 Disorder of nail 47752096 Tinea pedis 1344151 [id number] Juan Antonio Donovan DPM Podiatry, [address] [address] 11/17/2013 11:48:38 11/17/2013 12:12:24 Disorder of nervous system due to type 2 diabetes mellitus 588337371 Corns and callus 415010833 Disorder of nail 30146830 Tinea pedis 1280189 [id number] Rebecca Corral Podiatry, [address] [address] 01/19/2014 11:27:07 01/19/2014 14:50:29 Disorder of nervous system due to type 2 diabetes mellitus 916566080 Corns and callus 704935931 Disorder of nail 41741607 [id number] Gabriela Theodore MA Podiatry, [address] [address] 05/04/2014 10:07:35 05/04/2014 10:59:21 Disorder of nervous system due to type 2 diabetes mellitus 454921490 Corns and callus 484895374 Disorder of nail 57236147 [id number] Gabriela Theodore MA Podiatry, [address] [address] 07/10/2014 09:53:16 07/10/2014 10:51:53 Disorder of nervous system due to type 2 diabetes mellitus 457614921 Corns and callus 233816884 Disorder of nail 19052810 [id number] Juan Antonio Donovan DPM Podiatry, [address] [address] 09/11/2014 09:52:49 09/11/2014 10:17:22 Disorder of nervous system due to type 2 diabetes mellitus 097137114 Disorder of nail 47262992 [id number] Alyson Person Podiatry, [address] [address] 11/13/2014 10:25:27 11/13/2014 11:01:31 Disorder of nervous system due to type 2 diabetes mellitus 587859084 Disorder of nail 41864511 [id number] Rakel Pak Podiatry, [address] [address] 01/15/2015 10:20:36 01/15/2015 11:07:20 Disorder of nervous system due to type 2 diabetes mellitus 012486876 Disorder of nail 78030478 [id number] Alyson Person Podiatry, [address] [address] 04/09/2015 10:14:06 04/09/2015 10:55:24 Disorder of nervous system due to type 2 diabetes mellitus 884142163 Disorder of nail 41193802 [id number] Calista Carranza Podiatry, [address] [address] 06/11/2015 10:15:27 06/18/2015 10:55:59 Disorder of nervous system due to type 2 diabetes mellitus 584076511 E11.49 Hypertrophy of nail 3065 4002 L60.2 Corns and callus 9135490 00 L84 [id number] Juan Antonio Donovan DPM Podiatry, [address] [address] 08/23/2015 08:48:48 08/23/2015 09:40:16 Disorder of nervous system due to type 2 diabetes mellitus 635848208 E11.49 Hypertrophy of nail 3065 4002 L60.2 Corns and callus 0902329 00 L84 [id number] Juan Antonio Donovan DPM Podiatry, [address] [address] 10/25/2015 09:21:24 10/25/2015 10:04:39 Disorder of nervous system due to type 2 diabetes mellitus 863517730 E11.49 Hypertrophy of nail 3065 4002 L60.2 Corns and callus 6398521 00 L84 [id number] Juan Antonio Donovan DPM Podiatry, [address] [address] 01/14/2016 09:49:51 01/14/2016 10:19:13 Disorder of nervous system due to type 2 diabetes mellitus 782612830 E11.49 Hypertrophy of nail 3065 4002 L60.2 Corns and callus [id number] 00 L84 [id number] Juan Antonio Donovan DPM Podiatry, [address] [address] 1 05/01/2016 12:20:06 05/01/2016 12:50:27 Disorder of nervous system due to type 2 diabetes mellitus 946682853 E11.49 Hypertrophy of nail 3065 4002 L60.2 Corns and callus [id number] 00 L84 [id number] Juan Antonio Donovan DPM Podiatry, [address] [address] 07/03/2016 09:10:26 07/03/2016 09:34:22 Disorder of nervous system due to type 2 diabetes mellitus 261862695 E11.49 Hypertrophy of nail 3065 4002 L60.2 Corns and callus [id number] 00 L84 [id number] Juan Antonio Donovan DPM Podiatry, [address] [address] 09/04/2016 09:09:03 09/04/2016 09:52:22 Disorder of nervous system due to type 2 diabetes mellitus 218101252 E11.49 Hypertrophy of nail 3065 4002 L60.2 Corns and callus [id number] 00 L84 [id number] Juan Antonio Donovan DPM Podiatry, [address] [address] 11/06/2016 09:21:12 11/06/2016 10:12:34 Disorder of nervous system due to type 2 diabetes mellitus 146764317 E11.49 Hypertrophy of nail 3065 4002 L60.2 Corns and callus 4647348 00 L84 [id number] Juan Antonio Donovan DPM Podiatry, [address] [address] 1 01/08/2017 09:04:29 01/08/2017 09:47:10 Disorder of nervous system due to type 2 diabetes mellitus 497370094 E11.49 Hypertrophy of nail 3065 4002 L60.2 Corns and callus 8540414 00 L84 [id number] Juan Antonio Donovan DPM Podiatry, [address] [address] 1 04/02/2017 14:04:53 04/02/2017 14:43:48 Disorder of nervous system due to type 2 diabetes mellitus 297408420 E11.49 Hypertrophy of nail 3065 4002 L60.2 Corns and callus [id number] 00 L84 [id number] Juan Antonio Donovan DPM Podiatry, [address] [address] 1 06/04/2017 08:42:20 06/04/2017 09:12:33 Disorder of nervous system due to type 2 diabetes mellitus 126013965 E11.49 Hypertrophy of nail 3065 4002 L60.2 Corns and callus 8630901 00 L84 [id number] Juan Antonio Donovan DPM Podiatry, [address] [address] 08/06/2017 08:48:57 08/06/2017 09:31:52 Disorder of nervous system due to type 2 diabetes mellitus 966993261 E11.49 Hypertrophy of nail 3065 4002 L60.2 Corns and callus 5287806 00 L84 [id number] Juan Antonio Donovan DPM Podiatry, [address] [address] 1 10/08/2017 08:41:51 10/08/2017 09:08:16 Disorder of nervous system due to type 2 diabetes mellitus 618808670 E11.49 Hypertrophy of nail 3065 4002 L60.2 Corns and callus [id number] 00 L84 [id number] Juan Antonio Donovan DPM Podiatry, [address] [address] 1 12/10/2017 08:30:40 12/10/2017 09:03:26 Disorder of nervous system due to type 2 diabetes mellitus 992992878 E11.49 Hypertrophy of nail 3065 4002 L60.2 Corns and callus [id number] 00 L84 [id number] Juan Antonio Donovan DPM Podiatry, [address] [address] 02/11/2018 09:22:32 02/11/2018 10:12:18 Disorder of nervous system due to type 2 diabetes mellitus 396691110 E11.49 Hypertrophy of nail 3065 4002 L60.2 Corns and callus 8603939 00 L84 [id number] Juan Antonio Donovan DPM Podiatry, [address] [address] 1 05/03/2018 09:22:28 05/13/2018 06:31:22 Disorder of nervous system due to type 2 diabetes mellitus 255341710 E11.49 Hypertrophy of nail 3065 4002 L60.2 Corns and callus [id number] 00 L84 [id number] Juan Antonio Donovan DPM Podiatry, [address] [address] 1 07/05/2018 10:48:01 07/05/2018 11:34:36 Disorder of nervous system due to type 2 diabetes mellitus 279737874 E11.49 Hypertrophy of nail 3065 4002 L60.2 Corns and callus [id number] 00 L84 [id number] Juan Antonio Donovan DPM Podiatry, [address] [address] 1 10/11/2018 09:47:33 10/11/2018 10:39:23 Disorder of nervous system due to type 2 diabetes mellitus 298388813 E11.49 Hypertrophy of nail 3065 4002 L60.2 Corns and callus [id number] 00 L84 [id number] Juan Antonio Donovan DPM Podiatry, [address] [address] 12/13/2018 10:04:31 12/13/2018 15:33:22 Disorder of nervous system due to type 2 diabetes mellitus 512518680 E11.49 Hypertrophy of nail 3065 4002 L60.2 Corns and callus [id number] 00 L84 [id number] Juan Antonio Donovan DPM Podiatry, [address] [address] 1 06/13/2019 10:05:05 06/13/2019 10:57:12 Disorder of nervous system due to type 2 diabetes mellitus 322534491 E11.49 Hypertrophy of nail 3065 4002 L60.2 Corns and callus 7836019 00 L84 [id number] Juan Antonio Donovan DPM Podiatry, [address] [address] 1 08/22/2019 09:53:48 08/22/2019 10:48:16 Disorder of nervous system due to type 2 diabetes mellitus 023205649 E11.49 Hypertrophy of nail 3065 4002 L60.2 Corns and callus [id number] 00 L84 [id number] Juan Antonio Donovan DPM Podiatry, [address] [address] 1 10/24/2019 09:42:02 10/24/2019 10:41:42 Disorder of nervous system due to type 2 diabetes mellitus 348513600 E11.49 Hypertrophy of nail 3065 4002 L60.2 Corns and callus [id number] 00 L84 [id number] Juan Antonio Donovan DPM Podiatry, [address] [address] 1 10/11/2020 10:51:37 10/14/2020 12:14:57 Disorder of nervous system due to type 2 diabetes mellitus 715361534 E11.49 Hypertrophy of nail 3065 4002 L60.2 Corns and callus [id number] 00 L84 [id number] Juan Antonio Donovan DPM Podiatry, [address] [address] 12/27/2020 14:53:31 12/28/2020 11:48:55 Disorder of nervous system due to type 2 diabetes mellitus 262304823 E11.49 Hypertrophy of nail 3065 4002 L60.2 Corns and callus 8623038 00 L84 [id number] Juan Antonio Donovan DPM Podiatry, [address] [address] 1 06/24/2021 08:50:50 06/24/2021 09:45:47 Disorder of nervous system due to type 2 diabetes mellitus 066211332 E11.49 Hypertrophy of nail 3065 4002 L60.2 Corns and callus [id number] 00 L84 [id number] Juan Antonio Donovan DPM Podiatry, [address] [address] 1 02/17/2022 11:01:15 02/17/2022 12:16:29 Disorder of nervous system due to type 2 diabetes mellitus 016741571 E11.49 Hypertrophy of nail 3065 4002 L60.2 Corns and callus 7203681 00 L84 [id number] Juan Antonio Donovan DPM Podiatry, [address] [address] 1 05/15/2022 09:44:13 05/18/2022 11:08:52 Disorder of nervous system due to type 2 diabetes mellitus 896241029 E11.49 Hypertrophy of nail 3065 4002 L60.2 Corns and callus 4358071 00 L84 [id number] Juan Antonio Donovan DPM Podiatry, [address] [address] 1 08/28/2022 09:22:29 08/28/2022 09:44:12 Disorder of nervous system due to type 2 diabetes mellitus 840491681 E11.49 Hypertrophy of nail 3065 4002 L60.2 Corns and callus 6154871 00 L84 [id number] Juan Antonio Donovan DPM Podiatry, [address] [address] 1 11/06/2022 09:37:53 11/06/2022 11:49:20 Disorder of nervous system due to type 2 diabetes mellitus 124552583 E11.49 Hypertrophy of nail 3065 4002 L60.2 Corns and callus 2402007 00 L84 [id number] Juan Antonio Donovan DPM Podiatry, [address] [address] 1 01/22/2023 08:40:00 01/22/2023 14:25:59 Disorder of nervous system due to type 2 diabetes mellitus 298467734 E11.49 Hypertrophy of nail 3065 4002 L60.2 Corns and callus [id number] 00 L84 [id number] Juan Antonio Donovan DPM Podiatry, [address] [address] 05/07/2023 11:09:49 05/07/2023 13:47:43 Disorder of nervous system due to type 2 diabetes mellitus 228004184 E11.49 Cellulitis of toe of right foot 6154798776 [id number] L03.322 [id number] Juan Antonio Donovan DPM Podiatry, [address] [address] 1 05/18/2023 09:15:40 05/18/2023 09:49:31 Disorder of nervous system due to type 2 diabetes mellitus 550585109 E11.49 Cellulitis of toe of right foot 3686466560 [id number] L03.689 [id number] Juan Antonio Donovan DPM Podiatry, [address] [address] 1 07/27/2023 10:52:23 07/27/2023 13:52:36 Disorder of nervous system due to type 2 diabetes mellitus 359524903 E11.49 Hypertrophy of nail 3065 4002 L60.2 Corns and callus [id number] 00 L84 [id number] Juan Antonio Donovan DPM Podiatry, [address] [address] 1 10/12/2023 11:25:06 10/24/2023 14:24:04 Disorder of nervous system due to type 2 diabetes mellitus 131375954 E11.49 Hypertrophy of nail 3065 4002 L60.2 Corns and callus [id number] 00 L84 [id number] Juan Antonio Donovan DPM Podiatry, [address] [address] 1 12/14/2023 11:16:49 12/19/2023 13:01:30 Disorder of nervous system due to type 2 diabetes mellitus 538028696 E11.49 Hypertrophy of nail 3065 4002 L60.2 Corns and callus [id number] 00 L84 [id number] Juan Antonio Donovan DPM Podiatry, [address] [id number] 02/15/2024 10:39:06 03/11/2024 11:31:52 Disorder of nervous system due to type 2 diabetes mellitus 886631507 E11.49 Hypertrophy of nail 3065 4002 L60.2 Corns and callus 5409103 00 L84 [id number] Juan Antonio Donovan DPM Podiatry, [address] [address] 1 05/02/2024 11:32:52 05/02/2024 12:35:20 Disorder of nervous system due to type 2 diabetes mellitus 098065285 E11.49 Hypertrophy of nail 3065 4002 L60.2 Corns and callus 8602098 00 L84 [id number] Juan Antonio Donovan DPM Podiatry, [address] [address] 1 07/11/2024 11:41:19 07/11/2024 12:15:20 Disorder of nervous system due to type 2 diabetes mellitus 594233475 E11.49 Hypertrophy of nail 3065 4002 L60.2 Corns and callus 0756144 L84 Health Concerns Section Related Observation LastModified by Organization Detai ls LastModified Time None Recorded Concern Status LastModified by Organization Details LastModified Time None Recorded Advance Directives Directive None Recorded Payers Encounter Date Sequence Insurance Name Policy Number Policy Hay Covered Member ID Hay Member ID Guarantor Name 10/12/2023 1 [place] [employer] Sagar Huggins [id number] Sagar Huggins 10/12/2023 2 [place] Sagar Huggins [id number] Sagar Huggins 12/14/2023 1 [place] [employer] Sagar Huggins [id number] Sagar Huggins 12/14/2023 2 [place] Sagar Huggins [id number] Sagar Huggins 02/15/2024 1 [place] [employer] Sagar Huggins [id number] Sagar Huggins 02/15/2024 2 [place] Sagar Huggins [id number] Sagar Huggins 05/02/2024 1 [place] [employer] Sagar Huggins [id number] Sagar Huggins 05/02/2024 2 [place] [facility] Sagar Huggins [id number] Sagar Huggins 07/11/2024 1 MEDICARE B-MA: 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 Patient complains of thick toenails and callus that he isn't able to care for himself. Patient with no complaints of open wound or drainage. Patient seen by Juan Antonio Brandt NP on 06/20/23. Juan Antonio Donovan DPM [address] [place] [address], [phone], [facility] 10/12/2023 11:55:16 12/14/2023 text/html Patient with 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 Patient complains of thick toenails and callus that he isn't able to care for himself. Patient with no complaints of open wound or drainage. Patient seen by Vinicius Aguilar MD on 11/19/23. Juan Antonio Donovan DPM [address] [place] [address], [phone], [facility] 12/14/2023 11:58:03 02/15/2024 text/html Patient with 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 Patient complains of thick toenails and callus that he isn't able to care for himself. Patient with no complaints of open wound or drainage. Patient seen by Vinicius Aguilar MD on 12/28/23. Juan Antonio Donovan DPM [address] [place] [address], [phone], [facility] 02/15/2024 11:18:32 05/02/2024 text/html Patient with 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 Patient complains of thick toenails as well as callus he's not able to care for himself. Patient with no complaints of open wound or drainage. Patient seen by Vinicius Aguilar MD on 12/28/23. Juan Antonio Donovan DPM [address] [place], [phone], [facility] 05/02/2024 12:13:57 07/11/2024 text/html Patient with 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 Patient complains of thick toenails as well as callus he's not able to care for himself. Patient with no complaints of open wound or drainage. Patient seen by Meena Negron MD on 05/22/24. Juan Antonio Donovan DPM [address] [place], [phone], [facility] 07/11/2024 12:06:50
== END 2024-09-17 12:09 | disposition home or self-care (01) ==
PROVIDERS: PCP Nurse Practitioner Family; Visit Provider Nurse Practitioner Family
DX: H81.09 Meniere's disease, unspecified ear (principal); E11.9 Type 2 diabetes mellitus without complications; Z23 Encounter for immunization; Z13.9 Encounter for screening, unspecified

== ENCOUNTER → 2024-09-17 10:42 | Outpatient (BNVA) | payer MEDICARE, MEDICAID, SELFPAY | PROVIDERS: PCP Nurse Practitioner Family; Visit Provider Nurse Practitioner Family | DX: Z23 Encounter for immunization (principal); H81.09 Meniere's disease, unspecified ear; E11.9 Type 2 diabetes mellitus without complications | CPT/HCPCS: 83036; 90471; 90656; 96127; 99212 ==

== ENCOUNTER 2024-10-22 11:15 | Outpatient (AMB) | payer MEDICARE, MEDICAID, SELFPAY ==
[2024-10-22 11:37] VITALS: PULSE 100; O2SAT 95; BMI 38.1
--- NOTE | 2024-10-22 11:37 | A.OFFVIS_ITS ---
Vital Signs 10/22/24 11:37 Height 6 ft 3 in Weight 305 lb BMI 38.1 Pulse 100 Pulse Source Pulse Oximeter Pulse Oximetry (%) 95 Oxygen Delivery Method Room Air Intake Visit Reasons: 3mon follow up Intake Note: Patient presents for 3 month follow up. PSG on file and done on 08/26/24. Allergies Iodinated Contrast Media [IV Contrast Dye] Allergy (Verified 10/22/24 11:41) Unknown latex Allergy (Verified 10/22/24 11:41) Unknown meperidine [From Demerol] Allergy (Verified 10/22/24 11:41) Unknown shellfish derived Allergy (Verified 10/22/24 11:41) Unknown HPI Comments Details: 59 year old male with NPH presents for a f/u visit of AXNDER. PSG Aug 2024 AHI is 7 and O2 Mohsen 85% (REM AHI is 34/hr). He is sleeping 5 hours with the CPAP machine. He cleans his mask and changes filters, tubing and reservoir as needed. He has difficulty sleeping and staying asleep, gets up to go to the bathroom 2x per night, still has a difficult time to catch his breath at night, but this has improved with the use of his CPAP, however it is over 7 years old and doesn't always interpret the data accurately. His nocturia has improved with Finasteride. He is still attending weight management with [facility], and taking Wellbutrin for weight loss. His Ozempic is now increased to 2mg, and A1c is 7.4, weight is 305lbs today. Headaches d/t hydrocephelus and with positional changes, has to take his time when walking or getting out of bed. Migraines have improved to 2/week, and he doesn't take anything, just sleeps it off. The severity is 4/10 mild, due to numbness on right side of the head with shunt placement. He has bilateral hearing loss 80% d/t fungal infections, wears hearing aids regularly. Denies falls, uses a cane to ambulate, has vertigo and balance is off with movements. Mood is stable. [facility] Medical History Tachycardia Hydrocephalus High cholesterol HTN (hypertension) Diabetes Meniere disease Vertigo Surgical History H/O right knee surgery H/O umbilical hernia repair H/O left knee surgery S/P ADMINISTRATOR PESTICIDE shunt H/O colonoscopy Family History Mother Brain malignant neoplasm Social History Housing: Apartment Alcohol intake: former Patient Tobacco Use Status: Former Tobacco user Years Smoked: 31 years ago e-Cigarette/Vaping Use: Never Used Second Hand Smoke Exposure: No service: No Current occupational status: retired and disabled Cognitive needs: No Hearing needs: No Vision needs: No Physical Exam Vital Signs: Last Vital Signs Pulse 100 10/22/24 11:37 Pulse Ox 95 10/22/24 11:37 Oxygen Delivery Method Room Air 10/22/24 11:37 BMI result Body Mass Index 38.1 Const General: cooperative, comfortable and no acute distress Nutritional Appearance: obese (BMI 35) centrally obese Orientation/consciousness: patient oriented x3 Limitations: ambulation with cane Eyes Pupils: Equal, round and reactive pupils present Neck Neck: Yes full ROM and Yes supple Resp Effort & Inspection: normal respiratory effort and able to speak in complete sentences Neuro General: patient oriented x3 Cranial nerves: Yes CN's II-XII intact bilaterally, Yes Facial sensation intact/muscles of mastication intact, Yes Equal, round and reactive pupils present, Yes Normal accommodation reflex present, Yes Bilaterally intact EOM present, Yes Nystagmus not present, Yes Normal facial strength present, Yes Ability to bilaterally rotate head present (pain with extension and rotation to the Right side.) and Yes Ability to bilaterally elevate shoulders present Gait exam (Neuro): Staggering gait present and Other gait observations present (ambulates with cane - feels off balance at base) Motor exam (neuro): 5/5 motor strength present throughout and Normal motor muscle tone present throughout Deep tendon reflexes (DTR's): Right triceps reflex intensity grade: 2+, Left triceps reflex intensity grade: 2+, Rt Biceps (C5, C6): 2+, Left biceps reflex intensity grade: 2+, Right brachioradialis reflex intensity grade: 2+, Left brachioradialis reflex intensity grade: 2+, Right patellar reflex intensity grade: 2+ and Left patellar reflex intensity grade: 2+ Coordination: [id number] test normal Results Reviewed Results Reviewed: PSG Aug 2024 AHI is 7 REM AHI is 34 and O2 desaturation to 85%. Will start on CPAP new set up since machine will not read data accurately. Assessment & Plan Assessment & Plan (1) Dizziness: Code(s): R42 - Dizziness and giddiness Category: Medical (2) Sleep apnea: Code(s): G47.30 - Sleep apnea, unspecified Category: Medical Qualifiers: Sleep apnea type: obstructive Qualified Code(s): G47.33 - Obstructive sleep apnea (adult) (pediatric) (3) Balance problem due to vestibular dysfunction: Code(s): H81.90 - Unspecified disorder of vestibular function, unspecified ear Category: Medical Qualifiers: Laterality: bilateral Qualified Code(s): H81.93 - Unspecified disorder of vestibular function, bilateral (4) Excessive daytime sleepiness: Code(s): G47.19 - Other hypersomnia Category: Medical (5) Hydrocephalus: Code(s): G91.9 - Hydrocephalus, unspecified Category: Medical Plan Vestibular PT Balance and Gait difficulties Continue f/u with neurosurgeon for management of Hydrocephelus, [facility]. PSG Aug 2024 AHI is 7 and REM AHI is 34 and O2 Mohsen to 85%, will start him on a new CPAP set up as his old machine is having some issues with data. BMI over 38, continue 2mg of Ozempic, and f/u with weight management. Download the [employer] ana and follow your data on the ana. Start Magnesium 400mg daily at bedtime for sleep and B6 200mg PO at bedtime for Nerves. Orders: Orders PT Evaluation and Treatment Today H81.90 - Unspecified disorder of vestibular function, unspecified ear Patient Instructions: Download the [employer] ana and follow your data. Call with any questions Coding Level of Care Code Est Pt Level 4 (08516) Diagnoses Dizziness R42 Obstructive sleep apnea syndrome G47.33 Sleep apnea type: obstructive Balance problem due to vestibular dysfunction of both ears H81.93 Laterality: bilateral Excessive daytime sleepiness G47.19 Hydrocephalus G91.9 Time Spent (min) 30 Comment Improving
--- OUTSIDE RECORDS SUMMARY | 2024-10-22 13:35 | XMS_ITS | Data Portability ---
Author Organization [place] - [facility], Allergy Address [address] [address] Care Team Providers Care Corrosion Engineer Name Role Phone JUAN ANTONIO LADD Primary [...] Recorded Time Sudden idiopath ic hearing loss 806636623 Active 2018 Sudden idiopath ic hearing loss, right ear; Note: Changed from H91.20 to H91.21 (02/06/20 19 12:29 PM) , Date Diagnose d: 9 9:51 AM (H91.20) Not Available [facility] 4 02:37:03 Impacted cerumen in right ear 39269535176 56965 Active 2020 Impacted cerumen, right ear; Note: Date Diagnose d: 1 11:16 AM (H61.21) Not Available [facility] 4 02:37:11 Candidal otitis externa 33994371 Completed 202003/21/2024 Candidal otitis externa; Note: Date Diagnose d: 1 1:38 PM (B37.84) Not Available [facility] 4 02:36:57 Diffuse otitis externa 85834464 Completed 202003/21/2024 Diffuse otitis externa, right ear; Note: Date Diagnose d: 1 1:38 PM (H60.311 ) Not Available [facility] 4 02:37:03 Asymmetr ical sensorin eural hearing loss 629087755 Active 2014 Sensorin eural HL, asymmetr ic; Note: Date Diagnose d: 5 10:39 AM (389.16) Sensor ineural hearing los asymmetr ic; Note: Date Diagnose d: 06/04/20 14 11:48 AM (389.16) ; Start Date : 06/04/20 14 Not Available [facility] 4 02:37:09 Impacted cerumen of bilatera l ears 10823439147 07764 Active 2019 Impacted cerumen, bilatera l; Note: Date Diagnose d: 0 3:42 PM (H61.23) Not Available [facility] 4 02:37:06 Sensorin eural hearing loss of bilatera l ears 086840061 Active 2014 Hearing loss: Sensorin eural hearing loss, bilatera l; Note: Date Diagnose d: 06/04/20 14 11:16 AM (389.18) ; Start Date : 06/04/20 14 Senso rineural hearing loss, bilatera l; Note: Date Diagnose d: 06/08/20 15 9:17 AM (H90.3) Not Available [facility] 4 02:37:02 Dizzines s and giddines s 961631302 Active 2020 Vertigo NOS; Note: Date Diagnose d: 1 11:20 AM (R42) Not Available [facility] 4 02:37:07 Headache 26677865 Active 2022 Headache , unspecif ied; Note: Date Diagnose d: 3 11:13 AM (R51.9) Not Available [facility] 4 02:37:03 Tinnitus 76780577 Active 2013 Tinnitus , unspecif ied; Note: Date Diagnose d: 06/04/20 14 11:48 AM (388.30) Not Available [facility] 4 02:36:57 Type 2 diabetes mellitus without complica tion 732894765 Active 2022 Type 2 diabetes mellitus without complica tions; Note: Date Diagnose d: 3 11:09 AM (E11.9) Not Available [facility] 4 02:36:59 M??ni??r e's disease 99679678 Active 2019 Meniere' s disease, right ear; Note: Date Diagnose d: 0 4:18 PM (H81.01) Not Available [facility] 4 02:37:10 Disorder of right Eustachi an tube 67223830046 56430 Active 2018 Other specifie d disorder s of Eustachi an tube, right ear; Note: Date Diagnose d: 9 9:20 AM (H69.81) Not Available [facility] 4 02:37:14 Hydrocep halus 012689272 Active 2022 Hydrocep halus, unspecif ied; Note: Date Diagnose d: 3 11:07 AM (G91.9) Not Available [facility] 4 02:37:10 Problem Notes None recorded. Procedures Surgical History Date Name Laterality Status Provider Name and Address Organization Details Recorded Time Cerumen removal with microscope bilateral completed SCOTT VILLARREAL MD [address] [facility],[place] [address], [place], [address], [facility] - [facility] 03/26/2024 10:08:28 Imaging Results Imaging Date Name [...] Name and Address Organization Details Recorded Time 906203 Iodinated contrast media (substanc e) medicatio n Not available Not available Not available 03/26/2024 76028 2003 SNOMED Trinidad alexandra [place] - [facility] 09:43:16 149487 latex environme nt,medica tion Not available Not available Not available 03/26/2024 53129 91 RxNorm Trinidad alexandra [place] - [facility] 4 09:43:28 629246 shellfish derived food,medi cation Not available Not available Not available 03/26/2024 20549 UNK Trinidad alexandra [place] - [facility] 4 09:43:36 60951 meperidin e hydrochlo ride medicatio n other Not available Not available 01/01/2024 19399 5 RxNorm React ion: unkno wn, unspe cifie d;; Not Available [facility] 4 01:03:53 Medications Name Sig Start Date [...] mg tablet 04/22 completed Medicati on ID: [id number] P trice munguia By Name: Leah Nuñez nd Name: predniso [...] mg tablet 02/05 completed Medicati on ID: [id number] Du ration Value: 30 Reason: () Brand Name: topirama te Send Method: E-Prescr ibed Sub s Allowed: subs OK Medic ationGen ericName : topirama te Not Available Not Available Not Available ciproflox acin 500 mg tablet 1 tablet by mouth 03/26 completed Medicati on ID: [id number] D uration Value: 10 Prescri bed By [...] sustained -release 02/05 completed Medicati on ID: [id number] D uration Value: 30 Reason: () Brand [...] 25 mg tablet active Medicati on ID: [id number] B rand Name: meclizin e Send Method: E-Prescr ibed Sub s Allowed: subs OK Medic ationGen ericName : meclizin e Not Available Not Available Not Available cephalexi n 500 mg capsule TAKE ONE CAPSULE BY MOUTH TWICE A DAY 03/26 completed Not Available Not Available Not Available clotrimaz ole 1 % topical solution 03/26 completed Medicati on ID: [id number] D uration Value: 14 Prescri bed By Name: RUKHSANA Renner nd Name: clotbola munguia Method: E-Prescr ibed Sub s Allowed: subs OK Speci al Instruct ion: 4 drops to affected ear three times a day Medi cationGe nericNam e: clotrima zole Not Available Not Available Not Available lisinopri l 20 mg-hydroc hlorothia zide 25 mg tablet TAKE ONE TABLET BY MOUTH EVERY DAY active Not Available Not Available No t Available ketoconaz ole 2 % topical cream 06/29 completed Medicati on ID: [id number] D uration Value: 30 Brand Name: ketoconrolando munguia Method: E-Prescr ibed Sub s Allowed: [...] 24 hr 03/26 completed Medicati on ID: [id number] D uration Value: 90 Brand Name: alla n Send Method: E-Prescr ibed Sub s Allowed: subs OK Medic ationGen ericName : alla n Not Available Not Available Not Available Ciprodex 0.3 %-0.1 % ear drops,kumar pension 4 drop into right ear 03/26 completed Medicati on ID: [id number] D uration Value: 14 Prescri bed By [...] Updated DateTime 03/26/2024 190.5 cm 40 kg/m2 472728.56 g Trinidad Martinez [place] - [facility] 03/26/2024 09:37:58 Social History None recorded. Functional Status None recorded. Mental Status None recorded. Family History Nothing Reported. Medical History Condition Response Diabetes Y Hypertension Y High Cholesterol Y Past Encounters Encounter ID Performer Location Encounter Start Date Encounter Closed Date Diagnosis/Indication Diagnosis SNOMED-CT Code Diagnosis ICD10 Code Diagnosis Note [id number] SCOTT VILLARREAL MD [facility] [address] [address] 03/26/2024 09:16:33 03/26/2024 10:12:40 Hydrocephalus 027960623 G91.9 Impacted c erumen of bilateral ears 9999391003 547653 H61.23 Patient will follow-up with physician environmental engineering assistant in 1 year for cerumen disimpacti on in light of his tendency to impact cerumen due to hearing aid use. Sensorineu ral hearing loss of bilateral ears 639348632 H90.3 Patient's ears appear healthy today following disimpacti on of cerumen. He did not have time for updated audiometri c testing today. I recommende d he contact his audiologis t at the [facility] audiology group to check on his hearing aids and to update his audiometri c testing if indicated. Dizziness and giddiness 499232597 R42 Overall, the patient seems to be doing much better with regards to his balance issues. His residual symptoms are more consistent with postural hypotensio n than anything going on in his inner ear. I would still recommend proceeding with the neurologic al evaluation as recommende d by Dr. Granados in light of his medical history and presence of SHOE SALESPERSON shunt. Health Concerns Section Related Observation LastModified by Organization Detai ls LastModified Time None Recorded Concern Status LastModified by Organization Details LastModified Time None Recorded Advance Directives Directive None Recorded Payers Encounter Date Sequence Insurance Name Policy Number Policy Hay Covered Member ID Hay Member ID Guarantor Name 03/26/2024 2 [place] Sagar Huggins [id number] Sagar Huggins 03/26/2024 1 [place] [employer] Sagar Huggins [id number] Sagar Huggins Notes Date Note Type Note Provider Name and Address Organization Details Recorded Time 03/26/2024 text/html 58 year old diabetic male presents for reevaluation of his ears and hearing. He has a complex past medical history hydrocephalus with shunt placement in the 60's with 4 revisions. He also has history of right sided Meniere's with fluctuating hearing loss of the right ear with SNHL in October 2012 treated with IT dexamethasone injections. Currently wearing binaural amplification dispensed through [facility] audiology. Patient has noticed more recently [...] Patient did meet with Dr. Granados at [facility] neurosurgery who determined that his shunt [...] but no true vertigo SCOTT VILLARREAL MD [address] [place] [address], [phone], [facility] - [facility] 03/26/2024 10:16:04
--- OUTSIDE RECORDS SUMMARY | 2024-10-22 13:35 | XMS_ITS | Continuity of Care Document ---
Author Organization [facility], [place],[facility] [place] [address] [place] [address] Care Team Providers Care Property Administrator Name Role Phone JUAN ANTONIO DONOVAN Livestock Nutritionist JUAN ANTONIO LADD Primary Care Provider Assessment Encounter Date Assessment Date Assessment LastModified by Organization Details LastModified Time 09/26/2024 09/26/2024 type 2 diabetes mellitus with peripheral neuropathy, onychauxis bilateral hallux, hyperkeratotic lesion [email or web address] Not available 09/26/2024 12:38:47 Plan of Treatment Reminders Order Date Submit Date Provider Last Modified By Organization Details Last Modified Time Details Appointments Routine Foot Care 15 2024 11:00A M Juan Antonio Donovan DPM Not available Not available Not available Lab None recorded . Referral None recorded . Procedures None recorded . Surgeries None recorded . Imaging None recorded . Medication Orders None recorded . Patient TargetsNo targets recorded. Patient Instructions Encounter Date Encounter Id Patient Instructions Last Modified By Organization Details Last Modified Time 09/26/2024 [id number] Patient to retur n in 9 weeks for foot care to reduce risk of complications associated with type 2 diabetes mellitus with peripheral neuropathy. jerskine Not available 09/26/2024 12:38:47 Reason for Referral None Reported. Problems No Known Problems Medical Equipment None Reported. Allergies Allergen ID Allergen Name Allergen Category Reaction Reaction Severity Criticality Documentation Date Start Date Code Code System Note Provider Name and Address Organization Details Recorded Time [id number] latex environme nt,medica tion hives severe Not available 10/08/2017 71789 91 RxNorm SONDRA Soliz, [facility] 8 08:48:27 30584 Demerol medicatio n Not available Not available Not available 12/08/2011 65009 1 RxNorm Juan Antonio Donovan DPM [address], [facility] [place], [address], [facility] 2 09:09:55 20949 iodine medicatio n Not available Not available Not available 12/08/2011 5933 RxNorm Juan Antonio Donovan, DPM [address], [facility] [place], [phone], [facility] 2 09:09:55 Medications Name Sig Start Date Stop Date Status Note LastModified by Organization Details LastModified Time cetirizine 10 mg tablet TAKE 1 TABLET BY MOUTH DAILY FOR 14 DAYS active Not Available Not Available No t Available azithromyci n 250 mg tablet TAKE 2 [...] propionate 50 mcg/actuati on nasal spray,suspe nsion INSTILL 2 SPRAYS INTRANASA LLY TWO TIMES A DAY FOR 7 DAYS active Not Available Not Available No t Available metformin ER 500 mg tablet,exte nded [...] Not Available Not Available Not Available Ozempic 2 mg/dose (8 mg/3 mL) subcutaneou s pen injector INJECT 2 MG 0.75 ML) SUBCUTANE OUSLY EVERY WEEK FOR 30 DAYS active Not Available Not Available No t Available Ozempic 0.25 mg or 0.5 mg (2 mg/3 mL) subcutaneou s pen injector INJECT ONE-HALF MG SUBCUTANE OUSLY EVERY WEEK FOR 4 WEEKS 07/11 completed Not Available Not Available Not Available Vitals Date Recorded Heart rate Systolic blood pressure Diastolic blood pressure Provider Name and Address Organization Details Last Updated DateTime 09/26/2024 93 /min 135 mm[Hg] 73 mm[Hg] Sintia Barrie [facility] 09/26/2024 11:13:45 Social History Question Answer Notes LastModified by Organizat ion Details LastModified Time Tobacco Smoking Status Former Smoker quit 1989 Sintia Sood [facility] 10/11/2020 11:04:26 When Did You Quit Smoking? 16+yearssin celastcijus ette [email or web address] Information not available 06/24/2021 What Was The Date Of Your Most Recent Tobacco Screening? 06/24/2021 [email or web address] Information not available 06/24/2021 Do You Or Have You Ever Used Any Other Forms Of Tobacco Or Nicotine? No [email or web address] Information not available 06/24/2021 Sex: Male Functional Status None recorded. Mental Status None recorded. Family History Nothing Reported. Medical History No medical history recorded. Immunizations Vaccine Type Date Status Note Provider Nam e and Address Organization Details Recorded Time COVID-19, mRNA, LNP-S, PF, 30 mcg/0.3 mL dose 12/23/2020 completed Sintia alexandra [facility] 02/17/2022 11:51:11 COVID-19, mRNA, LNP-S, PF, 30 mcg/0.3 mL dose 01/13/2021 completed Sintia alexandra [facility] 02/17/2022 11:51:01 Past Encounters Encounter ID Performer Location Encounter Start Date Encounter Closed Date Diagnosis/Indication Diagnosis SNOMED-CT Code Diagnosis ICD10 Code Diagnosis Note [id number] Juan Antonio Donovan DPM Podiatry, [address] [address] 09/26/2024 10:50:14 10/06/2024 17:02:35 Disorder of nervous system due to type 2 diabetes mellitus 884790720 E11.49 Hypertrophy of nail 3065 4002 L60.2 Corns and callus 6827732 00 L84 Health Concerns Section Related Observation LastModified by Organization Detai ls LastModified Time None Recorded Concern Status LastModified by Organization Details LastModified Time None Recorded Payers Encounter Date Sequence Insurance Name Policy Number Policy Hay Covered Member ID Hay Member ID Guarantor Name 09/26/2024 1 [place]ARE [place] [employer] Sagar Huggins [id number] Sagar Huggins 09/26/2024 2 [place] [facility] Sagar Huggins [id number] Sagar Huggins Notes Date Note Type Note Provider Name and Address Organization Details Recorded Time 09/26/2024 text/html Patient with 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 Patient complains of thickened toenails and callus he's not able to care for himself. Patient with no complaints of open wound or drainage. Patient seen by Meena Negron MD on 05/22/24. Juan Antonio Donovan DPM [address] [place] [address], [phone], [facility] 09/26/2024 12:39:51
--- OUTSIDE RECORDS SUMMARY | 2024-10-22 13:36 | XMS_ITS | Data Portability ---
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 Name Role Phone JUAN ANTONIO DONOVAN Apple Picking Supervisor JUAN ANTONIO LADD Primary Care Provider [phone] Assessment Encounter Date Assessment Date Assessment LastModified by Organization Details LastModified Time 12/14/2023 12/14/2023 type 2 diabetes mellitus with [...] hyperkeratotic lesion jerskine Not available 07/11/2024 12:05:19 09/26/2024 09/26/2024 type 2 diabetes mellitus with peripheral neuropathy, onychauxis bilateral hallux, hyperkeratotic lesion jerskine Not available 09/26/2024 12:38:47 Plan of Treatment [...] Modified By Organization Details Last Modified Time 12/14/2023 [id number] Patient to retur n in 9 weeks for foot care to reduce risk of complications associated with type 2 diabetes mellitus with peripheral neuropathy. jerskine Not available 12/14/2023 11:56:31 02/15/2024 [id number] Patient to retur n in 9 weeks for foot care to reduce risk of complications associated with type 2 diabetes mellitus with peripheral neuropathy. jerskine Not available 02/15/2024 11:17:29 05/02/2024 [id number] Patient to retur n in 9 weeks for foot care to reduce risk of complications associated with type 2 diabetes mellitus with peripheral neuropathy. jerskine Not available 05/02/2024 12:12:33 07/11/2024 [id number] Patient to retur n in 9 weeks for foot care to reduce risk of complications associated with type 2 diabetes mellitus with peripheral neuropathy. jerskine Not available 07/11/2024 12:05:19 09/26/2024 [id number] Patient to retur n in 9 weeks [...] nt,medica tion hives severe Not available 10/08/2017 [id number] RxNorm Janice Levine MA [facility] 8 08:48:27 09018 Demerol medicatio n Not available Not available Not available 12/08/2011 [id number] RxNorm Juan Antonio Donovan DPM [address] [place], [address], [facility] 2 09:09:55 93965 iodine medicatio n Not available Not available Not available 12/08/2011 5933 RxNorm Juan Antonio Donovan DPM [address], [address], [facility] 2 09:09:55 Medications Name Sig Start [...] Available Ozempic 2 mg/dose (8 mg/3 mL) subcutane s pen injector INJECT 2 MG 0.75 [...] Details Last Updated DateTime 12/14/2023 95 /min 114 mm[Hg] 70 mm[Hg] [facility] 12/14/2023 11:34:26 Date Recorded Body weight Heart rate Systolic blood pressure Diastolic blood pressure Provider Name and Address Organization Details Last Updated DateTime 02/15/2024 331187.34 g 92 /min 129 mm[Hg] 67 mm[Hg] [facility] 02/15/2024 10:54:32 Date Recorded Heart rate Systolic blood pressure Diastolic blood pressure Provider Name and Address Organization Details Last Updated DateTime 05/02/2024 77 /min 117 mm[Hg] 71 mm[Hg] Sintia Sood [facility] 05/02/2024 11:53:04 Date Recorded Heart rate Systolic blood pressure Diastolic blood pressure Provider Name and Address Organization Details Last Updated DateTime 07/11/2024 88 /min 125 mm[Hg] 73 mm[Hg] [facility] 07/11/2024 11:48:57 Date Recorded Heart rate Systolic blood pressure Diastolic blood pressure Provider Name and Address Organization Details Last Updated DateTime 09/26/2024 93 /min 135 mm[Hg] 73 mm[Hg] [facility] 09/26/2024 11:13:45 Social History Question Answer Notes LastModified by Organizat ion Details LastModified Time Tobacco Smoking Status Former Smoker quit 1989 Sintia alexandra [facility] 10/11/2020 11:04:26 When Did You Quit Smoking? 16+yearssin marlon munguia [email or web address] Information not available 06/24/2021 What Was The Date Of Your Most Recent Tobacco Screening? 06/24/2021 Information not available 06/24/2021 Do You Or Have You Ever Used Any Other Forms Of Tobacco Or Nicotine? No [email or web address] Information not available 06/24/2021 Sex: Male Functional Status None recorded. Mental Status None recorded. Family History Nothing Reported. Medical History No medical history recorded. Immunizations Vaccine Type Date Status Note Provider Nam e and Address Organization Details Recorded Time COVID-19, mRNA, LNP-S, PF, 30 mcg/0.3 mL dose 12/23/2020 completed Sintia alexandra [facility] 02/17/2022 11:51:11 COVID-19, mRNA, LNP-S, PF, 30 mcg/0.3 mL dose 01/13/2021 completed Sintia alexandra [facility] 02/17/2022 11:51:01 Past Encounters Encounter ID Performer Location Encounter Start Date Encounter Closed Date Diagnosis/Indication Diagnosis SNOMED-CT Code Diagnosis ICD10 Code Diagnosis Note [id number] Podiatry, [address] [address] 12/08/2011 08:48:56 12/08/2011 09:26:53 [id number] Juan Antonio Donovan DPM Podiatry, [address] [address] 06/10/2012 11:27:56 06/10/2012 11:53:40 [id number] Juan Antonio Donovan DPM Podiatry, [address] [address] 09/10/2012 13:41:38 09/10/2012 14:04:36 [id number] Juan Antonio Donovan DPM Podiatry, [address] [address] 12/10/2012 13:38:32 12/10/2012 13:57:06 [id number] Juan Antonio Donovan DPM Podiatry, [address] [address] 1 02/11/2013 13:56:13 02/11/2013 14:18:07 [id number] Juan Antonio Donovan DPM Podiatry, [address] [address] 1 04/22/2013 14:03:42 04/22/2013 14:44:43 Disorder of nervous system due to type 2 diabetes mellitus 982146254 Corns and callus [id number] Disorder of nail 10099183 [id number] Rebecca Corral Podiat[facility], [address] [address] 07/07/2013 14:15:12 07/07/2013 15:09:46 Disorder of nervous system due to type 2 diabetes mellitus 135489629 Corns and callus 100752765 Disorder of nail 19800670 [id number] Lourdes Candelaria Podiat[facility], [address] [address] 1 09/12/2013 09:44:57 09/12/2013 14:17:17 Disorder of nervous system due to type 2 diabetes mellitus 245974471 Corns and callus 511145068 Disorder of nail 00380539 Tinea pedis 3191451 [id number] Juan Antonio Donovan DPM Podiatry, [address] [address] 1 11/17/2013 11:48:38 11/17/2013 12:12:24 Disorder of nervous system due to type 2 diabetes mellitus 428983011 Corns and callus 034368907 Disorder of nail 85244662 Tinea pedis 9134207 [id number] Rebecca Corral Podiat[facility], [address] [address] 1 01/19/2014 11:27:07 01/19/2014 14:50:29 Disorder of nervous system due to type 2 diabetes mellitus 523883196 Corns and callus 635874058 Disorder of nail 14083573 [id number] Gabriela Theodore MA Podiatry, [address] [address] 05/04/2014 10:07:35 05/04/2014 10:59:21 Disorder of nervous system due to type 2 diabetes mellitus 853222622 Corns and callus 804621114 Disorder of nail 32061967 [id number] Gabriela Theodore MA Podiatry, [address] [address] 1 07/10/2014 09:53:16 07/10/2014 10:51:53 Disorder of nervous system due to type 2 diabetes mellitus 001532336 Corns and callus Disorder of nail 43688952 [id number] Juan Antonio Donovan DPM Podiatry, [address] [address] 1 09/11/2014 09:52:49 09/11/2014 10:17:22 Disorder of nervous system due to type 2 diabetes mellitus 123957750 Disorder of nail 84050372 [id number] Alyson Person Podiatry, [address] [address] 1 11/13/2014 10:25:27 11/13/2014 11:01:31 Disorder of nervous system due to type 2 diabetes mellitus 017883882 Disorder of nail 48290474 [id number] Rakel Pak Podiatry, [address] [address] 1 01/15/2015 10:20:36 01/15/2015 11:07:20 Disorder of nervous system due to type 2 diabetes mellitus 692852993 Disorder of nail 40394559 [id number] Alyson Person Podiat[facility], [address] [address] 1 04/09/2015 10:14:06 04/09/2015 10:55:24 Disorder of nervous system due to type 2 diabetes mellitus 862854737 Disorder of nail 08001919 [id number] Calista Carranza Podiatry, [address] [address] 1 06/11/2015 10:15:27 06/18/2015 10:55:59 Disorder of nervous system due to type 2 diabetes mellitus 540691581 E11.49 Hypertrophy of nail 3065 4002 L60.2 Corns and callus 4500807 00 L84 [id number] Juan Antonio Donovan DPM Podiatry, [address] [address] 1 08/23/2015 08:48:48 08/23/2015 09:40:16 Disorder of nervous system due to type 2 diabetes mellitus 384480738 E11.49 Hypertrophy of nail 3065 4002 L60.2 Corns and callus 8792930 00 L84 [id number] Juan Antonio Donovan DPM Podiatry, [address] [address] 1 10/25/2015 09:21:24 10/25/2015 10:04:39 Disorder of nervous system due to type 2 diabetes mellitus 387702714 E11.49 Hypertrophy of nail 3065 4002 L60.2 Corns and callus 3895683 00 L84 [id number] Juan Antonio Donovan DPM Podiatry, [address] [address] 1 01/14/2016 09:49:51 01/14/2016 10:19:13 Disorder of nervous system due to type 2 diabetes mellitus 326451924 E11.49 Hypertrophy of nail 3065 4002 L60.2 Corns and callus 4808019 00 L84 [id number] Juan Antonio Donovan DPM Podiatry, [address] [address] 1 05/01/2016 12:20:06 05/01/2016 12:50:27 Disorder of nervous system due to type 2 diabetes mellitus 970411294 E11.49 Hypertrophy of nail 3065 4002 L60.2 Corns and callus 7238215 00 L84 [id number] Juan Antonio Donovan DPM Podiatry, [address] [address] 1 07/03/2016 09:10:26 07/03/2016 09:34:22 Disorder of nervous system due to type 2 diabetes mellitus 647294470 E11.49 Hypertrophy of nail 3065 4002 L60.2 Corns and callus 0041896 00 L84 [id number] Juan Antonio Donovan DPM Podiatry, [address] [address] 1 09/04/2016 09:09:03 09/04/2016 09:52:22 Disorder of nervous system due to type 2 diabetes mellitus 662681407 E11.49 Hypertrophy of nail 3065 4002 L60.2 Corns and callus 9386233 00 L84 [id number] Juan Antonio Donovan DPM Podiatry, [address] [address] 1 11/06/2016 09:21:12 11/06/2016 10:12:34 Disorder of nervous system due to type 2 diabetes mellitus 339796749 E11.49 Hypertrophy of nail 3065 4002 L60.2 Corns and callus 9813638 00 L84 [id number] Juan Antonio Donovan DPM Podiatry, [address] [address] 1 01/08/2017 09:04:29 01/08/2017 09:47:10 Disorder of nervous system due to type 2 diabetes mellitus 145202912 E11.49 Hypertrophy of nail 3065 4002 L60.2 Corns and callus 8173807 00 L84 [id number] Juan Antonio Donovan DPM Podiatry, [address] [address] 1 04/02/2017 14:04:53 04/02/2017 14:43:48 Disorder of nervous system due to type 2 diabetes mellitus 262497227 E11.49 Hypertrophy of nail 3065 4002 L60.2 Corns and callus 5555173 00 L84 [id number] Juan Antonio Donovan DPM Podiatry, [address] [address] 1 06/04/2017 08:42:20 06/04/2017 09:12:33 Disorder of nervous system due to type 2 diabetes mellitus 584820911 E11.49 Hypertrophy of nail 3065 4002 L60.2 Corns and callus 0838670 00 L84 [id number] Juan Antonio Donovan DPM Podiatry, [address] [address] 1 08/06/2017 08:48:57 08/06/2017 09:31:52 Disorder of nervous system due to type 2 diabetes mellitus 724323407 E11.49 Hypertrophy of nail 3065 4002 L60.2 Corns and callus 0429854 00 L84 [id number] Juan Antonio Donovan DPM Podiatry, [address] [address] 1 10/08/2017 08:41:51 10/08/2017 09:08:16 Disorder of nervous system due to type 2 diabetes mellitus 286221348 E11.49 Hypertrophy of nail 3065 4002 L60.2 Corns and callus [id number] 00 L84 [id number] Juan Antonio Donovan DPM Podiatry, [address] [address] 1 12/10/2017 08:30:40 12/10/2017 09:03:26 Disorder of nervous system due to type 2 diabetes mellitus 359574610 E11.49 Hypertrophy of nail 3065 4002 L60.2 Corns and callus 1511215 00 L84 [id number] Juan Antonio Donovan DPM Podiatry, [address] [address] 1 02/11/2018 09:22:32 02/11/2018 10:12:18 Disorder of nervous system due to type 2 diabetes mellitus 709850492 E11.49 Hypertrophy of nail 3065 4002 L60.2 Corns and callus 3666694 L84 [id number] Juan Antonio Donovan DPM Podiatry, [address] [address] 1 05/03/2018 09:22:28 05/13/2018 06:31:22 Disorder of nervous system due to type 2 diabetes mellitus 963076103 E11.49 Hypertrophy of nail 3065 4002 L60.2 Corns and callus 4806393 L84 [id number] Juan Antonio Donovan DPM Podiatry, [address] [address] 1 07/05/2018 10:48:01 07/05/2018 11:34:36 Disorder of nervous system due to type 2 diabetes mellitus 490186838 E11.49 Hypertrophy of nail 3065 4002 L60.2 Corns and callus 7508088 00 L84 [id number] Juan Antonio Donovan DPM Podiatry, [address] [address] 1 10/11/2018 09:47:33 10/11/2018 10:39:23 Disorder of nervous system due to type 2 diabetes mellitus 276653378 E11.49 Hypertrophy of nail 3065 4002 L60.2 Corns and callus 3458588 L84 [id number] Juan Antonio Donovan DPM Podiatry, [address] [address] 1 12/13/2018 10:04:31 12/13/2018 15:33:22 Disorder of nervous system due to type 2 diabetes mellitus 356972114 E11.49 Hypertrophy of nail 3065 4002 L60.2 Corns and callus [id number] 00 L84 [id number] Juan Antonio Donovan DPM Podiatry, [address] [address] 1 06/13/2019 10:05:05 06/13/2019 10:57:12 Disorder of nervous system due to type 2 diabetes mellitus 187812167 E11.49 Hypertrophy of nail 3065 4002 L60.2 Corns and callus 4430754 00 L84 [id number] Juan Antonio Donovan DPM Podiatry, [address] [address] 1 08/22/2019 09:53:48 08/22/2019 10:48:16 Disorder of nervous system due to type 2 diabetes mellitus 504431047 E11.49 Hypertrophy of nail 3065 4002 L60.2 Corns and callus 8972193 00 L84 [id number] Juan Antonio Donovan DPM Podiatry, [address] [address] 1 10/24/2019 09:42:02 10/24/2019 10:41:42 Disorder of nervous system due to type 2 diabetes mellitus 062544243 E11.49 Hypertrophy of nail 3065 4002 L60.2 Corns and callus 9634334 00 L84 [id number] Juan Antonio Donovan DPM Podiatry, [address] [address] 1 10/11/2020 10:51:37 10/14/2020 12:14:57 Disorder of nervous system due to type 2 diabetes mellitus 270232126 E11.49 Hypertrophy of nail 3065 4002 L60.2 Corns and callus 9978616 00 L84 [id number] Juan Antonio Donovan DPM Podiatry, [address] [address] 1 12/27/2020 14:53:31 12/28/2020 11:48:55 Disorder of nervous system due to type 2 diabetes mellitus 714658282 E11.49 Hypertrophy of nail 3065 4002 L60.2 Corns and callus 3003646 00 L84 [id number] Juan Antonio Donovan DPM Podiatry, [address] [address] 1 06/24/2021 08:50:50 06/24/2021 09:45:47 Disorder of nervous system due to type 2 diabetes mellitus 476031311 E11.49 Hypertrophy of nail 3065 4002 L60.2 Corns and callus 1337835 00 L84 [id number] Juan Antonio Donovan DPM Podiatry, [address] [address] 1 02/17/2022 11:01:15 02/17/2022 12:16:29 Disorder of nervous system due to type 2 diabetes mellitus 685687979 E11.49 Hypertrophy of nail 3065 4002 L60.2 Corns and callus 7069452 00 L84 [id number] Juan Antonio Donovan DPM Podiatry, [address] [address] 1 05/15/2022 09:44:13 05/18/2022 11:08:52 Disorder of nervous system due to type 2 diabetes mellitus 683529885 E11.49 Hypertrophy of nail 3065 4002 L60.2 Corns and callus 5538425 00 L84 [id number] Juan Antonio Donovan DPM Podiatry, [address] [address] 1 08/28/2022 09:22:29 08/28/2022 09:44:12 Disorder of nervous system due to type 2 diabetes mellitus 526132368 E11.49 Hypertrophy of nail 3065 4002 L60.2 Corns and callus 4359786 00 L84 [id number] Juan Antonio Donovan DPM Podiatry, [address] [address] 1 11/06/2022 09:37:53 11/06/2022 11:49:20 Disorder of nervous system due to type 2 diabetes mellitus 600334538 E11.49 Hypertrophy of nail 3065 4002 L60.2 Corns and callus 1444691 00 L84 [id number] Juan Antonio Donovan DPM Podiatry, [address] [address] 1 01/22/2023 08:40:00 01/22/2023 14:25:59 Disorder of nervous system due to type 2 diabetes mellitus 529805302 E11.49 Hypertrophy of nail 3065 4002 L60.2 Corns and callus 3076925 00 L84 [id number] Juan Antonio Donovan DPM Podiatry, [address] [address] 1 05/07/2023 11:09:49 05/07/2023 13:47:43 Disorder of nervous system due to type 2 diabetes mellitus 665766817 E11.49 Cellulitis of toe of right foot 5033592483 3127710 L03.895 [id number] Juan Antonio Donovan DPM Podiatry, [address] [address] 1 05/18/2023 09:15:40 05/18/2023 09:49:31 Disorder of nervous system due to type 2 diabetes mellitus 804282311 E11.49 Cellulitis of toe of right foot 4949672546 3511633 L03.274 [id number] Juan Antonio Donovan DPM Podiatry, [address] [address] 1 07/27/2023 10:52:23 07/27/2023 13:52:36 Disorder of nervous system due to type 2 diabetes mellitus 453822438 E11.49 Hypertrophy of nail 3065 4002 L60.2 Corns and callus 5066415 00 L84 [id number] Juan Antonio Donovan DPM Podiatry, [address] [address] 1 10/12/2023 11:25:06 10/24/2023 14:24:04 Disorder of nervous system due to type 2 diabetes mellitus 036920895 E11.49 Hypertrophy of nail 3065 4002 L60.2 Corns and callus 5967807 00 L84 [id number] Juan Antonio Donovan DPM Podiatry, [address] [address] 1 12/14/2023 11:16:49 12/19/2023 13:01:30 Disorder of nervous system due to type 2 diabetes mellitus 182419044 E11.49 Hypertrophy of nail 3065 4002 L60.2 Corns and callus 9832650 00 L84 [id number] Juan Antonio Donovan DPM Podiatry, [address] [address] 1 02/15/2024 10:39:06 03/11/2024 11:31:52 Disorder of nervous system due to type 2 diabetes mellitus 657167064 E11.49 Hypertrophy of nail 3065 4002 L60.2 Corns and callus 0573432 00 L84 [id number] Juan Antonio Donovan DPM Podiatry, [address] [address] 1 05/02/2024 11:32:52 05/02/2024 12:35:20 Disorder of nervous system due to type 2 diabetes mellitus 939478669 E11.49 Hypertrophy of nail 3065 4002 L60.2 Corns and callus 6629985 00 L84 [id number] Juan Antonio Donovan DPM Podiatry, [address] [address] 1 07/11/2024 11:41:19 07/11/2024 12:15:20 Disorder of nervous system due to type 2 diabetes mellitus 828001139 E11.49 Hypertrophy of nail 3065 4002 L60.2 Corns and callus 8089967 00 L84 [id number] Juan Antonio Donovan DPM Podiatry, [address] [address] 1 09/26/2024 10:50:14 10/06/2024 17:02:35 Disorder of nervous system due to type 2 diabetes mellitus 766721903 E11.49 Hypertrophy of nail 3065 4002 L60.2 Corns and callus 2213342 00 L84 Health Concerns Section Related Observation LastModified by Organization Detai ls LastModified Time None Recorded Concern Status LastModified by Organization Details LastModified Time None Recorded Advance Directives Directive None Recorded Payers Encounter Date Sequence Insurance Name Policy Number Policy Hay Covered Member ID Hay Member ID Guarantor Name 12/14/2023 1 [place] [employer] Sagar Huggins [id number] Sagar Huggins 12/14/2023 2 [place] Sagar Huggins [id number] Sagar Huggins 02/15/2024 1 [place] [employer] Sagar Huggins [id number] Sagar Huggins 02/15/2024 2 [place] Sagar Huggins [id number] Sagar Huggins 05/02/2024 1 [place] [employer] Sagar Huggins [id number] Sagar Huggins 05/02/2024 2 [place] Sagar Huggins [id number] Sagar Huggins 07/11/2024 1 [place] [employer] Sagar Huggins [id number] Sagar Huggins 07/11/2024 2 [place] Sagar Huggins [id number] Sagar Huggins 09/26/2024 1 [place] [employer] Sagar Huggins [id number] Sagar Huggins 09/26/2024 2 [place] [facility] Sagar Huggins [id number] Sagar Huggins Notes Date Note Type Note Provider Name and Address Organization Details Recorded Time 12/14/2023 text/html Patient with 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 Patient complains of thick toenails and callus that he isn't able to care for himself. Patient with no complaints of open wound or drainage. Patient seen by Vinicius Aguilar MD on 11/19/23. Juan Antonio Donovan DPM [address] [place], [address] 12/14/2023 11:58:03 02/15/2024 text/html Patient with 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 Patient complains of thick toenails and callus that he isn't able to care for himself. Patient with no complaints of open wound or drainage. Patient seen by Vinicius Aguilar MD on 12/28/23. Juan Antonio Donovan DPM [address] [place], [address], [facility] 02/15/2024 11:18:32 05/02/2024 text/html Patient with 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 Patient complains of thick toenails as well as callus he's not able to care for himself. Patient with no complaints of open wound or drainage. Patient seen by Vinicius Aguilar MD on 12/28/23. Juan Antonio Donovan DPM [address] [place], [address], [facility] 05/02/2024 12:13:57 07/11/2024 text/html Patient with 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 Patient complains of thick toenails as well as callus he's not able to care for himself. Patient with no complaints of open wound or drainage. Patient seen by Meena Negron MD on 05/22/24. Juan Antonio Donovan DPM [address] [place], [address], [facility] 07/11/2024 12:06:50 09/26/2024 text/html Patient with 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 Patient complains of thickened toenails and callus he's not able to care for himself. Patient with no complaints of open wound or drainage. Patient seen by Meena Negron MD on 05/22/24. Juan Antonio Donovan DPM [address] [place], [address], [facility] 09/26/2024 12:39:51
== END 2024-10-22 12:45 | disposition home or self-care (01) ==
PROVIDERS: PCP Nurse Practitioner Family; Visit Provider Physician Assistant Medical
DX: R42 Dizziness and giddiness (principal); G47.33 Obstructive sleep apnea (adult) (pediatric); G47.19 Other hypersomnia; G91.9 Hydrocephalus, unspecified
CPT/HCPCS: 99214

== ENCOUNTER → 2024-10-22 11:15 | Outpatient (BNVA) | payer MEDICARE, MEDICAID, SELFPAY | PROVIDERS: PCP Nurse Practitioner Family; Visit Provider Physician Assistant Medical | DX: G47.33 Obstructive sleep apnea (adult) (pediatric) (principal); G43.909 Migraine, unspecified, not intractable, without status migrainosus; G47.19 Other hypersomnia; G91.9 Hydrocephalus, unspecified; H81.93 Unspecified disorder of vestibular function, bilateral; Z99.89 Dependence on other enabling machines and devices; Z79.899 Other long term (current) drug therapy | CPT/HCPCS: 99212 ==

== ENCOUNTER 2024-12-15 13:46 | Outpatient (AMB) | payer MEDICARE, MEDICAID, SELFPAY ==
[2024-12-15 13:52] VITALS: BP 130/78; PULSE 100; O2SAT 96; BMI 38.0
--- NOTE | 2024-12-15 13:52 | A.OFFPC_ITS ---
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 Accompanied by: Self / Same As Patient Allergies Iodinated Contrast Media [IV Contrast Dye] Allergy (Verified 12/15/24 13:52) Unknown latex Allergy (Verified 12/15/24 13:52) Unknown meperidine [From Demerol] Allergy (Verified 12/15/24 13:52) Unknown shellfish derived Allergy (Verified 12/15/24 13:52) Unknown Medication List - Last Reconciled 12/15/24 by BOB Barrett- albuterol sulfate 90 mcg/actuation 2 puffs inhalation Q6H PRN 30 days aspirin (Adult Aspirin Regimen) 81 mg PO DAILY blood sugar diagnostic (Link To [employer] Verio test strips) test blood sugar twice a day blood-glucose meter (web care [employer] Verio Flex Meter) As directed bupropion HCl XL 300 mg PO QAM cholecalciferol (vitamin D3) 50 mcg PO DAILY finasteride 5 mg PO DAILY fluticasone propionate 50 mcg/actuation sprays intranasal haqnhqlbyho-dhzklfpqt-bugwwksa 100-62.5-25 mcg (Trelegy Ellipta) 1 inh inhalation DAILY lancets (Link To [employer] Delica Plus Lancet) Test blood sugar once a day lisinopril-hydrochlorothiazide 20-25 mg 1 tab PO DAILY 90 days metformin ER 1,000 mg (2 x 500 mg) PO BID 90 days rosuvastatin 20 mg PO DAILY 90 days semaglutide (Ozempic) 2 mg subcut QWEEK Tobacco use date assessed: 09/17/24 Dental Screening Dental Screen Date: 09/17/24 HPI 3m follow up dm HPI Details Chief Complaint Follow-up for diabetes, reporting intermittent neuropathy in toes. History of Present Illness The patient is a 59-year-old male presenting with a follow-up for diabetes management. 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 The neuropathy is not associated with polyuria or polydipsia, and he is currently managed with a GLP-1 agonist and metformin. The patient is also noted to be morbidly obese and has declined insulin therapy, expressing a desire to manage his condition with dietary changes. Additionally, he has hydrocephalus for which a shunt has been placed; this accompanies mild weakness in his extremities, with neurological findings of slight clonus being more pronounced in the left extremity. There were no reports of a stroke, and he maintains regular eye examinations. He follows up with neurology and there is a planned EMG and nerve conduction test to further evaluate his symptoms. Social History - Reports interest in managing diet for diabetes control. - No history of substance use was provid ed. Health Maintenance - Advised annual eye examinations. - Encouraged diet modification for impro lavinia diabetes control. - Regular monitoring of Hemoglobin A1c l evels. Review of Systems - Endocrine: Reports intermittent neurop athy primarily in toes. - Neurological: Reports weakness of bila teral extremities. - Genitourinary: Denies polyuria and ghassan ydipsia. -denies any cp or sob Physical Exam General: Cooperative, healthy appearing, comfortable, no acute distress and well developed. Morbidly obese. Orientation: Patient oriented x3 Limitations: No limitations Head: Normal to inspection Ears: Hearing grossly normal bilaterally Nose: Normal external nose present Face and sinus: Normal facial exam Eyes: Anisocoria noted Neck: Normal visual inspection and Yes full ROM Respiratory: Normal respiratory effort and able to speak in complete sentences. Clear to auscultation bilaterally Cardiovascular: Regular rate and rhythm. Normal S1 and S2 GI: Normal to inspection. Soft to palpation and nontender Skin: No rashes or lesions noted Neuro: Patient oriented x3. Reports some intermittent neuropathy mainly to his toes. Some clonus noted and muscular twitches in feet, especially with dorsiflexion and plantar flexion. Slight clonus left more than right. + sensation with use of monofilament, though decrease in sensation noted to left toes. Extremities: Normal to inspection. Reports some weakness of his bilateral extremities. Results - Labs: A1c reported at 7.6. - Neurology: Planned EMG and nerve condu ction study to be scheduled. Plan The patient opted for dietary changes over insulin therapy. Regarding neuropathy and extremity weakness, a neurology consultation and further testing through an EMG and nerve conduction study were suggested. Continued follow-up for neurology and yearly eye exams were reinforced. follow up with both neuro and neuro-surg Discussion Notes I discussed with the patient the current management of his Type 2 Diabetes Mellitus including the introduction of Jardiance as an adjunct therapy to achieve better glycemic control. We reviewed alternatives, including insulin therapy, but the patient prefers lifestyle changes to medication intensification at this time. I emphasized the potential benefits of Jardiance, including cardiovascular protection, and discussed naik points such as monitoring for hypoglycemia. The patient was advised of the importance of ongoing monitoring through regular labs and eye examinations. We discussed the significance of ruling out underlying neuropathologic causes for his intermittent neuropathy through electromyography and nerve conduction studies, given the observed bilateral weakness and clonus. The patient was agreeable to the plan and acknowledged the necessity of follow-ups with neurology. Patient Instructions - Begin taking Jardiance as directed tere muñoz with other diabetes medications. - Make dietary changes to better manage blood sugar levels and weight - Schedule an EMG and nerve conduction t est as advised. - Keep up with yearly eye exams. - Monitor symptoms closely and report an y significant changes to our office. - Follow up with neurology for further a ssessment. 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 H/O colonoscopy Family History Mother Brain malignant neoplasm Social History Housing: Apartment Alcohol intake: former Patient Tobacco Use Status: Former Tobacco user Years Smoked: 31 years ago e-Cigarette/Vaping Use: Never Used Second Hand Smoke Exposure: No service: No Current occupational status: retired and disabled Cognitive needs: No Hearing needs: No Vision needs: No Questionnaire Thrive Questionnaire Date Thrive assessed: 12/15/24 I am a: Patient What is your living situation today?: I have a steady place to live Within the past 12 months, did the food you bought not last and you didn't have the money to get more?: Never true Within the past 12 months, did you worry whether your food would run out before you got money to buy more?: Never true Do you have trouble paying for medicines?: No Do you have trouble getting transportation to medical appointments?: No Do you have trouble paying your heating and electricity bill?: No Do you have trouble taking care of your child, family member or friend?: I choose not to answer this question Do you have trouble with day-to-day activities such as bathing, preparing meals, shopping, managing finances, etc.?: No Are you currently unemployed and looking for a job?: I choose not to answer this question Are you interested in more education?: I choose not to answer this question Please select the resources that you would like help with: None Currently or been in a relationship where the following occur: I choose not to answer THRIVE Score: 0 AUDIT C Alcohol Use Questionnaire (AUDIT-C) 1. How often do you have a drink containing alcohol?: Never 3. How often do you have six or more drinks on one occasion?: Never Total Score: 0 Score Reviewed/Action Taken: Yes DANIEL-7 AMB Questionnaire DANIEL-7 Date DANIEL - 7 assessed: 09/17/24 Source: Developed by Drs. Vinicius Maria, Marry Trejo, Andi Uribe and colleagues, with an educational ky from [employer] Physical exam (Primary Care) Vital Signs: Last Vital Signs Pulse 100 12/15/24 13:52 BP 130/78 12/15/24 13:52 Pulse Ox 96 12/15/24 13:52 BMI result Body Mass Index 38.0 Tobacco/Smoking Status: Tobacco use Status Tobacco use date assessed 09/17/24 12/15/24 13:53 Patient Tobacco Use Status Former Tobacco user 12/15/24 13:53 e-Cigarette/Vaping Use Never Used 12/15/24 13:53 Thrive Assessment: Date of Thrive Assessment Date Thrive assessed 12/15/24 12/15/24 13:53 Currently or been in a relationship where the following occur: I choose not to answer Results AMB Hemoglobin A1c AMB Hemoglobin A1c 7.6 % Last Edit by Gary Braden CMA on 12/15/24 14: 37 Results Reviewed Results Reviewed: Laboratory Last Values Hgb A1c (Clinic) 7.6 % (4.0-6.0) H 12/15/24 14:01 Coding Level of Care Code Est Pt Level 3 (13679) Diagnoses Muscle spasms of lower extremity M62. Assessment & Plan Assessment & Plan (1) Muscle spasms of lower extremity: Code(s): M62.838 - Other muscle spasm Category: Medical Plan . Orders: Orders NE electromyogram (EMG) Today - Other muscle spasm AMB Hemoglobin A1c Today Z13.9 - Encounter for screening, unspecified NE nerve conduction velocity Today . - Other muscle spasm Medications: New semaglutide (Ozempic) 2 mg (0.75 mL) subcut QWEEK 3 mL 0RF empagliflozin (Jardiance) 10 mg PO DAILY 30 tabs 3RF 30 days clotrimazole-betamethasone 1-0.05 % 1 appl topical BID 45 grams 0RF 2 weeks Refilled phxygyggtpx-xvrmpircr-deuovyvp 100-62.5-25 mcg (Trelegy Ellipta) 1 inh inhalation DAILY 60 ea 4RF albuterol sulfate 90 mcg/actuation 2 puffs inhalation Q6H PRN 8.5 grams 5RF shortness of breath or wheezing 30 days
--- OUTSIDE RECORDS SUMMARY | 2024-12-15 16:30 | XMS_ITS | Data Portability ---
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 Name Role Phone JUAN ANTONIO DONOVAN Movement Assembly Final Inspector JUAN ANTONIO LADD Primary Care Provider Assessment Encounter Date Assessment Date Assessment LastModified by Organization Details LastModified Time 02/15/2024 02/15/2024 type 2 diabetes mellitus with [...] hyperkeratotic lesion jerskine Not available 09/26/2024 12:38:47 12/05/2024 12/05/2024 type 2 diabetes mellitus with peripheral neuropathy, onychauxis bilateral hallux, hyperkeratotic lesion [email or web address] Not available 12/04/2024 12:43:15 Plan of Treatment Reminders Order Date Submit Date Provider Last Modified By Organization Details Last Modified Time Details Appointments Routine Foot Care 15 2024 09:00A M Juan Antonio Donovan DPM Not available Not available Not available Lab None recorded . Referral None recorded . Procedures None recorded . Surgeries None recorded . Imaging None recorded . Medication Orders None recorded . Patient TargetsNo targets recorded. Patient Instructions Encounter Date Encounter Id Patient Instructions Last Modified By Organization Details Last Modified Time 02/15/2024 [id number] Patient to retur n in 9 weeks for foot care to reduce risk of complications associated with type 2 diabetes mellitus with peripheral neuropathy. jerskine Not available 02/15/2024 11:17:29 05/02/2024 [id number] Patient to retur n in 9 weeks for foot care to reduce risk of complications associated with type 2 diabetes mellitus with peripheral neuropathy. jerskine Not available 05/02/2024 12:12:33 07/11/2024 [id number] Patient to retur n in 9 weeks for foot care to reduce risk of complications associated with type 2 diabetes mellitus with peripheral neuropathy. jerskine Not available 07/11/2024 12:05:19 09/26/2024 [id number] Patient to retur n in 9 weeks for foot care to reduce risk of complications associated with type 2 diabetes mellitus with peripheral neuropathy. jerskine Not available 09/26/2024 12:38:47 12/05/2024 [id number] Patient to retur n in 9 weeks for foot care to reduce risk of complications associated with type 2 diabetes mellitus with peripheral neuropathy. jerskine Not available 12/05/2024 11:22:58 Reason for Referral None Reported. Problems No Known Problems Medical Equipment None Reported. Allergies Allergen ID Allergen Name Allergen Category Reaction Reaction Severity Criticality Documentation Date Start Date Code Code System Note Provider Name and Address Organization Details Recorded Time [id number] latex environme nt,medica tion hives severe Not available 10/08/2017 80419 91 RxNorm Janice Levine MA [facility] 8 08:48:27 14957 Demerol medicatio n Not available Not available Not available 12/08/2011 95804 1 RxNorm Juan Antonio Donovan DPM [address] [facility] [place], [address], [facility] 2 09:09:55 01376 iodine medicatio n Not available Not available Not available 12/08/2011 5933 RxNorm Juan Antonio Donovan, RODRIGO [address] [facility] [place], [address], [facility] 2 09:09:55 Medications Name Sig Start Date [...] D3 50 mcg (2,000 unit) capsule TAKE 1 CAPSULE BY MOUTH DAILY active Not Available Not [...] Available Not Available Vitals Date Recorded Body weight Heart rate Systolic blood pressure Diastolic blood pressure Provider Name and Address Organization Details Last Updated DateTime 02/15/2024 992041.34 g 92 /min 129 mm[Hg] 67 mm[Hg] Sintia Sood [facility] 02/15/2024 10:54:32 Date Recorded Heart rate Systolic blood pressure Diastolic blood pressure Provider Name and Address Organization Details Last Updated DateTime 05/02/2024 77 /min 117 mm[Hg] 71 mm[Hg] Sintia Sood [facility] 05/02/2024 11:53:04 Date Recorded Heart rate Systolic blood pressure Diastolic blood pressure Provider Name and Address Organization Details Last Updated DateTime 07/11/2024 88 /min 125 mm[Hg] 73 mm[Hg] Sintia Sood [facility] 07/11/2024 11:48:57 Date Recorded Heart rate Systolic blood pressure Diastolic blood pressure Provider Name and Address Organization Details Last Updated DateTime 09/26/2024 93 /min 135 mm[Hg] 73 mm[Hg] Sintia Sood [facility] 09/26/2024 11:13:45 Date Recorded Body weight Provider Name an d Address Organization Details Last Updated DateTime 12/05/2024 275760.19 g Shanta Busby LPN [facility] 12/05/2024 10:45:14 Social History Question Answer Notes LastModified by Organizat ion Details LastModified Time Tobacco Smoking Status Former Smoker quit 1989 Sintia alexandra [facility] 10/11/2020 11:04:26 When Did You Quit Smoking? 16+yearssin marlon munguia [email or web address] Information not available 06/24/2021 What Was The Date Of Your Most Recent Tobacco Screening? 06/24/2021 [email or web address] Information not available 06/24/2021 Do You Or Have You Ever Used Any Other Forms Of Tobacco Or Nicotine? No [email or web address] Information not available 06/24/2021 Sex: Male Functional Status None recorded. Mental Status None recorded. Family History Nothing Reported. Medical History No medical history recorded. Immunizations Vaccine Type Date Status Note Provider Nam e and Address Organization Details Recorded Time COVID-19, mRNA, LNP-S, PF, 30 mcg/0.3 mL dose 12/23/2020 completed Sintia alexandra [facility] 02/17/2022 11:51:11 COVID-19, mRNA, LNP-S, PF, 30 mcg/0.3 mL dose 01/13/2021 completed Sintia alexandra [facility] 02/17/2022 11:51:01 Past Encounters Encounter ID Performer Location Encounter Start Date Encounter Closed Date Diagnosis/Indication Diagnosis SNOMED-CT Code Diagnosis ICD10 Code Diagnosis Note [id number] Podiatry, [address] [address] 12/08/2011 08:48:56 12/08/2011 09:26:53 [id number] Juan Antonio Donovan DPM Podiatry, [address] [address] 06/10/2012 11:27:56 06/10/2012 11:53:40 [id number] Juan Antonio Donovan DPM Podiatry, [address] [address] 09/10/2012 13:41:38 09/10/2012 14:04:36 [id number] Juan Antonio Donovan DPM Podiatry, [address] [address] 12/10/2012 13:38:32 12/10/2012 13:57:06 [id number] Juan Antonio Donovan DPM Podiatry, [address] [address] 02/11/2013 13:56:13 02/11/2013 14:18:07 [id number] Juan Antonio Donovan DPM Podiatry, [address] [address] 04/22/2013 14:03:42 04/22/2013 14:44:43 Disorder of nervous system due to type 2 diabetes mellitus 624139926 Corns and callus 820691958 Disorder of nail 02139350 [id number] Rebecca Corral Podiatry, [address] [address] 07/07/2013 14:15:12 07/07/2013 15:09:46 Disorder of nervous system due to type 2 diabetes mellitus 115062695 Corns and callus 362264171 Disorder of nail 72173756 [id number] Lourdes Candelaria Podiatry, [address] [address] 09/12/2013 09:44:57 09/12/2013 14:17:17 Disorder of nervous system due to type 2 diabetes mellitus 418788120 Corns and callus 553726780 Disorder of nail 33004262 Tinea pedis 5947455 [id number] Juan Antonio Donovan DPM Podiatry, [address] [address] 11/17/2013 11:48:38 11/17/2013 12:12:24 Disorder of nervous system due to type 2 diabetes mellitus 382206162 Corns and callus 940970990 Disorder of nail 64468618 Tinea pedis 4590421 [id number] Rebecca Corral Podiatry, [address] [address] 01/19/2014 11:27:07 01/19/2014 14:50:29 Disorder of nervous system due to type 2 diabetes mellitus 597548051 Corns and callus 790605507 Disorder of nail 71319580 [id number] Gabriela Theodore MA Podiatry, [address] [address] 05/04/2014 10:07:35 05/04/2014 10:59:21 Disorder of nervous system due to type 2 diabetes mellitus 419736672 Corns and callus 094215967 Disorder of nail 09652348 [id number] Gabriela Theodore MA Podiatry, [address] [address] 07/10/2014 09:53:16 07/10/2014 10:51:53 Disorder of nervous system due to type 2 diabetes mellitus 543844602 Corns and callus 144322048 Disorder of nail 18861691 [id number] Juan Antonio Donovan DPM Podiatry, [address] [address] 09/11/2014 09:52:49 09/11/2014 10:17:22 Disorder of nervous system due to type 2 diabetes mellitus 953951788 Disorder of nail 19819521 [id number] Alyson Person Podiatry, [address] [address] 11/13/2014 10:25:27 11/13/2014 11:01:31 Disorder of nervous system due to type 2 diabetes mellitus 459169262 Disorder of nail 26092007 [id number] Rakel Pak Podiatry, [address] [address] 1 01/15/2015 10:20:36 01/15/2015 11:07:20 Disorder of nervous system due to type 2 diabetes mellitus 887135739 Disorder of nail 65715918 [id number] Alyson Person Podiatry, [address] [address] 04/09/2015 10:14:06 04/09/2015 10:55:24 Disorder of nervous system due to type 2 diabetes mellitus 415776351 Disorder of nail 85731755 [id number] Calista Carranza Podiatry, [address] [address] 06/11/2015 10:15:27 06/18/2015 10:55:59 Disorder of nervous system due to type 2 diabetes mellitus 014526962 E11.49 Hypertrophy of nail 3065 4002 L60.2 Corns and callus 7175806 00 L84 [id number] Juan Antonio Donovan DPM Podiatry, [address] [address] 08/23/2015 08:48:48 08/23/2015 09:40:16 Disorder of nervous system due to type 2 diabetes mellitus 152900445 E11.49 Hypertrophy of nail 3065 4002 L60.2 Corns and callus 3648645 00 L84 [id number] Juan Antonio Donovan DPM Podiatry, [address] [address] 10/25/2015 09:21:24 10/25/2015 10:04:39 Disorder of nervous system due to type 2 diabetes mellitus 946440925 E11.49 Hypertrophy of nail 3065 4002 L60.2 Corns and callus 5374440 00 L84 [id number] Juan Antonio Donovan DPM Podiatry, [address] [address] 01/14/2016 09:49:51 01/14/2016 10:19:13 Disorder of nervous system due to type 2 diabetes mellitus 404553352 E11.49 Hypertrophy of nail 3065 4002 L60.2 Corns and callus [id number] 00 L84 [id number] Juan Antonio Donovan DPM Podiatry, [address] [address] 1 05/01/2016 12:20:06 05/01/2016 12:50:27 Disorder of nervous system due to type 2 diabetes mellitus 585466100 E11.49 Hypertrophy of nail 3065 4002 L60.2 Corns and callus 6092603 00 L84 [id number] Juan Antonio Donovan DPM Podiatry, [address] [address] 07/03/2016 09:10:26 07/03/2016 09:34:22 Disorder of nervous system due to type 2 diabetes mellitus 709652808 E11.49 Hypertrophy of nail 3065 4002 L60.2 Corns and callus 7111147 00 L84 [id number] Juan Antonio Donovan DPM Podiatry, [address] [address] 09/04/2016 09:09:03 09/04/2016 09:52:22 Disorder of nervous system due to type 2 diabetes mellitus 656281628 E11.49 Hypertrophy of nail 3065 4002 L60.2 Corns and callus 1859076 00 L84 [id number] Juan Antonio Donovan DPM Podiatry, [address] [address] 1 11/06/2016 09:21:12 11/06/2016 10:12:34 Disorder of nervous system due to type 2 diabetes mellitus 745267192 E11.49 Hypertrophy of nail 3065 4002 L60.2 Corns and callus 7887433 00 L84 [id number] Juan Antonio Donovan DPM Podiatry, [address] [address] 01/08/2017 09:04:29 01/08/2017 09:47:10 Disorder of nervous system due to type 2 diabetes mellitus 733419720 E11.49 Hypertrophy of nail 3065 4002 L60.2 Corns and callus 0374439 00 L84 [id number] Juan Antonio Donovan DPM Podiatry, [address] [address] 1 04/02/2017 14:04:53 04/02/2017 14:43:48 Disorder of nervous system due to type 2 diabetes mellitus 172590612 E11.49 Hypertrophy of nail 3065 4002 L60.2 Corns and callus 8586125 00 L84 [id number] Juan Antonio Donovan DPM Podiatry, [address] [address] 1 06/04/2017 08:42:20 06/04/2017 09:12:33 Disorder of nervous system due to type 2 diabetes mellitus 781529757 E11.49 Hypertrophy of nail 3065 4002 L60.2 Corns and callus 9989413 00 L84 [id number] Juan Antonio Donovan DPM Podiatry, [address] [address] 1 08/06/2017 08:48:57 08/06/2017 09:31:52 Disorder of nervous system due to type 2 diabetes mellitus 501699886 E11.49 Hypertrophy of nail 3065 4002 L60.2 Corns and callus 1814621 00 L84 [id number] Juan Antonio Donovan DPM Podiatry, [address] [address] 10/08/2017 08:41:51 10/08/2017 09:08:16 Disorder of nervous system due to type 2 diabetes mellitus 679068580 E11.49 Hypertrophy of nail 3065 4002 L60.2 Corns and callus [id number] 00 L84 [id number] Juan Antonio Donovan DPM Podiatry, [address] [address] 12/10/2017 08:30:40 12/10/2017 09:03:26 Disorder of nervous system due to type 2 diabetes mellitus 724558693 E11.49 Hypertrophy of nail 3065 4002 L60.2 Corns and callus 0192922 00 L84 [id number] Juan Antonio Donovan DPM Podiatry, [address] [address] 1 02/11/2018 09:22:32 02/11/2018 10:12:18 Disorder of nervous system due to type 2 diabetes mellitus 752136889 E11.49 Hypertrophy of nail 3065 4002 L60.2 Corns and callus 2791996 00 L84 [id number] Juan Antonio Donovan DPM Podiatry, [address] [address] 1 05/03/2018 09:22:28 05/13/2018 06:31:22 Disorder of nervous system due to type 2 diabetes mellitus 184741573 E11.49 Hypertrophy of nail 3065 4002 L60.2 Corns and callus 1336657 L84 [id number] Juan Antonio Donovan DPM Podiatry, [address] [address] 1 07/05/2018 10:48:01 07/05/2018 11:34:36 Disorder of nervous system due to type 2 diabetes mellitus 825435515 E11.49 Hypertrophy of nail 3065 4002 L60.2 Corns and callus 3220340 00 L84 [id number] Juan Antonio Donovan DPM Podiatry, [address] [address] 1 10/11/2018 09:47:33 10/11/2018 10:39:23 Disorder of nervous system due to type 2 diabetes mellitus 373616747 E11.49 Hypertrophy of nail 3065 4002 L60.2 Corns and callus 4675923 L84 [id number] Juan Antonio Donovan DPM Podiatry, [address] [address] 1 12/13/2018 10:04:31 12/13/2018 15:33:22 Disorder of nervous system due to type 2 diabetes mellitus 024784101 E11.49 Hypertrophy of nail 3065 4002 L60.2 Corns and callus [id number] 00 L84 [id number] Juan Antonio Donovan DPM Podiatry, [address] [address] 1 06/13/2019 10:05:05 06/13/2019 10:57:12 Disorder of nervous system due to type 2 diabetes mellitus 742022682 E11.49 Hypertrophy of nail 3065 4002 L60.2 Corns and callus [id number] 00 L84 [id number] Juan Antonio Donovan DPM Podiatry, [address] [address] 1 08/22/2019 09:53:48 08/22/2019 10:48:16 Disorder of nervous system due to type 2 diabetes mellitus 359009359 E11.49 Hypertrophy of nail 3065 4002 L60.2 Corns and callus [id number] 00 L84 [id number] Juan Antonio Donovan DPM Podiatry, [address] [address] 1 10/24/2019 09:42:02 10/24/2019 10:41:42 Disorder of nervous system due to type 2 diabetes mellitus 131833860 E11.49 Hypertrophy of nail 3065 4002 L60.2 Corns and callus [id number] 00 L84 [id number] Juan Antonio Donovan DPM Podiatry, [address] [address] 1 10/11/2020 10:51:37 10/14/2020 12:14:57 Disorder of nervous system due to type 2 diabetes mellitus 344328189 E11.49 Hypertrophy of nail 3065 4002 L60.2 Corns and callus [id number] 00 L84 [id number] Juan Antonio Donovan DPM Podiatry, [address] [address] 1 12/27/2020 14:53:31 12/28/2020 11:48:55 Disorder of nervous system due to type 2 diabetes mellitus 404544162 E11.49 Hypertrophy of nail 3065 4002 L60.2 Corns and callus 5412554 00 L84 [id number] Juan Antonio Donovan DPM Podiatry, [address] [address] 1 06/24/2021 08:50:50 06/24/2021 09:45:47 Disorder of nervous system due to type 2 diabetes mellitus 463857183 E11.49 Hypertrophy of nail 3065 4002 L60.2 Corns and callus 0690769 00 L84 [id number] Juan Antonio Donovan DPM Podiatry, [address] [address] 1 02/17/2022 11:01:15 02/17/2022 12:16:29 Disorder of nervous system due to type 2 diabetes mellitus 350047562 E11.49 Hypertrophy of nail 3065 4002 L60.2 Corns and callus 8934095 00 L84 [id number] Juan Antonio Donovan DPM Podiatry, [address] [address] 1 05/15/2022 09:44:13 05/18/2022 11:08:52 Disorder of nervous system due to type 2 diabetes mellitus 175371581 E11.49 Hypertrophy of nail 3065 4002 L60.2 Corns and callus 2478307 00 L84 [id number] Juan Antonio Donovan DPM Podiatry, [address] [address] 1 08/28/2022 09:22:29 08/28/2022 09:44:12 Disorder of nervous system due to type 2 diabetes mellitus 970761974 E11.49 Hypertrophy of nail 3065 4002 L60.2 Corns and callus 5090691 00 L84 [id number] Juan Antonio Donovan DPM Podiatry, [address] [address] 1 11/06/2022 09:37:53 11/06/2022 11:49:20 Disorder of nervous system due to type 2 diabetes mellitus 894805735 E11.49 Hypertrophy of nail 3065 4002 L60.2 Corns and callus 2054185 00 L84 [id number] Juan Antonio Donovan DPM Podiatry, [address] [address] 1 01/22/2023 08:40:00 01/22/2023 14:25:59 Disorder of nervous system due to type 2 diabetes mellitus 847782652 E11.49 Hypertrophy of nail 3065 4002 L60.2 Corns and callus 4018536 00 L84 [id number] Juan Antonio Donovan DPM Podiatry, [address] [address] 1 05/07/2023 11:09:49 05/07/2023 13:47:43 Disorder of nervous system due to type 2 diabetes mellitus 269459675 E11.49 Cellulitis of toe of right foot 7137100206 0597068 L03.156 [id number] Juan Antonio Donovan DPM Podiatry, [address] [address] 1 05/18/2023 09:15:40 05/18/2023 09:49:31 Disorder of nervous system due to type 2 diabetes mellitus 005791280 E11.49 Cellulitis of toe of right foot 8873281615 4160754 L03.370 [id number] Juan Antonio Donovan DPM Podiatry, [address] [address] 07/27/2023 10:52:23 07/27/2023 13:52:36 Disorder of nervous system due to type 2 diabetes mellitus 347736266 E11.49 Hypertrophy of nail 3065 4002 L60.2 Corns and callus 6598230 00 L84 [id number] Juan Antonio Donovan DPM Podiatry, [address] [address] 1 10/12/2023 11:25:06 10/24/2023 14:24:04 Disorder of nervous system due to type 2 diabetes mellitus 735256962 E11.49 Hypertrophy of nail 3065 4002 L60.2 Corns and callus 6740742 00 L84 [id number] Juan Antonio Donovan DPM Podiatry, [address] [address] 1 12/14/2023 11:16:49 12/19/2023 13:01:30 Disorder of nervous system due to type 2 diabetes mellitus 185312737 E11.49 Hypertrophy of nail 3065 4002 L60.2 Corns and callus 6272735 00 L84 [id number] Juan Antonio Donovan DPM Podiatry, [address] [address] 1 02/15/2024 10:39:06 03/11/2024 11:31:52 Disorder of nervous system due to type 2 diabetes mellitus 733512026 E11.49 Hypertrophy of nail 3065 4002 L60.2 Corns and callus 6965925 00 L84 [id number] Juan Antonio Donovan DPM Podiatry, [address] [address] 1 05/02/2024 11:32:52 05/02/2024 12:35:20 Disorder of nervous system due to type 2 diabetes mellitus 314873181 E11.49 Hypertrophy of nail 3065 4002 L60.2 Corns and callus 8611249 00 L84 [id number] Juan Antonio Donovan DPM Podiatry, [address] [address] 1 07/11/2024 11:41:19 07/11/2024 12:15:20 Disorder of nervous system due to type 2 diabetes mellitus 031759300 E11.49 Hypertrophy of nail 3065 4002 L60.2 Corns and callus 8174516 00 L84 [id number] Juan Antonio Donovan DPM Podiatry, [address] [address] 1 09/26/2024 10:50:14 10/06/2024 17:02:35 Disorder of nervous system due to type 2 diabetes mellitus 571860794 E11.49 Hypertrophy of nail 3065 4002 L60.2 Corns and callus 2465891 00 L84 [id number] Juan Antonio Donovan DPM Podiatry, [address] [address] 1 12/05/2024 10:44:42 12/10/2024 12:38:07 Disorder of nervous system due to type 2 diabetes mellitus 088830737 E11.49 Hypertrophy of nail 3065 4002 L60.2 Corns and callus 9435670 00 L84 Health Concerns Section Related Observation LastModified by Organization Detai ls LastModified Time None Recorded Concern Status LastModified by Organization Details LastModified Time None Recorded Advance Directives Directive None Recorded Payers Encounter Date Sequence Insurance Name Policy Number Policy Hay Covered Member ID Hay Member ID Guarantor Name 02/15/2024 1 [place] [employer] Sagar Huggins [id number] Sagar Huggins 02/15/2024 2 [place] [facility] Sagar Huggins [id number] Sagar Huggins 05/02/2024 1 [place] [employer] Sagar Huggins [id number] Sagar Huggins 05/02/2024 2 [place] [facility] Sagar Huggins [id number] Sagar Huggins 07/11/2024 1 [place] [employer] Sagar Huggins [id number] Sagar Huggins 07/11/2024 2 [place] [facility] Sagar Huggins [id number] Sagar Huggins 09/26/2024 1 [place] [facility] Sagar Huggins [id number] Sagar Huggins 09/26/2024 2 [place] [facility] Sagar Huggins [id number] Sagar Huggins 12/05/2024 1 [place] [facility] Sagar Huggins [id number] Sagar Huggins 12/05/2024 2 [place] [facility] Sagar Huggins [id number] Sagar Huggins Notes Date Note Type Note Provider Name and Address Organization Details Recorded Time 02/15/2024 text/html Patient with 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 Patient complains of thick toenails and callus that he isn't able to care for himself. Patient with no complaints of open wound or drainage. Patient seen by Vinicius Aguilar MD on 12/28/23. Juan Antonio Donovan DPM [address] [place] [address], [phone], [facility] 02/15/2024 11:18:32 05/02/2024 text/html Patient with 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 Patient complains of thick toenails as well as callus he's not able to care for himself. Patient with no complaints of open wound or drainage. Patient seen by Vinicius Aguilar MD on 12/28/23. Juan Antonio Donovan DPM [address] [place] [address], [phone], [facility] 05/02/2024 12:13:57 07/11/2024 text/html Patient with 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 Patient complains of thick toenails as well as callus he's not able to care for himself. Patient with no complaints of open wound or drainage. Patient seen by Meena Negron MD on 05/22/24. Juan Antonio Donovan DPM [address] [place] [address], [phone], [facility] 07/11/2024 12:06:50 09/26/2024 text/html Patient with 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 Patient complains of thickened toenails and callus he's not able to care for himself. Patient with no complaints of open wound or drainage. Patient seen by Meena Negron MD on 05/22/24. Juan Antonio Donovan DPM [address] [place], [address], [facility] 09/26/2024 12:39:51 12/05/2024 text/html Patient with 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 Patient complains of thickened toenails and callus he's not able to care for himself, but has no complaints of open wound or drainage. Patient seen by Meena Negron MD on 05/22/24. Juan Antonio Donovan DPM [address] [place], [address], [facility] 12/05/2024 11:24:20
--- OUTSIDE RECORDS SUMMARY | 2024-12-15 16:30 | XMS_ITS | Data Portability ---
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 Name Role Phone JUAN ANTONIO LADD Primary [...] Recorded Time Sudden idiopath ic hearing loss [id number] Active 2018 Sudden idiopath ic hearing loss, right ear; Note: Changed from H91.20 to H91.21 (02/06/20 19 12:29 PM) , Date Diagnose d: 9 9:51 AM (H91.20) Not Available [facility] 4 02:37:03 Impacted cerumen in right ear [id number] 88917 Active 2020 Impacted cerumen, right ear; Note: Date Diagnose d: 1 11:16 AM (H61.21) Not Available [facility] 4 02:37:11 Candidal otitis externa 59778972 Completed 202003/21/2024 Candidal otitis externa; Note: Date Diagnose d: 1 1:38 PM (B37.84) Not Available [facility] 4 02:36:57 Diffuse otitis externa 57002558 Completed 202003/21/2024 Diffuse otitis externa, right ear; Note: Date Diagnose d: 1 1:38 PM (H60.311 ) Not Available [facility] 4 02:37:03 Asymmetr ical sensorin eural hearing loss 153133481 Active 2014 Sensorin eural HL, asymmetr ic; Note: Date Diagnose d: 5 10:39 AM (389.16) Sensor ineural hearing los asymmetr ic; Note: Date Diagnose d: 06/04/20 14 11:48 AM (389.16) ; Start Date : 06/04/20 14 Not Available [facility] 4 02:37:09 Impacted cerumen of bilatera l ears 12380619149 41460 Active 2019 Impacted cerumen, bilatera l; Note: Date Diagnose d: 0 3:42 PM (H61.23) Not Available [facility] 4 02:37:06 Sensorin eural hearing loss of bilatera l ears 394552701 Active 2014 Hearing loss: Sensorin eural hearing loss, bilatera l; Note: Date Diagnose d: 06/04/20 14 11:16 AM (389.18) ; Start Date : 06/04/20 14 Senso rineural hearing loss, bilatera l; Note: Date Diagnose d: 06/08/20 15 9:17 AM (H90.3) Not Available [facility] 4 02:37:02 Dizzines s and giddines s 675414627 Active 2020 Vertigo NOS; Note: Date Diagnose d: 1 11:20 AM (R42) Not Available [facility] 4 02:37:07 Headache 56744198 Active 2022 Headache , unspecif ied; Note: Date Diagnose d: 3 11:13 AM (R51.9) Not Available [facility] 4 02:37:03 Tinnitus 26471763 Active 2013 Tinnitus , unspecif ied; Note: Date Diagnose d: 06/04/20 14 11:48 AM (388.30) Not Available [facility] 4 02:36:57 Type 2 diabetes mellitus without complica tion 519087552 Active 2022 Type 2 diabetes mellitus without complica tions; Note: Date Diagnose d: 3 11:09 AM (E11.9) Not Available [facility] 4 02:36:59 M? ? ?ni? ? ?re's disease 61384102 Active 2019 Meniere' s disease, right ear; Note: Date Diagnose d: 0 4:18 PM (H81.01) Not Available [facility] 4 02:37:10 Disorder of right Eustachi an tube 40315888896 14941 Active 2018 Other specifie d disorder s of Eustachi an tube, right ear; Note: Date Diagnose d: 9 9:20 AM (H69.81) Not Available [facility] 4 02:37:14 Hydrocep halus 608433714 Active 2022 Hydrocep halus, unspecif ied; Note: Date Diagnose d: 3 11:07 AM (G91.9) Not Available [facility] 4 02:37:10 Problem Notes None recorded. Procedures Surgical History Date Name Laterality Status Provider Name and Address Organization Details Recorded Time Cerumen removal with microscope bilateral completed SCOTT VILLARREAL MD [address] [facility],[place] [address], [place], [address], [facility] - [facility] 03/26/2024 10:08:28 Imaging Results Imaging Date Name [...] Name and Address Organization Details Recorded Time 062029 Iodinated contrast media (substanc e) medicatio n Not available Not available Not available 03/26/2024 65631 2003 SNOMED Trinidad alexandra [place] - [facility] 09:43:16 635187 latex environme nt,medica tion Not available Not available Not available 03/26/2024 81203 91 RxNorm Trinidad alexandra [place] - [facility] 4 09:43:28 043650 shellfish derived food,medi cation Not available Not available Not available 03/26/2024 17315 UNK Trinidad alexandra [place] - [facility] 4 09:43:36 97939 meperidin e hydrochlo ride medicatio n other Not available Not available 01/01/2024 05946 5 RxNorm React ion: unkno wn, unspe cifie d;; Not Available [facility] 4 01:03:53 Medications Name Sig Start Date [...] mg tablet 04/22 completed Medicati on ID: [id number] P trice munguia By Name: Leah Nuñez [...] mg tablet 02/05 completed Medicati on ID: [id number] Du ration Value: 30 Reason: () Brand Name: topirama te Send Method: E-Prescr ibed Sub s Allowed: subs OK Medic ationGen ericName : topirama te Not Available Not Available Not Available ciproflox acin 500 mg tablet 1 tablet by mouth 03/26 completed Medicati on ID: [id number] D uration Value: 10 Prescri bed By [...] sustained -release 02/05 completed Medicati on ID: [id number] D uration Value: 30 Reason: () Brand [...] 5830 Dur ation Value: 30 Brand Name: simkyleighta tin Send Method: E-Prescr ibed Sub s Allowed: subs OK Speci al Instruct ion: TAKE 1 TABLET BY MOUTH EVERY DAY AT BEDTIME Medicati onGeneri cName: simvasta tin Not Available Not Available Not Available meclizine 25 mg tablet active Medicati on ID: [id number] B rand Name: meclizin e Send Method: E-Prescr ibed Sub s Allowed: subs OK Medic ationGen ericName : meclizin e Not Available Not Available Not Available cephalexi n 500 mg capsule TAKE ONE CAPSULE BY MOUTH TWICE A DAY 03/26 completed Not Available Not Available Not Available clotrimaz ole 1 % topical solution 03/26 completed Medicati on ID: [id number] D uration Value: 14 Prescri bed By Name: RUKHSANA Renner nd Name: clotrinicola munguia Method: E-Prescr ibed Sub s Allowed: [...] topical cream 06/29 completed Medicati on ID: [id number] D uration Value: 30 Brand Name: ketoconrolando [...] 750 mg tablet,ex tended release 24 hr 06/19/ 2019 08/07 /2024 completed Medicati on ID: [id number] D uration Value: 90 Brand Name: alla n Send Method: E-Prescr ibed Sub s Allowed: subs OK Medic ationGen ericName : alla n Not Available Not Available Not Available Ciprodex 0.3 %-0.1 % ear drops,kumar pension 4 drop into right ear 03/26 completed Medicati on ID: [id number] D uration Value: 14 Prescri bed By [...] Updated DateTime 03/26/2024 190.5 cm 40 kg/m2 814596.56 g Trinidad Martinez [place] - [facility] 03/26/2024 09:37:58 Social History None recorded. Functional Status None recorded. Mental Status None recorded. Family History Nothing Reported. Medical History Condition Response Diabetes Y Hypertension Y High Cholesterol Y Past Encounters Encounter ID Performer Location Encounter Start Date Encounter Closed Date Diagnosis/Indication Diagnosis SNOMED-CT Code Diagnosis ICD10 Code Diagnosis Note [id number] SCOTT VILLARREAL MD [facility] [address] [address] 03/26/2024 09:16:33 03/26/2024 10:12:40 Hydrocephalus 718143232 G91.9 Impacted c erumen of bilateral ears [id number] 663349 H61.23 Patient will follow-up with physician cashier assistant in 1 year for cerumen disimpacti on in light of his tendency to impact cerumen due to hearing aid use. Sensorineu ral hearing loss of bilateral ears 107002592 H90.3 Patient's ears appear healthy today following disimpacti on of cerumen. He did not have time for updated audiometri c testing today. I recommende d he contact his audiologis t at the [facility] audiology group to check on his hearing aids and to update his audiometri c testing if indicated. Dizziness and giddiness 311907155 R42 Overall, the patient seems to be doing much better with regards to his balance issues. His residual symptoms are more consistent with postural hypotensio n than anything going on in his inner ear. I would still recommend proceeding with the neurologic al evaluation as recommende d by Dr. Granados in light of his medical history and presence of REMOTE SENSING PROGRAM MANAGER shunt. Health Concerns Section Related Observation LastModified by Organization Detai ls LastModified Time None Recorded Concern Status LastModified by Organization Details LastModified Time None Recorded Advance Directives Directive None Recorded Payers Encounter Date Sequence Insurance Name Policy Number Policy Hay Covered Member ID Hay Member ID Guarantor Name 03/26/2024 2 [place] [facility] Sagar Huggins [id number] Sagar Huggins 03/26/2024 1 [place] [employer] Sagar Huggins [id number] Sagar Huggins Notes Date Note Type Note [...] Currently wearing binaural amplification dispensed through [facility] audiology. Patient has noticed more recently that [...] these vertigo attacks are not typical of M? ? ?ni? ? ?re's disease in the absence of significant hearing or tinnitus fluctuations. We discussed the possibility that this represented an underlying neurological phenomenon such as vestibular migraine or something having to do with his hydrocephalus and/or CSF shunt. As such I recommended following up with a neurologist. Patient did meet with Dr. Granados at [facility] neurosurgery who determined that his shunt seemed [...] but no true vertigo SCOTT VILLARREAL MD [address] [place] [address], [phone], [facility] - [facility] 03/26/2024 10:16:04
== END 2024-12-15 14:58 | disposition home or self-care (01) ==
LOC: HO.HMCC 13:46
PROVIDERS: PCP Nurse Practitioner Family; Visit Provider Nurse Practitioner Family
DX: M62.838 Other muscle spasm (principal); Z13.9 Encounter for screening, unspecified

== ENCOUNTER → 2024-12-15 13:46 | Outpatient (BNVA) | payer MEDICARE, MEDICAID, SELFPAY | PROVIDERS: PCP Nurse Practitioner Family; Visit Provider Nurse Practitioner Family | DX: M62.838 Other muscle spasm (principal) | CPT/HCPCS: 83036; 99212 ==

== ENCOUNTER 2024-12-17 10:49 | Outpatient (REF) | payer MEDICARE, MEDICAID, SELFPAY ==
--- OUTSIDE RECORDS SUMMARY | 2024-12-17 12:15 | XMS_ITS | Data Portability ---
Author Organization [place] - [facility], Allergy Address [address] [address] Care Team Providers Care Manager Presentation Name Role Phone JUAN ANTONIO LADD Primary [...] Recorded Time Sudden idiopath ic hearing loss 934113384 Active 2018 Sudden idiopath ic hearing loss, right ear; Note: Changed from H91.20 to H91.21 (02/06/20 19 12:29 PM) , Date Diagnose d: 9 9:51 AM (H91.20) Not Available [facility] 4 02:37:03 Impacted cerumen in right ear 03238606150 61385 Active 2020 Impacted cerumen, right ear; Note: Date Diagnose d: 1 11:16 AM (H61.21) Not Available [facility] 4 02:37:11 Candidal otitis externa 84676333 Completed 202003/21/2024 Candidal otitis externa; Note: Date Diagnose d: 1 1:38 PM (B37.84) Not Available [facility] 4 02:36:57 Diffuse otitis externa 99416507 Completed 202003/21/2024 Diffuse otitis externa, right ear; Note: Date Diagnose d: 1 1:38 PM (H60.311 ) Not Available [facility] 4 02:37:03 Asymmetr ical sensorin eural hearing loss 983391089 Active 2014 Sensorin eural HL, asymmetr ic; Note: Date Diagnose d: 5 10:39 AM (389.16) Sensor ineural hearing los asymmetr ic; Note: Date Diagnose d: 06/04/20 14 11:48 AM (389.16) ; Start Date : 06/04/20 14 Not Available [facility] 4 02:37:09 Impacted cerumen of bilatera l ears 36828073062 29451 Active 2019 Impacted cerumen, bilatera l; Note: Date Diagnose d: 0 3:42 PM (H61.23) Not Available [facility] 4 02:37:06 Sensorin eural hearing loss of bilatera l ears 596725198 Active 2014 Hearing loss: Sensorin eural hearing loss, bilatera l; Note: Date Diagnose d: 06/04/20 14 11:16 AM (389.18) ; Start Date : 06/04/20 14 Senso rineural hearing loss, bilatera l; Note: Date Diagnose d: 06/08/20 15 9:17 AM (H90.3) Not Available [facility] 4 02:37:02 Dizzines s and giddines s 403399590 Active 2020 Vertigo NOS; Note: Date Diagnose d: 1 11:20 AM (R42) Not Available [facility] 4 02:37:07 Headache 77115506 Active 2022 Headache , unspecif ied; Note: Date Diagnose d: 3 11:13 AM (R51.9) Not Available [facility] 4 02:37:03 Tinnitus 25145352 Active 2013 Tinnitus , unspecif ied; Note: Date Diagnose d: 06/04/20 14 11:48 AM (388.30) Not Available [facility] 4 02:36:57 Type 2 diabetes mellitus without complica tion 437926528 Active 2022 Type 2 diabetes mellitus without complica tions; Note: Date Diagnose d: 3 11:09 AM (E11.9) Not Available [facility] 4 02:36:59 M? ? ?ni? ? ?re's disease 45111045 Active 2019 Meniere' s disease, right ear; Note: Date Diagnose d: 0 4:18 PM (H81.01) Not Available [facility] 4 02:37:10 Disorder of right Eustachi an tube 12632840299 11187 Active 2018 Other specifie d disorder s of Eustachi an tube, right ear; Note: Date Diagnose d: 9 9:20 AM (H69.81) Not Available [facility] 4 02:37:14 Hydrocep halus 696877609 Active 2022 Hydrocep halus, unspecif ied; Note: Date Diagnose d: 3 11:07 AM (G91.9) Not Available [facility] 4 02:37:10 Problem Notes None recorded. Procedures Surgical History Date Name Laterality Status Provider Name and Address Organization Details Recorded Time Cerumen removal with microscope bilateral completed SCOTT VILLARREAL MD [address] [facility],[place] [address], [place], [address], [facility] - [facility] 03/26/2024 10:08:28 Imaging Results Imaging Date [...] Name and Address Organization Details Recorded Time 046871 Iodinated contrast media (substanc e) medicatio n Not available Not available Not available 03/26/2024 88170 2003 SNOMED Trinidad alexandra [place] - [facility] 09:43:16 568189 latex environme nt,medica tion Not available Not available Not available 03/26/2024 83219 91 RxNorm Trinidad alexandra [place] - [facility] 4 09:43:28 818458 shellfish derived food,medi cation Not available Not available Not available 03/26/2024 29244 UNK Trinidad alexandra [place] - [facility] 4 09:43:36 20623 meperidin e hydrochlo ride medicatio n other Not available Not available 01/01/2024 48957 5 RxNorm React ion: unkno wn, unspe cifie d;; Not Available [facility] 4 01:03:53 Medications Name Sig Start Date [...] mg tablet 04/22 completed Medicati on ID: [id number] P trice munguia By Name: Leah Nuñez [...] mg tablet 02/05 completed Medicati on ID: [id number] Du ration Value: 30 Reason: () Brand Name: topirama te Send Method: E-Prescr ibed Sub s Allowed: subs OK Medic ationGen ericName : topirama te Not Available Not Available Not Available ciproflox acin 500 mg tablet 1 tablet by mouth 03/26 completed Medicati on ID: [id number] D uration Value: 10 Prescri bed By [...] sustained -release 02/05 completed Medicati on ID: [id number] D uration Value: 30 Reason: () Brand [...] 25 mg tablet active Medicati on ID: [id number] B rand Name: meclizin e Send Method: E-Prescr ibed Sub s Allowed: subs OK Medic ationGen ericName : meclizin e Not Available Not Available Not Available cephalexi n 500 mg capsule TAKE ONE CAPSULE BY MOUTH TWICE A DAY 03/26 completed Not Available Not Available Not Available clotrimaz ole 1 % topical solution 03/26 completed Medicati on ID: [id number] D uration Value: 14 Prescri bed By [...] topical cream 06/29 completed Medicati on ID: [id number] D uration Value: 30 Brand Name: ketoconrolando [...] 2019 08/07 /2024 completed Medicati on ID: [id number] D uration Value: 90 Brand Name: alla n Send Method: E-Prescr ibed Sub s Allowed: subs OK Medic ationGen ericName : alla n Not Available Not Available Not Available Ciprodex 0.3 %-0.1 % ear drops,kumar pension 4 drop into right ear 03/26 completed Medicati on ID: [id number] D uration Value: 14 Prescri bed By [...] Updated DateTime 03/26/2024 190.5 cm 40 kg/m2 659179.56 g Trinidad Martinez [place] - [facility] 03/26/2024 09:37:58 Social History None recorded. Functional Status None recorded. Mental Status None recorded. Family History Nothing Reported. Medical History Condition Response Diabetes Y Hypertension Y High Cholesterol Y Past Encounters Encounter ID Performer Location Encounter Start Date Encounter Closed Date Diagnosis/Indication Diagnosis SNOMED-CT Code Diagnosis ICD10 Code Diagnosis Note [id number] SCOTT VILLARREAL MD [facility] [address] [address] 03/26/2024 09:16:33 03/26/2024 10:12:40 Hydrocephalus 327072060 G91.9 Impacted c erumen of bilateral ears 4275841240 057467 H61.23 Patient will follow-up with physician golf player assistant in 1 year for cerumen disimpacti on in light of his tendency to impact cerumen due to hearing aid use. Sensorineu ral hearing loss of bilateral ears 304058542 H90.3 Patient's ears appear healthy today following disimpacti on of cerumen. He did not have time for updated audiometri c testing today. I recommende d he contact his audiologis t at the [facility] audiology group to check on his hearing aids and to update his audiometri c testing if indicated. Dizziness and giddiness 672510193 R42 Overall, the patient seems to be doing much better with regards to his balance issues. His residual symptoms are more consistent with postural hypotensio n than anything going on in his inner ear. I would still recommend proceeding with the neurologic al evaluation as recommende d by Dr. Granados in light of his medical history and presence of REFUELING RAMPMAN shunt. Health Concerns Section Related Observation LastModified by Organization Detai ls LastModified Time None Recorded Concern Status LastModified by Organization Details LastModified Time None Recorded Advance Directives Directive None Recorded Payers Encounter Date Sequence Insurance Name Policy Number Policy Hay Covered Member ID Hay Member ID Guarantor Name 03/26/2024 2 [place] [facility] Sagar Huggins [id number] Sagar Huggins 03/26/2024 1 [place]IC[place] [employer] Sagar Huggins [id number] Sagar Huggins Notes Date Note Type Note [...] injections. Currently wearing binaural amplification dispensed through [facility] audiology. Patient has noticed more recently that [...] Patient did meet with Dr. Granados at [facility] neurosurgery who determined that his [...] but no true vertigo SCOTT VILLARREAL MD [address] [place] [address], [address], [facility] - [facility] 03/26/2024 10:16:04
--- OUTSIDE RECORDS SUMMARY | 2024-12-17 12:15 | XMS_ITS | Data Portability ---
Author Organization [facility], [facility] Address [address] [place] [address] Care Team Providers Care Plant Protection Supervisor Name Role Phone JUAN ANTONIO DONOVAN Blood Donor Unit Assistant JUAN ANTONIO LADD Primary Care Provider Assessment [...] peripheral neuropathy, onychauxis bilateral hallux, hyperkeratotic lesion [email or web address] Not available 12/04/2024 12:43:15 Plan of Treatment Reminders Order Date Submit Date Provider Last Modified By Organization Details Last Modified Time Details Appointments Routine Foot Care 15 2024 09:00A M JuanA ntonio Donovan DPM Not available Not available Not available Lab None recorded . Referral None recorded . Procedures None recorded . Surgeries None recorded . Imaging None recorded . Medication Orders None recorded . Patient TargetsNo targets recorded. Patient Instructions Encounter Date Encounter Id Patient Instructions Last Modified By Organization Details Last Modified Time 02/15/2024 [id number] Patient to retur n in 9 weeks for foot care to reduce risk of complications associated with type 2 diabetes mellitus with peripheral neuropathy. jerskine Not available 02/15/2024 11:17:29 05/02/2024 [id number] Patient to retur n in 9 weeks for foot care to reduce risk of complications associated with type 2 diabetes mellitus with peripheral neuropathy. jerskine Not available 05/02/2024 12:12:33 07/11/2024 [id number] Patient to retur n in 9 weeks for foot care to reduce risk of complications associated with type 2 diabetes mellitus with peripheral neuropathy. jerskine Not available 07/11/2024 12:05:19 09/26/2024 [id number] Patient to retur n in 9 weeks for foot care to reduce risk of complications associated with type 2 diabetes mellitus with peripheral neuropathy. jerskine Not available 09/26/2024 12:38:47 12/05/2024 [id number] Patient to retur n in 9 weeks [...] nt,medica tion hives severe Not available 10/08/2017 [id number] RxNorm Janice Levine MA [facility] 8 08:48:27 [id number] Demerol medicatio n Not available Not available Not available 12/08/2011 11322 1 RxNorm Juan Antonio Donovan DPM [address] [facility] [place], [address], [facility] 2 09:09:55 77751 iodine medicatio n Not available Not available Not available 12/08/2011 5933 RxNorm Juan Antonio Donovan, RODRIGO [address] [place] [place], [address], [facility] 2 09:09:55 Medications Name Sig Start Date [...] Address Organization Details Last Updated DateTime 02/15/2024 584988.34 g 92 /min 129 mm[Hg] 67 mm[Hg] Sintia Sood [facility] 02/15/2024 10:54:32 Date Recorded Heart rate Systolic blood pressure Diastolic blood pressure Provider Name and Address Organization Details Last Updated DateTime 05/02/2024 77 /min 117 mm[Hg] 71 mm[Hg] Sintia Sood [facility] 05/02/2024 11:53:04 Date Recorded Heart rate Systolic blood pressure Diastolic blood pressure Provider Name and Address Organization Details Last Updated DateTime 07/11/2024 88 /min 125 mm[Hg] 73 mm[Hg] Sintia Sood [facility] 07/11/2024 11:48:57 Date Recorded Heart rate Systolic blood pressure Diastolic blood pressure Provider Name and Address Organization Details Last Updated DateTime 09/26/2024 93 /min 135 mm[Hg] 73 mm[Hg] Sintia Sood [facility] 09/26/2024 11:13:45 Date Recorded Body weight Provider Name an d Address Organization Details Last Updated DateTime 12/05/2024 182892.19 g Shanta Busby LPN [facility] 12/05/2024 10:45:14 Social History Question Answer Notes LastModified by Organizat ion Details LastModified Time Tobacco Smoking Status Former Smoker quit 1989 Sintia alexandra [facility] 10/11/2020 11:04:26 When Did You Quit Smoking? 16+yearssin marlon munguia [email or web address] Information not available 06/24/2021 What Was The Date Of Your Most Recent Tobacco Screening? 06/24/2021 [email or web address] Information not available 06/24/2021 Do You Or Have You Ever Used Any Other Forms Of Tobacco Or Nicotine? No [email or web address] Information not available 06/24/2021 Sex: Male Functional Status None recorded. Mental Status None recorded. Family History Nothing Reported. Medical History No medical history recorded. Immunizations Vaccine Type Date Status Note Provider Nam e and Address Organization Details Recorded Time COVID-19, mRNA, LNP-S, PF, 30 mcg/0.3 mL dose 12/23/2020 completed Sintia alexandra [facility] 02/17/2022 11:51:11 COVID-19, mRNA, LNP-S, PF, 30 mcg/0.3 mL dose 01/13/2021 completed Sintia alexandra [facility] 02/17/2022 11:51:01 Past Encounters Encounter ID Performer Location Encounter Start Date Encounter Closed Date Diagnosis/Indication Diagnosis SNOMED-CT Code Diagnosis ICD10 Code Diagnosis Note [id number] Juan Antonio Donovan DPM Podiatry, [address] [address] 12/08/2011 08:48:56 12/08/2011 09:26:53 [id number] Juan Antonio Donovan DPM Podiatry, [address] [address] 06/10/2012 11:27:56 06/10/2012 11:53:40 [id number] Juan Antonio Donovan DPM Podiatry, [address] [address] 09/10/2012 13:41:38 09/10/2012 14:04:36 [id number] Juan Antonio Donovan DPM Podiatry, [address] [address] 12/10/2012 13:38:32 12/10/2012 13:57:06 [id number] Juan Antonio Donovan DPM Podiatry, [address] [address] 02/11/2013 13:56:13 02/11/2013 14:18:07 [id number] Juan Antonio Donovan DPM Podiatry, [address] [address] 04/22/2013 14:03:42 04/22/2013 14:44:43 Disorder of nervous system due to type 2 diabetes mellitus 486652358 Corns and callus 511292620 Disorder of nail 05208851 [id number] Juan Antonio Donovan DPM Podiatry, [address] [address] 07/07/2013 14:15:12 07/07/2013 15:09:46 Disorder of nervous system due to type 2 diabetes mellitus 387090416 Corns and callus 498298501 Disorder of nail 11364299 [id number] Juan Antonio Donovan DPM Podiatry, [address] [address] 09/12/2013 09:44:57 09/12/2013 14:17:17 Disorder of nervous system due to type 2 diabetes mellitus 249914839 Corns and callus 307738182 Disorder of nail 84115437 Tinea pedis 3646484 [id number] Juan Antonio Donovan DPM Podiatry, [address] [address] 11/17/2013 11:48:38 11/17/2013 12:12:24 Disorder of nervous system due to type 2 diabetes mellitus 555207899 Corns and callus 366815556 Disorder of nail 15241686 Tinea pedis 7921619 [id number] Juan Antonio Donovan DPM Podiatry, [address] [address] 01/19/2014 11:27:07 01/19/2014 14:50:29 Disorder of nervous system due to type 2 diabetes mellitus 021613822 Corns and callus 686737002 Disorder of nail 38432177 [id number] Juan Antonio Donovan DPM Podiatry, [address] [address] 05/04/2014 10:07:35 05/04/2014 10:59:21 Disorder of nervous system due to type 2 diabetes mellitus 571953152 Corns and callus 393762100 Disorder of nail 73288060 [id number] Juan Antonio Donovan DPM Podiatry, [address] [address] 07/10/2014 09:53:16 07/10/2014 10:51:53 Disorder of nervous system due to type 2 diabetes mellitus 154833812 Corns and callus 749526130 Disorder of nail 48507476 [id number] Juan Antonio Donovan DPM Podiatry, [address] [address] 09/11/2014 09:52:49 09/11/2014 10:17:22 Disorder of nervous system due to type 2 diabetes mellitus 914867048 Disorder of nail 44092040 [id number] Juan Antonio Donovan DPM Podiatry, [address] [address] 1 11/13/2014 10:25:27 11/13/2014 11:01:31 Disorder of nervous system due to type 2 diabetes mellitus 356866416 Disorder of nail 01284652 [id number] Juan Antonio Donovan DPM Podiatry, [address] [address] 01/15/2015 10:20:36 01/15/2015 11:07:20 Disorder of nervous system due to type 2 diabetes mellitus 953887204 Disorder of nail 55460395 [id number] Juan Antonio Donovan DPM Podiatry, [address] [address] 04/09/2015 10:14:06 04/09/2015 10:55:24 Disorder of nervous system due to type 2 diabetes mellitus 448696210 Disorder of nail 19145089 [id number] Juan Antonio Donovan DPM Podiatry, [address] [address] 06/11/2015 10:15:27 06/18/2015 10:55:59 Disorder of nervous system due to type 2 diabetes mellitus 241019519 E11.49 Hypertrophy of nail 3065 4002 L60.2 Corns and callus 5149373 00 L84 [id number] Juan Antonio Donovan DPM Podiatry, [address] [address] 08/23/2015 08:48:48 08/23/2015 09:40:16 Disorder of nervous system due to type 2 diabetes mellitus 759404635 E11.49 Hypertrophy of nail 3065 4002 L60.2 Corns and callus L84 [id number] Juan Antonio Donovan DPM Podiatry, [address] [address] 10/25/2015 09:21:24 10/25/2015 10:04:39 Disorder of nervous system due to type 2 diabetes mellitus 864144122 E11.49 Hypertrophy of nail 3065 4002 L60.2 Corns and callus 3488104 00 L84 [id number] Juan Antonio Donovan DPM Podiatry, [address] [address] 01/14/2016 09:49:51 01/14/2016 10:19:13 Disorder of nervous system due to type 2 diabetes mellitus 178481645 E11.49 Hypertrophy of nail 3065 4002 L60.2 Corns and callus [id number] 00 L84 [id number] Juan Antonio Donovan DPM Podiatry, [address] [address] 05/01/2016 12:20:06 05/01/2016 12:50:27 Disorder of nervous system due to type 2 diabetes mellitus 675377615 E11.49 Hypertrophy of nail 3065 4002 L60.2 Corns and callus 0367210 00 L84 [id number] Juan Antonio Donovan DPM Podiatry, [address] [address] 07/03/2016 09:10:26 07/03/2016 09:34:22 Disorder of nervous system due to type 2 diabetes mellitus 005692669 E11.49 Hypertrophy of nail 3065 4002 L60.2 Corns and callus 0783892 00 L84 [id number] Juan Antonio Donovan DPM Podiatry, [address] [address] 1 09/04/2016 09:09:03 09/04/2016 09:52:22 Disorder of nervous system due to type 2 diabetes mellitus 378717126 E11.49 Hypertrophy of nail 3065 4002 L60.2 Corns and callus 1401279 00 L84 [id number] Juan Antonio Donovan DPM Podiatry, [address] [address] 11/06/2016 09:21:12 11/06/2016 10:12:34 Disorder of nervous system due to type 2 diabetes mellitus 989738923 E11.49 Hypertrophy of nail 3065 4002 L60.2 Corns and callus 5529296 00 L84 [id number] Juan Antonio Donovan DPM Podiatry, [address] [address] 01/08/2017 09:04:29 01/08/2017 09:47:10 Disorder of nervous system due to type 2 diabetes mellitus 061129375 E11.49 Hypertrophy of nail 3065 4002 L60.2 Corns and callus 6304478 00 L84 [id number] Juan Antonio Donovan DPM Podiatry, [address] [address] 04/02/2017 14:04:53 04/02/2017 14:43:48 Disorder of nervous system due to type 2 diabetes mellitus 679221636 E11.49 Hypertrophy of nail 3065 4002 L60.2 Corns and callus 6220908 00 L84 [id number] Juan Antonio Donovan DPM Podiatry, [address] [address] 06/04/2017 08:42:20 06/04/2017 09:12:33 Disorder of nervous system due to type 2 diabetes mellitus 779805962 E11.49 Hypertrophy of nail 3065 4002 L60.2 Corns and callus 9435790 00 L84 [id number] Juan Antonio Donovan DPM Podiatry, [address] [address] 1 08/06/2017 08:48:57 08/06/2017 09:31:52 Disorder of nervous system due to type 2 diabetes mellitus 642476504 E11.49 Hypertrophy of nail 3065 4002 L60.2 Corns and callus 4838004 00 L84 [id number] Juan Antonio Donovan DPM Podiatry, [address] [address] 10/08/2017 08:41:51 10/08/2017 09:08:16 Disorder of nervous system due to type 2 diabetes mellitus 956676299 E11.49 Hypertrophy of nail 3065 4002 L60.2 Corns and callus 3755328 00 L84 [id number] Juan Antonio Donovan DPM Podiatry, [address] [address] 12/10/2017 08:30:40 12/10/2017 09:03:26 Disorder of nervous system due to type 2 diabetes mellitus 690557266 E11.49 Hypertrophy of nail 3065 4002 L60.2 Corns and callus 8044295 00 L84 [id number] Juan Antonio Donovan DPM Podiatry, [address] [address] 02/11/2018 09:22:32 02/11/2018 10:12:18 Disorder of nervous system due to type 2 diabetes mellitus 940834478 E11.49 Hypertrophy of nail 3065 4002 L60.2 Corns and callus 5675865 00 L84 [id number] Juan Antonio Donovan DPM Podiatry, [address] [address] 05/03/2018 09:22:28 05/13/2018 06:31:22 Disorder of nervous system due to type 2 diabetes mellitus 858623375 E11.49 Hypertrophy of nail 3065 4002 L60.2 Corns and callus 3430172 00 L84 [id number] Juan Antonio Donovan DPM Podiatry, [address] [address] 1 07/05/2018 10:48:01 07/05/2018 11:34:36 Disorder of nervous system due to type 2 diabetes mellitus 965434855 E11.49 Hypertrophy of nail 3065 4002 L60.2 Corns and callus 5722382 00 L84 [id number] Juan Antonio Donovan DPM Podiatry, [address] [address] 1 10/11/2018 09:47:33 10/11/2018 10:39:23 Disorder of nervous system due to type 2 diabetes mellitus 487388455 E11.49 Hypertrophy of nail 3065 4002 L60.2 Corns and callus 6712271 00 L84 [id number] Juan Antonio Donovan DPM Podiatry, [address] [address] 12/13/2018 10:04:31 12/13/2018 15:33:22 Disorder of nervous system due to type 2 diabetes mellitus 905968795 E11.49 Hypertrophy of nail 3065 4002 L60.2 Corns and callus [id number] 00 L84 [id number] Juan Antonio Donovan DPM Podiatry, [address] [address] 1 06/13/2019 10:05:05 06/13/2019 10:57:12 Disorder of nervous system due to type 2 diabetes mellitus 404402283 E11.49 Hypertrophy of nail 3065 4002 L60.2 Corns and callus 7637647 00 L84 [id number] Juan Antonio Donovan DPM Podiatry, [address] [address] 1 08/22/2019 09:53:48 08/22/2019 10:48:16 Disorder of nervous system due to type 2 diabetes mellitus 923329909 E11.49 Hypertrophy of nail 3065 4002 L60.2 Corns and callus 3592776 00 L84 [id number] Juan Antonio Donovan DPM Podiatry, [address] [address] 1 10/24/2019 09:42:02 10/24/2019 10:41:42 Disorder of nervous system due to type 2 diabetes mellitus 558499102 E11.49 Hypertrophy of nail 3065 4002 L60.2 Corns and callus [id number] 00 L84 [id number] Juan Antonio Donovan DPM Podiatry, [address] [address] 10/11/2020 10:51:37 10/14/2020 12:14:57 Disorder of nervous system due to type 2 diabetes mellitus 577508256 E11.49 Hypertrophy of nail 3065 4002 L60.2 Corns and callus [id number] 00 L84 [id number] Juan Antonio Donovan DPM Podiatry, [address] [address] 1 12/27/2020 14:53:31 12/28/2020 11:48:55 Disorder of nervous system due to type 2 diabetes mellitus 812484372 E11.49 Hypertrophy of nail 3065 4002 L60.2 Corns and callus [id number] 00 L84 [id number] Esau Garrison MD Podiatry, [address] [address] 1 06/24/2021 08:50:50 06/24/2021 09:45:47 Disorder of nervous system due to type 2 diabetes mellitus 140918928 E11.49 Hypertrophy of nail 3065 4002 L60.2 Corns and callus [id number] 00 L84 [id number] Lillie Soni MD Podiatry, [address] [address] 1 02/17/2022 11:01:15 02/17/2022 12:16:29 Disorder of nervous system due to type 2 diabetes mellitus 332973188 E11.49 Hypertrophy of nail 3065 4002 L60.2 Corns and callus 1137034 00 L84 [id number] Lillie Soni MD Podiatry, [address] [address] 1 05/15/2022 09:44:13 05/18/2022 11:08:52 Disorder of nervous system due to type 2 diabetes mellitus 418396274 E11.49 Hypertrophy of nail 3065 4002 L60.2 Corns and callus 0741073 00 L84 [id number] Lillie Soni MD Podiatry, [address] [address] 1 08/28/2022 09:22:29 08/28/2022 09:44:12 Disorder of nervous system due to type 2 diabetes mellitus 902449023 E11.49 Hypertrophy of nail 3065 4002 L60.2 Corns and callus 7529966 00 L84 [id number] Lillie Soni MD Podiatry, [address] [address] 1 11/06/2022 09:37:53 11/06/2022 11:49:20 Disorder of nervous system due to type 2 diabetes mellitus 654760363 E11.49 Hypertrophy of nail 3065 4002 L60.2 Corns and callus [id number] 00 L84 [id number] Lillie Soni MD Podiatry, [address] [address] 01/22/2023 08:40:00 01/22/2023 14:25:59 Disorder of nervous system due to type 2 diabetes mellitus 025463950 E11.49 Hypertrophy of nail 3065 4002 L60.2 Corns and callus [id number] 00 L84 [id number] Lillie Soni MD Podiatry, [address] [address] 05/07/2023 11:09:49 05/07/2023 13:47:43 Disorder of nervous system due to type 2 diabetes mellitus 396996751 E11.49 Cellulitis of toe of right foot 6617453186 1414437 L03.618 [id number] Lillie Soni MD Podiatry, [address] [address] 05/18/2023 09:15:40 05/18/2023 09:49:31 Disorder of nervous system due to type 2 diabetes mellitus 845267639 E11.49 Cellulitis of toe of right foot 6350456574 9781995 L03.962 [id number] Lillie Soni MD Podiatry, [address] [address] 1 07/27/2023 10:52:23 07/27/2023 13:52:36 Disorder of nervous system due to type 2 diabetes mellitus 935721529 E11.49 Hypertrophy of nail 3065 4002 L60.2 Corns and callus [id number] 00 L84 [id number] Lillie Soni MD Podiatry, [address] [address] 1 10/12/2023 11:25:06 10/24/2023 14:24:04 Disorder of nervous system due to type 2 diabetes mellitus 802379420 E11.49 Hypertrophy of nail 3065 4002 L60.2 Corns and callus [id number] 00 L84 [id number] Lillie Soni MD Podiatry, [address] [address] 1 12/14/2023 11:16:49 12/19/2023 13:01:30 Disorder of nervous system due to type 2 diabetes mellitus 175799558 E11.49 Hypertrophy of nail 3065 4002 L60.2 Corns and callus 3791422 00 L84 [id number] Lillie Soni MD Podiatry, [address] [address] 1 02/15/2024 10:39:06 03/11/2024 11:31:52 Disorder of nervous system due to type 2 diabetes mellitus 254534837 E11.49 Hypertrophy of nail 3065 4002 L60.2 Corns and callus 8467312 00 L84 [id number] Lillie Soni MD Podiatry, [address] [address] 1 05/02/2024 11:32:52 05/02/2024 12:35:20 Disorder of nervous system due to type 2 diabetes mellitus 209493403 E11.49 Hypertrophy of nail 3065 4002 L60.2 Corns and callus 5756244 00 L84 [id number] Lillie Soni MD Podiatry, [address] [address] 1 07/11/2024 11:41:19 07/11/2024 12:15:20 Disorder of nervous system due to type 2 diabetes mellitus 575719414 E11.49 Hypertrophy of nail 3065 4002 L60.2 Corns and callus 8749979 00 L84 [id number] Lillie Soni MD Podiatry, [address] [address] 1 09/26/2024 10:50:14 10/06/2024 17:02:35 Disorder of nervous system due to type 2 diabetes mellitus 288348020 E11.49 Hypertrophy of nail 3065 4002 L60.2 Corns and callus [id number] 00 L84 [id number] Lillie Soni MD Podiatry, [address] [address] 1 12/05/2024 10:44:42 12/10/2024 12:38:07 Disorder of nervous system due to type 2 diabetes mellitus 125631017 E11.49 Hypertrophy of nail 3065 4002 L60.2 Corns and callus 6323242 00 L84 Health Concerns Section Related Observation LastModified by Organization Detai ls LastModified Time None Recorded Concern Status LastModified by Organization Details LastModified Time None Recorded Advance Directives Directive None Recorded Payers Encounter Date Sequence Insurance Name Policy Number Policy Hay Covered Member ID Hay Member ID Guarantor Name 02/15/2024 1 [place] [employer] Sagar Huggins [id number] Sagar Huggins 02/15/2024 2 [place] [facility] Sagar Huggins [id number] Sagar Huggins 05/02/2024 1 [place] [employer] Sagar Huggins [id number] Sagar Huggins 05/02/2024 2 [place] Sagar Huggins [id number] Sagar Huggins 07/11/2024 1 [place] [employer] Sagar Huggins [id number] Sagar Huggins 07/11/2024 2 [place] [facility] Sagar Huggins [id number] Sagar Huggins 09/26/2024 1 [place] [facility] Sagar Huggins [id number] Sagar Huggins 09/26/2024 2 [place] [facility] Sagar Huggins [id number] Sagar Huggins 12/05/2024 1 [place] [facility] Sagar Huggins [id number] Sagar Huggins 12/05/2024 2 [place] [facility] Sagar Huggins [id number] Sagar Huggins Notes Date Note Type Note [...] on 12/28/23. Juan Antonio Donovan DPM [address] [place], [address], [facility] 02/15/2024 11:18:32 05/02/2024 text/html Patient with 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 Patient complains of thick toenails as well as callus he's not able to care for himself. Patient with no complaints of open wound or drainage. Patient seen by Vinicius Aguilar MD on 12/28/23. Juan Antonio Donovan DPM [address] [place], [address], [facility] 05/02/2024 12:13:57 07/11/2024 text/html Patient with 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 Patient complains of thick toenails as well as callus he's not able to care for himself. Patient with no complaints of open wound or drainage. Patient seen by Meena Negron MD on 05/22/24. Juan Antonio Donovan DPM [address] [place], [address], [facility] 07/11/2024 12:06:50 09/26/2024 text/html Patient with 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 Patient complains of thickened toenails and callus he's not able to care for himself. Patient with no complaints of open wound or drainage. Patient seen by Meena Negron MD on 05/22/24. Juan Antonio Donovan DPM [address] [place], [address], [facility] 09/26/2024 12:39:51 12/05/2024 text/html Patient with 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 Patient complains of thickened toenails and callus he's not able to care for himself, but has no complaints of open wound or drainage. Patient seen by Meena Negron MD on 05/22/24. Juan Antonio Donovan DPM [address] [place], [address], [facility] 12/05/2024 11:24:20
[2024-12-17 13:25] LABS: MANUAL DIFF FLAG NO
[2024-12-17 13:42] LABS: Basophils Percent Auto 0.3 % (0-2); Eosinophils Absolute Auto 0.1 X10*3/uL (0.0-0.4); Eosinophils Percent Auto 1.5 % (0-4); Hematocrit 43.8 % (42.0-52.0); Hemoglobin 14.5 g/dl (14.0-18.0); Imm Gran Abs Auto 0.04 X10*3/uL (0.00-0.03); Imm Gran Pct Auto 0.4 % (0.0-0.4); Lymphocytes Absolute Auto 2.4 X10*3/uL (1.2-4.9); Lymphocytes Percent Auto 25.5 % (20-40); Mean Corpuscular HGB Conc 33.1 g/dl (31.0-36.0); Mean Corpuscular Volume 81.6 fL (80.0-98.0); Mean Platelet Volume 9.9 fL (9.4-12.4); Monocytes Absolute Auto 0.5 X10*3/uL (0.1-1.2); Monocytes Percent Auto 5.1 % (2-11); Neutrophils Absolute Auto 6.2 x10*3/uL (2.0-8.3); Neutrophils Percent Auto 67.2 % (45-73); Platelet Count 366 X10*3/uL (160-400); Red Blood Count 5.37 X10*6/uL (4.60-5.80); White Blood Count 9.2 X10*3/uL (4.8-10.8)
[2024-12-17 13:43] LABS: Appearance Urine Clear; Color Urine Yellow; Glucose Urine UA Negative (Negative); Leukocyte Esterase Urine Negative (Negative); Nitrite Urine Negative (Negative); PH 5.5 (5.0-9.0); Urine Blood Negative (Negative); Urine Ketones Negative (Negative); Urine Protein Negative (Neg-Trace)
[2024-12-17 14:07] LABS: Microalbum/Creatinine Ratio Ur 8.3 ug/mg cr (<30)
[2024-12-17 14:10] LABS: Alanine Aminotransferase 30 U/L (0-40); Albumin Level 4.2 g/dL (3.5-5.0); Alkaline Phosphatase 114 U/L (39-117); Anion Gap 14 (12-20); Aspartate Amino Transferase 31 U/L (5-37); Bilirubin Total 0.6 mg/dL (0.0-1.0); Blood Urea Nitrogen 12 mg/dL (9-16); Calcium 9.4 mg/dL (8.4-10.2); Carbon Dioxide 25 mmol/L (22-29); Chloride 98 mmol/L (96-108); Cholesterol 124 mg/dL (<200); Estimated Glomerular Filt Rate > 60; Glucose Fasting 147 mg/dL (60-99); HDL Cholesterol 32 mg/dL (>40); LDL Cholesterol Calculated 55 mg/dL (<100); Potassium 4.1 mmol/L (3.3-5.1); Sodium 133 mmol/L (135-145); Total Protein 7.2 g/dL (6.5-8.0); Triglycerides 187 mg/dL (<150)
[2024-12-17 14:26] LABS: TSH reflex Free T4 1.45 uIU/mL (0.32-4.0)
== END 2024-12-17 10:50 | disposition home or self-care (01) ==
LOC: HO.HMGCLDS 10:49
PROVIDERS: PCP Nurse Practitioner Family; Visit Provider Nurse Practitioner Family
DX: E11.9 Type 2 diabetes mellitus without complications (principal)
CPT/HCPCS: 36415; 80053; 80061; 81003; 82043; 82570; 84443; 85025

== ENCOUNTER 2025-01-09 10:50 | Outpatient (REF) | payer MEDICARE, MEDICAID, SELFPAY ==
--- OUTSIDE RECORDS SUMMARY | 2025-01-09 10:56 | XMS_ITS | Data Portability ---
Author Organization [place] - [facility], Allergy Address [address] [address] Care Team Providers Care Route Returner Name Role Phone JUAN ANTONIO LADD Primary Care Provider [phone] Assessment No assessment recorded. Plan of Treatment [...] Recorded Time Sudden idiopath ic hearing loss [id number] Active 2018 Sudden idiopath ic hearing loss, right ear; Note: Changed from H91.20 to H91.21 (02/06/20 19 12:29 PM) , Date Diagnose d: 9 9:51 AM (H91.20) Not Available [facility] 4 02:37:03 Impacted cerumen in right ear [id number] 58944 Active 2020 Impacted cerumen, right ear; Note: Date Diagnose d: 1 11:16 AM (H61.21) Not Available [facility] 4 02:37:11 Candidal otitis externa 99934875 Completed 202003/21/2024 Candidal otitis externa; Note: Date Diagnose d: 1 1:38 PM (B37.84) Not Available [facility] 4 02:36:57 Diffuse otitis externa 31555969 Completed 202003/21/2024 Diffuse otitis externa, right ear; Note: Date Diagnose d: 1 1:38 PM (H60.311 ) Not Available [facility] 4 02:37:03 Asymmetr ical sensorin eural hearing loss 141189783 Active 2014 Sensorin eural HL, asymmetr ic; Note: Date Diagnose d: 5 10:39 AM (389.16) Sensor ineural hearing los asymmetr ic; Note: Date Diagnose d: 06/04/20 14 11:48 AM (389.16) ; Start Date : 06/04/20 14 Not Available [facility] 4 02:37:09 Impacted cerumen of bilatera l ears 31377746219 71766 Active 2019 Impacted cerumen, bilatera l; Note: Date Diagnose d: 0 3:42 PM (H61.23) Not Available [facility] 4 02:37:06 Sensorin eural hearing loss of bilatera l ears 328324822 Active 2014 Hearing loss: Sensorin eural hearing loss, bilatera l; Note: Date Diagnose d: 06/04/20 14 11:16 AM (389.18) ; Start Date : 06/04/20 14 Senso rineural hearing loss, bilatera l; Note: Date Diagnose d: 06/08/20 15 9:17 AM (H90.3) Not Available [facility] 4 02:37:02 Dizzines s and giddines s 683488027 Active 2020 Vertigo NOS; Note: Date Diagnose d: 1 11:20 AM (R42) Not Available [facility] 4 02:37:07 Headache 24085315 Active 2022 Headache , unspecif ied; Note: Date Diagnose d: 3 11:13 AM (R51.9) Not Available [facility] 4 02:37:03 Tinnitus 23389961 Active 2013 Tinnitus , unspecif ied; Note: Date Diagnose d: 06/04/20 14 11:48 AM (388.30) Not Available [facility] 4 02:36:57 Type 2 diabetes mellitus without complica tion 176391449 Active 2022 Type 2 diabetes mellitus without complica tions; Note: Date Diagnose d: 3 11:09 AM (E11.9) Not Available [facility] 4 02:36:59 M? ? ?ni? ? ?re's disease 87757677 Active 2019 Meniere' s disease, right ear; Note: Date Diagnose d: 0 4:18 PM (H81.01) Not Available [facility] 4 02:37:10 Disorder of right Eustachi an tube 66181620909 00200 Active 2018 Other specifie d disorder s of Eustachi an tube, right ear; Note: Date Diagnose d: 9 9:20 AM (H69.81) Not Available [facility] 4 02:37:14 Hydrocep halus 906542567 Active 2022 Hydrocep halus, unspecif ied; Note: Date Diagnose d: 3 11:07 AM (G91.9) Not Available [facility] 4 02:37:10 Problem Notes None recorded. Procedures Surgical History Date Name Laterality Status Provider Name and Address Organization Details Recorded Time Cerumen removal with microscope bilateral completed SCOTT VILLARREAL MD 100 [facility],[place] [address], [place], [address], [facility] - [facility] 03/26/2024 10:08:28 Imaging Results Imaging Date [...] Name and Address Organization Details Recorded Time 199432 Iodinated contrast media (substanc e) medicatio n Not available Not available Not available 03/26/2024 91733 2003 SNOMED Trinidad alexandra [place] - [facility] 09:43:16 499661 latex environme nt,medica tion Not available Not available Not available 03/26/2024 62910 91 RxNorm Trinidad alexandra [place] - [facility] 4 09:43:28 630993 shellfish derived food,medi cation Not available Not available Not available 03/26/2024 05192 UNK Trinidad alexandra [place] - [facility] 4 09:43:36 30798 meperidin e hydrochlo ride medicatio n other Not available Not available 01/01/2024 80881 5 RxNorm React ion: unkno wn, unspe cifie d;; Not Available [facility] 4 01:03:53 Medications Name Sig Start [...] mg tablet 04/22 completed Medicati on ID: [id number] P trice munguia By Name: Leah Nuñez [...] mg tablet 02/05 completed Medicati on ID: [id number] Du ration Value: 30 Reason: () Brand Name: topirama te Send Method: E-Prescr ibed Sub s Allowed: subs OK Medic ationGen ericName : topirama te Not Available Not Available Not Available ciproflox acin 500 mg tablet 1 tablet by mouth 03/26 completed Medicati on ID: [id number] D uration Value: 10 Prescri bed By [...] sustained -release 02/05 completed Medicati on ID: [id number] D uration Value: 30 Reason: () Brand [...] 25 mg tablet active Medicati on ID: [id number] B rand Name: meclizin e Send Method: E-Prescr ibed Sub s Allowed: subs OK Medic ationGen ericName : meclizin e Not Available Not Available Not Available cephalexi n 500 mg capsule TAKE ONE CAPSULE BY MOUTH TWICE A DAY 03/26 completed Not Available Not Available Not Available clotrimaz ole 1 % topical solution 03/26 completed Medicati on ID: [id number] D uration Value: 14 Prescri bed By [...] topical cream 06/29 completed Medicati on ID: [id number] D uration Value: 30 Brand Name: ketoconrolando [...] 2019 08/07 /2024 completed Medicati on ID: [id number] D uration Value: 90 Brand Name: alla n Send Method: E-Prescr ibed Sub s Allowed: subs OK Medic ationGen ericName : alla n Not Available Not Available Not Available Ciprodex 0.3 %-0.1 % ear drops,kumar pension 4 drop into right ear 03/26 completed Medicati on ID: [id number] D uration Value: 14 Prescri bed By [...] Updated DateTime 03/26/2024 190.5 cm 40 kg/m2 397954.56 g Trinidad Martinez [place] - [facility] 03/26/2024 09:37:58 Social History None recorded. Functional Status None recorded. Mental Status None recorded. Family History Nothing Reported. Medical History Condition Response Diabetes Y High Cholesterol Y Hypertension Y Past Encounters Encounter ID Performer Location Encounter Start Date Encounter Closed Date Diagnosis/Indication Diagnosis SNOMED-CT Code Diagnosis ICD10 Code Diagnosis Note [id number] SCOTT VILLARREAL MD [facility] [address] [address] 03/26/2024 09:16:33 03/26/2024 10:12:40 Hydrocephalus 926279116 G91.9 Impacted c erumen of bilateral ears [id number] 261926 H61.23 Patient will follow-up with physician assistant professor of music in 1 year for cerumen disimpacti on in light of his tendency to impact cerumen due to hearing aid use. Sensorineu ral hearing loss of bilateral ears 981928424 H90.3 Patient's ears appear healthy today following disimpacti on of cerumen. He did not have time for updated audiometri c testing today. I recommende d he contact his audiologis t at the [facility] audiology group to check on his hearing aids and to update his audiometri c testing if indicated. Dizziness and giddiness 718979477 R42 Overall, the patient seems to be doing much better with regards to his balance issues. His residual symptoms are more consistent with postural hypotensio n than anything going on in his inner ear. I would still recommend proceeding with the neurologic al evaluation as recommende d by Dr. Granados in light of his medical history and presence of BEEF PUSHER shunt. Health Concerns Section Related Observation LastModified by Organization Detai ls LastModified Time None Recorded Concern Status LastModified by Organization Details LastModified Time None Recorded Advance Directives Directive None Recorded Payers Insurance Date Sequence Insurance Name Policy Number Policy Hay Covered Member ID Hay Member ID Guarantor Name 03/26/2024 2 [place] [facility] Sagar Huggins [id number] Sagar Huggins 03/26/2024 2 MEDIC[place] B[place] [employer] Sagar Huggins [id number] Sagar Huggins 03/26/2024 1 MEDICARE B-[place]: [employer] Sagar Huggins [id number] Sagar Huggins Notes Date Note Type Note [...] injections. Currently wearing binaural amplification dispensed through [facility] audiology. Patient has noticed more recently that [...] Patient did meet with Dr. Granados at [facility] neurosurgery who determined that his shunt [...] but no true vertigo SCOTT VILLARREAL MD [address] [place] [address], [place], [address], [place] - [facility] 03/26/2024 10:16:04
[2025-01-09 14:25] LABS: Alanine Aminotransferase 25 U/L (0-40); Albumin Level 4.3 g/dL (3.5-5.0); Alkaline Phosphatase 104 U/L (39-117); Anion Gap 15 (12-20); Aspartate Amino Transferase 27 U/L (5-37); Bilirubin Total 0.6 mg/dL (0.0-1.0); Blood Urea Nitrogen 14 mg/dL (9-16); Carbon Dioxide 26 mmol/L (22-29); Chloride 99 mmol/L (96-108); Estimated Glomerular Filt Rate > 60; Glucose Random 133 mg/dL (60-115); Sodium 136 mmol/L (135-145); Total Protein 7.1 g/dL (6.5-8.0)
== END 2025-01-09 10:51 | disposition home or self-care (01) ==
LOC: HO.HMGCLDS 10:50
PROVIDERS: PCP Nurse Practitioner Family; Visit Provider Nurse Practitioner Family
DX: E87.1 Hypo-osmolality and hyponatremia (principal)
CPT/HCPCS: 36415; 80053

== ENCOUNTER 2025-03-03 10:13 | Outpatient (REF) | payer MEDICARE, MEDICAID, SELFPAY ==
--- NOTE | 2025-03-03 10:17 | EMG_ITS ---
Please see the attached no MTDD
--- OUTSIDE RECORDS SUMMARY | 2025-03-03 11:19 | XMS_ITS | Data Portability ---
Author Organization [place] - [facility], Allergy Address [address] [address] Care Team Providers Care Architectural Draftsman Name Role Phone JUAN ANTONIO LADD Primary Care Provider [phone] Assessment No assessment recorded. Plan of Treatment [...] ation record ed. [email or web address] Not Available 20:55:57 04/09/20 24 02/18/2019 imagi ng/di agnos tic resul t No observ ation record ed. [email or web address] Not Available 20:56:08 04/09/20 24 02/18/2019 audio gram No observ ation record ed. [email or web address] Not Available 20:56:09 04/09/20 24 03/01/2022 imagi ng/di agnos tic resul t No observ ation record ed. [email or web address] Not Available 20:56:12 04/09/20 24 04/22/2019 imagi ng/di agnos tic resul t No observ ation record ed. [email or web address] Not Available 20:56:34 04/09/20 24 06/21/2021 imagi ng/di agnos tic resul t No observ ation record ed. [email or web address] Not Available 20:56:36 04/09/20 24 06/21/2021 imagi ng/di agnos tic [...] Recorded Time Sudden idiopath ic hearing loss 644667970 Active 2018 Sudden idiopath ic hearing loss, right ear; Note: Changed from H91.20 to H91.21 (02/06/20 19 12:29 PM) , Date Diagnose d: 9 9:51 AM (H91.20) Not Available [facility] 4 02:37:03 Impacted cerumen in right ear 34101185270 43834 Active 2020 Impacted cerumen, right ear; Note: Date Diagnose d: 1 11:16 AM (H61.21) Not Available [facility] 4 02:37:11 Candidal otitis externa 45456428 Completed 202003/21/2024 Candidal otitis externa; Note: Date Diagnose d: 1 1:38 PM (B37.84) Not Available [facility] 4 02:36:57 Diffuse otitis externa 06583605 Completed 202003/21/2024 Diffuse otitis externa, right ear; Note: Date Diagnose d: 1 1:38 PM (H60.311 ) Not Available [facility] 4 02:37:03 Asymmetr ical sensorin eural hearing loss 449373170 Active 2014 Sensorin eural HL, asymmetr ic; Note: Date Diagnose d: 5 10:39 AM (389.16) Sensor ineural hearing los asymmetr ic; Note: Date Diagnose d: 06/04/20 14 11:48 AM (389.16) ; Start Date : 06/04/20 14 Not Available [facility] 4 02:37:09 Impacted cerumen of bilatera l ears 20306939530 74507 Active 2019 Impacted cerumen, bilatera l; Note: Date Diagnose d: 0 3:42 PM (H61.23) Not Available [facility] 4 02:37:06 Sensorin eural hearing loss of bilatera l ears 184230633 Active 2014 Hearing loss: Sensorin eural hearing loss, bilatera l; Note: Date Diagnose d: 06/04/20 14 11:16 AM (389.18) ; Start Date : 06/04/20 14 Senso rineural hearing loss, bilatera l; Note: Date Diagnose d: 06/08/20 15 9:17 AM (H90.3) Not Available [facility] 4 02:37:02 Dizzines s and giddines s 568303904 Active 2020 Vertigo NOS; Note: Date Diagnose d: 1 11:20 AM (R42) Not Available [facility] 4 02:37:07 Headache 69689931 Active 2022 Headache , unspecif ied; Note: Date Diagnose d: 3 11:13 AM (R51.9) Not Available [facility] 4 02:37:03 Tinnitus 04666492 Active 2013 Tinnitus , unspecif ied; Note: Date Diagnose d: 06/04/20 14 11:48 AM (388.30) Not Available [facility] 4 02:36:57 Type 2 diabetes mellitus without complica tion 795076484 Active 2022 Type 2 diabetes mellitus without complica tions; Note: Date Diagnose d: 3 11:09 AM (E11.9) Not Available [facility] 4 02:36:59 M ni re's disease 21746755 Active 2019 Meniere' s disease, right ear; Note: Date Diagnose d: 0 4:18 PM (H81.01) Not Available [facility] 4 02:37:10 Disorder of right Eustachi an tube 56670252935 47538 Active 2018 Other specifie d disorder s of Eustachi an tube, right ear; Note: Date Diagnose d: 9 9:20 AM (H69.81) Not Available [facility] 4 02:37:14 Hydrocep halus 073256783 Active 2022 Hydrocep halus, unspecif ied; Note: Date Diagnose d: 3 11:07 AM (G91.9) Not Available [facility] 4 02:37:10 Problem Notes None recorded. Procedures Surgical History Date Name Laterality Status Provider Name and Address Organization Details Recorded Time 4 Cerumen removal with microscope bilateral completed SCOTT VILLARREAL MD [address] [place] [address], [address], [place] - [facility] 03/26/2024 10:08:28 Imaging Results None recorded. Procedure Notes None recorded. Medical Equipment None Reported. Allergies Allergen ID Allergen Name Allergen Category Reaction Reaction Severity Criticality Documentation Date Start Date Code Code System Note Provider Name and Address Organization Details Recorded Time 000279 Iodinated contrast media (substanc e) medicatio n Not available Not available Not available 03/26/2024 57709 2003 SNOMED Trinidad alexandra [place] - [facility] 4 09:43:16 806136 latex environme nt,medica tion Not available Not available Not available 03/26/2024 12065 91 RxNorm Trinidad alexandra [place] - [facility] 4 09:43:28 029165 shellfish derived food,medi cation Not available Not available Not available 03/26/2024 44342 UNK Trinidad alexandra [facility] 4 09:43:36 84584 meperidin e hydrochlo ride medicatio n other Not available Not available 01/01/2024 12286 5 RxNorm React ion: unkno wn, unspe cifie d;; Not Available [facility] 4 01:03:53 Medications Name Sig [...] mg tablet 04/22 completed Medicati on ID: [id number] P rescribe d By Name: Scott Villarreal M.D. Bra nd Name: predniso ne Send Method: E-Prescr [...] mg tablet 02/05 completed Medicati on ID: [id number] Du ration Value: 30 Reason: () Brand Name: topirama te Send Method: E-Prescr ibed Sub s Allowed: subs OK Medic ationGen ericName : topirama te Not Available Not Available Not Available ciproflox acin 500 mg tablet 1 tablet by mouth 03/26 completed Medicati on ID: [id number] D uration Value: 10 Prescri bed By Name: RUKHSANA Renner nd Name: ciproflo xacin HCl Send Method: E-Prescr ibed Sub s Allowed: subs OK Medic ationGen ericName : ciproflo xacin HCl Not Available Not Available Not Available aspirin 81 mg tablet,de layed release 2013 active Medicati on ID: [id number] Alli nd Name: aspirin Send Method: E-Prescr ibed Sub s Allowed: subs OK Medic ationGen ericName : aspirin Not Available Not Available Not Available bupropion HCl SR 100 mg tablet,12 hr sustained -release 02/05 completed Medicati on ID: [id number] D uration Value: 30 Reason: () Brand [...] 25 mg tablet active Medicati on ID: [id number] B rand Name: meclizin e Send Method: E-Prescr ibed Sub s Allowed: subs OK Medic ationGen ericName : meclizin e Not Available Not Available Not Available cephalexi n 500 mg capsule TAKE ONE CAPSULE BY MOUTH TWICE A DAY 03/26 completed Not Available Not Available Not Available clotrimaz ole 1 % topical solution 03/26 completed Medicati on ID: [id number] D uration Value: 14 Prescri bed By Name: RUKHSANA Renner nd Name: clotrima zole Xavier d Method: E-Prescr ibed Sub s Allowed: subs [...] topical cream 06/29 completed Medicati on ID: [id number] D uration Value: 30 Brand Name: ketoconrolando norman Sen d Method: E-Prescr ibed Sub s Allowed: subs [...] 24 hr 03/26 completed Medicati on ID: [id number] D uration Value: 90 Brand Name: metformdominik n Send Method: E-Prescr ibed Sub s Allowed: subs OK Medic ationGen ericName : metformi n Not Available Not Available Not Available Ciprodex 0.3 %-0.1 % ear drops,kumar pension 4 drop into right ear 03/26 completed Medicati on ID: [id number] D uration Value: 14 Prescri bed By [...] Updated DateTime 03/26/2024 190.5 cm 40 kg/m2 106374.56 g Trinidad Martinez [place] - [facility] 03/26/2024 09:37:58 Social History None recorded. Functional Status None recorded. Mental Status None recorded. Family History Nothing Reported. Medical History Condition Response High Cholesterol Y Diabetes Y Hypertension Y Past Encounters Encounter ID Performer Location Encounter Start Date Encounter Closed Date Diagnosis/Indication Diagnosis SNOMED-CT Code Diagnosis ICD10 Code Diagnosis Note [id number] SCOTT VILLARREAL MD [facility] [address] [address] 03/26/2024 09:16:33 03/26/2024 10:12:40 Hydrocephalus 668750864 G91.9 Impacted c erumen of bilateral ears [id number] 482726 H61.23 Patient will follow-up with physician pediatric assistant in 1 year for cerumen disimpacti on in light of his tendency to impact cerumen due to hearing aid use. Sensorineu ral hearing loss of bilateral ears 572437147 H90.3 Patient's ears appear healthy today following disimpacti on of cerumen. He did not have time for updated audiometri c testing today. I recommende d he contact his audiologis t at the [facility] audiology group to check on his hearing aids and to update his audiometri c testing if indicated. Dizziness and giddiness 979774896 R42 Overall, the patient seems to be doing much better with regards to his balance issues. His residual symptoms are more consistent with postural hypotensio n than anything going on in his inner ear. I would still recommend proceeding with the neurologic al evaluation as recommende d by Dr. Granados in light of his medical history and presence of MANAGER [employer] shunt. Health Concerns Section Related Observation LastModified by Organization Detai ls LastModified Time None Recorded Concern Status LastModified by Organization Details LastModified Time None Recorded Advance Directives Directive None Recorded Payers Insurance Date Sequence Insurance Name Policy Number Policy Hay Covered Member ID Hay Member ID Guarantor Name 03/26/2024 2 [place] [facility] Sagar Zacarias Joseluis [id number] Sagar Zacarias Joseluis 03/26/2024 2 [place]IC[place] [employer] Sagar Zacarias Joseluis [id number] Sagar Zacarias Joseluis 03/26/2024 1 MEDICARE [place] [facility] Sagar Parracker [id number] Sagar W Joseluis Notes Date Note Type Note Provider Name [...] injections. Currently wearing binaural amplification dispensed through [facility] audiology. Patient has noticed more recently [...] these vertigo attacks are not typical of M ni re's disease in the absence of significant hearing or tinnitus fluctuations. We discussed the possibility that this represented an underlying neurological phenomenon such as vestibular migraine or something having to do with his hydrocephalus and/or CSF shunt. As such I recommended following up with a neurologist. Patient did meet with Dr. Granados at [facility] neurosurgery who determined that his shunt [...] but no true vertigo SCOTT VILLARREAL MD [address] [place] [address], [address], [facility] - [facility] 03/26/2024 10:16:04
== END 2025-03-03 10:14 | disposition home or self-care (01) ==
LOC: HO.NEURO 10:13
PROVIDERS: PCP Nurse Practitioner Family; Visit Provider Nurse Practitioner Family
DX: M62.838 Other muscle spasm (principal); E11.40 Type 2 diabetes mellitus with diabetic neuropathy, unspecified; R53.1 Weakness
CPT/HCPCS: 95886; 95909

== ENCOUNTER → 2025-03-03 10:17 | Outpatient (BNV) | payer MEDICARE, MEDICAID, SELFPAY | PROVIDERS: PCP Nurse Practitioner Family; Visit Provider Psychiatry & Neurology Neurology | DX: G57.81 Other specified mononeuropathies of right lower limb (principal) | CPT/HCPCS: 95886; 95908 ==

== ENCOUNTER 2025-03-09 13:00 | Outpatient (RCR) | payer MEDICARE, MEDICAID, SELFPAY ==
[2025-01-15 11:08] VITALS: BP 118/78; PULSE 105; O2SAT 93
--- NOTE | 2025-01-15 12:49 | MHC.PT.EP ---
[facility] [place] Office [place] [facility] [place] Office [address] Fabienne Abdul [address] [phone] F: [phone] F: [phone] F: [phone] F: [phone] Physical Therapy Plan of Care Date of Evaluation: 01/15/25 Date of Surgery: Diagnosis: This is a 61 yo male presenting to skilled PT with a script for vestibular therapy for vertigo and balance. Assessment: This is a 61 yo male presenting to skilled PT with a script for vestibular therapy for vertigo and balance. He was dx with Meniere's Disease in 2020. He sees an ENT, Dr. Ma, for Meniere's. He is trying to manage with low sodium diet, decreased caffeine intake, decreased chocolate intake, and he does not drink alcohol. He also takes Meclizine, which helps him sleep and he takes as needed when he feels the room start to spin. When gets the dizziness he does nothing else until it resolves. He has had over 10 falls since 05/2022. Typically he stands up from a seated position and things start spinning and he falls. He states when gets 'noise' before a meniere's vertigo event. Dizziness can last hours to days. He has hydrocephalus and has multiple CAR PILOT shunts and states shunts are working but if they malfunction he experiences loss of vision and falls. Also of note, he has diabetic neuropathy, HTN, and had fx 4 lumbar vertebra in 2008 resulting in intermittent numbness R LE. He is here today reporting he was sent here by his neurologist because I stuck my leg out and it shakes and she said I need PT. He reports that he hasn't had a vertigo attack since May 2024. We talked about what he wants to work on strength and balance. He reports stumbling/or near falls often but does not recall the most recent fall. Currently he presents with poor balance noted with impaired gait pattern. He also demonstrates decreased LE strength, decreased proprioception and safety concerns. S/S are consistent with Meniere's however has an extensive PMHx that can also contribute to balance and strength issues. He has been educated by an additional PT in the past about our limitations in assisting with this disease/PT unable to correct it and patient wanting to work on strength and balance instead. Plan to review all balance and strengthening exercises, importance of listening to 'pre-sx' of Meniere's vertigo episodes and lifestyle adjustments. He would benefit from PT 1x/wk for 4wks to address impairments, implement HEP and optimize functional mobility. Frequency and Duration: The patient will be seen 1x/wk for 4wkw Short Term Goals: 2 weeks I with HEP Pt will be able to state safety routines for transfers, HEP and during attacks Pelts Skinner Goals: 4 weeks Compliant with HEP and self management of sx Pt will demonstrate improved gait pattern with less medial-lateral sway to optimize safety Understand diagnosis and what PT can do for him Treatment Plan: Modalities to reduce pain, spasms and effusion. Manual therapy to restore motion and function. Therapeutic exercise to improve strength and flexibility. Neuromuscular re-education for posture and balance. Therapeutic activities to return to functional activities of daily living. Electronically signed by: Ana M Ely PT Please sign and return to therapist. Thank you for your referral.
--- NOTE | 2025-04-10 06:08 | MHC.PT.DC ---
[facility] [place] [facility] [place] [facility] [place] Office [address] Fabienne Abdul [address] [phone] F: [phone] F: [phone] F: [phone] F: [phone] Physical Therapy Discharge Report Diagnosis: This is a 61 yo male presenting to skilled PT with a script for vestibular therapy for vertigo and balance. Date of Surgery: Date of Evaluation: 01/15/25 Date of Discharge: 04/10/25 Treatments to Date: 6 Cancellations to Date: 0 No Shows to Date: 0 Discharge Status: Independent with HEP Discharge Summary: 03/09: Patient is here today with HR at rest went up to 117 bpm while resting. I had him sit for over 25 mins and his HR went down to 109 but increased at rest to 117 during his rest. At this time I educated him on HR contraindications for PT and to reach out to PCP. Reports exercises are going well and can continue on his own for now. DC to HEP with PCP follow up for additional medical issues. Electronically signed by: Ana M Ely PT Please sign and return to therapist. Thank you for your referral.
== END 2025-04-10 06:08 | disposition home or self-care (01) ==
LOC: HO.PTCHIC 13:00
PROVIDERS: PCP Nurse Practitioner Family; Visit Provider Physician Assistant Medical
DX: H81.90 Unspecified disorder of vestibular function, unspecified ear (principal)
CPT/HCPCS: 97110; 97112; 97163

== ENCOUNTER 2025-03-18 15:46 | Outpatient (AMB) | payer MEDICARE, MEDICAID, SELFPAY ==
--- NOTE | 2025-03-18 16:01 | A.OFFPC_ITS ---
Vital Signs 03/18/25 16:02 Weight 304 lb BP 124/74 Blood Pressure Location Lt brachial Position Sitting Respiration 16 Pulse 74 Pulse Source Pulse Oximeter Pulse Oximetry (%) 95 Oxygen Delivery Method Room Air Intake Visit Reasons: 3m follow up Hammerer Required: No Accompanied by: Self / Same As Patient Allergies Iodinated Contrast Media (IV Contrast Dye) Allergy (Verified 03/18/25 17:31) Unknown latex Allergy (Verified 03/18/25 17:31) Unknown meperidine (From Demerol) Allergy (Verified 03/18/25 17:31) Unknown shellfish derived Allergy (Verified 03/18/25 17:31) Unknown Medication List - Last Reconciled 03/18/25 by BOB Barrett- albuterol sulfate 90 mcg/actuation 2 puffs inhalation Q6H PRN 30 days aspirin (Adult Aspirin Regimen) 81 mg PO DAILY blood sugar diagnostic (BountyHunterTouch Verio test strips) test blood sugar twice a day blood-glucose meter (BountyHunterTouch Verio Flex Meter) As directed bupropion HCl XL 300 mg PO QAM cholecalciferol (vitamin D3) 50 mcg PO DAILY clotrimazole-betamethasone 1-0.05 % 1 appl topical BID 2 weeks empagliflozin 25 mg PO DAILY 30 days finasteride 5 mg PO DAILY fluticasone propionate 50 mcg/actuation sprays intranasal gmdrdgterzd-goqgioqyr-ommvqyhf 100-62.5-25 mcg (Trelegy Ellipta) 1 inh inhal ation DAILY lancets (OneTouch Delica Plus Lancet) Test blood sugar once a day lisinopril-hydrochlorothiazide 20-25 mg 1 tab PO DAILY 90 days metformin ER 1,000 mg (2 x 500 mg) PO BID 90 days rosuvastatin 20 mg PO DAILY 90 days semaglutide (Ozempic) 2 mg (0.75 mL) subcut QWEEK Tobacco use date assessed: 09/17/24 Dental Screening Dental Screen Date: 09/17/24 HPI 3m follow up HPI Details Chief Complaint The patient presents for a follow-up regarding diabetes management. History of Present Illness The patient is a 59-year-old male presenting with diabetes mellitus management. He has been on Jardiance for a couple of months, and the dosage is being increased from 10 mg to 25 mg due to an A1c level of 7.5%. He is actively working on dietary modifications as part of his management plan. The patient reports a lack of sensation in his lower extremities, which is a concern given his diabetic status. He is under the care of a foreign banknote teller, and his eye examination is current. The patient also presents with onychomycosis, noted bilaterally on his feet, with the left foot being more affected than the right. He is morbidly obese, which is a contributing factor to his overall health status. Social History Health Maintenance - Eye examination is up to date - Dietary modifications discussed for di abetes management Review of Systems - Neurological: Reports lack of sensatio n in lower extremities -denies any cp, fevers, chills, n/v Physical Exam General: Cooperative, healthy appearing, comfortable, no acute distress and well developed, morbidly obese Orientation: Patient oriented x3 Limitations: No limitations Head: Normal to inspection Ears: Hearing grossly normal bilaterally Nose: Normal external nose present Face and sinus: Normal facial exam Eyes: Appearance normal, both eyes and all related structures Neck: Normal visual inspection and Yes full ROM Respiratory: Normal respiratory effort and able to speak in complete sentences. Clear to auscultation bilaterally Cardiovascular: Regular rate and rhythm. Normal S1 and S2 GI: Normal to inspection. Soft to palpation and nontender Skin: No rashes or lesions noted Neuro: Patient oriented x3, lack of sensation in lower extremities Extremities: Normal to inspection, echemicosis of the bilaterally feet, left worse than right Results - Labs: Hemoglobin A1c level at 7.5% Plan The patient's diabetes management plan includes increasing the dosage of Jardiance from 10 mg to 25 mg to better control his blood glucose levels, as indicated by his current A1c of 7.5%. He is advised to continue working on dietary modifications to aid in managing his diabetes effectively. For the lack of sensation in his lower extremities, ongoing care with a foreign banknote teller is recommended, and his eye examination remains current, which is crucial for monitoring diabetic complications. The onychomycosis affecting his feet should be monitored, especially since the left foot is more affected than the right. Addressing obesity is also part of the management plan, as it impacts his overall health and diabetes management. Discussion Notes During the visit, we discussed the importance of managing diabetes through medication and lifestyle changes. The patient was informed about the increase in Jardiance dosage and the need for dietary modifications. We also reviewed the significance of regular podiatric and ophthalmologic evaluations to prevent complications. Patient Instructions - Increase Jardiance dosage to 25 mg as prescribed. - Continue with dietary modifications to manage diabetes. - Follow up with foreign banknote teller for foot car e. - Ensure regular eye examinations are up to date. 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 H/O colonoscopy Family History Mother Brain malignant neoplasm Social History Housing: Apartment Alcohol intake: former Patient Tobacco Use Status: Former Tobacco user Years Smoked: 31 years ago e-Cigarette/Vaping Use: Never Used Second Hand Smoke Exposure: No service: No Current occupational status: retired and disabled Cognitive needs: No Hearing needs: No Vision needs: No Questionnaire Thrive Questionnaire Date Thrive assessed: 09/17/24 I am a: Patient What is your living situation today?: I have a steady place to live Within the past 12 months, did the food you bought not last and you didn't have the money to get more?: Never true Within the past 12 months, did you worry whether your food would run out before you got money to buy more?: Never true Do you have trouble paying for medicines?: No Do you have trouble getting transportation to medical appointments?: No Do you have trouble paying your heating and electricity bill?: No Do you have trouble taking care of your child, family member or friend?: I choose not to answer this question Do you have trouble with day-to-day activities such as bathing, preparing meals, shopping, managing finances, etc.?: No Are you currently unemployed and looking for a job?: I choose not to answer this question Are you interested in more education?: I choose not to answer this question Please select the resources that you would like help with: None Currently or been in a relationship where the following occur: I choose not to answer THRIVE Score: 0 DANIEL-7 AMB Questionnaire DANIEL-7 Date DANIEL - 7 assessed: 09/17/24 Source: Developed by Drs. Vinicius Maria, Marry Trejo, Andi Uribe and colleagues, with an educational ky from [employer]. Physical exam (Primary Care) Vital Signs: Last Vital Signs Pulse 74 03/18/25 16:02 Resp 16 03/18/25 16:02 BP 124/74 03/18/25 16:02 Pulse Ox 95 03/18/25 16:02 Oxygen Delivery Method Room Air 03/18/25 16:02 Tobacco/Smoking Status: Tobacco use Status Tobacco use date assessed 09/17/24 03/18/25 16:02 Patient Tobacco Use Status Former Tobacco user 03/18/25 16:02 e-Cigarette/Vaping Use Never Used 03/18/25 16:02 Thrive Assessment: Date of Thrive Assessment Date Thrive assessed 09/17/24 03/18/25 16:02 Currently or been in a relationship where the following occur: I choose not to answer Results AMB Hemoglobin A1c AMB Hemoglobin A1c 7.5 % Last Edit by Alie Garza MA on 03/18/25 1 6 :21 Results Reviewed Results Reviewed: Laboratory Last Values Hgb A1c (Clinic) 7.5 % (4.0-6.0) H 03/18/25 16:19 Coding Level of Care Code Est Pt Level 3 (94534) Diagnoses Diabetes E11.9 Vitamin D deficiency E55.9 Screening PSA (prostate specific antigen) Z12.5 Assessment & Plan Assessment & Plan (1) Diabetes: Code(s): E11.9 - Type 2 diabetes mellitus without complications Category: Medical (2) Vitamin D deficiency: Code(s): E55.9 - Vitamin D deficiency, unspecified Category: Medical (3) Screening PSA (prostate specific antigen): Code(s): Z12.5 - Encounter for screening for malignant neoplasm of prostate Category: Medical Plan . Orders: Orders TSH reflex Free T4 Today E11.9 - Type 2 diabetes mellitus without complications Lipid Panel Today E11.9 - Type 2 diabetes mellitus without complications Vitamin D 25-OH Total Today E55.9 - Vitamin D deficiency, unspecified AMB Hemoglobin A1c Today Z13.9 - Encounter for screening, unspecified Complete Blood Count Auto Diff Today E11.9 - Type 2 diabetes mellitus without complications Comprehensive [place]. Panel Fast Today E11.9 - Type 2 diabetes mellitus without complications UA CC w/rflx Micro + Cult Today E11.9 - Type 2 diabetes mellitus without complications Prostate Specific Antigen Scr Today Z12.5 - Encounter for screening for malignant neoplasm of prostate Medications: Changed From empagliflozin (Jardiance) 10 mg PO DAILY 30 tabs 3RF 30 days To empagliflozin 25 mg PO DAILY 30 tabs 3RF 30 days
[2025-03-18 16:02] VITALS: BP 124/74; PULSE 74; RESP 16; O2SAT 95
== END 2025-03-18 17:20 ==
LOC: HO.HMCC 15:47
PROVIDERS: PCP Nurse Practitioner Family; Visit Provider Nurse Practitioner Family
DX: E11.9 Type 2 diabetes mellitus without complications (principal); E55.9 Vitamin D deficiency, unspecified; Z12.5 Encounter for screening for malignant neoplasm of prostate; Z13.9 Encounter for screening, unspecified

== ENCOUNTER → 2025-03-18 15:46 | Outpatient (BNVA) | payer MEDICARE, MEDICAID, SELFPAY | PROVIDERS: PCP Nurse Practitioner Family; Visit Provider Nurse Practitioner Family | DX: E11.9 Type 2 diabetes mellitus without complications (principal); E55.9 Vitamin D deficiency, unspecified | CPT/HCPCS: 83036; 99212 ==

== ENCOUNTER 2025-04-24 10:46 | Outpatient (AMB) | payer MEDICARE, MEDICAID, SELFPAY ==
[2025-04-24 10:49] VITALS: BP 120/64; PULSE 93; O2SAT 96; BMI 37.5
--- NOTE | 2025-04-24 10:49 | A.OFFVIS_ITS ---
Vital Signs 04/24/25 10:49 Height 6 ft 3 in Weight 300 lb 4 oz BMI 37.5 BP 120/64 Blood Pressure Location Rt brachial Position Sitting Pulse 93 Pulse Source Pulse Oximeter Pulse Oximetry (%) 96 Oxygen Delivery Method Room Air Intake Visit Reasons: 6 mo follow up Intake Note: Patient presents follow up XANDER. Compliance in chart(86/90days, >=4hrs-80%, Average Usage-5hr 8min, Med Pressure-7.0, Med Leaks-1.8, AHI-1.3). Clarification on EMG results. Accompanied by: Self / Same As Patient Allergies Iodinated Contrast Media (IV Contrast Dye) Allergy (Verified 04/24/25 10:59) Unknown latex Allergy (Verified 04/24/25 10:59) Unknown meperidine (From Demerol) Allergy (Verified 04/24/25 10:59) Unknown shellfish derived Allergy (Verified 04/24/25 10:59) Unknown HPI Comments Details: 59 year old male with Normal Pressure Hydrocephalus presents for a f/u visit of XANDER. PSG Aug 2024 AHI is 7 and O2 Mohsen 85% (REM AHI is 34/hr). XANDER compliance report 01/2025-03/2025 Total usage is 79/92 days avg use is 5 hours 22min and >4 hours is 72 days Pressures are set [id number] and Leaks are [id number] AHI is 1.3 He cleans his mask and changes filters, tubing and reservoir as needed. He received his new cpap machine and is trying to get used to it. He still gets up 2x a night due to bathroom breaks. He sleeps more comfortably with the cpap and still naps daily about 30min. He is attending weight management with [facility], and taking Wellbutrin 300mg po qam for weight loss and low mood. His Ozempic is now increased to 2mg, A1c is 7.5, weight is 300lbs, he is trying to lose weight. He continues to have Headaches d/t NPH and with positional changes, he has to take his time when walking or getting out of bed. Migraines have improved to 2/week, and he doesn't take anything, just sleeps it off. The severity is 4/10 mild, due to numbness on right side of the head with shunt placement. He has bilateral hearing loss 80% d/t fungal infections, wears hearing aids regularly. Denies falls, uses a cane to ambulate, has vertigo and balance is off with move ments. He has RLS at night and has an uncomfortable sensation in both his feet which radiates up the legs. He wakes up multiple times to move his legs. Denies pins and needles and paresthesias. 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 H/O colonoscopy Family History Mother Brain malignant neoplasm Social History Housing: Apartment Alcohol intake: former Patient Tobacco Use Status: Former Tobacco user Years Smoked: 31 years ago e-Cigarette/Vaping Use: Never Used Second Hand Smoke Exposure: No service: No Current occupational status: retired and disabled Cognitive needs: No Hearing needs: No Vision needs: No Physical Exam Vital Signs: Last Vital Signs Pulse 93 04/24/25 10:49 BP 120/64 04/24/25 10:49 Pulse Ox 96 04/24/25 10:49 Oxygen Delivery Method Room Air 04/24/25 10:49 BMI result Body Mass Index 37.5 Const General: cooperative, comfortable and no acute distress Nutritional Appearance: obese (BMI 35) centrally obese Orientation/consciousness: patient oriented x3 Limitations: ambulation with cane Eyes Pupils: Equal, round and reactive pupils present Neck Neck: Yes full ROM and Yes supple Resp Effort & Inspection: normal respiratory effort and able to speak in complete sentences Neuro General: patient oriented x3 Cranial nerves: Yes CN's II-XII intact bilaterally, Yes Facial sensation intact/muscles of mastication intact, Yes Equal, round and reactive pupils pres ent, Yes Normal accommodation reflex present, Yes Bilaterally intact EOM present, Yes Nystagmus not present, Yes Normal facial strength present, Yes Ability to bilaterally rotate head present (pain with extension and rotation to the Right side.) and Yes Ability to bilaterally elevate shoulders present Gait exam (Neuro): Staggering gait present and Other gait observations present (ambulates with cane - feels off balance at base) Motor exam (neuro): 5/5 motor strength present throughout and Normal motor muscle tone present throughout Assessment & Plan Assessment & Plan (1) Sleep apnea: Comment: on cpap Code(s): G47.30 - Sleep apnea, unspecified Category: Medical Qualifiers: Sleep apnea type: obstructive Qualified Code(s): G47.33 - Obstructive sleep apnea (adult) (pediatric) (2) Excessive daytime sleepiness: Comment: labs Code(s): G47.19 - Other hypersomnia Category: Medical (3) Hydrocephalus: Comment: shunt neuro surgeon [facility] f/u Code(s): G91.9 - Hydrocephalus, unspecified Category: Medical Qualifiers: Hydrocephalus type: in other disease Qualified Code(s): G91.4 - Hydrocephalus in diseases classified elsewhere (4) Muscle spasms of lower extremity: Comment: Magnesium 400mg po daily at bedtime Code(s): M62.838 - Other muscle spasm Category: Medical (5) Dizziness: Comment: declines pt Code(s): R42 - Dizziness and giddiness Category: Medical (6) Balance problem due to vestibular dysfunction: Code(s): H81.90 - Unspecified disorder of vestibular function, unspecified ear Category: Medical Qualifiers: Laterality: bilateral Qualified Code(s): H81.93 - Unspecified disorder of vestibular function, bilateral (7) Axonal neuropathy: Comment: Metanex daily at bedtime. Code(s): G62.89 - Other specified polyneuropathies Category: Medical Plan XANDER continue cpap therapy and >4 hours per night as pt. feels improved sleep. Vestibular PT Balance and Gait difficulties declines. Continue to f/u with neurosurgeon for management of Hydrocephelus, [facility]. BMI is 37.5, continue 2mg of Ozempic subq weekly, and f/u with weight management at [facility] for nutritional counseling. Reviewed EMG / NCS with pt today Axonal Neuropathy Start Metanex daily at bedtime for Neuropathy and nerve damage. Start Magnesium 400mg daily at bedtime for sleep and B6 200mg PO at bedtime once labs are completed f/u. F/U at 4 months for assessment of neuropathy and XANDER. Orders: Orders Vitamin D 25-OH Total 04/24/25 M62.838 - Other muscle spasm Vitamin B6 04/24/25 M62.838 - Other muscle spasm TSH reflex Free T4 04/24/25 M6.838 - Other muscle spasm Methylmalonic Acid 04/24/25 G47.9 - Sleep disorder, unspecified, M62.838 - Other muscle spasm, R53.83 - Other fatigue Homocysteine 04/24/25 G47.9 - Sleep disorder, unspecified, M6.838 - Other muscle spasm, R53.83 - Other fatigue Vitamin B12 and Folate 04/24/25 M6.838 - Other muscle spasm Vitamin B1 04/24/25 M6.838 - Other muscle spasm Ferritin 04/24/25.838 - Other muscle spasm Medications: New magnesium oxide 400 mg PO DAILY 90 tabs 3RF neuropathy 3 months MDD 400mg 838 - Other muscle spasm mecobal-levomefolat Ca-B6 phos 2-3-35 mg (Metanx FC) 1 cap PO DAILY 90 caps 0RF neuropathy 3 months MDD 1 capsule G62.89 - Other specified polyneuropathies Patient Instructions: Sleep Hygiene provided: set a scheduled bedtime and wake time to help regulate the circadian rhythm and balance the release of pituitary hormones. Sleep in a dark room, temperatures below 68 degrees, and no devices n bed. Limit caffeinated products 6 hours prior to bed, and limit fluids 2-4 hours prior to bed. Gentle night yoga, diffusing essential oils, and playing soft music can be relaxing. Coding Level of Care Code Est Pt Level 4 (30596) Diagnoses Obstructive sleep apnea syndrome G47.33 Sleep apnea type: obstructive Excessive daytime sleepiness G47.19 Hydrocephalus in diseases classified elsewhere G91.4 Hydrocephalus type: in other disease Muscle spasms of lower extremity M6.838 Dizziness R42 Balance problem due to vestibular dysfunction of both ears H81.93 Laterality: bilateral Axonal neuropathy G62.89
== END 2025-04-24 11:59 | disposition home or self-care (01) ==
LOC: HO.HSMS 10:47
PROVIDERS: PCP Nurse Practitioner Family; Visit Provider Physician Assistant Medical
DX: G47.33 Obstructive sleep apnea (adult) (pediatric) (principal); G47.19 Other hypersomnia; G91.4 Hydrocephalus in diseases classified elsewhere; M62.838 Other muscle spasm; R42 Dizziness and giddiness; H81.93 Unspecified disorder of vestibular function, bilateral; G62.89 Other specified polyneuropathies
CPT/HCPCS: 99214

== ENCOUNTER → 2025-04-24 10:46 | Outpatient (BNVA) | payer MEDICARE, MEDICAID, SELFPAY | PROVIDERS: PCP Nurse Practitioner Family; Visit Provider Physician Assistant Medical | DX: G47.33 Obstructive sleep apnea (adult) (pediatric) (principal); Z99.89 Dependence on other enabling machines and devices; G47.19 Other hypersomnia; G91.4 Hydrocephalus in diseases classified elsewhere; M62.838 Other muscle spasm; R42 Dizziness and giddiness; E66.9 Obesity, unspecified; Z68.37 Body mass index [BMI] 37.0-37.9, adult; I10 Essential (primary) hypertension; Z87.891 Personal history of nicotine dependence | CPT/HCPCS: 99212 ==

== ENCOUNTER 2025-04-29 09:36 | Outpatient (REF) | payer MEDICARE, MEDICAID, SELFPAY ==
[2025-04-29 10:52] LABS: Ferritin 118 ng/mL (20-250)
[2025-04-29 11:07] LABS: Folate 7.6 ng/mL (> or = 4.0); Vitamin B12 271 pg/mL (200-900)
== END 2025-04-29 09:37 | disposition home or self-care (01) ==
LOC: HO.LAB 09:36
PROVIDERS: PCP Nurse Practitioner Family; Visit Provider Physician Assistant Medical
DX: Z13.6 Encounter for screening for cardiovascular disorders (principal); M62.838 Other muscle spasm; G47.9 Sleep disorder, unspecified; R53.83 Other fatigue
CPT/HCPCS: 36415; 82306; 82607; 82728; 82746; 83090; 83921; 84207; 84425; 84443

== ENCOUNTER 2025-06-04 08:55 | Outpatient (REF) | payer MEDICARE, MEDICAID, SELFPAY ==
--- OUTSIDE RECORDS SUMMARY | 2025-06-04 09:56 | XMS_ITS | Data Portability ---
Author Organization [place] - [facility], Allergy Address [address] [address] Care Team Providers Care [employer] Professor Name Role Phone JUAN ANTONIO LADD Primary Care Provider [phone] Assessment No assessment recorded. Plan of Treatment Reminders Order Date Submit Date Provider Last Modified By Organization Details Last Modified Time Details Appointments None record ed. Lab None record ed. Referral None record ed. Procedures None record ed. Surgeries None record ed. Imaging None record ed. Medication Orders None record ed. Patient TargetsNo targets recorded. Patient InstructionsNo instructions [...] ation record ed. [email or web address] Not Available 21:00:17 04/02/20 audio gram No observ ation record ed. BARCODE Not Available 2024 15:09:02 Result Notes None recorded. Problems Name Problem SNOMED Code Status Onset Date Resolution Date Notes Provider Name and Address Organization Details Recorded Time Tinnitus 15108351 Active 2013 Tinnitus , unspecif ied; Note: Date Diagnose d: 06/04/20 14 11:48 AM (388.30) Not Available [facility] 4 02:36:57 Asymmetr ical sensorin eural hearing loss 652011992 Active 2014 Sensorin eural HL, asymmetr ic; Note: Date Diagnose d: 5 10:39 AM (389.16) Sensor ineural hearing los asymmetr ic; Note: Date Diagnose d: 06/04/20 14 11:48 AM (389.16) ; Start Date : 06/04/20 14 Not Available [facility] 4 02:37:09 Sensorin eural hearing loss of bilatera l ears 075073410 Active 2014 Hearing loss: Sensorin eural hearing loss, bilatera l; Note: Date Diagnose d: 06/04/20 14 11:16 AM (389.18) ; Start Date : 06/04/20 14 Senso rineural hearing loss, bilatera l; Note: Date Diagnose d: 06/08/20 15 9:17 AM (H90.3) Not Available [facility] 4 02:37:02 Sudden idiopath ic hearing loss 713721576 Active 2018 Sudden idiopath ic hearing loss, right ear; Note: Changed from H91.20 to H91.21 (02/06/20 19 12:29 PM) , Date Diagnose d: 9 9:51 AM (H91.20) Not Available [facility] 4 02:37:03 Disorder of right Eustachi an tube 87980091750 73227 Active 2018 Other specifie d disorder s of Eustachi an tube, right ear; Note: Date Diagnose d: 9 9:20 AM (H69.81) Not Available [facility] 4 02:37:14 Impacted cerumen of bilatera l ears 89362291309 69325 Active 2019 Impacted cerumen, bilatera l; Note: Date Diagnose d: 0 3:42 PM (H61.23) Not Available [facility] 4 02:37:06 M ni re's disease 17535934 Active 2019 Meniere' s disease, right ear; Note: Date Diagnose d: 0 4:18 PM (H81.01) Not Available [facility] 4 02:37:10 Impacted cerumen in right ear 55330861854 04994 Active 2020 Impacted cerumen, right ear; Note: Date Diagnose d: 1 11:16 AM (H61.21) Not Available [facility] 4 02:37:11 Dizzines s and giddines s 407370102 Active 2020 Vertigo NOS; Note: Date Diagnose d: 1 11:20 AM (R42) Not Available [facility] 4 02:37:07 Candidal otitis externa 83563767 Completed 202003/21/2024 Candidal otitis externa; Note: Date Diagnose d: 1 1:38 PM (B37.84) Not Available [facility] 4 02:36:57 Diffuse otitis externa 80102184 Completed 202003/21/2024 Diffuse otitis externa, right ear; Note: Date Diagnose d: 1 1:38 PM (H60.311 ) Not Available [facility] 4 02:37:03 Headache 37499777 Active 2022 Headache , unspecif ied; Note: Date Diagnose d: 3 11:13 AM (R51.9) Not Available [facility] 4 02:37:03 Type 2 diabetes mellitus without complica tion 814516863 Active 2022 Type 2 diabetes mellitus without complica tions; Note: Date Diagnose d: 3 11:09 AM (E11.9) Not Available [facility] 4 02:36:59 Hydrocep halus 097665739 Active 2022 Hydrocep halus, unspecif ied; Note: Date Diagnose d: 3 11:07 AM (G91.9) Not Available [facility] 4 02:37:10 Problem Notes None recorded. Procedures Surgical History Date Name Laterality Status Provider Name and Address Organization Details Recorded Time 5 Air & Speech Audio with Tymps - 10124, 64321 & 70298 completed JUN GOMEZ 100 [facility],[address], [address], [place] - [facility] 04/02/2025 13:40:25 5 Cerumen removal with microscope bilateral completed SCOTT VILLARREAL MD 100 [facility],[address], [address], [place] - [facility] 04/01/2025 16:05:18 4 Cerumen removal with microscope bilateral completed SCOTT VILLARREAL MD 100 [facility],[address], [address], [place] - [facility] 03/26/2024 10:08:28 Imaging Results None recorded. Procedure Notes None recorded. Medical Equipment None Reported. Allergies Allergen ID Allergen Name Allergen Category Reaction Reaction Severity Criticality Documentation Date Start Date Code Code System Note Provider Name and Address Organization Details Recorded Time 228008 Iodinated contrast media (substanc e) medicatio n Not available Not available Not available 03/26/2024 64868 2003 SNOMED Trinidad alexandra [place] - [facility] 4 09:43:16 853479 latex environme nt,medica tion Not available Not available Not available 03/26/2024 51274 91 RxNorm Trinidad alexandra [place] [facility] 4 09:43:28 817225 shellfish derived food,medi cation Not available Not available Not available 03/26/2024 Trinidad alexandra [facility] 4 09:43:36 21138 meperidin e hydrochlo ride medicatio n other Not available Not available 01/01/2024 31705 5 RxNorm React ion: unkno wn, unspe cifie d;; Not Available [facility] 4 01:03:53 Medications Name Sig Start Date [...] mg tablet 04/22 completed Medicati on ID: [id number] P maria lrividhya d By Name: Leah Nuñez nd Name: [...] am Not Available Not Available Not Available cetirizin e 10 mg tablet TAKE 1 TABLET BY MOUTH DAILY FOR 14 DAYS active Not Available Not Available No t Available azithromy dami 250 mg tablet TAKE [...] mg tablet 02/05 completed Medicati on ID: [id number] Du ration Value: 30 Reason: () Brand Name: topirama te Send Method: E-Prescr ibed Sub s Allowed: subs OK Medic ationGen ericName : topirama te Not Available Not Available Not Available ciproflox acin 500 mg tablet 1 tablet by mouth 03/26 completed Medicati on ID: [id number] D uration Value: 10 Prescri bed By [...] sustained -release 02/05 completed Medicati on ID: [id number] D uration Value: 30 Reason: () Brand [...] Available Not Available meclizine 25 mg tablet 04/02 completed Medicati on ID: [id number] B rand Name: meclizin e Send Method: E-Prescr ibed Sub s Allowed: subs OK Medic ationGen ericName : meclizin e Not Available Not Available Not Available cephalexi n 500 mg capsule TAKE ONE CAPSULE BY MOUTH TWICE A DAY 03/26 completed Not Available Not Available Not Available clotrimaz ole-betam ethasone 1 %-0.05 % topical cream ADMINIST ER 1 APPLICAT ION TOPICALL Y TWO TIMES A DAY FOR 2 WEEKS 04/02 completed Not Available Not Available Not Available clotrimaz ole 1 % topical solution 03/26 completed Medicati on ID: [id number] D uration Value: 14 Prescri bed By Name: RUKHSANA Renner nd Name: yonirinicola norman Xavier d Method: E-Prescr ibed Sub s [...] topical cream 06/29 completed Medicati on ID: [id number] D uration Value: 30 Brand Name: ketocona zolrupali Xavier d Method: E-Prescr ibed Sub s Allowed: subs OK Medic ationGen ericName : ketocona zole Not Available Not Available Not Available fluticaso ne propionat e 50 mcg/actua tion nasal spray,kumar pension INSTILL 2 SPRAYS INTRANAS ALLY TWO TIMES A DAY FOR 7 DAYS active Not Available Not Available No t Available metformin ER 500 mg tablet,ex tended release 24 hr TAKE TWO TABLETS BY MOUTH TWICE A DAY active Not Available Not Available No t Available finasteri de 5 mg tablet TAKE ONE TABLET BY MOUTH EVERY DAY active Not Available Not Available No t Available Ventolin HFA 90 mcg/actua tion aerosol inhaler INHALE TWO PUFFS BY MOUTH EVERY 6 HOURS NEEDED FOR SHORTNES S OF BREATH OR WHEEZING active Not Available Not Available No t Available metformin ER 750 mg tablet,ex tended release 24 hr 03/26 completed Medicati on ID: [id number] D uration Value: 90 Brand Name: metformi n Send Method: E-Prescr ibed Sub s Allowed: subs OK Medic ationGen ericName : metformi n Not Available Not Available Not Available Ciprodex 0.3 %-0.1 % ear drops,kumar pension 4 drop into right ear 03/26 completed Medicati on ID: [id number] D uration Value: 14 Prescri bed By [...] mg 24 hr tablet, extended release TAKE 1 TABLET BY MOUTH DAILY IN THE MORNING active Not Available Not Available No t Available Vitamin D3 50 mcg (2,000 unit) capsule TAKE 1 CAPSULE BY MOUTH DAILY active Not Available Not Available No t Available OneTouch Verio test strips USE TO TEST TWICE A DAY 03/26 completed Not Available Not Available Not Available Jardiance 10 mg tablet TAKE ONE TABLET BY MOUTH EVERY DAY 04/02 completed Not Available Not Available Not Available Jardiance 25 mg tablet TAKE 1 TALBET BY MOUTH DAILY active Not Available Not Available No t Available OneTouch Verio Flex Meter USE DIRECTED 03/26 completed Not Available Not Available Not Available Trelegy Ellipta 100 mcg-62.5 mcg-25 mcg powder for inhalatio n INHALE ONE PUFF BY MOUTH EVERY DAY active Not Available Not Available No t Available Ozempic 1 mg/dose (4 mg/3 mL) subcutane ous pen injector TAKE 0.75 ML 1 MG) SUBCUTAN EOUSLY EVERY WEEK 04/02 completed Not Available Not Available Not Available Ozempic 2 mg/dose (8 mg/3 mL) subcutane ous pen injector INJECT SUBCUTAN OUSLY 0.75 MLS EVERY WEEK active Not Available Not Available [...] Updated DateTime 03/26/2024 190.5 cm 40 kg/m2 167523.56 g Trinidad Martinez [place] - [facility] 03/26/2024 09:37:58 Social History None recorded. Functional Status None recorded. Mental Status None recorded. Family History Nothing Reported. Medical History Condition Response Diabetes Y Hypertension Y High Cholesterol Y Past Encounters Encounter ID Performer Location Encounter Start Date Encounter Closed Date Diagnosis/Indication Diagnosis SNOMED-CT Code Diagnosis ICD10 Code Diagnosis IMO Codes Diagnosis Note [id number] SCOTT VILLARREAL MD [facility] [address] [address] 03/26/2024 09:16:33 03/26/2024 10:12:40 Hydrocephalus 859741630 G91.9 Impacted c erumen of bilateral ears 0685423719 470365 H61.23 Patient will follow-up with physician delinquent tax collection assistant in 1 year for cerumen disimpacti on in light of his tendency to impact cerumen due to hearing aid use. Sensorineu ral hearing loss of bilateral ears 579419383 H90.3 Patient's ears appear healthy today following disimpacti on of cerumen. He did not have time for updated audiometri c testing today. I recommende d he contact his audiologis t at the [facility] audiology group to check on his hearing aids and to update his audiometri c testing if indicated. Dizziness and giddiness 320653597 R42 Overall, the patient seems to be doing much better with regards to his balance issues. His residual symptoms are more consistent with postural hypotensio n than anything going on in his inner ear. I would still recommend proceeding with the neurologic al evaluation as recommende d by Dr. Granados in light of his medical history and presence of [employer] shunt. [id number] SCOTT VILLARREAL MD [facility] [address] [address] 04/02/2025 13:07:50 04/02/2025 13:58:13 Hydrocephalus 488749742 G91.9 Sensorineu ral hearing loss of bilateral ears 932606996 H90.3 Patient's ears appear healthy today following disimpacti on of cerumen. He did not have time for updated audiometri c testing today. I recommende d he contact his audiologis t at the [facility] audiology group to check on his hearing aids and to update his audiometri c testing if indicated. Impacted c erumen of bilateral ears 4683781078 393289 H61.23 Patient will follow-up in 1 year for cerumen disimpacti on in light of his tendency to impact cerumen due to hearing aid use. [id number] JUN GOMEZ [facility] [address] [address] 04/02/2025 13:36:36 04/16/2025 12:17:53 Sensorineural hearing loss of bilateral ears 297239836 H90.3 Right Ear:Modera tely-sever e SNHL with good speech discrimina tion.Type As tympanogra m.Left Ear:Modera tely-sever e SNHL with good speech discrimina tion.Type As tympanogra m. Health Concerns Section Related Observation LastModified by Organization Detai ls LastModified Time None Recorded Concern Status LastModified by Organization Details LastModified Time None Recorded Advance Directives Directive None Recorded Payers Insurance Date Sequence Insurance Name Policy Number Policy Hay Covered Member ID Hay Member ID Guarantor Name 04/02/2025 2 [place] [employer] Sagar Huggins [id number] Sagar Huggins 04/02/2025 2 [place]: [employer] Sagar Huggins [id number] Sagar Huggins 04/02/2025 1 [place] [employer] Sagar Huggins [id number] Sagar Huggins Notes Date Note Type Note [...] injections. Currently wearing binaural amplification dispensed through [facility] audiology. Patient has noticed more recently [...] but no true vertigo SCOTT VILLARREAL MD [address] [place] [address], [address], [facility] - [facility] 03/26/2024 10:16:04 04/02/2025 text/html 59 year old diabetic male presents for reevaluation of his ears and hearing. He has a complex past medical history hydrocephalus with shunt placement in the 's with 4 revisions. He also has history of right sided Meniere's with fluctuating hearing loss of the right ear with SNHL in October 2012 treated with IT dexamethasone injections. Currently wearing binaural amplification dispensed through [facility] audiology. Patient has noticed more recently [...] was experiencing last year have mostly subsided. Patient has problems with cerumen accumulation and comes back for reevaluation and ear cleaning. Patient currently using binaural amplification managed through [facility] audiology. SCOTT VILLARREAL MD [address] [place] [address], [place], [address], [place] - [facility] 04/02/2025 13:56:51
[2025-06-04 10:05] LABS: MANUAL DIFF FLAG NO
[2025-06-04 10:09] LABS: Hematocrit 45.2 % (42.0-52.0); Hemoglobin 14.5 g/dl (14.0-18.0); Imm Gran Abs Auto 0.05 X10*3/uL (0.00-0.03); Imm Gran Pct Auto 0.5 % (0.0-0.4); Lymphocytes Absolute Auto 1.9 X10*3/uL (1.2-4.9); Mean Corpuscular HGB Conc 32.1 g/dl (31.0-36.0); Mean Corpuscular Hemoglobin 25.9 pg (27.0-33.0); Mean Corpuscular Volume 80.7 fL (80.0-98.0); NRBC Abs Auto 0.000 X10*3/uL (0.0-0.012); NRBC Pct Auto 0.0 /100WBC (0.0-0.2); Platelet Count 420 X10*3/uL (160-400); Red Blood Count 5.60 X10*6/uL (4.60-5.80); White Blood Count 9.8 X10*3/uL (4.8-10.8)
[2025-06-04 14:23] LABS: Alanine Aminotransferase 28 U/L (0-40); Albumin Level 4.5 g/dL (3.5-5.0); Alkaline Phosphatase 99 U/L (39-117); Anion Gap 17 (12-20); Aspartate Amino Transferase 33 U/L (5-37); Blood Urea Nitrogen 12 mg/dL (9-16); Calcium 9.6 mg/dL (8.4-10.2); Carbon Dioxide 23 mmol/L (22-29); Chloride 99 mmol/L (96-108); Cholesterol 136 mg/dL (<200); Estimated Glomerular Filt Rate > 60; HDL Cholesterol 40 mg/dL (>40); Potassium 4.0 mmol/L (3.3-5.1); Sodium 135 mmol/L (135-145); Total Protein 7.5 g/dL (6.5-8.0); Triglycerides 156 mg/dL (<150)
== END 2025-06-04 08:56 | disposition home or self-care (01) ==
LOC: HO.HMGCLDS 08:55
PROVIDERS: PCP Nurse Practitioner Family; Referring Provider Nurse Practitioner Family; Visit Provider Nurse Practitioner Family
DX: Z12.5 Encounter for screening for malignant neoplasm of prostate (principal); E55.9 Vitamin D deficiency, unspecified; E11.9 Type 2 diabetes mellitus without complications
CPT/HCPCS: 36415; 80053; 80061; 82306; 84153; 84443; 85025

== ENCOUNTER 2025-06-05 10:00 | Outpatient (REF) | payer MEDICARE, MEDICAID, SELFPAY ==
[2025-06-05 13:15] LABS: Appearance Urine Clear; Glucose Urine UA >=1000 mg/dL (Negative); PH 5.5 (5.0-9.0); Specific Gravity - Urine 1.025 (1.005-1.025); UMIC TRIGGER UACC YES
--- OUTSIDE RECORDS SUMMARY | 2025-06-05 13:28 | XMS_ITS | Data Portability ---
Author Organization MD - [facility], Allergy Address [address] [address] Care Team Providers Care Agricultural Education Instructor Name Role Phone JUAN ANTONIO LADD Primary [...] and Address Organization Details Recorded Time Tinnitus 03389113 Active 2013 Tinnitus , unspecif ied; Note: Date Diagnose d: 06/04/20 14 11:48 AM (388.30) Not Available [facility] 4 02:36:57 Asymmetr ical sensorin eural hearing loss 601985362 Active 2014 Sensorin eural HL, asymmetr ic; Note: Date Diagnose d: 5 10:39 AM (389.16) Sensor ineural hearing los asymmetr ic; Note: Date Diagnose d: 06/04/20 14 11:48 AM (389.16) ; Start Date : 06/04/20 14 Not Available [facility] 4 02:37:09 Sensorin eural hearing loss of bilatera l ears 961280715 Active 2014 Hearing loss: Sensorin eural hearing loss, bilatera l; Note: Date Diagnose d: 06/04/20 14 11:16 AM (389.18) ; Start Date : 06/04/20 14 Senso rineural hearing loss, bilatera l; Note: Date Diagnose d: 06/08/20 15 9:17 AM (H90.3) Not Available [facility] 4 02:37:02 Sudden idiopath ic hearing loss 670522136 Active 2018 Sudden idiopath ic hearing loss, right ear; Note: Changed from H91.20 to H91.21 (02/06/20 19 12:29 PM) , Date Diagnose d: 9 9:51 AM (H91.20) Not Available [facility] 4 02:37:03 Disorder of right Eustachi an tube 49698586636 39662 Active 2018 Other specifie d disorder s of Eustachi an tube, right ear; Note: Date Diagnose d: 9 9:20 AM (H69.81) Not Available [facility] 4 02:37:14 Impacted cerumen of bilatera l ears 20661543338 95776 Active 2019 Impacted cerumen, bilatera l; Note: Date Diagnose d: 0 3:42 PM (H61.23) Not Available [facility] 4 02:37:06 M ni re's disease 73083354 Active 2019 Meniere' s disease, right ear; Note: Date Diagnose d: 0 4:18 PM (H81.01) Not Available [facility] 4 02:37:10 Impacted cerumen in right ear 30633506793 36386 Active 2020 Impacted cerumen, right ear; Note: Date Diagnose d: 1 11:16 AM (H61.21) Not Available [facility] 4 02:37:11 Dizzines s and giddines s 057977004 Active 2020 Vertigo NOS; Note: Date Diagnose d: 1 11:20 AM (R42) Not Available [facility] 4 02:37:07 Candidal otitis externa 39816640 Completed 202003/21/2024 Candidal otitis externa; Note: Date Diagnose d: 1 1:38 PM (B37.84) Not Available [facility] 4 02:36:57 Diffuse otitis externa 31460290 Completed 202003/21/2024 Diffuse otitis externa, right ear; Note: Date Diagnose d: 1 1:38 PM (H60.311 ) Not Available [facility] 4 02:37:03 Headache 34980215 Active 2022 Headache , unspecif ied; Note: Date Diagnose d: 3 11:13 AM (R51.9) Not Available [facility] 4 02:37:03 Type 2 diabetes mellitus without complica tion 555365222 Active 2022 Type 2 diabetes mellitus without complica tions; Note: Date Diagnose d: 3 11:09 AM (E11.9) Not Available [facility] 4 02:36:59 Hydrocep halus 212759469 Active 2022 Hydrocep halus, unspecif ied; Note: Date Diagnose d: 3 11:07 AM (G91.9) Not Available [facility] 4 02:37:10 Problem Notes None recorded. Procedures Surgical History Date Name Laterality Status Provider Name and Address Organization Details Recorded Time 5 Air & Speech Audio with Tymps - 08481, 90395 & 40476 completed JUN GOMEZ 100 [facility],[address], [address], [place] - [facility] 04/02/2025 13:40:25 5 Cerumen removal with microscope bilateral completed SCOTT VILLARREAL MD 100 [facility],[address], [address], [place] - [facility] 04/01/2025 16:05:18 4 Cerumen removal with microscope bilateral completed SCOTT VILLARREAL MD 100 [facility],[address], [address], [place] - [facility] 03/26/2024 10:08:28 Imaging Results None recorded. Procedure Notes None recorded. Medical Equipment None Reported. Allergies Allergen ID Allergen Name Allergen Category Reaction Reaction Severity Criticality Documentation Date Start Date Code Code System Note Provider Name and Address Organization Details Recorded Time 315265 Iodinated contrast media (substanc e) medicatio n Not available Not available Not available 03/26/2024 60518 2003 SNOMED Trinidad alexandra MD - [facility] 4 09:43:16 479777 latex environme nt,medica tion Not available Not available Not available 03/26/2024 88422 91 RxNorm Trinidad alexandra [place] [facility] 4 09:43:28 257145 shellfish derived food,medi cation Not available Not available Not available 03/26/2024 Trinidad alexandra [facility] 4 09:43:36 41236 meperidin e hydrochlo ride medicatio n other Not available Not available 01/01/2024 83154 5 RxNorm React ion: unkno wn, unspe [...] mg tablet 04/22 completed Medicati on ID: [id number] P maria lrividhya d By Name: Leah [...] mg tablet 02/05 completed Medicati on ID: [id number] Du ration Value: 30 Reason: () Brand Name: topirama te Send Method: E-Prescr ibed Sub s Allowed: subs OK Medic ationGen ericName : topirama te Not Available Not Available Not Available ciproflox acin 500 mg tablet 1 tablet by mouth 03/26 completed Medicati on ID: [id number] D uration Value: 10 Prescri bed By [...] sustained -release 02/05 completed Medicati on ID: [id number] D uration Value: 30 Reason: () Brand [...] mg tablet 04/02 completed Medicati on ID: [id number] B rand Name: meclizin e Send Method: [...] topical solution 03/26 completed Medicati on ID: [id number] D uration Value: 14 Prescri bed By [...] topical cream 06/29 completed Medicati on ID: [id number] D uration Value: 30 Brand Name: ketocona [...] 24 hr 03/26 completed Medicati on ID: [id number] D uration Value: 90 Brand Name: metformi n Send Method: E-Prescr ibed Sub s Allowed: subs OK Medic ationGen ericName : metformi n Not Available Not Available Not Available Ciprodex 0.3 %-0.1 % ear drops,kumar pension 4 drop into right ear 03/26 completed Medicati on ID: [id number] D uration Value: 14 Prescri bed By [...] Updated DateTime 03/26/2024 190.5 cm 40 kg/m2 504711.56 g Trinidad Martinez [place] - [facility] 03/26/2024 09:37:58 Social History None recorded. Functional Status None recorded. Mental Status None recorded. Family History Nothing Reported. Medical History Condition Response Diabetes Y Hypertension Y High Cholesterol Y Past Encounters Encounter ID Performer Location Encounter Start Date Encounter Closed Date Diagnosis/Indication Diagnosis SNOMED-CT Code Diagnosis ICD10 Code Diagnosis IMO Codes Diagnosis Note [id number] SCOTT VILLARREAL MD [facility] [address] [address] 03/26/2024 09:16:33 03/26/2024 10:12:40 Hydrocephalus 021077340 G91.9 Impacted c erumen of bilateral ears [id number] 039967 H61.23 Patient will follow-up with physician senior court office assistant in 1 year for cerumen disimpacti on in light of his tendency to impact cerumen due to hearing aid use. Sensorineu ral hearing loss of bilateral ears 230382647 H90.3 Patient's ears appear healthy today following disimpacti on of cerumen. He did not have time for updated audiometri c testing today. I recommende d he contact his audiologis t at the [facility] audiology group to check on his hearing aids and to update his audiometri c testing if indicated. Dizziness and giddiness 249294245 R42 Overall, the patient seems to be doing much better with regards to his balance issues. His residual symptoms are more consistent with postural hypotensio n than anything going on in his inner ear. I would still recommend proceeding with the neurologic al evaluation as recommende d by Dr. 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 [id number] SCOTT VILLARREAL MD [facility] [address] [address] 04/02/2025 13:07:50 04/02/2025 13:58:13 Hydrocephalus [id number] G91.9 Sensorineu ral hearing loss of bilateral ears 635301125 H90.3 Patient's ears appear healthy today following disimpacti on of cerumen. He did not have time for updated audiometri c testing today. I recommende d he contact his audiologis t at the [facility] audiology group to check on his hearing aids and to update his audiometri c testing if indicated. Impacted c erumen of bilateral ears [id number] 686552 H61.23 Patient will follow-up in 1 year for cerumen disimpacti on in light of his tendency to impact cerumen due to hearing aid use. [id number] JUN GOMEZ [facility] [address] [address] 04/02/2025 13:36:36 04/16/2025 12:17:53 Sensorineural hearing loss of bilateral ears 172505599 H90.3 Right Ear:Modera tely-sever e SNHL with [...] Hay Member ID Guarantor Name 04/02/2025 2 MEDICAID-MD: [facility] Sagar Huggins [id number] Sagar Huggins 04/02/2025 2 MEDICARE B-[place]: [employer] Sagar Huggins [id number] Sagar Huggins 04/02/2025 1 MEDICARE B-MD: [employer] Sagar Huggins [id number] Sagar Huggins Notes Date Note Type Note [...] injections. Currently wearing binaural amplification dispensed through [facility] audiology. Patient has noticed more recently [...] Patient did meet with Dr. Granados at [facility] neurosurgery who determined that his shunt [...] but no true vertigo SCOTT VILLARREAL MD [address] [place] [address], [phone], [facility] - [facility] 03/26/2024 10:16:04 04/02/2025 text/html 59 year [...] injections. Currently wearing binaural amplification dispensed through [facility] audiology. Patient has noticed more recently [...] Patient did meet with Dr. Granados at [facility] neurosurgery who determined that his shunt seemed to be functional. He did recommend neurological evaluation and this is scheduled for later in the year.Fortunately, patient reports that the severe dizziness symptoms that he was experiencing last year have mostly subsided. Patient has problems with cerumen accumulation and comes back for reevaluation and ear cleaning. Patient currently using binaural amplification managed through [facility] audiology. SCOTT VILLARREAL MD [address] [place] [address], [place], [address], [place] - [facility] 04/02/2025 13:56:51
== END 2025-06-05 10:01 | disposition home or self-care (01) ==
LOC: HO.HMGCLNP 10:00
PROVIDERS: PCP Nurse Practitioner Family; Visit Provider Nurse Practitioner Family
DX: E11.9 Type 2 diabetes mellitus without complications (principal)
CPT/HCPCS: 81001

== ENCOUNTER 2025-06-23 13:22 | Outpatient (REF) | payer MEDICARE, MEDICAID, SELFPAY ==
--- OUTSIDE RECORDS SUMMARY | 2025-06-23 16:19 | XMS_ITS | Data Portability ---
Author Organization [place] - [facility], Allergy Address [address] [address] Care Team Providers Care Functional Director Name Role Phone JUAN ANTONIO LADD Primary [...] and Address Organization Details Recorded Time Tinnitus 74292142 Active 2013 Tinnitus , unspecif ied; Note: Date Diagnose d: 06/04/20 14 11:48 AM (388.30) Not Available [facility] 4 02:36:57 Asymmetr ical sensorin eural hearing loss 440533030 Active 2014 Sensorin eural HL, asymmetr ic; Note: Date Diagnose d: 5 10:39 AM (389.16) Sensor ineural hearing los asymmetr ic; Note: Date Diagnose d: 06/04/20 14 11:48 AM (389.16) ; Start Date : 06/04/20 14 Not Available [facility] 4 02:37:09 Sensorin eural hearing loss of bilatera l ears 013733089 Active 2014 Hearing loss: Sensorin eural hearing loss, bilatera l; Note: Date Diagnose d: 06/04/20 14 11:16 AM (389.18) ; Start Date : 06/04/20 14 Senso rineural hearing loss, bilatera l; Note: Date Diagnose d: 06/08/20 15 9:17 AM (H90.3) Not Available [facility] 4 02:37:02 Sudden idiopath ic hearing loss 427942131 Active 2018 Sudden idiopath ic hearing loss, right ear; Note: Changed from H91.20 to H91.21 (02/06/20 19 12:29 PM) , Date Diagnose d: 9 9:51 AM (H91.20) Not Available [facility] 4 02:37:03 Disorder of right Eustachi an tube 00409422353 13779 Active 2018 Other specifie d disorder s of Eustachi an tube, right ear; Note: Date Diagnose d: 9 9:20 AM (H69.81) Not Available [facility] 4 02:37:14 Impacted cerumen of bilatera l ears 82699651169 23422 Active 2019 Impacted cerumen, bilatera l; Note: Date Diagnose d: 0 3:42 PM (H61.23) Not Available [facility] 4 02:37:06 M ni re's disease 66038221 Active 2019 Meniere' s disease, right ear; Note: Date Diagnose d: 0 4:18 PM (H81.01) Not Available [facility] 4 02:37:10 Impacted cerumen in right ear 63700657946 43566 Active 2020 Impacted cerumen, right ear; Note: Date Diagnose d: 1 11:16 AM (H61.21) Not Available [facility] 4 02:37:11 Dizzines s and giddines s 447954394 Active 2020 Vertigo NOS; Note: Date Diagnose d: 1 11:20 AM (R42) Not Available [facility] 4 02:37:07 Candidal otitis externa 05380244 Completed 202003/21/2024 Candidal otitis externa; Note: Date Diagnose d: 1 1:38 PM (B37.84) Not Available [facility] 4 02:36:57 Diffuse otitis externa 82972100 Completed 202003/21/2024 Diffuse otitis externa, right ear; Note: Date Diagnose d: 1 1:38 PM (H60.311 ) Not Available [facility] 4 02:37:03 Headache 81612519 Active 2022 Headache , unspecif ied; Note: Date Diagnose d: 3 11:13 AM (R51.9) Not Available [facility] 4 02:37:03 Type 2 diabetes mellitus without complica tion 261498901 Active 2022 Type 2 diabetes mellitus without complica tions; Note: Date Diagnose d: 3 11:09 AM (E11.9) Not Available [facility] 4 02:36:59 Hydrocep halus 183117611 Active 2022 Hydrocep halus, unspecif ied; Note: Date Diagnose d: 3 11:07 AM (G91.9) Not Available [facility] 4 02:37:10 Problem Notes None recorded. Procedures Surgical History Date Name Laterality Status Provider Name and Address Organization Details Recorded Time 5 Air & Speech Audio with Tymps - 76705, 41898 & 84231 completed JUN GOMEZ 100 [facility],[address], [address], [place] - [facility] 04/02/2025 13:40:25 5 Cerumen removal with microscope bilateral completed SCOTT VILLARREAL MD 100 [facility],[address], [address], [place] - [facility] 04/01/2025 16:05:18 4 Cerumen removal with microscope bilateral completed SCOTT VILLARREAL MD 100 [facility],[address], [address], [place] - [facility] 03/26/2024 10:08:28 Imaging Results None recorded. Procedure Notes None recorded. Medical Equipment None Reported. Allergies Allergen ID Allergen Name Allergen Category Reaction Reaction Severity Criticality Documentation Date Start Date Code Code System Note Provider Name and Address Organization Details Recorded Time 363659 Iodinated contrast media (substanc e) medicatio n Not available Not available Not available 03/26/2024 05938 2003 SNOMED Trinidad alexandra [place] - [facility] 4 09:43:16 987422 latex environme nt,medica tion Not available Not available Not available 03/26/2024 92342 91 RxNorm Trinidad alexandra [place] [facility] 4 09:43:28 098521 shellfish derived food,medi cation Not available Not available Not available 03/26/2024 Trinidad alexandra [facility] 4 09:43:36 05603 meperidin e hydrochlo ride medicatio n other Not available Not available 01/01/2024 10409 5 RxNorm React ion: unkno wn, unspe [...] mg tablet 04/22 completed Medicati on ID: [id number] P maria lrividhya d By Name: Leah [...] mg tablet 02/05 completed Medicati on ID: [id number] Du ration Value: 30 Reason: () Brand Name: topirama te Send Method: E-Prescr ibed Sub s Allowed: subs OK Medic ationGen ericName : topirama te Not Available Not Available Not Available ciproflox acin 500 mg tablet 1 tablet by mouth 03/26 completed Medicati on ID: [id number] D uration Value: 10 Prescri bed By [...] sustained -release 02/05 completed Medicati on ID: [id number] D uration Value: 30 Reason: () Brand [...] mg tablet 04/02 completed Medicati on ID: [id number] B rand Name: meclizin e Send Method: [...] topical solution 03/26 completed Medicati on ID: [id number] D uration Value: 14 Prescri bed By [...] topical cream 06/29 completed Medicati on ID: [id number] D uration Value: 30 Brand Name: ketocona [...] 24 hr 03/26 completed Medicati on ID: [id number] D uration Value: 90 Brand Name: metformi n Send Method: E-Prescr ibed Sub s Allowed: subs OK Medic ationGen ericName : metformi n Not Available Not Available Not Available Ciprodex 0.3 %-0.1 % ear drops,kumar pension 4 drop into right ear 03/26 completed Medicati on ID: [id number] D uration Value: 14 Prescri bed By [...] Updated DateTime 03/26/2024 190.5 cm 40 kg/m2 220203.56 g Trinidad Martinez [place] - [facility] 03/26/2024 09:37:58 Social History None recorded. Functional Status None recorded. Mental Status None recorded. Family History Nothing Reported. Medical History Condition Response Diabetes Y Hypertension Y High Cholesterol Y Past Encounters Encounter ID Performer Location Encounter Start Date Encounter Closed Date Diagnosis/Indication Diagnosis SNOMED-CT Code Diagnosis ICD10 Code Diagnosis IMO Codes Diagnosis Note [id number] SCOTT VILLARREAL MD [facility] [address] [address] 03/26/2024 09:16:33 03/26/2024 10:12:40 Hydrocephalus 543781793 G91.9 Impacted c erumen of bilateral ears 7801637022 064919 H61.23 Patient will follow-up with physician branch assistant in 1 year for cerumen disimpacti on in light of his tendency to impact cerumen due to hearing aid use. Sensorineu ral hearing loss of bilateral ears 745892338 H90.3 Patient's ears appear healthy today following disimpacti on of cerumen. He did not have time for updated audiometri c testing today. I recommende d he contact his audiologis t at the [facility] audiology group to check on his hearing aids and to update his audiometri c testing if indicated. Dizziness and giddiness 400991548 R42 Overall, the patient seems to be doing much better with regards to his balance issues. His residual symptoms are more consistent with postural hypotensio n than anything going on in his inner ear. I would still recommend proceeding with the neurologic al evaluation as recommende d by Dr. Granados in light of his medical history and presence of HOMICIDE SQUAD LIEUTENANT shunt. [id number] SCOTT VILLARREAL MD [facility] [address] [address] 04/02/2025 13:07:50 04/02/2025 13:58:13 Hydrocephalus 459761973 G91.9 Sensorineu ral hearing loss of bilateral ears 699217433 H90.3 Patient's ears appear healthy today following disimpacti on of cerumen. He did not have time for updated audiometri c testing today. I recommende d he contact his audiologis t at the [facility] audiology group to check on his hearing aids and to update his audiometri c testing if indicated. Impacted c erumen of bilateral ears 0658475039 043396 H61.23 Patient will follow-up in 1 year for cerumen disimpacti on in light of his tendency to impact cerumen due to hearing aid use. [id number] JUN GOMEZ [facility] [address] [address] 04/02/2025 13:36:36 04/16/2025 12:17:53 Sensorineural hearing loss of bilateral ears 568345096 H90.3 Right Ear:Modera tely-sever e SNHL with [...] Hay Member ID Guarantor Name 04/02/2025 2 [place] [facility] Sagar Huggins [id number] Sagar Huggins 04/02/2025 2 [place] [employer] Sagar Huggins [id number] Sagar Huggins 04/02/2025 1 [place] [employer] Sagar Huggins [id number] Sagar Huggins Notes Date Note Type Note [...] injections. Currently wearing binaural amplification dispensed through [facility] audiology. Patient has noticed more [...] Patient did meet with Dr. Granados at [facility] neurosurgery who determined that his shunt seemed [...] but no true vertigo SCOTT VILLARREAL MD [address] [place] [address], [address], [facility] - [facility] 03/26/2024 10:16:04 04/02/2025 text/html 59 year [...] injections. Currently wearing binaural amplification dispensed through [facility] audiology. Patient has noticed more [...] Patient did meet with Dr. Granados at [facility] neurosurgery who determined that his shunt seemed to be functional. He did recommend neurological evaluation and this is scheduled for later in the year.Fortunately, patient reports that the severe dizziness symptoms that he was experiencing last year have mostly subsided. Patient has problems with cerumen accumulation and comes back for reevaluation and ear cleaning. Patient currently using binaural amplification managed through [facility] audiology. SCOTT VILLARREAL MD [address] [place] [address], [place], [address], [place] - [facility] 04/02/2025 13:56:51
== END 2025-06-23 13:23 | disposition home or self-care (01) ==
LOC: HO.HAP 13:22
PROVIDERS: Visit Provider Nurse Practitioner Family
DX: Z13.89 Encounter for screening for other disorder (principal)

== ENCOUNTER 2025-06-23 14:43 | Outpatient (AMB) | payer MEDICARE, MEDICAID, SELFPAY ==
--- NOTE | 2025-06-23 15:40 | A.OFFPC_ITS ---
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 Required: No Accompanied by: Self / Same As Patient Allergies Iodinated Contrast Media (IV Contrast Dye) Allergy (Verified 06/23/25 15:50) Unknown latex Allergy (Verified 06/23/25 15:50) Unknown meperidine (From Demerol) Allergy (Verified 06/23/25 15:50) Unknown shellfish derived Allergy (Verified 06/23/25 15:50) Unknown Medication List - Last Reconciled 06/23/25 by BOB Barrett- albuterol sulfate 90 mcg/actuation 2 puffs inhalation Q6H PRN 30 days aspirin (Adult Aspirin Regimen) 81 mg PO DAILY blood sugar diagnostic ([employer]Touch Verio test strips) test blood sugar once a day blood-glucose meter ([employer] Verio Flex Meter) As directed bupropion HCl XL 300 mg PO QAM cholecalciferol (vitamin D3) 50 mcg PO DAILY clotrimazole-betamethasone 1-0.05 % 1 appl topical BID 2 weeks empagliflozin 25 mg PO DAILY 30 days finasteride 5 mg PO DAILY fluticasone propionate 50 mcg/actuation sprays intranasal jkcdydksnrz-tfwejbycc-ltjzntcz 100-62.5-25 mcg (Trelegy Ellipta) 1 inh inhalation DAILY lancets (OneTouch Delica Plus Lancet) Test blood sugar once a day lisinopril-hydrochlorothiazide 20-25 mg 1 tab PO DAILY 90 days magnesium oxide 400 mg PO DAILY 3 months MDD 400mg mecobal-levomefolat Ca-B6 phos 2-3-35 mg (Metanx FC) 1 cap PO DAILY 3 months MDD 1 capsule mecobalamin (vitamin B12) 1,000 mcg PO DAILY 2 months MDD 1000mcg metformin ER 1,000 mg (2 x 500 mg) PO BID 90 days rosuvastatin 20 mg PO DAILY 90 days semaglutide (Ozempic) 2 mg (0.75 mL) subcut QWEEK Tobacco use date assessed: 06/23/25 Dental Screening Dental Screen Date: 06/23/25 Did you have a dental visit in the last 12 months?: Yes Did you have a dental problem in the last 6 months where you did not have access to dental care?: No Was dental information given to patient?: Patient has dentist HPI 3 months f/up HPI Details Chief Complaint The patient presents for a visit for diabetes management and vaccinations. History of Present Illness The patient is a 59 year old male presenting for diabetes management. Vaccines pt is due for was written down, can get at his pharmacy. His A1c today was 6.8, and his eye exam is up to date. 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 He has a recent history of an abnormal CBC with no reported sense of infection, but he does report a recent cough with some mucus. He is morbidly obese but has otherwise fairly impressive labs. needs a new referral to ENT for insurance purposes Social History Health Maintenance He is due for injections and vaccinations, and a list has been provided to him. Review of Systems - Respiratory: Reports a recent cough wi th some mucus. - Constitutional: Denies a sense of infe ction. Physical Exam General: Cooperative, healthy appearing, comfortable, no acute distress and well developed. Morbidly obese Orientation: Patient oriented x3 Limitations: No limitations Head: Normal to inspection Ears: Hearing grossly normal bilaterally Nose: Normal external nose present Face and sinus: Normal facial exam Eyes: Appearance normal, both eyes and all related structures. Eye exam is up to date according to patient Neck: Normal visual inspection and Yes full ROM Respiratory: Normal respiratory effort and able to speak in complete sentences. Clear to auscultation bilaterally. Cardiovascular: Regular rate and rhythm. Normal S1 and S2 GI: Normal to inspection. Soft to palpation and nontender Skin: No rashes or lesions noted Neuro: Patient oriented x3. Positive sensation with use of monofilament, Onychomycosis noted bilat, elongated toenails Extremities: Normal to inspection Results - Hemoglobin A1c: 6.8. - CBC: A recent CBC was abnormal. Plan 1. Diabetes Mellitus The patient's A1c is well-controlled at 6.8. He has positive sensation with monofilament testing, and his eye exam is up to date. The plan is to continue the same treatment regimen and obtain labs. 2. Onychomycosis The patient has onychomycosis, for which Bylab was ordered. He was advised to follow up with his coffee supervisor. 3. Cough The patient reports a recent cough with mucus but denies other signs of infection, following a recent abnormal CBC. A chest x-ray will be obtained tomorrow, and a repeat CBC will be performed to further evaluate. Discussion Notes I discussed with the patient that his A1c of 6.8 is at a good level. Regarding his recent cough and abnormal CBC, I explained that we will get a chest x-ray and repeat the CBC to investigate further. I noted his onychomycosis Bilat, and recommended he follow up with his coffee supervisor. We agreed to continue his current medication regimen. I provided him with a list of vaccinations he is due for. Patient Instructions - Continue with your current medications for diabetes as prescribed. - Please get your blood work done as ord ered. - Go for a chest x-ray tomorrow to check on your cough. - Make an appointment to see your foot d jewelor (coffee supervisor) about your toenail fungus. - Please get the shots (injections and v accinations) that we discussed from the list I gave you. [facility] Medical History Sensorineural hearing loss Tachycardia Hydrocephalus High cholesterol HTN (hypertension) Diabetes Meniere disease Vertigo Surgical History H/O right knee surgery H/O umbilical hernia repair H/O left knee surgery S/P FAMILY ADVOCATE shunt H/O colonoscopy Family History Mother Brain malignant neoplasm Social History Housing: Apartment Alcohol intake: former Patient Tobacco Use Status: Former Tobacco user Years Smoked: 31 years ago e-Cigarette/Vaping Use: Never Used Second Hand Smoke Exposure: No service: No Current occupational status: retired and disabled Cognitive needs: No Hearing needs: No Vision needs: No Questionnaire PHQ-9 Over the last 2 weeks, how often have you been bothered by any of the following problems? 1. Little interest or pleasure in doing things: not at all 2. Feeling down, depressed, or hopeless: not at all 3. Trouble falling or staying asleep, or sleeping too much: several days 4. Feeling tired or having little energy: nearly every day 5. Poor appetite or overeating: not at all 6. Feeling bad about yourself - or that you are a failure or have let yourself or your family down: not at all 7. Trouble concentrating on things, such as reading the newspaper or watching television: not at all 8. Moving or speaking so slowly that other people could have noticed. Or the opposite - being so fidgety or restless that you have been moving around a lot more than usual: not at all 9. Thoughts that you would be better off or of hurting yourself in some way: not at all Total score: 4 Depression Screening Interpretation: Negative Depression Screening Done: Yes 88940 - PHQ-9 Billing: Yes Source: Developed by Drs. Vinicius Maria, Marry Trejo, Andi Uribe and colleagues, with an educational ky from [employer]. Thrive Questionnaire Date Thrive assessed: 09/17/24 I am a: Patient What is your living situation today?: I have a steady place to live Within the past 12 months, did the food you bought not last and you didn't have the money to get more?: Never true Within the past 12 months, did you worry whether your food would run out before you got money to buy more?: Never true Do you have trouble paying for medicines?: No Do you have trouble getting transportation to medical appointments?: No Do you have trouble paying your heating and electricity bill?: No Do you have trouble taking care of your child, family member or friend?: I choose not to answer this question Do you have trouble with day-to-day activities such as bathing, preparing meals, shopping, managing finances, etc.?: No Are you currently unemployed and looking for a job?: I choose not to answer this question Are you interested in more education?: I choose not to answer this question Please select the resources that you would like help with: None Currently or been in a relationship where the following occur: I choose not to answer THRIVE Score: 0 DANIEL-7 AMB Questionnaire DANIEL-7 Date DANIEL - 7 assessed: 06/23/25 Feeling nervous, anxious, or on edge: 0 = Not at all Not being able to stop or control worryin = Not at all Worrying too much about different things: 0 = Not at all Trouble relaxin = Not at all Being so restless that it is hard to sit still: 0 = Not at all Becoming easily annoyed or irritable: 0 = Not at all Feeling afraid as if something awful might happen: 0 = Not at all Total DANIEL-7 score (0-4 normal; 5-9 mild; 10-14 moderate; 15-21 severe): 0 Source: Developed by Drs. Vinicius Maria, Marry Trejo, Andi Uribe and colleagues, with an educational ky from [employer]. Physical exam (Primary Care) Vital Signs: Last Vital Signs Pulse 98 06/23/25 15:41 Resp 16 06/23/25 15:41 BP 118/68 06/23/25 15:41 Pulse Ox 97 06/23/25 15:41 Oxygen Delivery Method Room Air 06/23/25 15:41 BMI result Body Mass Index 36.2 Tobacco/Smoking Status: Tobacco use Status Tobacco use date assessed 06/23/25 06/23/25 15:51 Patient Tobacco Use Status Former Tobacco user 06/23/25 15:44 e-Cigarette/Vaping Use Never Used 06/23/25 15:44 PHQ-9: PHQ-9 Score PHQ-9: Total score 4 06/23/25 15:52 Depression Screening Interpretation: Negative Thrive Assessment: Date of Thrive Assessment Date Thrive assessed 09/17/24 06/23/25 15:44 Currently or been in a relationship where the following occur: I choose not to answer Results AMB Hemoglobin A1c AMB Hemoglobin A1c 6.8 % Last Edit by Alie Garza MA on 06/23/25 15:56 Results Reviewed Results Reviewed: Laboratory Last Values Hgb A1c (Clinic) 6.8 % (4.0-6.0) H 06/23/25 15:51 Coding Level of Care Code Est Pt Level 3 (11043) Diagnoses Abnormal CBC R79.89 Cough R05.9 Meniere disease H81.09 Diabetes E11.9 B12 deficiency E53.8 Additional Codes PHQ-9 - 03100 - PHQ-9 Billing: Yes ([id number]) Assessment & Plan Assessment & Plan (1) Abnormal CBC: Code(s): R79.89 - Other specified abnormal findings of blood chemistry Category: Medical (2) Cough: Code(s): R05.9 - Cough, unspecified Category: Medical (3) Meniere disease: Code(s): H81.09 - Meniere's disease, unspecified ear Category: Medical (4) Diabetes: Code(s): E11.9 - Type 2 diabetes mellitus without complications Category: Medical (5) B12 deficiency: Code(s): E53.8 - Deficiency of other specified B group vitamins Category: Medical Plan . Orders: Orders AMB Hemoglobin A1c Today E11.9 - Type 2 diabetes mellitus without complications XR chest 2V Today R05.9 - Cough, unspecified Complete Blood Count Auto Diff Today R79.89 - Other specified abnormal findings of blood chemistry Vitamin B12 and Folate Today E53.8 - Deficiency of other specified B group vitamins Referrals Ear/Nose/Throat Referral H81.09 - Meniere's disease, unspecified ear
[2025-06-23 15:41] VITALS: BP 118/68; PULSE 98; RESP 16; O2SAT 97; BMI 36.2
== END 2025-06-23 16:33 | disposition home or self-care (01) ==
LOC: HO.HMCC 14:44
PROVIDERS: PCP Nurse Practitioner Family; Visit Provider Nurse Practitioner Family
DX: E11.9 Type 2 diabetes mellitus without complications (principal)

== ENCOUNTER → 2025-06-23 14:43 | Outpatient (BNVA) | payer MEDICARE, MEDICAID, SELFPAY | PROVIDERS: PCP Nurse Practitioner Family; Visit Provider Nurse Practitioner Family | DX: E11.9 Type 2 diabetes mellitus without complications (principal); R05.9 Cough, unspecified; E53.8 Deficiency of other specified B group vitamins; H81.03 Meniere's disease, bilateral; Z13.31 Encounter for screening for depression; Z13.39 Encounter for screening examination for other mental health and behavioral disorders | CPT/HCPCS: 83036; 96127; 99212 ==

== ENCOUNTER 2025-06-24 08:14 | Outpatient (REF) | payer MEDICARE, MEDICAID, SELFPAY ==
--- NOTE | ~2025-06-24 | XR_ITS ---
EXAMINATION: XR CHEST CLINICAL INFORMATION: R05.9 - Cough, unspecified COMPARISON: October 30, 2023. Correlated to CT chest dated September 04, 2024. TECHNIQUE: PA and lateral views FINDINGS: Patchy opacity, right perihilar region into the right middle lung lobe. No pleural effusion or pneumothorax. Heart silhouette size is normal. Multilevel thoracolumbar spondylosis. XR/XR chest 2V IMPRESSION: Concerning acute airspace disease, right middle lung lobe. Text message sent via [employer] to requesting physician Dr. Liang Rodriguez at [facility] on June 24, 2025 at 9:23 AM. Electronically signed by: Mateo Moon MD 06/24/2025 09:24 AM [facility]
[2025-06-24 10:31] LABS: MANUAL DIFF FLAG NO
[2025-06-24 10:51] LABS: Hematocrit 45.5 % (42.0-52.0); Hemoglobin 14.4 g/dl (14.0-18.0); Imm Gran Abs Auto 0.03 X10*3/uL (0.00-0.03); Imm Gran Pct Auto 0.4 % (0.0-0.4); Lymphocytes Absolute Auto 2.1 X10*3/uL (1.2-4.9); Mean Corpuscular HGB Conc 31.6 g/dl (31.0-36.0); Mean Corpuscular Hemoglobin 25.5 pg (27.0-33.0); Mean Corpuscular Volume 80.7 fL (80.0-98.0); NRBC Abs Auto 0.000 X10*3/uL (0.0-0.012); NRBC Pct Auto 0.0 /100WBC (0.0-0.2); Platelet Count 344 X10*3/uL (160-400); Red Blood Count 5.64 X10*6/uL (4.60-5.80); White Blood Count 8.4 X10*3/uL (4.8-10.8)
[2025-06-24 11:43] LABS: Folate 12.4 ng/mL (> or = 4.0); Vitamin B12 472 pg/mL (200-900)
== END 2025-06-24 08:15 | disposition home or self-care (01) ==
LOC: HO.HMGCX 08:14
PROVIDERS: Nurse Practitioner Family; PCP Internal Medicine; Visit Provider Internal Medicine
DX: R05.9 Cough, unspecified (principal); E53.8 Deficiency of other specified B group vitamins; R79.89 Other specified abnormal findings of blood chemistry
CPT/HCPCS: 36415; 71046; 82607; 82746; 85025

== ENCOUNTER → 2025-06-24 08:40 | Outpatient (BNV) | payer MEDICARE, MEDICAID, SELFPAY | PROVIDERS: PCP Internal Medicine; Visit Provider Radiology Diagnostic Radiology | DX: R05.9 Cough, unspecified (principal) | CPT/HCPCS: 71046 ==

== ENCOUNTER 2025-07-01 11:58 | Outpatient (REF) | payer MEDICARE, MEDICAID, SELFPAY ==
--- OUTSIDE RECORDS SUMMARY | 2025-07-01 14:50 | XMS_ITS | Data Portability ---
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 Name Role Phone JUAN ANTONIO LADD Primary [...] and Address Organization Details Recorded Time Tinnitus 79375121 Active 2013 Tinnitus , unspecif ied; Note: Date Diagnose d: 06/04/20 14 11:48 AM (388.30) Not Available [facility] 4 02:36:57 Asymmetr ical sensorin eural hearing loss 957524453 Active 2014 Sensorin eural HL, asymmetr ic; Note: Date Diagnose d: 5 10:39 AM (389.16) Sensor ineural hearing los asymmetr ic; Note: Date Diagnose d: 06/04/20 14 11:48 AM (389.16) ; Start Date : 06/04/20 14 Not Available [facility] 4 02:37:09 Sensorin eural hearing loss of bilatera l ears 360924226 Active 2014 Hearing loss: Sensorin eural hearing loss, bilatera l; Note: Date Diagnose d: 06/04/20 14 11:16 AM (389.18) ; Start Date : 06/04/20 14 Senso rineural hearing loss, bilatera l; Note: Date Diagnose d: 06/08/20 15 9:17 AM (H90.3) Not Available [facility] 4 02:37:02 Sudden idiopath ic hearing loss 211569736 Active 2018 Sudden idiopath ic hearing loss, right ear; Note: Changed from H91.20 to H91.21 (02/06/20 19 12:29 PM) , Date Diagnose d: 9 9:51 AM (H91.20) Not Available [facility] 4 02:37:03 Disorder of right Eustachi an tube 40140572368 18486 Active 2018 Other specifie d disorder s of Eustachi an tube, right ear; Note: Date Diagnose d: 9 9:20 AM (H69.81) Not Available [facility] 4 02:37:14 Impacted cerumen of bilatera l ears 50843171434 67004 Active 2019 Impacted cerumen, bilatera l; Note: Date Diagnose d: 0 3:42 PM (H61.23) Not Available [facility] 4 02:37:06 M ni re's disease 73990731 Active 2019 Meniere' s disease, right ear; Note: Date Diagnose d: 0 4:18 PM (H81.01) Not Available [facility] 4 02:37:10 Impacted cerumen in right ear 67794652359 65297 Active 2020 Impacted cerumen, right ear; Note: Date Diagnose d: 1 11:16 AM (H61.21) Not Available [facility] 4 02:37:11 Dizzines s and giddines s 344813494 Active 2020 Vertigo NOS; Note: Date Diagnose d: 1 11:20 AM (R42) Not Available [facility] 4 02:37:07 Candidal otitis externa 02955198 Completed 202003/21/2024 Candidal otitis externa; Note: Date Diagnose d: 1 1:38 PM (B37.84) Not Available [facility] 4 02:36:57 Diffuse otitis externa 76457325 Completed 202003/21/2024 Diffuse otitis externa, right ear; Note: Date Diagnose d: 1 1:38 PM (H60.311 ) Not Available [facility] 4 02:37:03 Headache 73418096 Active 2022 Headache , unspecif ied; Note: Date Diagnose d: 3 11:13 AM (R51.9) Not Available [facility] 4 02:37:03 Type 2 diabetes mellitus without complica tion 853509001 Active 2022 Type 2 diabetes mellitus without complica tions; Note: Date Diagnose d: 3 11:09 AM (E11.9) Not Available [facility] 4 02:36:59 Hydrocep halus 393382731 Active 2022 Hydrocep halus, unspecif ied; Note: Date Diagnose d: 3 11:07 AM (G91.9) Not Available [facility] 4 02:37:10 Problem Notes None recorded. Procedures Surgical History Date Name Laterality Status Provider Name and Address Organization Details Recorded Time 5 Air & Speech Audio with Tymps - 02024, 13829 & 01233 completed JUN GOMEZ 100 [facility],[address], [address], [place] - [facility] 04/02/2025 13:40:25 5 Cerumen removal with microscope bilateral completed SCOTT VILLARREAL MD 100 [facility],[address], [address], [place] - [facility] 04/01/2025 16:05:18 4 Cerumen removal with microscope bilateral completed SCOTT VILLARREAL MD 100 [facility],[address], [address], [place] - [facility] 03/26/2024 10:08:28 Imaging Results None recorded. Procedure Notes None recorded. Medical Equipment None Reported. Allergies Allergen ID Allergen Name Allergen Category Reaction Reaction Severity Criticality Documentation Date Start Date Code Code System Note Provider Name and Address Organization Details Recorded Time 980163 Iodinated contrast media (substanc e) medicatio n Not available Not available Not available 03/26/2024 04577 2003 SNOMED Trinidad alexandra [place] - [facility] 4 09:43:16 173442 latex environme nt,medica tion Not available Not available Not available 03/26/2024 83464 91 RxNorm Trinidad alexandra [place] [facility] 4 09:43:28 606675 shellfish derived food,medi cation Not available Not available Not available 03/26/2024 Trinidad alexandra [facility] 4 09:43:36 45009 meperidin e hydrochlo ride medicatio n other Not available Not available 01/01/2024 79515 5 RxNorm React ion: unkno wn, unspe [...] mg tablet 04/22 completed Medicati on ID: [id number] P maria lrividhya d By Name: Leah [...] mg tablet 02/05 completed Medicati on ID: [id number] Du ration Value: 30 Reason: () Brand Name: topirama te Send Method: E-Prescr ibed Sub s Allowed: subs OK Medic ationGen ericName : topirama te Not Available Not Available Not Available ciproflox acin 500 mg tablet 1 tablet by mouth 03/26 completed Medicati on ID: [id number] D uration Value: 10 Prescri bed By [...] sustained -release 02/05 completed Medicati on ID: [id number] D uration Value: 30 Reason: () Brand [...] mg tablet 04/02 completed Medicati on ID: [id number] B rand Name: meclizin e Send Method: [...] topical solution 03/26 completed Medicati on ID: [id number] D uration Value: 14 Prescri bed By [...] topical cream 06/29 completed Medicati on ID: [id number] D uration Value: 30 Brand Name: ketocona [...] 24 hr 03/26 completed Medicati on ID: [id number] D uration Value: 90 Brand Name: metformi n Send Method: E-Prescr ibed Sub s Allowed: subs OK Medic ationGen ericName : metformi n Not Available Not Available Not Available Ciprodex 0.3 %-0.1 % ear drops,kumar pension 4 drop into right ear 03/26 completed Medicati on ID: [id number] D uration Value: 14 Prescri bed By [...] Updated DateTime 03/26/2024 190.5 cm 40 kg/m2 062308.56 g Trinidad Martinez [place] - [facility] 03/26/2024 09:37:58 Social History None recorded. Functional Status None recorded. Mental Status None recorded. Family History Nothing Reported. Medical History Condition Response Diabetes Y Hypertension Y High Cholesterol Y Past Encounters Encounter ID Performer Location Encounter Start Date Encounter Closed Date Diagnosis/Indication Diagnosis SNOMED-CT Code Diagnosis ICD10 Code Diagnosis IMO Codes Diagnosis Note [id number] SCOTT VILLARREAL MD [facility] [address] [address] 03/26/2024 09:16:33 03/26/2024 10:12:40 Hydrocephalus [id number] G91.9 Impacted c erumen of bilateral ears 2978390136 658697 H61.23 Patient will follow-up with physician assistant professor of life sciences in 1 year for cerumen disimpacti on in light of his tendency to impact cerumen due to hearing aid use. Sensorineu ral hearing loss of bilateral ears 902571663 H90.3 Patient's ears appear healthy today following disimpacti on of cerumen. He did not have time for updated audiometri c testing today. I recommende d he contact his audiologis t at the [facility] audiology group to check on his hearing aids and to update his audiometri c testing if indicated. Dizziness and giddiness 686169023 R42 Overall, the patient seems to be doing much better with regards to his balance issues. His residual symptoms are more consistent with postural hypotensio n than anything going on in his inner ear. I would still recommend proceeding with the neurologic al evaluation as recommende d by Dr. Granados in light of his medical history and presence of BUSINESS DEVELOPMENT MANAGER shunt. [id number] SCOTT VILLARREAL MD [facility] [address] [address] 04/02/2025 13:07:50 04/02/2025 13:58:13 Hydrocephalus 316783187 G91.9 Sensorineu ral hearing loss of bilateral ears 233917777 H90.3 Patient's ears appear healthy today following disimpacti on of cerumen. He did not have time for updated audiometri c testing today. I recommende d he contact his audiologis t at the [facility] audiology group to check on his hearing aids and to update his audiometri c testing if indicated. Impacted c erumen of bilateral ears 2327544724 417353 H61.23 Patient will follow-up in 1 year for cerumen disimpacti on in light of his tendency to impact cerumen due to hearing aid use. [id number] JUN GOMEZ [facility] [address] [address] 04/02/2025 13:36:36 04/16/2025 12:17:53 Sensorineural hearing loss of bilateral ears 428186855 H90.3 Right Ear:Modera tely-sever e SNHL with [...] Hay Member ID Guarantor Name 04/02/2025 2 [place] [facility] Sagar Huggins [id number] Sagar Huggins 04/02/2025 2 [place] [employer] Sagar Huggins [id number] Sagar Huggins 04/02/2025 1 [place] [employer] Sagar Huggins [id number] Sagar Huggins Notes Date Note Type Note [...] Currently wearing binaural amplification dispensed through [facility] audiology. Patient has noticed more [...] Patient did meet with Dr. Granados at [facility] neurosurgery who determined that his shunt [...] but no true vertigo SCOTT VILLARREAL MD [address] [place] [address], [address], [facility] - [facility] 03/26/2024 10:16:04 04/02/2025 text/html 59 year [...] Currently wearing binaural amplification dispensed through [facility] audiology. Patient has noticed more [...] Patient did meet with Dr. Granados at [facility] neurosurgery who determined that his shunt seemed to be functional. He did recommend neurological evaluation and this is scheduled for later in the year.Fortunately, patient reports that the severe dizziness symptoms that he was experiencing last year have mostly subsided. Patient has problems with cerumen accumulation and comes back for reevaluation and ear cleaning. Patient currently using binaural amplification managed through [facility] audiology. SCOTT VILLARREAL MD [address] [place] [address], [place], [address], [place] - [facility] 04/02/2025 13:56:51
--- OUTSIDE RECORDS SUMMARY | 2025-07-01 14:50 | XMS_ITS | Continuity of Care Document ---
Author Organization [place] - [facility] Formerly [facility], [facility] Address [address] [place] [address] Care Team Providers Care Core Driller Helper Name Role Phone JUAN ANTONIO LADD Primary [...] Abnormal Flag Note LastModifiedBy Organization Detail LastModifiedTime 04/02/20 25 audio gram No observ ation record ed. BARCODE Not Available 2024 15:09:02 Result Notes None recorded. Problems Name Problem SNOMED Code Status Onset Date Resolution Date Notes Provider Name and Address Organization Details Recorded Time Tinnitus 67816803 Active 2013 Tinnitus , unspecif ied; Note: Date Diagnose d: 06/04/20 14 11:48 AM (388.30) Not Available [facility] 4 02:36:57 Asymmetr ical sensorin eural hearing loss 899758843 Active 2014 Sensorin eural HL, asymmetr ic; Note: Date Diagnose d: 5 10:39 AM (389.16) Sensor ineural hearing los asymmetr ic; Note: Date Diagnose d: 06/04/20 14 11:48 AM (389.16) ; Start Date : 06/04/20 14 Not Available [facility] 4 02:37:09 Sensorin eural hearing loss of bilatera l ears 686759118 Active 2014 Hearing loss: Sensorin eural hearing loss, bilatera l; Note: Date Diagnose d: 06/04/20 14 11:16 AM (389.18) ; Start Date : 06/04/20 14 Senso rineural hearing loss, bilatera l; Note: Date Diagnose d: 06/08/20 15 9:17 AM (H90.3) Not Available [facility] 4 02:37:02 Sudden idiopath ic hearing loss 620764626 Active 2018 Sudden idiopath ic hearing loss, right ear; Note: Changed from H91.20 to H91.21 (02/06/20 19 12:29 PM) , Date Diagnose d: 9 9:51 AM (H91.20) Not Available [facility] 4 02:37:03 Disorder of right Eustachi an tube 24753662966 Active 2018 Other specifie d disorder s of Eustachi an tube, right ear; Note: Date Diagnose d: 9 9:20 AM (H69.81) Not Available [facility] 4 02:37:14 Impacted cerumen of bilatera l ears 48137845006 75220 Active 2019 Impacted cerumen, bilatera l; Note: Date Diagnose d: 0 3:42 PM (H61.23) Not Available [facility] 4 02:37:06 M ni re's disease 49851255 Active 2019 Meniere' s disease, right ear; Note: Date Diagnose d: 0 4:18 PM (H81.01) Not Available [facility] 4 02:37:10 Impacted cerumen in right ear 61197548009 Active 2020 Impacted cerumen, right ear; Note: Date Diagnose d: 1 11:16 AM (H61.21) Not Available [facility] 4 02:37:11 Dizzines s and giddines s 077807514 Active 2020 Vertigo NOS; Note: Date Diagnose d: 1 11:20 AM (R42) Not Available [facility] 4 02:37:07 Candidal otitis externa 16151672 Completed 202003/21/2024 Candidal otitis externa; Note: Date Diagnose d: 1 1:38 PM (B37.84) Not Available [facility] 4 02:36:57 Diffuse otitis externa 68839044 Completed 202003/21/2024 Diffuse otitis externa, right ear; Note: Date Diagnose d: 1 1:38 PM (H60.311 ) Not Available [facility] 4 02:37:03 Headache 92542563 Active 2022 Headache , unspecif ied; Note: Date Diagnose d: 3 11:13 AM (R51.9) Not Available [facility] 4 02:37:03 Type 2 diabetes mellitus without complica tion 779123241 Active 2022 Type 2 diabetes mellitus without complica tions; Note: Date Diagnose d: 3 11:09 AM (E11.9) Not Available [facility] 4 02:36:59 Hydrocep halus 841959844 Active 2022 Hydrocep halus, unspecif ied; Note: Date Diagnose d: 3 11:07 AM (G91.9) Not Available [facility] 4 02:37:10 Problem Notes None recorded. Procedures Surgical History Date Name Laterality Status Provider Name and Address Organization Details Recorded Time 5 Air & Speech Audio with Tymps - 26225, 73642 & 53018 completed JUN GOMEZ 100 [facility],[address], [address], [facility] - [facility] Former[facility] 04/02/2025 13:40:25 5 Cerumen removal with microscope bilateral completed SCOTT VILLARREAL MD [address] [place] [address],[address], [address], [facility] - [facility] 04/01/2025 16:05:18 4 Cerumen removal with microscope bilateral completed SCOTT VILLARREAL MD [address] [place] [address], [phone], [facility] 03/26/2024 10:08:28 Imaging Results None recorded. Procedure Notes None recorded. Medical Equipment None Reported. Allergies Allergen ID Allergen Name Allergen Category Reaction Reaction Severity Criticality Documentation Date Start Date Code Code System Note Provider Name and Address Organization Details Recorded Time 061214 Iodinated contrast media (substanc e) medicatio n Not available Not available Not available 03/26/2024 12167 2003 SNOMED Trinidad alexandra [facility] 4 09:43:16 396663 latex environme nt,medica tion Not available Not available Not available 03/26/2024 37660 91 RxNorm Trinidad alexandra [place] [facility] 4 09:43:28 349026 shellfish derived food,medi cation Not available Not available Not available 03/26/2024 Trinidad alexandra [facility] 4 09:43:36 39922 meperidin e hydrochlo ride medicatio n other Not available Not available 01/01/2024 36072 5 RxNorm React ion: unkno wn, unspe cifie d;; Not Available [facility] 4 01:03:53 Medications Name Sig [...] mg tablet 04/22 completed Medicati on ID: [id number] P rescribe d By Name: Scott Villarreal [...] mg tablet 02/05 completed Medicati on ID: [id number] Du ration Value: 30 Reason: () Brand Name: topirama te Send Method: E-Prescr ibed Sub s Allowed: subs OK Medic ationGen ericName : topirama te Not Available Not Available Not Available ciproflox acin 500 mg tablet 1 tablet by mouth 03/26 completed Medicati on ID: [id number] D uration Value: 10 Prescri bed By [...] sustained -release 02/05 completed Medicati on ID: [id number] D uration Value: 30 Reason: () Brand [...] mg tablet 04/02 completed Medicati on ID: [id number] B rand Name: meclizin e Send Method: [...] topical solution 03/26 completed Medicati on ID: [id number] D uration Value: 14 Prescri bed By Name: RUKHSANA Renner nd Name: clotrima zole Sen d Method: E-Prescr ibed Sub s [...] topical cream 06/29 completed Medicati on ID: [id number] D uration Value: 30 Brand Name: ketocona zole Xavier d Method: E-Prescr ibed Sub [...] 24 hr 03/26 completed Medicati on ID: [id number] D uration Value: 90 Brand Name: metformi n Send Method: E-Prescr ibed Sub s Allowed: subs OK Medic ationGen ericName : metformi n Not Available Not Available Not Available Ciprodex 0.3 %-0.1 % ear drops,kumar pension 4 drop into right ear 03/26 completed Medicati on ID: [id number] D uration Value: 14 Prescri bed By [...] Not Available Not Available Not Available Vitals None Recorded Social History None recorded. Functional Status None recorded. Mental Status None recorded. Family History Nothing Reported. Medical History Condition Response High Cholesterol Y Diabetes Y Hypertension Y Past Encounters Encounter ID Performer Location Encounter Start Date Encounter Closed Date Diagnosis/Indication Diagnosis SNOMED-CT Code Diagnosis ICD10 Code Diagnosis IMO Codes Diagnosis Note [id number] SCOTT VILLARREAL MD [facility] of [address] [address] 04/02/2025 13:07:50 04/02/2025 13:58:13 Hydrocephalus 619861801 G91.9 Sensorineu ral hearing loss of bilateral ears 736128810 H90.3 Patient's ears appear healthy today following disimpacti on of cerumen. He did not have time for updated audiometri c testing today. I recommende d he contact his audiologis t at the [facility] audiology group to check on his hearing aids and to update his audiometri c testing if indicated. Impacted c erumen of bilateral ears [id number] 825704 H61.23 Patient will follow-up in 1 year for cerumen disimpacti on in light of his tendency to impact cerumen due to hearing aid use. [id number] JUN GOMEZ [facility] [address] [place] [address] 04/02/2025 13:36:36 04/16/2025 12:17:53 Sensorineural hearing loss of bilateral ears 778976692 H90.3 Right Ear:Modera tely-sever e SNHL with [...] Hay Member ID Guarantor Name 04/02/2025 2 [place] [facility] Sagar Huggins [id number] Sagar Huggins 04/02/2025 1 [place]IC[place] B[place] [employer] Sagar Huggins [id number] Sagar Huggins Notes Date Note Type Note Provider Name and Address Organization Details Recorded Time 04/02/2025 text/html 59 year old diabetic male [...] injections. Currently wearing binaural amplification dispensed through [facility] audiology. Patient has noticed more recently [...] Patient did meet with Dr. Granados at [facility] neurosurgery who determined that his shunt seemed to be functional. He did recommend neurological evaluation and this is scheduled for later in the year.Fortunately, patient reports that the severe dizziness symptoms that he was experiencing last year have mostly subsided. Patient has problems with cerumen accumulation and comes back for reevaluation and ear cleaning. Patient currently using binaural amplification managed through [facility] audiology. SCOTT VILLARREAL MD [address] [place] [address], [phone], [facility] - [facility] 04/02/2025 13:56:51
--- OUTSIDE RECORDS SUMMARY | 2025-07-01 14:50 | XMS_ITS | Continuity of Care Document ---
Author Organization [place] - [facility], [facility] Address [address] [place] [address] Care Team Providers Care Fruit Stuffer Name Role Phone JUAN ANTONIO LADD Primary [...] and Address Organization Details Recorded Time Tinnitus 29987301 Active 2013 Tinnitus , unspecif ied; Note: Date Diagnose d: 06/04/20 14 11:48 AM (388.30) Not Available [facility] 4 02:36:57 Asymmetr ical sensorin eural hearing loss 122622737 Active 2014 Sensorin eural HL, asymmetr ic; Note: Date Diagnose d: 5 10:39 AM (389.16) Sensor ineural hearing los asymmetr ic; Note: Date Diagnose d: 06/04/20 14 11:48 AM (389.16) ; Start Date : 06/04/20 14 Not Available [facility] 4 02:37:09 Sensorin eural hearing loss of bilatera l ears 016781677 Active 2014 Hearing loss: Sensorin eural hearing loss, bilatera l; Note: Date Diagnose d: 06/04/20 14 11:16 AM (389.18) ; Start Date : 06/04/20 14 Senso rineural hearing loss, bilatera l; Note: Date Diagnose d: 06/08/20 15 9:17 AM (H90.3) Not Available [facility] 4 02:37:02 Sudden idiopath ic hearing loss 620778697 Active 2018 Sudden idiopath ic hearing loss, right ear; Note: Changed from H91.20 to H91.21 (02/06/20 19 12:29 PM) , Date Diagnose d: 9 9:51 AM (H91.20) Not Available [facility] 4 02:37:03 Disorder of right Eustachi an tube 53059729058 Active 2018 Other specifie d disorder s of Eustachi an tube, right ear; Note: Date Diagnose d: 9 9:20 AM (H69.81) Not Available [facility] 4 02:37:14 Impacted cerumen of bilatera l ears 98320539014 06352 Active 2019 Impacted cerumen, bilatera l; Note: Date Diagnose d: 0 3:42 PM (H61.23) Not Available [facility] 4 02:37:06 M ni re's disease 18650452 Active 2019 Meniere' s disease, right ear; Note: Date Diagnose d: 0 4:18 PM (H81.01) Not Available [facility] 4 02:37:10 Impacted cerumen in right ear 20943983254 Active 2020 Impacted cerumen, right ear; Note: Date Diagnose d: 1 11:16 AM (H61.21) Not Available [facility] 4 02:37:11 Dizzines s and giddines s 163678411 Active 2020 Vertigo NOS; Note: Date Diagnose d: 1 11:20 AM (R42) Not Available [facility] 4 02:37:07 Candidal otitis externa 95536989 Completed 202003/21/2024 Candidal otitis externa; Note: Date Diagnose d: 1 1:38 PM (B37.84) Not Available [facility] 4 02:36:57 Diffuse otitis externa 02935800 Completed 202003/21/2024 Diffuse otitis externa, right ear; Note: Date Diagnose d: 1 1:38 PM (H60.311 ) Not Available [facility] 4 02:37:03 Headache 65302599 Active 2022 Headache , unspecif ied; Note: Date Diagnose d: 3 11:13 AM (R51.9) Not Available [facility] 4 02:37:03 Type 2 diabetes mellitus without complica tion 774599565 Active 2022 Type 2 diabetes mellitus without complica tions; Note: Date Diagnose d: 3 11:09 AM (E11.9) Not Available [facility] 4 02:36:59 Hydrocep halus 581077950 Active 2022 Hydrocep halus, unspecif ied; Note: Date Diagnose d: 3 11:07 AM (G91.9) Not Available [facility] 4 02:37:10 Problem Notes None recorded. Procedures Surgical History Date Name Laterality Status Provider Name and Address Organization Details Recorded Time 5 Air & Speech Audio with Tymps - 50911, 21478 & 82947 completed JUN GOMEZ 100 [facility],[address], [address], [facility] - [facility] 04/02/2025 13:40:25 5 Cerumen removal with microscope bilateral completed SCOTT VILLARREAL MD [address] [place] [address],[address], [address], [facility] - [facility] 04/01/2025 16:05:18 4 Cerumen removal with microscope bilateral completed SCOTT VILLARREAL MD [address] [place] [address], [phone], [facility] 03/26/2024 10:08:28 Imaging Results None recorded. Procedure Notes None recorded. Medical Equipment None Reported. Allergies Allergen ID Allergen Name Allergen Category Reaction Reaction Severity Criticality Documentation Date Start Date Code Code System Note Provider Name and Address Organization Details Recorded Time 948105 Iodinated contrast media (substanc e) medicatio n Not available Not available Not available 03/26/2024 06147 2003 SNOMED Trinidad alexandra [facility] 4 09:43:16 418312 latex environme nt,medica tion Not available Not available Not available 03/26/2024 38503 91 RxNorm Trinidad alexandra [place] [facility] 4 09:43:28 369943 shellfish derived food,medi cation Not available Not available Not available 03/26/2024 Trinidad alexandra [facility] 4 09:43:36 85436 meperidin e hydrochlo ride medicatio n other Not available Not available 01/01/2024 76724 5 RxNorm React ion: unkno wn, unspe cifie d;; Not Available [facility] 4 01:03:53 Medications Name Sig Start [...] mg tablet 04/22 completed Medicati on ID: [id number] P rescribe d By Name: Scott Villarreal [...] mg tablet 02/05 completed Medicati on ID: [id number] Du ration Value: 30 Reason: () Brand Name: topirama te Send Method: E-Prescr ibed Sub s Allowed: subs OK Medic ationGen ericName : topirama te Not Available Not Available Not Available ciproflox acin 500 mg tablet 1 tablet by mouth 03/26 completed Medicati on ID: [id number] D uration Value: 10 Prescri bed By [...] sustained -release 02/05 completed Medicati on ID: [id number] D uration Value: 30 Reason: () Brand [...] mg tablet 04/02 completed Medicati on ID: [id number] B rand Name: meclizin e Send Method: [...] topical solution 03/26 completed Medicati on ID: [id number] D uration Value: 14 Prescri bed By [...] topical cream 06/29 completed Medicati on ID: [id number] D uration Value: 30 Brand Name: ketocona [...] 24 hr 03/26 completed Medicati on ID: [id number] D uration Value: 90 Brand Name: metformi n Send Method: E-Prescr ibed Sub s Allowed: subs OK Medic ationGen ericName : metformi n Not Available Not Available Not Available Ciprodex 0.3 %-0.1 % ear drops,kumar pension 4 drop into right ear 03/26 completed Medicati on ID: [id number] D uration Value: 14 Prescri bed By [...] ICD10 Code Diagnosis IMO Codes Diagnosis Note [id number] SCOTT VILLARREAL MD [facility] of [address] [address] 04/02/2025 13:07:50 04/02/2025 13:58:13 Hydrocephalus 787731234 G91.9 Sensorineu ral hearing loss of bilateral ears 286040725 H90.3 Patient's ears appear healthy today following disimpacti on of cerumen. He did not have time for updated audiometri c testing today. I recommende d he contact his audiologis t at the [facility] audiology group to check on his hearing aids and to update his audiometri c testing if indicated. Impacted c erumen of bilateral ears 6314291051 277361 H61.23 Patient will follow-up in 1 year for cerumen disimpacti on in light of his tendency to impact cerumen due to hearing aid use. [id number] JUN GOMEZ [facility] of [facility] [address] [place] [address] 04/02/2025 13:36:36 04/16/2025 12:17:53 Sensorineural hearing loss of bilateral ears 079312368 H90.3 Right Ear:Modera tely-sever e SNHL with [...] Member ID Guarantor Name 04/02/2025 2 [place] [facility] Sagar Huggins [id number] Sagar Huggins 04/02/2025 1 MEDICARE B-[place] NATIONAL [employer] [facility] Sagar Huggins [id number] Sagar Huggins Notes Date Note Type Note [...] injections. Currently wearing binaural amplification dispensed through [facility] audiology. Patient has noticed more recently [...] Patient did meet with Dr. Granados at [facility] neurosurgery who determined that his shunt seemed to be functional. He did recommend neurological evaluation and this is scheduled for later in the year.Fortunately, patient reports that the severe dizziness symptoms that he was experiencing last year have mostly subsided. Patient has problems with cerumen accumulation and comes back for reevaluation and ear cleaning. Patient currently using binaural amplification managed through [facility] audiology. SCOTT VILLARREAL MD [address] [place] [address], [phone], [facility] - [facility] 04/02/2025 13:56:51
== END 2025-07-01 11:59 | disposition home or self-care (01) ==
LOC: HO.HAP 11:58
PROVIDERS: Visit Provider Nurse Practitioner Family
DX: Z13.89 Encounter for screening for other disorder (principal)

== ENCOUNTER 2025-08-18 12:10 | Outpatient (REF) | payer MEDICARE, MEDICAID, SELFPAY ==
--- OUTSIDE RECORDS SUMMARY | 2025-08-18 16:10 | XMS_ITS | Data Portability ---
Author Organization [place] - [facility], Allergy Address [address] [address] Care Team Providers Care Corporate Communications Intern Name Role Phone JUAN ANTONIO LADD Primary [...] and Address Organization Details Recorded Time Tinnitus [id number] Active 2013 Tinnitus , unspecif ied; Note: Date Diagnose d: 06/04/20 14 11:48 AM (388.30) Not Available [facility] 4 02:36:57 Asymmetr ical sensorin eural hearing loss 943315708 Active 2014 Sensorin eural HL, asymmetr ic; Note: Date Diagnose d: 5 10:39 AM (389.16) Sensor ineural hearing los asymmetr ic; Note: Date Diagnose d: 06/04/20 14 11:48 AM (389.16) ; Start Date : 06/04/20 14 Not Available [facility] 4 02:37:09 Sensorin eural hearing loss of bilatera l ears 689777962 Active 2014 Hearing loss: Sensorin eural hearing loss, bilatera l; Note: Date Diagnose d: 06/04/20 14 11:16 AM (389.18) ; Start Date : 06/04/20 14 Senso rineural hearing loss, bilatera l; Note: Date Diagnose d: 06/08/20 15 9:17 AM (H90.3) Not Available [facility] 4 02:37:02 Sudden idiopath ic hearing loss 260117647 Active 2018 Sudden idiopath ic hearing loss, right ear; Note: Changed from H91.20 to H91.21 (02/06/20 19 12:29 PM) , Date Diagnose d: 9 9:51 AM (H91.20) Not Available [facility] 4 02:37:03 Disorder of right Eustachi an tube 61891439612 04730 Active 2018 Other specifie d disorder s of Eustachi an tube, right ear; Note: Date Diagnose d: 9 9:20 AM (H69.81) Not Available [facility] 4 02:37:14 Impacted cerumen of bilatera l ears 14554684976 47743 Active 2019 Impacted cerumen, bilatera l; Note: Date Diagnose d: 0 3:42 PM (H61.23) Not Available [facility] 4 02:37:06 M ni re's disease 64101034 Active 2019 Meniere' s disease, right ear; Note: Date Diagnose d: 0 4:18 PM (H81.01) Not Available [facility] 4 02:37:10 Impacted cerumen in right ear 75666432159 51088 Active 2020 Impacted cerumen, right ear; Note: Date Diagnose d: 1 11:16 AM (H61.21) Not Available [facility] 4 02:37:11 Dizzines s and giddines s 898191782 Active 2020 Vertigo NOS; Note: Date Diagnose d: 1 11:20 AM (R42) Not Available [facility] 4 02:37:07 Candidal otitis externa 98822781 Completed 202003/21/2024 Candidal otitis externa; Note: Date Diagnose d: 1 1:38 PM (B37.84) Not Available [facility] 4 02:36:57 Diffuse otitis externa 73144351 Completed 202003/21/2024 Diffuse otitis externa, right ear; Note: Date Diagnose d: 1 1:38 PM (H60.311 ) Not Available [facility] 4 02:37:03 Headache 04624594 Active 2022 Headache , unspecif ied; Note: Date Diagnose d: 3 11:13 AM (R51.9) Not Available [facility] 4 02:37:03 Type 2 diabetes mellitus without complica tion 696950501 Active 2022 Type 2 diabetes mellitus without complica tions; Note: Date Diagnose d: 3 11:09 AM (E11.9) Not Available [facility] 4 02:36:59 Hydrocep halus 795846416 Active 2022 Hydrocep halus, unspecif ied; Note: Date Diagnose d: 3 11:07 AM (G91.9) Not Available [facility] 4 02:37:10 Problem Notes None recorded. Procedures Surgical History Date Name Laterality Status Provider Name and Address Organization Details Recorded Time 5 Air & Speech Audio with Tymps - 31632, 00769 & 99735 completed JUN GOMEZ [address] [facility],[address], [address], [place] - [facility] 04/02/2025 13:40:25 5 Cerumen removal with microscope bilateral completed SCOTT VILLARREAL MD [address] [facility],[address], [address], [place] - [facility] 04/01/2025 16:05:18 4 Cerumen removal with microscope bilateral completed SCOTT VILLARREAL MD [address] [facility],[address], [address], [place] - [facility] 03/26/2024 10:08:28 Imaging Results None recorded. Procedure Notes None recorded. Medical Equipment None Reported. Allergies Allergen ID Allergen Name Allergen Category Reaction Reaction Severity Criticality Documentation Date Start Date Code Code System Note Provider Name and Address Organization Details Recorded Time 992619 Iodinated contrast media (substanc e) medicatio n Not available Not available Not available 03/26/2024 02658 2003 SNOMED Trinidad alexandra [place] - [facility] 4 09:43:16 502469 latex environme nt,medica tion Not available Not available Not available 03/26/2024 59484 91 RxNorm Trinidad alexandra [place] [facility] 4 09:43:28 017037 shellfish derived food,medi cation Not available Not available Not available 03/26/2024 Trinidad alexandra [facility] 4 09:43:36 59712 meperidin e hydrochlo ride medicatio n other Not available Not available 01/01/2024 26079 5 RxNorm React ion: unkno wn, unspe [...] mg tablet 04/22 completed Medicati on ID: [id number] P maria lrividhya d By Name: Leah [...] mg tablet 02/05 completed Medicati on ID: [id number] Du ration Value: 30 Reason: () Brand Name: topirama te Send Method: E-Prescr ibed Sub s Allowed: subs OK Medic ationGen ericName : topirama te Not Available Not Available Not Available ciproflox acin 500 mg tablet 1 tablet by mouth 03/26 completed Medicati on ID: [id number] D uration Value: 10 Prescri bed By [...] sustained -release 02/05 completed Medicati on ID: [id number] D uration Value: 30 Reason: () Brand [...] mg tablet 04/02 completed Medicati on ID: [id number] B rand Name: meclizin e Send Method: [...] topical solution 03/26 completed Medicati on ID: [id number] D uration Value: 14 Prescri bed By [...] topical cream 06/29 completed Medicati on ID: [id number] D uration Value: 30 Brand Name: ketocona [...] 24 hr 03/26 completed Medicati on ID: [id number] D uration Value: 90 Brand Name: metformi n Send Method: E-Prescr ibed Sub s Allowed: subs OK Medic ationGen ericName : metformi n Not Available Not Available Not Available Ciprodex 0.3 %-0.1 % ear drops,kumar pension 4 drop into right ear 03/26 completed Medicati on ID: [id number] D uration Value: 14 Prescri bed By [...] Updated DateTime 03/26/2024 190.5 cm 40 kg/m2 231779.56 g Trinidad Martinez [place] - [facility] 03/26/2024 09:37:58 Social History None recorded. Functional Status None recorded. Mental Status None recorded. Family History Nothing Reported. Medical History Condition Response Diabetes Y Hypertension Y High Cholesterol Y Past Encounters Encounter ID Performer Location Encounter Start Date Encounter Closed Date Diagnosis/Indication Diagnosis SNOMED-CT Code Diagnosis ICD10 Code Diagnosis IMO Codes Diagnosis Note [id number] SCOTT VILLARREAL MD [facility] [address] [address] 03/26/2024 09:16:33 03/26/2024 10:12:40 Hydrocephalus 845039561 G91.9 Impacted c erumen of bilateral ears [id number] 483045 H61.23 Patient will follow-up with physician assistant professor of anthropology in 1 year for cerumen disimpacti on in light of his tendency to impact cerumen due to hearing aid use. Sensorineu ral hearing loss of bilateral ears 355021241 H90.3 Patient's ears appear healthy today following disimpacti on of cerumen. He did not have time for updated audiometri c testing today. I recommende d he contact his audiologis t at the [facility] audiology group to check on his hearing aids and to update his audiometri c testing if indicated. Dizziness and giddiness 132676814 R42 Overall, the patient seems to be doing much better with regards to his balance issues. His residual symptoms are more consistent with postural hypotensio n than anything going on in his inner ear. I would still recommend proceeding with the neurologic al evaluation as recommende d by Dr. Granados in light of his medical history and presence of BARREL CHARRER shunt. [id number] SCOTT VILLARREAL MD [facility] [address] [address] 04/02/2025 13:07:50 04/02/2025 13:58:13 Hydrocephalus [id number] G91.9 Sensorineu ral hearing loss of bilateral ears 213833826 H90.3 Patient's ears appear healthy today following disimpacti on of cerumen. He did not have time for updated audiometri c testing today. I recommende d he contact his audiologis t at the [facility] audiology group to check on his hearing aids and to update his audiometri c testing if indicated. Impacted c erumen of bilateral ears 8037343285 978169 H61.23 Patient will follow-up in 1 year for cerumen disimpacti on in light of his tendency to impact cerumen due to hearing aid use. [id number] JUN GOMEZ [facility] [address] [address] 04/02/2025 13:36:36 04/16/2025 12:17:53 Sensorineural hearing loss of bilateral ears 163090979 H90.3 Right Ear:Modera tely-sever e SNHL with [...] Hay Member ID Guarantor Name 04/02/2025 2 [place] [facility] Sagar Huggins [id number] Sagar Huggins 04/02/2025 2 [place]: [employer] Sagar Huggins [id number] Sagar Huggins 04/02/2025 1 [place] [employer] Sagar uHggins [id number] Sagar Huggins Notes Date Note Type Note [...] injections. Currently wearing binaural amplification dispensed through [facility] audiology. Patient has noticed more recently [...] no true vertigo SCOTT VILLARREAL MD [address] [place] [address], [phone], [facility] - [facility] 03/26/2024 10:16:04 04/02/2025 text/html 59 year old [...] injections. Currently wearing binaural amplification dispensed through [facility] audiology. Patient has noticed more recently [...] Patient currently using binaural amplification managed through [facility] audiology. SCOTT VILLARREAL MD [address] [place] [address], [place], [address], [place] - [facility] 04/02/2025 13:56:51
== END 2025-08-18 12:11 | disposition home or self-care (01) ==
LOC: HO.HAP 12:10
PROVIDERS: Visit Provider Otolaryngology
DX: Z46.1 Encounter for fitting and adjustment of hearing aid (principal)
CPT/HCPCS: V5014; V5264

== ENCOUNTER 2025-08-18 12:28 | Outpatient (REF) | payer SELFPAY | END 2025-08-18 12:29 | disposition home or self-care (01) | LOC: HO.HAP 12:28 | PROVIDERS: Visit Provider Nurse Practitioner Family | DX: Z46.1 Encounter for fitting and adjustment of hearing aid (principal) | CPT/HCPCS: V5267 ==

== ENCOUNTER 2025-08-19 10:59 | Outpatient (AMB) | payer MEDICARE, MEDICAID, SELFPAY ==
--- NOTE | 2025-08-19 11:10 | A.OFFVIS_ITS ---
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 Accompanied by: Self / Same As Patient Allergies Iodinated Contrast Media (IV Contrast Dye) Allergy (Verified 08/19/25 11:47) Unknown latex Allergy (Verified 08/19/25 11:47) Unknown meperidine (From Demerol) Allergy (Verified 08/19/25 11:47) Unknown shellfish derived Allergy (Verified 08/19/25 11:47) Unknown Medication List - Last Reconciled 08/19/25 by KRISTIE Escoto albuterol sulfate 90 mcg/actuation 2 puffs inhalation Q6H PRN 30 days aspirin (Adult Aspirin Regimen) 81 mg PO DAILY blood sugar diagnostic (ADEA Cuttersuch Verio test strips) test blood sugar once a day blood-glucose meter (ADEA [employer] Verio Flex Meter) As directed bupropion HCl XL 300 mg PO QAM cholecalciferol (vitamin D3) 50 mcg PO DAILY clotrimazole-betamethasone 1-0.05 % 1 appl topical BID 2 weeks empagliflozin 25 mg PO DAILY 30 days finasteride 5 mg PO .every other day 90 days fluticasone propionate 50 mcg/actuation sprays intranasal fxrfqvurpad-bzhdgbedx-nlnnljaf 100-62.5-25 mcg (Trelegy Ellipta) 1 inh inhalation DAILY lancets (ADEA [employer]uch Delica Plus Lancet) Test blood sugar once a day lisinopril-hydrochlorothiazide 20-25 mg 1 tab PO DAILY 90 days magnesium oxide 400 mg PO DAILY 3 months MDD 400mg mecobal-levomefolat Ca-B6 phos 2-3-35 mg (Metanx FC) 1 cap PO DAILY 3 months MDD 1 capsule mecobalamin (vitamin B12) 1,000 mcg PO DAILY 2 months MDD 1000mcg metformin ER 1,000 mg (2 x 500 mg) PO BID 90 days rosuvastatin 20 mg PO DAILY 90 days semaglutide (Ozempic) 2 mg (0.75 mL) subcut QWEEK HPI Comments Details: Sagar is a very pleasant 59-year-old male patient of Dr. Tomlinson. He has a past medical history of hydrocephalus, hypercholesteremia, hypertension, diabetes, Meniere's disease, vertigo, and hearing impairment. He presents to the office today for follow-up. In discussion with the patient today reports to be doing and feeling well. He denies having had any bothersome urinary issues or concerns since his last office visit here. He reports compliance with finasteride as prescribed. Most recent PSA results reviewed with the patient today. As noted and trended below. Previous workup has included a retroperitoneal ultrasound 04/12 noting bilateral kidneys are normal in size and echogeicity. No renal calculi or hydronephrosis noted. The bladder is well distended. Pre void bladder volume is proximally 400 mL. Postvoid bladder volume is proximally 40 mL the prostate appears small not well visualized. PSAs: 06/09 0.3, 09/11 0.1, 01/09 <0.10, 10/13 0.1, 06/13 0.2 A1c: 07/14 6.8% He does report noting intermittent episodes of urinary urgency and frequency and weak urinary stream however feels these are not bothersome and is managing them well independently. He otherwise denies incontinence, nocturia, hematuria, dysuria, foul smelling urine, flank pain, fever, and or chills. In office urinalysis results with the patient today. PVR 0 ml. He discusses the loss of his 3 years ago to colon cancer. He also discusses taking care of his grandchildren 1 day a week. He discusses recently getting over a cold. He otherwise offers no other issues or concerns at this time. 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 H/O colonoscopy Family History Mother Brain malignant neoplasm Social History Housing: Apartment Alcohol intake: former Patient Tobacco Use Status: Former Tobacco user Years Smoked: 31 years ago e-Cigarette/Vaping Use: Never Used Second Hand Smoke Exposure: No service: No Current occupational status: retired and disabled Cognitive needs: No Hearing needs: No Vision needs: No Review of Systems Const Reports no additional complaints Eyes Reports no additional complaints ENT Reports as per HPI Card Reports as per HPI Resp Reports as per HPI GI Reports no additional complaints Reports as per HPI Musc Reports no additional complaints Neuro Reports as per HPI Psych Reports no additional complaints Endo Reports as per HPI Luis/Lymph Reports no additional complaints Aller/Immun Reports no additional complaints Physical Exam Const General: cooperative, comfortable, no acute distress, well developed, alert and awake Nutritional Appearance: overweight Orientation/consciousness: patient oriented x3 Limitations: no limitations HEENT Head: Yes normal to inspection, Yes normocephalic and Yes atraumatic Ears: hearing grossly normal bilaterally Eyes General: appearance normal, both eyes and all related structures Neck Neck: Yes normal visual inspection and Yes trachea midline Chest Chest palpation & inspection: normal inspection of the chest Resp Effort & Inspection: normal respiratory effort and able to speak in complete sentences Cardio Rate: regular rate GI Inspection: Yes normal to inspection General: Yes no CVA tenderness Back/Spine/Pelvis Back: no CVA tenderness Skin General skin exam: no rashes or lesions noted Neuro General: patient oriented x3 Extrem General: Yes normal to inspection Psych Appearance: grossly normal and well kempt Mental Status: mental status grossly normal Speech and movement: Normal speech and movement present and Clear speech present Affect: normal affect Attitude: cooperative Thought process: Normal thought process present Thought content: Normal thought content present Insight: Fair insight present (Psych) Judgement: Fair judgement present (Psych) Office Procedures Post Void Residual Post Residual Void Post Void Residual (PVR): 0 50769-Ydme Void Residual by ultrasound Results AMB Urinalysis, Automated UA Leukoctes 0 Josr/uL Last Edit by RADHIKA Coles on 08/19/25 11:25 UA Nitrite Negative Last Edit by [facility] on 08/19/25 11:25 UA Urobilinogen 0.2 mg/dL Last Edit by Angle Serrano [facility] on 08/19/25 11:2 5 UA Protein 0 mg/dL Last Edit by Angle Serrano [facility] on 08/19/25 11:25 UA pH 6.0 Last Edit by Angle Serrano [facility] on 08/19/25 11:25 UA Blood 0 Raz/uL Last Edit by Angle Serrano [facility] on 08/19/25 11:25 UA Specific Divide 1.020 Last Edit by Angle Serrano [facility] on 08/19/25 11: 25 UA Ketone Negative Last Edit by Angle Serrano [facility] on 08/19/25 11:25 UA Bilirubin 0 mg/dL Last Edit by Angle Serarno [facility] on 08/19/25 11:25 UA Glucose 1000 mg/dL Last Edit by Angle Serrano [facility] on 08/19/25 11:25 Results Reviewed Results Reviewed: Laboratory Last Values Urine pH (Auto) 6.0 08/19/25 11:15 Specific Divide (Auto) 1.020 08/19/25 11:15 Urine Protein (Auto) 0 mg/dL 08/19/25 11:15 Glucose (UA)(Auto) 1000 mg/dL 08/19/25 11:15 Urine Ketones (Auto) Negative 08/19/25 11:15 Urine Blood (Auto) 0 Raz/uL 08/19/25 11:15 Urine Nitrite (Auto) Negative 08/19/25 11:15 Urine Bilirubin (Auto) 0 mg/dL 08/19/25 11:15 Urine Urobilinogen (Auto) 0.2 mg/dL 08/19/25 11:15 Leukocyte Esterase (Auto) 0 Josr/uL 08/19/25 11:15 Assessment & Plan Assessment & Plan (1) Lower urinary tract symptoms: Code(s): R39.9 - Unspecified symptoms and signs involving the genitourinary system Category: Medical (2) Weak urinary stream: Code(s): R39.12 - Poor urinary stream Category: Medical (3) Urinary frequency: Code(s): R35.0 - Frequency of micturition Category: Medical Plan In office urinalysis results reviewed with the patient today; as noted above. PVR 0mL. Recent PSA results reviewed with the patient today; as noted above. Discussed, educated, and stressed the importance of managing diabetes for improvement lower urinary tract symptoms as well as overall health and well- being. Discussed alpha-javier;however patient feels he is independently managing lower urinary tract symptoms and does not find them bothersome at this time. Discussed bladder triggers/irritants. Continue finasteride; discussed taking Sunday. Will obtain PSA in 1 year Follow-up in 1 year with PVR and PSA;or sooner with any issues, concerns, and or questions. Orders: Orders AMB Urinalysis Automated Today Z13.9 - Encounter for screening, unspecified Prostate Specific Antigen 1 Year Z12.5 - Encounter for screening for malignant neoplasm of prostate Medications: Changed From finasteride 5 mg PO DAILY 90 tabs 1RF To finasteride To be taken every other day 5 mg PO .every other day 45 tabs 3RF 90 days Discontinued doxycycline hyclate Discontinued Reason: Patient Completed Course 100 mg PO BID 10 days 20 tabs 0RF amoxicillin-pot clavulanate 875-125 mg Discontinued Reason: Patient Completed Course 1 tab PO BID 10 days 20 tabs 0RF Patient Instructions: The patient had an opportunity to ask questions regarding the treatment plan. All questions were answered. Physical exam, labs, and imaging were discussed and reviewed in detail. As well as risks, benefits, and discussion of treatment choices. No major barriers to understanding were identified. The patient expressed understanding and agreement with the above treatment plan. The patient was made aware they should contact our office by phone for worsening of their current condition, the appearance of new symptoms, or with any questions or concerns. Compliance is encouraged with any medications and follow up testing that is ordered. It is a privilege to be allowed the opportunity to participate in? your urological care.? Again, if you have any questions or concerns If you have any questions or concerns please do not hesitate to contact me. The office is [phone]. This note is constructed using voice recognition software. While every effort has been made to ensure accuracy home coordinator errors may have been included. Yours sincerely, BOB Escoto-BC Coding Level of Care Code Est Pt Level 3 (80061) Add On Problem Visit Only Diagnoses Lower urinary tract symptoms R39.9 Weak urinary stream R39.12 Urinary frequency R35.0 CPT Codes Post Residual Void - PVR CPT Code: 22437-Ksbn Void Residual by ultrasound ([id number])
== END 2025-08-19 11:54 | disposition home or self-care (01) ==
LOC: HO.HUSH 11:00
PROVIDERS: PCP Nurse Practitioner Family; Visit Provider Nurse Practitioner Family
DX: R39.9 Unspecified symptoms and signs involving the genitourinary system (principal); R39.12 Poor urinary stream; R35.0 Frequency of micturition; Z13.9 Encounter for screening, unspecified
CPT/HCPCS: 99213; G2211

== ENCOUNTER → 2025-08-19 10:59 | Outpatient (BNVA) | payer MEDICARE, MEDICAID, SELFPAY | PROVIDERS: PCP Nurse Practitioner Family; Visit Provider Nurse Practitioner Family | DX: R97.20 Elevated prostate specific antigen [PSA] (principal); R39.9 Unspecified symptoms and signs involving the genitourinary system; R39.12 Poor urinary stream; R35.0 Frequency of micturition | CPT/HCPCS: 51798; 81003; 99212 ==